=== PATIENT | female | born 1990 | race Two or more races ===

== ENCOUNTER 2024-10-02 00:08 | Emergency (ER) | payer BC, SELFPAY ==
--- NOTE | 2024-10-02 | ECG_ITS ---
Test Reason : ABD PAIN Blood Pressure : */* mmHG Vent. Rate : 64 BPM Atrial Rate : 64 BPM P-R Int : 154 ms QRS Dur : 76 ms QT Int : 408 ms P-R-T Axes : 32 18 17 degrees QTcB Int : 420 ms Normal sinus rhythm Normal ECG No previous ECGs available Referred By: Generic ED Physician Electronically Signed By: Surjit Durbin
--- NOTE | ~2024-10-02 | US_ITS ---
CLINICAL HISTORY: epigastric, RUQ pain US abdomen limited Comparison: None Findings: Images submitted of the gallbladder and biliary tree. Limited views of the liver demonstrate normal echotexture. There is no intrahepatic bile duct dilatation. The common duct is 5 mm in diameter. The gallbladder contains sludge without shadowing stone. No wall thickening or Mon's sign. No ascites. IMPRESSION: 1. Biliary sludge without evidence of acute cholecystitis. This document has been electronically signed by: Elvira Bhandari MD on 10/02/2024 06:06:12
--- NOTE | ~2024-10-02 | CT_ITS ---
CLINICAL HISTORY: bilateral flank pain, hx kidney stones CT abdomen and pelvis without contrast Comparison: None Findings: No consolidation or effusion. There is a suggestion of mild gallbladder wall thickening. The solid organs are unremarkable in appearance. and solid organs are within normal limits. No renal stones. No bowel obstruction, pneumoperitoneum, or pneumatosis. Pelvic contents unremarkable. Normal appendix. The bones are intact. IMPRESSION: 1. Suggestion of mild gallbladder wall thickening, which may be seen in the setting of acute cholecystitis. Clinical correlation is advised. Recommend gallbladder ultrasound examination and/or nuclear medicine HIDA scan for further evaluation. Two. No radiopaque renal calculi, hydronephrosis, or hydroureter. This document has been electronically signed by: Deepak Dawson MD on 10/02/2024 04:34:33
[2024-10-02 00:28] VITALS: BP 157/97; PULSE 80; RESP 16; TEMP 36.6; O2SAT 98; BMI 33.8
[2024-10-02 01:20] LABS: Basophils Percent Auto 0.3 % (0-2); Eosinophils Absolute Auto 0.6 X10*3/uL (0.0-0.4); Eosinophils Percent Auto 6.5 % (0-4); Hematocrit 36.8 % (37.0-47.0); Hemoglobin 12.3 g/dl (12.0-16.0); Imm Gran Abs Auto 0.02 X10*3/uL (0.00-0.03); Imm Gran Pct Auto 0.2 % (0.0-0.4); Lymphocytes Absolute Auto 2.9 X10*3/uL (1.2-4.9); MANUAL DIFF FLAG NO; Mean Corpuscular HGB Conc 33.4 g/dl (31.0-35.0); Mean Corpuscular Hemoglobin 28.3 pg (27.0-33.0); Mean Corpuscular Volume 84.8 fL (80.0-98.0); Mean Platelet Volume 9.5 fL (9.4-12.3); Monocytes Absolute Auto 0.6 X10*3/uL (0.1-1.2); Monocytes Percent Auto 6.9 % (2-11); Neutrophils Absolute Auto 4.6 x10*3/uL (2.0-8.3); Neutrophils Percent Auto 53.1 % (45-73); Platelet Count 231 X10*3/uL (160-400); Red Blood Count 4.34 X10*6/uL (4.20-5.50); Red Cell Distribution Width 12.7 % (11.0-16.0); White Blood Count 8.7 X10*3/uL (4.8-10.8)
[2024-10-02 01:37] LABS: Alanine Aminotransferase 26 U/L (0-31); Albumin Level 4.1 g/dL (3.5-5.0); Anion Gap 13 (12-20); Aspartate Amino Transferase 22 U/L (5-31); Bilirubin Total 0.2 mg/dL (0.0-1.0); Blood Urea Nitrogen 17 mg/dL (9-16); Calcium 9.4 mg/dL (8.4-10.2); Carbon Dioxide 23 mmol/L (22-29); Chloride 107 mmol/L (96-108); Creatinine Clr Calc Pharmacy 103.8; Estimated Glomerular Filt Rate > 60; Glucose Random 101 mg/dL (60-115); Lipase 40 U/L (8-78); Sodium 139 mmol/L (135-145); Total Protein 7.8 g/dL (6.5-8.0)
[2024-10-02 01:41] LABS: Alkaline Phosphatase 52 U/L (39-117)
[2024-10-02 01:44] LABS: Troponin-I High Sensitivity < 2.7 ng/L (<3.5-17.0)
[2024-10-02 02:56] LABS: HCG Quantitative < 2 mIU/mL
[2024-10-02 03:01] LABS: Appearance Urine Clear; Color Urine Yellow; Glucose Urine UA Negative (Negative); Leukocyte Esterase Urine Negative (Negative); Nitrite Urine Negative (Negative); Specific Gravity - Urine 1.015 (1.005-1.025); Urine Blood Negative (Negative); Urine Ketones Negative (Negative); Urine Protein Negative (Neg-Trace)
[2024-10-02 03:03] LABS: Bacteria Urine None Seen (None Seen); Hyaline Casts Urine 0-2 /LPF (0-2); RBC Urine 0-2 /HPF (0-2); WBC Urine 0-5 /HPF (0-5)
--- NOTE | 2024-10-02 03:20 | ED_ITS ---
HPI - Abdominal Pain General Chief Complaint: Abdominal Pain Stated Complaint: kidney pain Time Seen by Provider: 10/02/24 02:18 Source: patient Mode of arrival: ambulatory Limitations: no limitations History of Present Illness ED Provider: Dr. Shana Darnell HPI narrative: Patient comes to the emergency room complaining of bilateral flank pain and epigastric pain. Patient states that when she was 17 years old she passed kidney stones that she has a similar sensation. Patient states that this time she has been having intermittent pain for couple of months but over the last few days it has been more constant. Patient denies hematuria or dysuria. Patient denies fever chills. Related Data Previous Rx's ?Medication ?Instructions ?Recorded hyoscyamine sulfate 0.125 mg tablet 0.125 mg PO QID PRN dyspepsia #14 10/02/24 tabs Allergies Allergy/AdvReac Type Severity Reaction Status Date / Time No Known Allergies Allergy Verified 10/02/24 00:35 Review of Systems Review of Systems Constitutional : No Weight loss, No Fever, No Chills, No Night Sweats, No Fatigue, No Malaise ENT/Mouth : No Hearing loss, No Ear Pain, No Nasal Congestion, No Sinus Pain, No Hoarseness, No sore throat, No Rhinorrhea, No Swallowing Difficulty Eyes: No Eye Pain, No Swelling, No Redness, No Foreign Body, No Discharge, No Vision Changes Cardiovascular : No Chest Pain, No SOB, No Dyspnea on Exertion, No Orthopnea, No Edema, No Palpitations Respiratory : No Cough, No Sputum, No Wheezing, No Smoke Exposure, No Dyspnea Gastrointestinal : No Nausea, No Vomiting, No Diarrhea, No Constipation, complaining of mild epigastric pain radiating towards bilateral flanks Genitourinary : no irregular bleeding, No Dysuria, No Urinary Frequency, No Hematuria, No Urinary Incontinence, No Urgency, No Flank Pain, No Urinary Flow Changes, No Hesitancy Musculoskeletal : No joint pain, No Myalgias, No Joint Swelling Skin : No Skin Lesions, No rash Neuro : No Weakness, No Numbness, No Paresthesias, No Loss of Consciousness, No Dizziness, No Headache Psych : No Anxiety/Panic, No Depression, No SI/HI/AH/VH, No Social Issues, Heme/Lymph: No Bruising, No Bleeding,No Lymphadenopathy Endocrine : No Polyuria, No Polydipsia, No Temperature Intolerance [facility] Past Medical History Medical History (Updated 10/02/24 @ 06:28 by Shana Darnell MD) Kidney stones Social History Social History Unable to assess alcohol history related to: Unknown Smoked in Last 30 Days: No Use of substances other than those prescribed or required for medical reasons: Unknown Advance Directives: No Advance Directives Information Provided: No Do you have a plan to hurt others: No Plan Patient : No Physical Exam ED Vital Signs: Vital Signs - 24 hr 10/02/24 00:28 10/02/24 03:55 Temperature 97.9 F 98.0 F Pulse Rate 80 69 Respiratory Rate 16 12 Blood Pressure 157/97 H 114/73 Pulse Oximetry 98 99 Oxygen Delivery Method Room Air Room Air BMI result Body Mass Index 33.8 Const Other: Appearance: Alert. Oriented X3. No acute distress. Well-appearing Eyes: Pupils equal, round and reactive to light. ENT: Pharynx normal. Neck: Normal inspection. Neck supple. No lymph nodes noted. No crepitus CVS: Normal heart rate and rhythm. Pulses normal. Normal S1 and S2 Respiratory: No respiratory distress. Breath sounds normal. No Wheezing. No rales Abdomen: Soft and nontender. No rigidity. No distention. No CVA tenderness at this time Skin: Skin warm and dry. Normal skin color. Normal skin turgor. Extremities: No lower extremity edema. No Lacerations. No Rash Neuro: Oriented X 3. No motor deficit. No sensory deficit. Moving all extremities. No slurred speech. CN 2 through 12 grossly intact Psych: calm, cooperative, normal affect Medical Decision Making Medical Decision Making [facility] Narrative: My interpretation of labs: No significant abnormality in patient's hematology, chemistry, LFTs normal, urinalysis negative for infection or blood in the urine. HCG negative CT scan of the abdomen/pelvis notable thickened gallbladder. Possible acute cholecystitis. Patient's LFTs normal. However patient did have abdominal pain. Ultrasound shows biliary sludge without evidence of acute cholecystitis. Patient has no significant abdominal pain, LFTs normal, unlikely that patient has acute cholecystitis. Patient feels well to go home. Patient given the phone number to follow-up with surgery if symptoms persist Differential Diagnosis Differential Diagnoses: The differential diagnosis associated with the presentation includes (UTI, pyelonephritis, kidney stones, musculoskeletal pain) Admission/Observation Consideration of admission/observation: Escalation of care including admission/observation considered Lab Data [facility] Lab Attestation statement: I reviewed the patient's lab results. 10/02/24 01:16 10/02/24 01:16 Labs: Lab Results 10/02/24 10/02/24 Range/Units 01:16 02:55 WBC 8.7 (4.8-10.8) X10*3/uL RBC 4.34 (4.20-5.50) X10*6/uL Hgb 12.3 (12.0-16.0) g/dl Hct 36.8 L (37.0-47.0) % MCV 84.8 (80.0-98.0) fL MCH 28.3 (27.0-33.0) pg MCHC 33.4 (31.0-35.0) g/dl RDW 12.7 (11.0-16.0) % Plt Count 231 (160-400) X10*3/uL MPV 9.5 (9.4-12.3) fL Immature Gran % (Auto) 0.2 (0.0-0.4) % Neut % (Auto) 53.1 (45-73) % Lymph % (Auto) 33.0 (20-40) % [place] % (Auto) 6.9 (2-11) % Eos % (Auto) 6.5 H (0-4) % Baso % (Auto) 0.3 (0-2) % Lymph # (Auto) 2.9 (1.2-4.9) X10*3/uL [place] # (Auto) 0.6 (0.1-1.2) X10*3/uL Eos # (Auto) 0.6 H (0.0-0.4) X10*3/uL Baso # (Auto) 0.0 (0.0-0.2) X10*3/uL Abs Immat Gran (auto) 0.02 (0.00-0.03) X10*3/uL Absolute Neuts (auto) 4.6 (2.0-8.3) x10*3/uL Absolute Nucleated RBC 0.000 (0.0-0.012) X10*3/uL Nucleated RBC % (auto) 0.0 (0.0-0.2) /100WBC Sodium 139 (135-145) mmol/L Potassium 4.0 (3.3-5.1) mmol/L Chloride 107 (96-108) mmol/L Carbon Dioxide 23 (22-29) mmol/L Anion Gap 13 (12-20) BUN 17 H (9-16) mg/dL Creatinine 0.81 (0.5-1.4) mg/dL Estim Creat Clear Calc 103.8 Estimated GFR > 60 Random Glucose 101 (60-115) mg/dL Calcium 9.4 (8.4-10.2) mg/dL Total Bilirubin 0.2 (0.0-1.0) mg/dL AST 22 (5-31) U/L ALT 26 (0-31) U/L Alkaline Phosphatase 52 (39-117) U/L Troponin I High Sens < 2.7 (<3.5-17.0) ng/L Total Protein 7.8 (6.5-8.0) g/dL Albumin 4.1 (3.5-5.0) g/dL Lipase 40 (8-78) U/L Beta HCG, Quant < 2 mIU/mL Urine Color Yellow Urine Appearance Clear Urine pH 6.0 (5.0-9.0) Ur Specific [place] 1.015 (1.005-1.025) Urine Protein Negative (Neg-Trace) mg/dL Urine Glucose (UA) Negative (Negative) mg/dL Urine Ketones Negative (Negative) mg/dL Urine Blood Negative (Negative) Urine Nitrite Negative (Negative) Ur Leukocyte Esterase Negative (Negative) Urine RBC 0-2 (0-2) /HPF Urine WBC 0-5 (0-5) /HPF Ur Squamous Epith Cells 3-5 (0-2) /HPF Urine Bacteria None Seen (None Seen) Hyaline Casts 0-2 (0-2) /LPF Independent Interpretation I performed an independent interpretation of an: Ultrasound and CT Scan Radiology Impression Discussion of test interpretation with radiology: I have reviewed the radiologist's reading. Radiologist Impression: Images submitted of the gallbladder and biliary tree. Limited views of the liver demonstrate normal echotexture. There is no intrahepatic bile duct dilatation. The common duct is 5 mm in diameter. The gallbladder contains sludge without shadowing stone. No wall thickening or Mon's sign. No ascites. IMPRESSION: 1. Biliary sludge without evidence of acute cholecystitis. Findings: No consolidation or effusion. There is a suggestion of mild gallbladder wall thickening. The solid organs are unremarkable in appearance. and solid organs are within normal limits. No renal stones. No bowel obstruction, pneumoperitoneum, or pneumatosis. Pelvic contents unremarkable. Normal appendix. The bones are intact. IMPRESSION: 1. Suggestion of mild gallbladder wall thickening, which may be seen in the setting of acute cholecystitis. Clinical correlation is advised. Recommend gallbladder ultrasound examination and/or nuclear medicine HIDA scan for further evaluation. Two. No radiopaque renal calculi, hydronephrosis, or hydroureter. Critical Care Time Critical Care Time Critical Care Time: Yes Total Critical Care Time: 35 Attestation: I have personally provided critical care time. Time includes review of lab data, radiology results, discussion with consultants, and monitoring for potential decompensation. Intervention performed as documented. Discharge Plan Discharge Clinical Impression: Abdominal pain Patient Disposition: Home, Self-Care Instructions: Abdominal Pain (ED) Additional Instructions: Please follow-up with your primary care physician tomorrow. If you have any worsening or new symptoms, please return to the emergency room or call 911 Prescriptions: New hyoscyamine sulfate 0.125 mg tablet 0.125 mg PO QID PRN (Reason: dyspepsia) Qty: 14 0RF Stand Alone Forms: Work/School Release Print Language: Martiniquais
[2024-10-02 03:55] VITALS: BP 114/73; PULSE 69; RESP 12; TEMP 36.7; O2SAT 99
[2024-10-02 06:38] VITALS: BP 129/80; PULSE 81; RESP 16; TEMP 36.7; O2SAT 97
== END 2024-10-02 06:39 | disposition home or self-care (01) ==
PROVIDERS: Emergency Provider Emergency Medicine
DX: R10.2 Pelvic and perineal pain (principal); R10.13 Epigastric pain; R10.11 Right upper quadrant pain; Z79.899 Other long term (current) drug therapy
CPT/HCPCS: 36415; 74176; 76705; 80053; 81001; 83690; 84484; 84702; 85025; 93005; 99284

== ENCOUNTER → 2024-10-02 01:11 | Outpatient (BNV) | payer BC, SELFPAY | PROVIDERS: Emergency Provider Emergency Medicine; Visit Provider Internal Medicine Cardiovascular Disease | DX: R10.13 Epigastric pain (principal) | CPT/HCPCS: 93010 ==

== ENCOUNTER → 2024-10-02 03:02 | Outpatient (BNV) | payer BC, SELFPAY | PROVIDERS: Emergency Provider Emergency Medicine; Visit Provider Radiology Diagnostic Radiology | DX: R10.9 Unspecified abdominal pain (principal); K82.8 Other specified diseases of gallbladder | CPT/HCPCS: 76705 ==

== ENCOUNTER 2024-11-13 19:34 | Inpatient (IN) | payer BC, SELFPAY ==
--- NOTE | ~2024-11-13 | US_ITS ---
CLINICAL HISTORY: EPIGASTRIC ruq PAIN US abdomen limited. COMPARISON: US abdomen limited dated 10/02/24 at 05:27 EST Technique: Real time sonographic imaging, including color-flow imaging, was performed by the granite countertop installer. Multiple automotive leasing sales representative static images were saved for review. FINDINGS: The gallbladder is normal in size. No pericholecystic fluid. Gallbladder sludge present. There is a positive sonographic Mon's sign. Gallbladder wall: 2-3 mm, within normal limits Common bile duct: 4 mm, normal. No free intraperitoneal fluid identified. IMPRESSION: 1. Sludge filled gallbladder with positive sonographic Mon's sign. This can be associated with cholecystitis. Of note however there is no gallbladder wall thickening or pericholecystic fluid. This document has been electronically signed by: Ramone Alfred MD on 11/13/2024 20:49:43
[2024-11-13 19:38] VITALS: BP 144/101; PULSE 86; RESP 18; TEMP 36.6; O2SAT 98; BMI 32.6
--- NOTE | 2024-11-13 19:44 | ED_ITS ---
HPI - General Adult General Chief complaint: Abdominal Pain Stated complaint: gallbladder pain Time Seen by Provider: 11/13/24 21:53 Source: patient Mode of arrival: ambulatory Limitations: no limitations History of Present Illness ED Provider: DR. Durbin HPI narrative: 34-year-old female came in for evaluation of right upper quadrant pain started about 3-4 days, pain is related to any food she eats causing right upper quadrant pain that radiates to her right flank and right shoulder, for the last day pain is becoming constant and localized to the right upper quadrant area, no fever, no chills, feeling nauseous no vomiting. Never had intra-abdominal surgery in the past, last bowel movement was this morning and was normal with no blood. No dysuria, no frequency urination, no blood in the urine. Patient follow-up with GI for her chronic right upper quadrant pain. Related Data Home Medications ?Medication ?Instructions ?Recorded ?Confirmed acetaminophen 500 mg tablet 1,000 mg PO Q8H PRN Pain 11/14/24 11/14/24 budesonide-formoterol HFA 160 1 inh inhalation BID 11/14/24 mcg-4.5 mcg/actuation aerosol inhaler hyoscyamine sulfate 0.125 mg tablet 0.125 mg PO DAILY 11/14/24 levalbuterol tartrate 45 2 puff inhalation Q4-6H PRN 11/14/24 11/14/24 mcg/actuation aerosol inhaler Shortness Of Breath Or Wheezing levothyroxine 88 mcg tablet 88 mcg PO DAILY@0600 11/14/24 11/14/24 pantoprazole 40 mg tablet,delayed 40 mg PO DAILY@0630 11/14/24 release Allergies Allergy/AdvReac Type Severity Reaction Status Date / Time No Known Allergies Allergy Verified 11/13/24 19:39 Review of Systems 2 Review of Systems: all other systems are reviewed and are negative Constitutional: Reports as per HPI and Reports no additional constitutional complaints Eyes: Reports as per HPI and Reports no additional eye complaints Reports system reviewed and no additional complaints, except as documented Cardiovascular: Reports as per HPI and Reports no additional cardiovascular complaints Respiratory: Reports as per HPI and Reports no additional respiratory complaints Gastrointestinal: Reports as per HPI and Reports no additional gastrointestinal complaints Genitourinary: Reports no additional female genitourinary complaints Musculoskeletal: Reports no additional musculoskeletal complaints Skin/Breast: Reports system reviewed and no additional complaints, except as docu Psychiatric: Reports no additional psychiatric complaints Endocrine: Reports no additional endocrine complaints Hematologic/Lymphatic: Reports no additional hematologic/lymphatic complaints Allergic/Immunologic: Reports no additional allergic/immunologic complaints Reports system reviewed and no additional complaints, except as documented and Reports Abnormal speech present [facility] Past Medical History Medical History (Updated 11/13/24 @ 22:25 by Wilfrid Durbin MD) Kidney stones Surgical History (Updated 11/14/24 @ 14:34 by Nathalie Aparicio RN) History of liposuction Social History Social History Unable to assess alcohol history related to: Unknown Alcohol intake: never Patient Tobacco Use Status: Never used Tobacco service: No Physical Exam ED Vital Signs: Vital Signs - 24 hr 11/13/24 19:38 Temperature 97.9 F Pulse Rate 86 Respiratory Rate 18 Blood Pressure 144/101 H Pulse Oximetry 98 Oxygen Delivery Method Room Air BMI result Body Mass Index 32.6 Vital signs have been reviewed and appear to be correct. Blood pressure elevated. Heart rate normal. Respiratory rate normal. Temperature normal. Oxygen saturation normal. Appearance: Alert. Oriented X3. No acute distress. Head: Normal external exam. Normocephalic. Atraumatic. No Youssef signs noted. No raccoon eyes noted Eyes: PERRLA. EOMI. Conjunctiva and sclera normal. Eyelids normal. ENT: TM's Normal. Pharynx normal. Uvula midline. Moist mucous membranes. No trismus noted. No drooling noted. No muffled voice noted. Neck: Normal inspection. Neck supple. FROM. No adenopathy. Thyroid Normal. No meningeal signs. No neck mass noted. CVS: Normal heart rate and rhythm. Heart sound normal. No murmurs noted. Pulses normal throughout. Respiratory: No respiratory distress. Painless inspiration. Breath sounds normal. No wheezes/rales/rhonchi noted. Chest nontender. No accessory muscle usage noted or decreased air movement noted. Abdomen: Soft, right upper quadrant tenderness, +Mon sign.. Bowel sounds normal in all 4 quadrants. No distention noted. No organomegaly noted. No visible injury noted. Back: No CVA tenderness. Full range of motion noted. Skin: Skin warm and dry. Normal skin color. Normal skin turgor. No rashes/lesions/lacerations noted. Extremities: No lower extremity edema. Extremities exhibit normal range of motion. Extremities nontender. Neuro: Oriented X 3. Cranial nerve exam: II-XII are grossly intact No motor deficit. No sensory deficit. Reflexes normal. Course Course Course Narrative: rme: THE PATIENT IS YEAR OLD FEMALE PRESENTS TO ED FOR RIGHT UPPER QUADRANT PAIN RADIATING TO SHOULDER AND BACK WITH NAUSEA AND DIARRHEA. PATIENT HAS FOLLOW-UP WITH GI ON THE January. PATIENT HAS HAD ULTRASOUND WHICH SHOWED SLUDGE IN THE PAST. Reevaluation(s) Reevaluation #1: Acute on chronic right upper quadrant pain, +Mon sign, ultrasound raising suspicion of acute cholecystitis case discussed with Dr. Coleman. 1. Admit to surgical service. 2. Pain control. 3. Broad-spectrum antibiotic covera, no criteria for sepsis. Time: 22:21 Medications Administered Generic Name Dose Route Start Last Admin Trade Name Freq PRN Reason Stop Dose Admin Acetaminophen 650 mg 11/13/24 22:18 11/14/24 09:05 Acetaminophen 325 Mg Tablet PO 650 mg Q6H PRN Administration Pain, Mild 1-3,fever,headache Hydromorphone HCl 0.5 mg 11/13/24 22:18 11/14/24 19:31 Hydromorphone Hcl 0.5 Mg/0.5 Ml Syringe IVPUSH 0.5 mg Q3H PRN Administration Pain, Severe (Pain Scale 7-10) Protocol Dextrose/Lactated Ringer's 1,000 mls @ 125 mls/hr 11/13/24 22:30 11/14/24 05:49 D5lr IVCONT 125 mls/hr .Q8H GARETT Administration Piperacillin Sod/Tazobactam 50 mls @ 100 mls/hr 11/13/24 23:00 11/14/24 16:55 Sod 3.375 gm/ Sodium Chloride IV 100 mls/hr Q6H GARETT Administration Sodium Chloride 3 ml 11/14/24 00:00 11/14/24 09:06 0.9 % Sodium Chloride Flush 3 Ml Syringe IVFLUSH Not Given QSHIFT GARETT Discontinued Medications Generic Name Dose Route Start Last Admin Trade Name Freq PRN Reason Stop Dose Admin Piperacillin Sod/Tazobactam 50 mls @ 100 mls/hr 11/13/24 22:08 11/13/24 23:30 Sod 3.375 gm/ Sodium Chloride IV 11/13/24 22:37 Infused ONCE ONE Infusion Sodium Chloride 1,000 mls @ 999 mls/hr 11/13/24 22:08 11/13/24 23:55 Ns IV 11/13/24 23:08 Infused .Q1H1M ONE Infusion Ketorolac Tromethamine 15 mg 11/13/24 22:08 11/13/24 22:33 Ketorolac Tromethamine 15 Mg/Ml Vial IVPUSH 11/13/24 22:09 15 mg ONCE ONE Administration Morphine Sulfate 1 mg 11/13/24 22:08 11/13/24 22:33 Morphine Sulfate 2 Mg/Ml Cartridge IVPUSH 11/13/24 22:09 1 mg ONCE ONE Administration Protocol Medical Decision Making Differential Diagnosis Differential Diagnoses: The differential diagnosis associated with the presentation includes ( Cholelithiasis, cholecystitis, pancreatitis, colitis, UTI, pyelonephritis, electrolyte derangement, severe anemia.) Admission/Observation Consideration of admission/observation: Escalation of care including admission/observation considered Consult Healthcare Provider Management of the patient was discussed with: Glass Bulb Silverer ( Dr. Coleman) Lab Data MDM Lab Attestation statement: I reviewed the patient's lab results. 11/13/24 19:54 11/13/24 19:54 Labs: Lab Results 11/13/24 Range/Units 19:54 WBC 7.4 (4.8-10.8) X10*3/uL RBC 4.44 (4.20-5.50) X10*6/uL Hgb 12.3 (12.0-16.0) g/dl Hct 37.2 (37.0-47.0) % MCV 83.8 (80.0-98.0) fL MCH 27.7 (27.0-33.0) pg MCHC 33.1 (31.0-35.0) g/dl RDW 12.9 (11.0-16.0) % Plt Count 280 (160-400) X10*3/uL MPV 9.4 (9.4-12.3) fL Immature Gran % (Auto) 0.1 (0.0-0.4) % Neut % (Auto) 50.3 (45-73) % Lymph % (Auto) 37.4 (20-40) % [place] % (Auto) 6.9 (2-11) % Eos % (Auto) 4.9 H (0-4) % Baso % (Auto) 0.4 (0-2) % Lymph # (Auto) 2.8 (1.2-4.9) X10*3/uL [place] # (Auto) 0.5 (0.1-1.2) X10*3/uL Eos # (Auto) 0.4 (0.0-0.4) X10*3/uL Baso # (Auto) 0.0 (0.0-0.2) X10*3/uL Abs Immat Gran (auto) 0.01 (0.00-0.03) X10*3/uL Absolute Neuts (auto) 3.7 (2.0-8.3) x10*3/uL Absolute Nucleated RBC 0.000 (0.0-0.012) X10*3/uL Nucleated RBC % (auto) 0.0 (0.0-0.2) /100WBC Sodium 139 (135-145) mmol/L Potassium 4.0 (3.3-5.1) mmol/L Chloride 109 H (96-108) mmol/L Carbon Dioxide 21 L (22-29) mmol/L Anion Gap 13 (12-20) BUN 17 H (9-16) mg/dL Creatinine 0.82 (0.5-1.4) mg/dL Estim Creat Clear Calc 100.7 Estimated GFR > 60 Random Glucose 97 (60-115) mg/dL Calcium 9.3 (8.4-10.2) mg/dL Total Bilirubin 0.2 (0.0-1.0) mg/dL AST 24 (5-31) U/L ALT 26 (0-31) U/L Alkaline Phosphatase 53 (39-117) U/L Total Protein 8.2 H (6.5-8.0) g/dL Albumin 4.3 (3.5-5.0) g/dL Lipase 38 (8-78) U/L Beta HCG, Quant < 2 mIU/mL Independent Interpretation I performed an independent interpretation of an: Ultrasound ( abdominal:1. Sludge filled gallbladder with positive sonographic Mon's sign. This can be associated with cholecystitis. Of note however there is no gallbladder wall thickening or pericholecystic fluid.) Radiology Impression Discussion of test interpretation with radiology: I have reviewed the radiologist's reading. Discharge Plan Discharge Clinical Impression: Right upper quadrant abdominal pain, Acute cholecystitis Patient Disposition: Admitted As Inpatient Discharge Date/Time: 11/14/24 14:41
[2024-11-13 19:59] LABS: MANUAL DIFF FLAG NO
[2024-11-13 20:00] LABS: Basophils Percent Auto 0.4 % (0-2); Eosinophils Absolute Auto 0.4 X10*3/uL (0.0-0.4); Eosinophils Percent Auto 4.9 % (0-4); Hematocrit 37.2 % (37.0-47.0); Hemoglobin 12.3 g/dl (12.0-16.0); Imm Gran Abs Auto 0.01 X10*3/uL (0.00-0.03); Imm Gran Pct Auto 0.1 % (0.0-0.4); Lymphocytes Absolute Auto 2.8 X10*3/uL (1.2-4.9); Lymphocytes Percent Auto 37.4 % (20-40); Mean Corpuscular HGB Conc 33.1 g/dl (31.0-35.0); Mean Corpuscular Hemoglobin 27.7 pg (27.0-33.0); Mean Corpuscular Volume 83.8 fL (80.0-98.0); Mean Platelet Volume 9.4 fL (9.4-12.3); Monocytes Absolute Auto 0.5 X10*3/uL (0.1-1.2); Monocytes Percent Auto 6.9 % (2-11); Neutrophils Absolute Auto 3.7 x10*3/uL (2.0-8.3); Neutrophils Percent Auto 50.3 % (45-73); Platelet Count 280 X10*3/uL (160-400); Red Blood Count 4.44 X10*6/uL (4.20-5.50); Red Cell Distribution Width 12.9 % (11.0-16.0); White Blood Count 7.4 X10*3/uL (4.8-10.8)
[2024-11-13 20:14] LABS: Alanine Aminotransferase 26 U/L (0-31); Albumin Level 4.3 g/dL (3.5-5.0); Alkaline Phosphatase 53 U/L (39-117); Anion Gap 13 (12-20); Aspartate Amino Transferase 24 U/L (5-31); Bilirubin Total 0.2 mg/dL (0.0-1.0); Blood Urea Nitrogen 17 mg/dL (9-16); Calcium 9.3 mg/dL (8.4-10.2); Carbon Dioxide 21 mmol/L (22-29); Chloride 109 mmol/L (96-108); Creatinine Clr Calc Pharmacy 100.7; Estimated Glomerular Filt Rate > 60; Glucose Random 97 mg/dL (60-115); Lipase 38 U/L (8-78); Sodium 139 mmol/L (135-145); Total Protein 8.2 g/dL (6.5-8.0)
[2024-11-13 20:22] LABS: HCG Quantitative < 2 mIU/mL
--- OUTSIDE RECORDS SUMMARY | 2024-11-13 21:58 | XMS_ITS | Encounter Summary ---
Author Organization [facility] Address [address] [place] [address] Care Team Providers Care Chest Painting And Sealing Supervisor Name Role Phone Luther Echavarria Primary Care Provider [phone] Analy Bose CN Unavailable [phone] Encounter Details Date Type Department Care Team (Late st Contact Info) Description 09/17/2020 Scanned Document [facility] FAMILY MED SCAN Luther Echavarria PA [address] [place] [address] Social History Tobacco Use Types Packs/Day Years Used Date Smoking Tobacco: Never Smokeless Tobacco: Never Alcohol Use Standard Drinks/Week Comments Not Currently 0 (1 standard drink = 0.6 oz pur e alcohol) Sex and Gender Information Value Date Recorded Sex Assigned at Female 04/01/2023 10:33 AM EDT Gender Identity Female 12/03/2020 7:53 AM EDT Sexual Orientation Heterosexual (straight) 12/03 7:53 AM EDT documented as of this encounter Plan of Treatment Upcoming Encounters Date Type Department Care Team (Late st Contact Info) Description 01/13/2025 9:00 AM EDT Consult [facility] [address] [place] [address] Holley Webb PA-C [address] [place] [id number] documented as of this encounter Visit Diagnoses Not on filedocumented in this encounter Care Teams Chest Painting And Sealing Supervisor Relationship Specialty Start Date End Date Luther Echavarria PA [address] [place] [address] PCP - General Family Medicine 08/02/20 Analy Bose CNM [address] [place] [id number] 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
--- OUTSIDE RECORDS SUMMARY | 2024-11-13 21:58 | XMS_ITS | Data Portability ---
Author Organization [place] [facility] Prasad Higginbotham [place] Address [address] [place] [address] Assessment Encounter Date Assessment Date Assessment LastModified by Organization Details LastModified Time 02/02/2024 02/02/2024 The above findings were discussed in detail today with patient. She has evidence of de Quervain's tenosynovitis. Pathology expected prognosis were discussed. Treatment options include rest, anti-inflammat ories, bracing, and sometimes steroid injection. Will provide her with a thumb spica splint which she will wear during the day with activities and can take off at night. She can ice and take uxxn-wqc-mxfdd er anti-inflammat ories. We discussed steroid injection which would involve a steroid shot into the first dorsal compartment. Risks and benefits of injection were discussed and she understood these risks. I did let her know it can take 1 to 2 days to start working and up to 6 weeks to take its full effect. If she gets partial relief from an injection she may need a second injection, if she gets no relief from the injection she may need surgery to release the first dorsal compartment. She understands this and would like to proceed with injection, she tolerated the procedure well. I will see her back for follow-up in 6 weeks, all her questions were answered, she is in agreement the plan. [email or web address] Not available 02/02/2024 12:39:07 Plan of Treatment Reminders Order Date Submit Date Provider Last Modified By Organization Details Last Modified Time Details Appointments None recorded. Lab None recorded. Referral None recorded. Procedures None recorded. Surgeries None recorded. Imaging XR, wrist, 3 or more view 2023 024 [email or web address] [facility], [address], [address], [place], [address], 08:38:27 Medication Orders lidocaine (PF) 10 mg/mL (1 %) injection solution 2023 024 [email or web address] Not available 13:05:51 triamcinolo ne acetonide 40 mg/mL suspension for injection 2023 024 [email or web address] Not available 13:05:51 Patient TargetsNo targets recorded. Patient Instructions Encounter Date Encounter Id Patient Instructions Last Modified By Organization Details Last Modified Time 02/02/2024 [id number] You have been provided with a cortisone injection in order to reduce the pain and inflammation that you are experiencing. The injection consists of two medications. Cortisone (an anti-inflammatory that will take 48-72 hours to take effect) and Lidocaine (a numbing agent that will last 2-3 hours). Please note that not everyone will have a lasting response following the injection. PATIENT INSTRUCTIONS Once the Lidocaine wears off, you may have an increase in your pain. I recommend icing the affected area for 20 minutes 3-4 times per day. It is recommended that you refrain from any high level activities using the joint or limb that was injected for approximately 24-48 hours. Normal day-to-day activities are generally not a problem. POSSIBLE SIDE EFFECTS Individuals with dark complexions may experience some skin discoloration locally at the site of the injection. There is the possibility of an increase in discomfort within 48 hours following the injection. This is called a ? f lare? . To help minimize the chances of this, please see the post-injection instructions above. There is a less than 1% chance of an infection. If you notice any signs of infection (redness, warmth, drainage, fever greater than 100 degrees) please call our office or contact us through the portal [employer]. [email or web address] Not available 02/02/2024 12:36:55 3 views of the right wrist were ordered and reviewed today, this demonstrates no acute findings. No fracture or dislocation noted. There is good mineralization of the bones. [email or web address] Not available 02/02/2024 12:37:26 Reason for Referral None Reported. Problems Name Problem SNOMED Code Status Onset Date Resolution Date Notes Provider Name and Address Organization Details Recorded Time Radial styloid tenosynovitis 20528875 Active 2023 Stacy love MD [address], [place], [address], [place] [facility] 12:36:30 Problem Notes None recorded. Procedures Surgical History Date Name Laterality Status Provider Name and Address Organization Details Recorded Time LES trigger finger/De Quervain's injection completed Stacy Alas MD [address], [place], [address], [place] [facility] 02/02/2024 12:36:17 Imaging Results None recorded. Procedure Notes None recorded. Medical Equipment None Reported. Medications Name Sig Start Date Stop Date Status Note LastModified by Organization Details LastModified Time acetaminoph en 325 mg tablet 02/01 completed Not Available Not Available Not Available metronidazo le 0.75 % (37.5 mg/5 gram) vaginal gel active Not Available Not Available Not Available clotrimazol e 1 % vaginal cream 02/01 completed Not Available Not Available Not Available ondansetron 8 mg disintegrat ing tablet 02/01 completed Not Available Not Available Not Available levothyroxi ne 100 mcg tablet 02/01 completed Not Available Not Available Not Available levothyroxi ne 88 mcg tablet active Not Available Not Available Not Available triamcinolo ne acetonide 40 mg/mL suspension for injection Take 20 mg by injection route. 2023 active Not Available Not Available Not Avai lable ibuprofen 600 mg tablet 02/01 completed Not Available Not Available Not Available ondansetron 4 mg disintegrat ing tablet 02/01 completed Not Available Not Available Not Available metformin ER 500 mg tablet,exte nded release 24 hr active Not Available Not Available Not Available levothyroxi ne 112 mcg tablet 02/01 completed Not Available Not Available Not Available 1.5/30 (28) 1.5 mg-30 mcg (21)/75 mg (7) tablet 02/01 completed Not Available Not Available Not Available lidocaine (PF) 10 mg/mL (1 %) injection solution Take 1 mL by injection route. 2023 active Not Available Not Available Not Avai lable Tri-Estaryl la (28) 0.18 mg(7)/0.215 mg(7)/0.25 mg(7)-35 mcg tablet active Not Available Not Available N ot Available Vitron-C 65 mg iron-125 mg tablet,lina yed release 02/01 completed Not Available Not Available Not Available Vitals Date Recorded Body height Body mass index (BMI) Body weight Provider Name and Address Organization Details Last Updated DateTime 02/02/2024 162.56 cm 31.8 kg/m2 [address].[address] [place] [facility] 02/02/2024 11:23:47 Social History Question Answer Notes LastModified by Organizat ion Details LastModified Time Tobacco Smoking Status Never Smoker Neva Collins null, [place] [facility] 02/02/2024 11:23:59 What Is Your Level Of Alcohol Consumption? Occasional [email or web address] Information not available 02/02/2024 Do You Use Any Illicit Or Recreational Drugs? No [email or web address] Information not available 02/02/2024 Do You Or Have You Ever Used Any Other Forms Of Tobacco Or Nicotine? No [email or web address] Information not available 02/02/2024 Sex: Unknown Functional Status None recorded. Mental Status None recorded. Family History Nothing Reported. Medical History Condition Response Anemia Y Asthma Y Gynecological HistoryNo gynecological history recorded. Obstetrics History GPAL:G 0 P 0 0 0 0 Past Encounters Encounter ID Performer Location Encounter Start Date Encounter Closed Date Diagnosis/Indication Diagnosis SNOMED-CT Code Diagnosis ICD10 Code Diagnosis Note [id number] MD NORMA Villa [address] [place] [phone] 02/02/2024 11:03:07 02/02/2024 12:02:20 Pain of right wrist 0988391545 55792 M25.531 Additional diagnosis detail: Right wrist pain Radial sty loid tenosynovitis 97406720 M65.4 Additional diagnosis detail: Radial styloid tenosynovi tis [de quervain] Health Concerns Section Related Observation LastModified by Organization Detai ls LastModified Time None Recorded Concern Status LastModified by Organization Details LastModified Time None Recorded Advance Directives Directive None Recorded Payers Encounter Date Sequence Insurance Name Policy Number Policy Hanson Covered Member ID Hanson Member ID Guarantor Name 02/02/2024 1 [place] [employer] - [facility] (POS) [id number] Sera Stearns [id number] Radha Stearns Notes Date Note Type Note Provider Name and Address Organization Details Recorded Time 02/02/2024 text/html This is a 33-year-old jckne-sfyo-smxjfw nt female who is presenting with right radial sided wrist pain for the last 5 months. This started around the time that her son was born August 2023. She notes pain at the radial side of her wrist that radiates into her thumb and her forearm. This is worse with lifting. She has not had a wrist splint she bought on [employer], icing, heating, and ibuprofen which does not seem to help. She denies any numbness or tingling. Stacy Alas MD [address], [place], [address], [place] [facility] 02/02/2024 12:39:40 OBGyn Episode No OBEpisode recorded.
--- OUTSIDE RECORDS SUMMARY | 2024-11-13 21:58 | XMS_ITS | Encounter Summary ---
Author Organization [facility] Address [address] [place] [address] Care Team Providers Care Surveillance Analyst Name Role Phone Luther Echavarria Primary Care Provider [phone] Analy Bose CNM Unavailable [phone] Encounter Details Date Type Department Care Team (Late Contact Info) Description 05/31/2024 Scanned Document [facility] SCAN Bariatrics, Scan Social History Tobacco Use Types Packs/Day Years Used Date Smoking Tobacco: Never Smokeless Tobacco: Never Alcohol Use Standard Drinks/Week Comments Not Currently 0 (1 standard drink = 0.6 oz pur e alcohol) PHQ-2 Answer Date Recorded PHQ-2 Total Score 0 10/25/2021 Sex and Gender Information Value Date Recorded Sex Assigned at Female 04/01/2023 10:33 AM EDT Gender Identity Female 12/03/2020 7:53 AM EDT Sexual Orientation Heterosexual (straight) 12/03 7:53 AM EDT documented as of this encounter Plan of Treatment Upcoming Encounters Date Type Department Care Team (Late st Contact Info) Description 01/13/2025 9:00 AM EDT Consult [facility] [address] [place] [phone] Holley Webb PA-C [address] [place] [address] documented as of this encounter Visit Diagnoses Not on filedocumented in this encounter Care Teams Surveillance Analyst Relationship Specialty Start Date End Date Luther Echavarria PA [address] [place] [address] PCP - General Family Medicine 08/02/20 Analy Bose CNM [address] [place] [address] Fashion Marketer Obstetrics and Gynecology 04/03/23 documented as of this encounter
--- OUTSIDE RECORDS SUMMARY | 2024-11-13 21:58 | XMS_ITS | Encounter Summary ---
Author Organization [facility] Address [address] [place] [address] Care Team Providers Care Miniature Set Constructor Name Role Phone Luther Echavarria Primary Care Provider [phone] Analy Bose CNM Unavailable [phone] Encounter Details Date Type Department Care Team (Late Contact Info) Description 04/28/2024 Scanned Document [facility] SCAN Bariatrics, Scan Social History Tobacco [...] Description 01/13/2025 9:00 AM EDT Consult [facility] [address] [place] [phone] Holley Webb PA-C [address] [place] [address] documented as of this encounter Visit Diagnoses Not on filedocumented in this encounter Care Teams Miniature Set Constructor Relationship Specialty Start Date End Date Luther Echavarria PA [address] [place] [address] PCP - General Family Medicine 08/02/20 Analy Bose CNM [address] [place] [address] [employer] Operations Duty Manager Obstetrics and Gynecology 04/03/23 documented as of this encounter
--- OUTSIDE RECORDS SUMMARY | 2024-11-13 21:58 | XMS_ITS | Data Portability ---
Author Organization [employer] Address [address] [place] [address] Care Team Providers Care Entry Level Administrative Assistant Name Role Phone LUTHER BRANDT Primary Care Provider [phone] Assessment Encounter Date Assessment Date Assessment LastModified by Organization Details LastModified Time 03/10/2024 03/10/2024 Late Cancellation 6.27.24 --- samara Not available 03/10/2024 08:38:31 04/28/2024 04/28/2024 - Obesity class 1 Update labs before next visit, generic initial ordered Low glycemic diet, high protein breakfast, food order RD Nubia Weigh 1-2x/week, log in [employer] Increase exercise as tolerated/able - cardio and strength Start bupropion XL 150 mg daily, increasing to 300 mg as tolerated (also for energy, mood) After 2 weeks, add naltrexone 25 mg, increasing to 50 mg as tolerated Not , on OCP Mother on ozempic and doing well - Hyperlipidemia Monitor with above - RUMA Sleep study 2019 Mild, no tx indicated - Alex's hypothyroid Follows with endocrine On levothyroxine 88 mcg, reports TFTs wnl - Iron deficiency Intolerant of oral iron, increasing dietary iron, monitoring with obgyn Followup: Lab Order Set: generic initial ordered Appt w/ COLLECTION AGENT: 3 mo [email or web address] Not available 04/28/2024 10:33:19 05/31/2024 05/31/2024 Assessment: 33 yr old Female with class 1 obesity, hyperlipidemia, Alex's hypothyroid, RUMA (mild), iron deficiency presents for weight management. Nutrition Intervention: low GI, heart healthy, calorie controlled eating pattern emphasizing minimally processed whole foods Resources [employer] Counseling: Discussed strategies to manage nausea: consider smaller, more frequent meals, avoid high fat/high sugar meals and foods with strong odors. Reviewed importance of consuming adequate protein at meals - discussed options to include at meals with patient healthy plate model as tolerated for portion control slow down eating stop when full Food order: eat protein first at meals low GI eating pattern: limit refined carbs/added sugars heart healthy eating pattern: limit satuarated fats Adequate hydration and fiber for GI function as tolerated Continue to follow precautions to avoid allergens Establish regular eating pattern, avoid skipping meals - discussed strategies to support intake at dinner, simple meal options discussed based on preferences Mindful eating pattern to support positive behavior change Plan/Goals: 1. Use [employer] 2. Healthy plate model as tolerated for portion control 3. Monitor GI function - avoid sensitivities 4. Eat protein first at meals 5. Maintain consistent eating pattern, avoid skipping meals 6. Adequate hydration/fiber as tolerated f/u: SoCT akil Total Time Spent on the date of the encounter: 30 minutes which includes visit preparation time, time reviewing and independently interpreting results, [id number] time with the patient, counseling/educati ng the patient/family members/caregivers ,, care coordination, documenting clinical information in the electronic medical record, following up on referrals/results and communicating with related healthcare professionals as needed. samara Not available 05/31/2024 09:56:28 07/29/2024 07/29/2024 Class I Obesity: --Reviewed basic physiology of weight regulation --Low GI diet, protein breakfast, food order --Exercise as tolerated ? CV and resistance training --Utilize [email or web address] Josse --RD referral --Support groups --Track weight weekly online --Shift calories to earlier in the day --Reviewed medications associated with weight gain, counseled on alternatives to be discussed with prescribing provide --AOM selection ? discussed dosing and common side effects --Future: increasing dose of AOM/alternative AOMs Update labs before next visit, generic initial ordered Low glycemic diet, high protein breakfast, food order RD Nubia Weigh 1-2x/week, log in [employer] Increase exercise as tolerated/able - cardio and strength Start bupropion XL 150 mg daily, increasing to 300 mg as tolerated (also for energy, mood) After 2 weeks, add naltrexone 25 mg, increasing to 50 mg as tolerated Not , on OCP Mother on ozempic and doing well Current FDA approved anti-obesity medication discussed with the patient. The purpose of medication management is to treat the disease of obesity and facilitate improved eating behavior as well as slow the progression of weight gain and prevent regain. Patient has FDA indications for use of anti-obesity medications with a BMI>27 and co-morbid conditions. Patient has failed lifestyle intervention with nutrition and physical activity changes and pharmacotherapy is medically indicated; pt may be a good candidate for Metformin, Contrave, Topiramate, Qsymia, GLP-1, etc. Total time spent on the date of the encounter = 35 minutes, which includes visit preparation time, time reviewing and independently interpreting results, [id number]-wwsi time with the patient, counseling/educati ng patient/family members/caregivers , ordering medications/tests/ procedures, care coordination, documenting clinical information in the electronic medical record, following up on referrals/results and communicating with related healthcare professionals as needed. Followup: Lab Order Set: generic initial ordered Appt w/ MD: 3 mo Appt w/ RD: GEORGIANA [email or web address] Not available 07/29/2024 07:56:29 09/20/2024 09/20/2024 No Show [email or web address] Not available 03/2025 11:44:41 Plan of Treatment Reminders Order Date Submit Date Provider Last Modified By Organization Details Last Modified Time Details Appointments None recorded. Lab CBC w/ auto diff 2023 [facility], [address], [place], [address], 4 11:07:23 CMP, serum or plasma 2023 [facility]24 [facility], [address], [place], [address], 4 11:07:24 lipid panel, serum 2023 024 [facility], [address] [place], [address], 4 11:07:26 CRP, high sensitivity , serum or plasma 2023 024 [facility], [address], [place], [address], 4 11:07:21 HbA1c (hemoglobin A1c), blood 2023 [facility], [address], [place], [address], 4 11:07:27 insulin, serum 2023 [facility], [address], [place], [address], 4 11:07:22 TSH, serum or plasma 2023 [facility], [address], [place], [address], 4 11:07:20 vitamin B12, serum 2023 [facility], [address], [place], [address], 4 11:07:22 vitamin D, 25-hydroxy, total, serum 2023 [facility], [address], [place], [address], 4 11:07:20 T4, free, serum 2023 [email or web address], [address] [place], [address], 4 09:54:38 Referral None recorded. Procedures None recorded. Surgeries None recorded. Imaging None recorded. Medication Orders bupropion HCl XL 300 mg 24 hr tablet, extended release 2023 [id number], [address] [place], [address], 4 11:06:18 naltrexone 50 mg tablet 2023 [id number], [address] [place], [address], 11:06:18 Patient TargetsNo targets recorded. Patient Instructions Encounter Date Encounter Id Patient Instructions Last Modified By Organization Details Last Modified Time 04/28/2024 [id number] Nice speaking with you today! As a reminder -- continue working on increasing protein & veggies in your diet Increase physical activity as you're able to For medications -- Week 1- start bupropion 1/2 tablet daily in the morning Week 2 - increase bupropion to 1 tablet daily in the morning Week 3 - add naltrexone 1/2 tablet daily Week 4 - increase naltrexone to 1 tablet daily Always feel free to reach out with any questions/concern Dahiana Valles MD [email or web address] Not available 04/28/2024 11:08:30 05/31/2024 [id number] Josh Garcia! It was great to speak with you. Here are some reminders from our session today: Counseling: Discussed strategies to manage nausea: consider smaller, more frequent meals, avoid high fat/high sugar meals and foods with strong odors. Reviewed importance of consuming adequate protein at meals - discussed options to include at meals with patient healthy plate model as tolerated for portion control slow down eating stop when full Food order: eat protein first at meals low GI eating pattern: limit refined carbs/added sugars heart healthy eating pattern: limit satuarated fats Adequate hydration and fiber for GI function as tolerated Continue to follow precautions to avoid allergens Establish regular eating pattern, avoid skipping meals - discussed strategies to support intake at dinner, simple meal options discussed based on preferences Mindful eating pattern to support positive behavior change Plan/Goals: 1. Use [employer] 2. Healthy plate model as tolerated for portion control 3. Monitor GI function - avoid sensitivities 4. Eat protein first at meals 5. Maintain consistent eating pattern, avoid skipping meals 6. Adequate hydration/fiber as tolerated Please feel free to reach out with any questions Nubia Zavaleta MS RD RO[address] ENGINEER [facility] [email or web address] Not available 05/31/2024 09:57:03 Reason for Referral None Reported. Problems Name Problem SNOMED Code Status Onset Date Resolution Date Notes Provider Name and Address Organization Details Recorded Time Obesity 867110366 Active 2023 FREDI LIANG, [address], [place], [address] , [facility] [email or web address]. - [facility] 4 09:03:28 Hypothyroi dism 14210507 Active 2023 Bell chau, [facility]. - [facility] 4 10:55:25 Hyperlipid emia 34842200 Active 2023 FREDI LIANG DNP [address] [place] [address],[address], [place], [address] , [facility] - [facility] 4 09:03:28 Obstructiv e sleep apnea syndrome 94818022 Active 2023 FREDI LIANG DNP [address] [place] [address],[address], [place], [address] , [facility]. - [facility] 4 09:03:28 Hypothyroi dism due to Alex' s thyroiditi s 110273497 Active 2023 FREDI LIANG DNP [address] [place] [address],[address], [place], [address] , [facility]. - [facility] 4 09:03:28 Iron deficiency 26810351 Active 2023 FREDI LIANG DNP [address] [place] [address],[address], [place], [address] , [facility]. - [facility] 4 09:03:28 Abnormal weight gain 703859462 Active 2023 FREDI LIANG DNP [address] [place] [address],[address], [place], [address] , [facility]. - [facility] 4 09:03:27 Obese class I 1223795700571 07 Active 2023 FREDI LIANG DNP [address] [place] [address],[address], [place], [address] , [facility] [employer] [facility]. - [facility] 4 09:03:28 Endocrine/ metabolic screening Active 2023 Dahiana Forrester MD [address] [place] [address],[address], [place], [address] , [facility] [employer] [facility]. - [facility] 4 10:32:35 Problem Notes None recorded. Medical Equipment None Reported. Allergies Allergen ID Allergen Name Allergen Category Reaction Reaction Severity Criticality Documentation Date Start Date Code Code System Note Provider Name and Address Organization Details Recorded Time 3635 almond allergeni c extract food Not available Not available Not available 12/09/2023 95096 7 RxChevy Delacruz Dandypino, RD [address] [facility],[address], [place], [address], [facility]. - [facility] 4 16:16:06 3636 apple extract food Not available Not available Not available 12/09/2023 02121 65 RxNolucas Zavaleta, RD [address] [facility],[address], [place], [address], [facility]. - [facility] 4 16:16:14 3637 pear preparati on food Not available Not available Not available 12/09/2023 58363 25 RxNolucas Delacruz Dandypino, RD [address] [facility],[address], [place], [address], [facility]. - [facility] 4 16:16:20 3638 peach food Not available Not available Not available 12/09/2023 49479 UNK Nubia Alcarazgenesispino, RD [address] [facility],[address], [place], [address], [facility]. - [facility] 4 16:16:24 3639 nectarine allergeni c extract food Not available Not available Not available 12/09/2023 13176 99 RxNolucas Zavaleta, RD [address] [facility],[address], [place], [address], [facility]. - [facility] 4 16:16:30 3640 plum preparati on food Not available Not available Not available 12/09/2023 67525 7 RxChevy Alcarazgenesispino, RD [address] [facility],[address], [place], [address], [facility]. - [facility] 4 16:16:37 3641 red allergeni c extract food,medi cation Not available Not available Not available 12/09/2023 31547 1 RxNorm Nubia Zavaleta, RD [address] [facility],[address] [facility], [place], [address] , [facility]. - [facility] 4 16:16:44 Medications Name Sig Start Date Stop Date Status Note LastModified by Organization Details LastModified Time acetaminoph en 325 mg tablet 11/05 completed Not Available Not Available Not Available prednisone 10 mg tablet active Not Available Not Available Not Available naltrexone 50 mg tablet 1/2 tablet daily. After 1 week, increase to 1 tab daily 2023 active Not Available Not Available Not Avai lable metronidazo le 0.75 % (37.5 mg/5 gram) vaginal gel 02/03 completed Not Available Not Available Not Available clotrimazol e 1 % vaginal cream 11/05 completed Not Available Not Available Not Available ondansetron 8 mg disintegrat ing tablet 11/05 completed Not Available Not Available Not Available levothyroxi ne 100 mcg tablet 11/05 completed Not Available Not Available Not Available levothyroxi ne 88 mcg tablet active Not Available Not Available Not Available cephalexin 500 mg capsule 04/28 completed Not Available Not Available Not Available pantoprazol e 40 mg tablet,lina yed release 11/05 completed Not Available Not Available Not Available ibuprofen 600 mg tablet active Not Available Not Available Not Available ondansetron 4 mg disintegrat ing tablet 11/05 completed Not Available Not Available Not Available metformin ER 500 mg tablet,exte nded release 24 hr take 1 TABLET TWICE DAILY WITH FOOD 04/28 completed Not Available Not Available Not Available levothyroxi ne 112 mcg tablet 11/05 completed Not Available Not Available Not Available oxycodone 5 mg tablet active Not Available Not Available No t Available bupropion HCl XL 300 mg 24 hr tablet, extended release TAKE 1/2 TABLET BY MOUTH DAILY IN THE MORNING. AFTER 1 WEEK, INCREASE TO 1 TAB DAILY active Not Available Not Available No t Available 1.5/30 (28) 1.5 mg-30 mcg (21)/75 mg (7) tablet 05/23 /2024 completed Not Available Not Available Not Available levalbutero l HFA 45 mcg/actuati on aerosol inhaler active Not Available Not Available Not Available doxylamine 10 mg-pyridoxi ne (vit B6) 10 mg tablet,lina yed release 11/05 completed Not Available Not Available Not Available budesonide- formoterol HFA 160 mcg-4.5 mcg/actuati on aerosol inhaler active Not Available Not Available Not Available Tri-Estaryl la (28) 0.18 mg(7)/0.215 mg(7)/0.25 mg(7)-35 mcg tablet 04/28 completed Not Available Not Available Not Available Vitron-C 65 mg iron-125 mg tablet,lina yed release 11/05 completed Not Available Not Available Not Available Vitals Date Recorded Body height Body weight Body mass index (BMI) Provider Name and Address Organization Details Last Updated DateTime 04/28/2024 162.56 cm 96809.77 g 32.1 kg/m2 Dahiana Forrester MD [address] [place] [address],[address] [place], [address], [facility] [employer] [facility]. - [facility] 04/28/2024 10:30:00 Date Recorded Body weight Body height Body mass index (BMI) Provider Name and Address Organization Details Last Updated DateTime 04/28/2024 70353.49858 g 162.56 cm 32.1 kg/m2 Not Available [employer] 04/28/2024 10:33:23 Date Recorded Body weight Body height Provider Name and Address Organization Details Last Updated DateTime 04/29/2024 93858.222375 g 162.56 cm Not Available [employer] [facility] [employer] 04/29/2024 08:09:40 Date Recorded Body weight Body height Body weight Body height Body weight Body height Provider Name and Address Organization Details Last Updated DateTime 05/02/2024 45888.28 30289 g 162.56 cm 10486.2 959506 g 162.56 cm 95660.2 718735 g 162.56 cm Not Available [facility] [employer] 09:08:24 Date Recorded Body weight Body height Provider Name and Address Organization Details Last Updated DateTime 05/06/2024 18092.725112 7 g 162.56 cm Not Available [employer] 05/06/2024 07:38:22 Date Recorded Body weight Body height Provider Name and Address Organization Details Last Updated DateTime 05/10/2024 61730.909945 6 g 162.56 cm Not Available [employer] 05/10/2024 07:23:15 Date Recorded Body weight Body height Provider Name and Address Organization Details Last Updated DateTime 05/19/2024 29195.011273 1 g 162.56 cm Not Available [employer] [facility] [employer] 05/19/2024 07:13:53 Date Recorded Body height Body mass index (BMI) Body weight Provider Name and Address Organization Details Last Updated DateTime 05/31/2024 162.56 cm 31.9 kg/m2 96211.[address] [place] [address],[address], [place], [address], [facility] - [facility] 05/31/2024 08:37:57 Date Recorded Body weight Body height Body mass index (BMI) Provider Name and Address Organization Details Last Updated DateTime 05/31/2024 84347.11251 g 162.56 cm 31.9 kg/m2 Not Available [facility] [employer] 05/31/2024 08:38:36 Social History None recorded. Functional Status None recorded. Mental Status None recorded. Family History Nothing Reported. Medical History No medical history recorded. Gynecological HistoryNo gynecological history recorded. Obstetrics History GPAL:G 0 P 0 0 0 0 Past Encounters Encounter ID Performer Location Encounter Start Date Encounter Closed Date Diagnosis/Indication Diagnosis SNOMED-CT Code Diagnosis ICD10 Code Diagnosis Note [id number] Dahiana Forrester MD [address] [address] 11/05/2023 14:02:32 11/10/2023 03:58:50 Hyperlipidemia 07511331 E78.5 Obstructiv e sleep apnea syndrome 81857348 G47.33 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 134703635 E06.3 Iron deficiency 62452483 E61.1 Abnormal weight gain 161 530984 R63.5 Obese class I 1028946835 48934 E66.[id number] [address] 12/09/2023 15:57:15 12/12/2023 03:58:20 Obesity 526644250 E66.9 [id number] FREDI LIANG DNP [address] [address] 02/04/2024 09:02:41 02/10/2024 04:05:29 Obesity 082582716 E66.9 Class obesity I with HLD, RUMA, Alex' s hypothyroi dism, ROGERS Failed AOMs: none Plan: Future AOM considerat ions: Drug-induc ed Wt Gain: none The patient verbalized understand ing of all instructio ns/educati on received today regarding the plan of care and/or diagnosis. The patient has been educated and demonstrat es understand ing of the risks and benefits of the prescribed medication /s today and consents to treatment with these medication /s. Total Time Spent on the date of the encounter: 40 minutes which includes visit preparatio n time, time reviewing and independen tly interpreti ng results, face-to-fa ce time with the patient, counseling /educating the patient/fa abilio members/ca regivers, ordering medication s/labs, care coordinati on, documentin g clinical informatio n in the electronic medical record, following up on referrals/ results and communicat ing with related healthcare profession als as needed. Follow up: Hyperlipidemia 80510438 E78.5 LDL 144 Obstructiv e sleep apnea syndrome 50311903 G47.33 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 378132474 E06.3 On levothyrox ine Iron deficiency 37895374 E61.1 Monitored by [employer] [id number] Nubia Zavaleta RD [address] [address] 03/10/2024 08:28:14 03/10/2024 08:38:57 [id number] Dahiana Forrester MD [address] [address] 04/28/2024 10:29:03 05/03/2024 03:57:42 Hyperlipidemia 48190594 E78.5 Obstructiv e sleep apnea syndrome 75734167 G47.33 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 981096173 E06.3 Iron deficiency 61915249 E61.1 Abnormal weight gain 161 843578 R63.5 Obese class I 9676963956 04629 E66.9 Endocrine/ metabolic screening 526342930 Z13.228 Z13.29 Z13.21 Z13.6 Z79.899 R53.83 R79.9 Z13.220 Z13.1 Z13.0 E56.9 E53.9 E55.[id number] [address] 05/31/2024 08:22:10 06/03/2024 04:05:08 Obesity 657970421 E66.9 Hyperlipidemia 41474192 E78.5 [id number] SANTOS TWYLAMARY JANE [address] [address] 07/29/2024 09:00:23 07/29/2024 09:14:37 Obesity 270274601 E66.9 --as above Hyperlipidemia 66752597 E78.5 - Hyperlipid emiaMonito r with above Obstructiv e sleep apnea syndrome 53107128 G47.33 - OSASleep study 2019Mild, no tx indicated 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 927534242 E06.3 - Alex' s hypothyroi dFollows with endocrineO n levothyrox ine 88 mcg, reports TFTs wnl Iron deficiency 30857965 E61.1 - Iron deficiency Intolerant of oral iron, increasing dietary iron, monitoring with obgyn [id number] Nubia Zavaleta RD [address] [address] 09/20/2024 11:27:42 09/20/2024 11:45:45 Health Concerns Section Related Observation LastModified by Organization Detai ls LastModified Time None Recorded Concern Status LastModified by Organization Details LastModified Time None Recorded Advance Directives Directive None Recorded Payers None recorded. Notes Date Note Type Note Provider Name and Address Organization Details Recorded Time 03/10 text/ html Late Cancellation 03.10.24 ----03.10.24 Nutrition Follow UpPatient presents for weight management nutritional counseling HIPAA compliant synchronous video visitI have confirmed that the patient is physically located in the state of {{[facility] Vitalswt:previous wt: 181.26Highest weight/BMI: 198.0 lbs, BMI 34.0, 2023Baseline weight/BMI: 183.0 lbs, BMI 31.4 Confirm AOM and dose:metformin 500mgConfirm Frequency/Consistency:S/e: Appetite:Cravings: Behavior ChangeSuccesses:Areas needing improvement:Barriers: Nutrition IntakeDietary Restrictions/Allergies:Food Recall:B:L:D:S:Claire:Alcohol: Physical Activity:------12.09.23 Nutrition ConsultI have confirmed that the [place] Weight: 181.26Highest weight/BMI: 198.0 lbs, BMI 34.0, 2023Baseline weight/BMI: 183.0 lbs, BMI 31.4Lowest adult weight/BMI: 181.0 lbs, BMI 31.1, 2022Last weight/BMI: 183.8 lbs, BMI 31.6Total weight loss (Highest - Last): -14.2 lbs / -7.2%Total weight loss (Baseline - Last): +0.8 lbs / +0.4%Last Blood Pressure: Insufficient Number of ReadingsAverage Blood pressure: Insufficient Number of ReadingsLast Pulse: Insufficient Number of ReadingsAverage Pulse: Insufficient Number of ReadingsWEIGHT HISTORYThis weight for past 10 yrs - tried all work outs (gym, soul cycle, HIIT), meal planning - but can't break through 181 lbsFiance chef2 mo old baby boy - not , home w/baby on mat leave, not in routine yetWeight gain coincided with: Move/relocationCurrent lifestyle factors: Sedentary, Stressful, 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 Dx with hashimotos age 13 on/off levothyroxine since. Lowest 178 when working out/lifting - made her hungry. Did not lose wt but saw body composition changes. Gained 15 lbs during . Now having hard time with routine. Fianc? ? ? is a principal technologist.Initial goal: 15 lbs, support health.AOM hx or current:metformins/e: skipping days due to side effects - diarrhea - multiple times within 30 min.other medicationsJunel FE .02/10 (28)levothyroxineRelated Medical History:abnormal weight gainhyperlipidemiahypothyroidismhypothyroidi sm due to Alex's thyroiditisiron deficiency - hx supplementsobese class Iobesityobstructive sleep apnea syndromeSurgeries:Liposuction arms 2020GI:Diarrhea with metformin, normal BM after 2 days of skipping medication - normal is 2 BM daily for herchewing/swallowing: normalALLERGIESbirchwood tree - allergic to apples, pears, peaches, nectarines, plum, almonds, cherries - Throat swelling - sees allergistother nuts/seeds/fruit okSensitivities: nonePreferences: no mushrooms, no spicy foodsLABS/IMAGING3/3CBC wnlCO2 19 (L), CMP otherwise wnlGlucose 87JkG8c 5%TSH 8.57 (H), FT4 0.9TC 223, HDL 53, TG 135, LDL 144, ratio 4.2SOCIAL 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 Smaller portions for dinner with metformin. Hungry if skips protein at breakfast. Adding more veggies to meals. On weekends eating is out often - bagels for breakfast, out for dinner. 2 meals on weekends. 1/2 plate carbs, 1/4 plate veggies, 1/4 plate protein currently at home for meals.Water: 40oz per day, may drink carbonated water, poppi soda.Caffeine: coffee (creamer)Alcohol: 1x monthlyno juicePhysical Activity:Treadmill at home. No routine at the moment - will be going to gym with stepdaughter Nubia Zavaleta, RD [address] [facility],[address], [place], [address] [place] [address] [email or web address]. - [place] [facility] 4 08:38:54 04/28 text/ html 33 yr old female with class 1 obesity, hyperlipidemia, Alex's hypothyroid, RUMA (mild), post anxiety, iron deficiency presents for evaluation.Referred By SOCTPCP: Luther Brandt PASUBSPECIALIST(S):Endocrinology Dr. Chanel Coles I have confirmed that the patient is physically located in the state of {{[facility]}} VITALSHeight: 5'4 Current Weight: 187 lbs, +3 lbs from last/initial visit with me 10/2023Highest weight/BMI: 198.0 lbs, BMI 34.0, aseline weight/BMI: 184.5 lbs, BMI 31.7Lowest adult weight/BMI: 181.0 lbs, BMI 31.1, 2021Last weight/BMI: 187.0 lbs, BMI 32.1Total weight loss (Highest - Last): -11.0 lbs / -5.6%Total weight loss (Baseline - Last): +2.5 lbs / +1.4%Last Blood Pressure: 121/83; Recorded on 12/15; DeviceAverage Blood pressure: 142/90; Range: 121-162/83-96; Dates: 12/15 - 12/15Last Pulse: 103; Recorded on 12/15; DeviceAverage Pulse: 92; Range: 87-103; Dates: 12/06 - 12/15Stopped metformin - effective but frequent diarrhea even on 1 tab daily Back at work, baby 8 mo old - back in regular routine. Not breast feeding. Baby up frequently overnight, sleep very interruptedOn/off OCP due to refill issues Mood overall stable, depends on sleep quality Previous AOMs:[Metformin XR 500 mg daily - effective, diarrhea] ANNE Delacruz working on [employer] B: oatmeal with almond milk and pb, hard boiled eggs with cheese, bagel w/cc on weekend, coffee w/2 sugarsL: leftoversD: chicken with rice, pasta with proteinS: pretzelsB: water, seltzer, etoh 1 drink every few weeks Walks with baby and dog 4-5x/wk WEIGHT HISTORYThis weight for past 10 yrs - tried all work outs (gym, soul cycle, HIIT), meal planning - but can't break through 181 lbsFiance chef2 mo old baby boy - not , home w/baby on mat leave, not in routine yet Weight gain coincided with: Move/relocationCurrent lifestyle factors: Sedentary, Stressful, 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, Free/junk food availableMotivation for weight loss: Improve health, Increase mobility, To look or feel betterChallenges: Always regain lost weight, Hard to stick to a diet/program, Schedule/lifestyle, Strong cravingsPrevious diets: as abovePrevious anti-obesity medications: noPrevious bariatric surgeries/procedures/devices: noDIETARY RECALLBreakfast: coffee with almond milk creamer, skips or whatever is available - croissant, muffinLunch: leftovers, sandwichDinner: rice/pasta with proteinSnacks: cookies - 2pm, after dinnerBeverages: water, seltzer, unsweetened tea, etoh 1x/monthEATING BEHAVIORHistory of Eating Disorder: NoBinge Eating: NeverExcessive appetite: SometimesGrazing: AlwaysCravings: SometimesTrigger for Overeating: Yes - Stress, Boredom, HappinessPercentage of Daily Calories consumed after dinnertime: 0-25%Eating window:Biggest Meal of the day: Dinner, BreakfastWeekly Restaurant/Take out Meals:Dietary Strategies that are appealing: Calorie counting, Low carbohydrate, Mediterranean, Intermittent fastingFood sensitivities/restrictions:Foods/Drinks consumed regularly: Regular soda, Diet Soda, Sugar in coffee, tea or other drinks, Artificial sweetener in coffee, tea or other drinks, Candy, Sweets, Baked goods, Fast food, Processed/packaged foodMiddle of the night eating: noPHYSICAL ACTIVITYAverage daily steps: 5-10,000Activity Level: Lightly active (e.g., some light activity in daily life)WalkingHasn't resumed structured exercise yetSLEEPHours of sleep per night: 5OSA Dx: YesIs it adequately treated?:Snoring: UnavailableWitnessed Apnea: UnavailableTreating sleep apnea adequately: NoDaytime Sleepiness: UnavailableMedications to help with sleep:STOP-BANG score: UnavailableInsomnia: YesPSYCHDepression: Mild after father's - Rx meds, never tookAnxiety: Post- anxiety - improvedCurrent treatment: none, therapy in pastPAST MEDICAL/SURGICAL HISTORYas aboveSurgeries:Liposuction arms 2020Denies history of pancreatitis, fhx MTC/MEN2, nephrolithiasis, seizures, glaucomaSOCIAL 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 - [place] [facility] 4 11:08:54 05/31 text/ html 05.31.24 Nutrition Follow UpPatient [facility] for weight management nutritional counselingHIPAA compliant synchronous video visitI have confirmed that the patient is physically located in the [facility]alswt: 186previous wt: 187 04.28.24 MD visitHighest weight/BMI: 198.0 lbs, BMI 34.0, aseline weight/BMI: 183.0 lbs, BMI 31.4Confirm AOM and dose:buPROPion HCL XL 300 mg 1 tab dailynaltrexone 50 mg tablet 1 tab dailyConfirm Frequency/Consistency:currently stopped both per PCP - feeling light headed (on iron pills per MD), additional bloodwork pendingS/e: n/aAppetite: managedCravings: noneGI:: BM daily or every other day (on iron per MD). Does have intermittent nausea (ongoing for years - has seen GI)Behavior ChangeSuccesses: well hydrated, not overeating at mealsAreas needing improvement: consistency with eating patternBarriers: ongoing nauseaNutrition Intake coffeeb: protein shake (30g protein) with few blocks of cheese/ww crackersl: leftovers - protein, veggie, carbd: skips often Usually 2-3 meals, often skips dinner. Does not overeat at mealshydration: well hydrated, 3-4 ana cupsPhysical Activity:limited currently due to not feeling well ------ 03.10.24 LATE CANCELLATION------12.09.23 Nutrition ConsultI have confirmed that the patient is physically located [facility] the [facility] hospitalsHeight: 5'4 Weight: 181.26Highest weight/BMI: 198.0 lbs, BMI 34.0, aseline weight/BMI: 183.0 lbs, BMI 31.4Lowest adult weight/BMI: 181.0 lbs, BMI 31.1, 2021Last weight/BMI: 183.8 lbs, BMI 31.6Total weight loss (Highest - Last): -14.2 lbs / -7.2%Total weight loss (Baseline - Last): +0.8 lbs / +0.4%Last Blood Pressure: Insufficient Number of ReadingsAverage Blood pressure: Insufficient Number of ReadingsLast Pulse: Insufficient Number of ReadingsAverage Pulse: Insufficient Number of ReadingsWEIGHT HISTORYThis weight for past 10 yrs - tried all work outs (gym, soul cycle, HIIT), meal planning - but can't break through 181 lbsFiance chef2 mo old baby boy - not , home w/baby on mat leave, not in routine yetWeight gain coincided with: Move/relocationCurrent lifestyle factors: Sedentary, Stressful, 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 Dx with hashimotos age 13 on/off levothyroxine since. Lowest 178 when working out/lifting - made her hungry. Did not lose wt but saw body composition changes. Gained 15 lbs during . Now having hard time with routine. Fianc? ? ? is a principal technologist.Initial goal: 15 lbs, support health.AOM hx or current:metformins/e: skipping days due to side effects - diarrhea - multiple times within 30 min.other medicationsJunel FE 1.02/10 (28)levothyroxineRelated Medical History:abnormal weight gainhyperlipidemiahypothyroidismhypothyroidi sm due to Alex's thyroiditisiron deficiency - hx supplementsobese class Iobesityobstructive sleep apnea syndromeSurgeries:Liposuction arms 2020GI:Diarrhea with metformin, normal BM after 2 days of skipping medication - normal is 2 BM daily for herchewing/swallowing: normalALLERGIESbirchwood tree - allergic to apples, pears, peaches, nectarines, plum, almonds, cherries - Throat swelling - sees allergistother nuts/seeds/fruit okSensitivities: nonePreferences: no mushrooms, no spicy foodsLABS/IMAGING3/3CBC wnlCO2 19 (L), CMP otherwise wnlGlucose 76RdY3s 5%TSH 8.57 (H), FT4 0.9TC 223, HDL 53, TG 135, LDL 144, ratio 4.2SOCIAL 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 Smaller portions for dinner with metformin. Hungry if skips protein at breakfast. Adding more veggies to meals. On weekends eating is out often - bagels for breakfast, out for dinner. 2 meals on weekends. 1/2 plate carbs, 1/4 plate veggies, 1/4 plate protein currently at home for meals.Water: 40oz per day, may drink carbonated water, poppi soda.Caffeine: coffee (creamer)Alcohol: 1x monthlyno juicePhysical Activity:Treadmill at home. No routine at the moment - will be going to gym with stepdaughter Nubia Zavaleta, RD [address] [facility],[address], [place], [address] [place] [address] [email or web address]. - [facility] 4 09:59:27 07/29 text/ html Patient did not arrive to scheduled z oom appointment. I called via [employer] and gave instructions to join zoom if able in the next 15 minutes, otherwise to call to reschedule. History of Present Illness:34 yr old female with class 1 obesity, hyperlipidemia, Alex's hypothyroid, RUMA (mild), post anxiety, iron deficiency presents for evaluation. I have confirmed that the patient is physically located in the state of {{[facility]}}Synchronous telemedicine service rendered via a real-time interactive audio and video communications system Visit{{DATE 07/29/2024}}The patient presents for follow up today. It has been 12 weeks since their last visit for weight loss management. Since that time they were taking Bupropion and Naltrexone butChange in weight since last appointment:Highest/Baseline wt: 184.5lbsWt @ RUBIN: 187lbsCurrent wt:Wt change: Appetite (0= no hunger, 10= intense hunger)?{{0 1 2 3 4 5 6 7 8 9 10}} Cravings (0= no cravings, 10= strong cravings)?{{0 1 2 3 4 5 6 7 8 9 10}} Binging?{{Yes No}} Hardest time(s) of day appetite/cravings-kline:{{Morning Midday Afte rnoon Dinnertime After dinner N/A (appetite is controlled)}} Triggers for Overeating:{{Stress Boredom Depression/Anxie ty Social Events Lack of fullness}} Food recall (past 24 hours vs. a few go-to options):Breakfast:Lunch:Dinner:Snacks:Drink s: water, seltzer, etoh 1 drink every few weeks Sugar Amount/Frequency:__ soda (regular/diet):__ juice:__ sugar in coffee/tea/etc.:__ artificial sweetener:_x_ alcohol: Exercise:Duration/Frequency:Cardio:Resistanc e:Other: Sleep: Depression/Anxiety/Mood: Energy(0= no energy, 10= intense energy):{{0 1 2 3 4 5 6 7 8 9 10}} ROS: 10+ performed, negative except pertinent positives noted above Last visit 33 yr old female with class 1 obesity, hyperlipidemia, Alex's hypothyroid, RUMA (mild), post anxiety, iron deficiency presents for evaluation.Referred By SOCTPCP: Luther Brandt PASUBSPECIALIST(S):Endocrinology Dr. Chanel Coles I have confirmed that the patient is physically located in the state of {{[facility]}} VITALSHeight: 5'4 Current Weight: 187 lbs, +3 lbs from last/initial visit with me 10/2023Highest weight/BMI: 198.0 lbs, BMI 34.0, aseline weight/BMI: 184.5 lbs, BMI 31.7Lowest adult weight/BMI: 181.0 lbs, BMI 31.1, 2021Last weight/BMI: 187.0 lbs, BMI 32.1Total weight loss (Highest - Last): -11.0 lbs / -5.6%Total weight loss (Baseline - Last): +2.5 lbs / +1.4%Last Blood Pressure: 121/83; Recorded on 12/15; DeviceAverage Blood pressure: 142/90; Range: 121-162/83-96; Dates: 12/15 - 12/15Last Pulse: 103; Recorded on 12/15; DeviceAverage Pulse: 92; Range: 87-103; Dates: 12/06 - 12/15Stopped metformin - effective but frequent diarrhea even on 1 tab daily Back at work, baby 8 mo old - back in regular routine. Not breast feeding. Baby up frequently overnight, sleep very interruptedOn/off OCP due to refill issues Mood overall stable, depends on sleep quality Previous AOMs:[Metformin XR 500 mg daily - effective, diarrhea] ANNE Delacruz working on increasing veggies B: oatmeal with almond milk and pb, hard boiled eggs with cheese, bagel w/cc on weekend, coffee w/2 sugarsL: leftoversD: chicken with rice, pasta with proteinS: pretzelsB: water, seltzer, etoh 1 drink every few weeks Walks with baby and dog 4-5x/wk WEIGHT HISTORYThis weight for past 10 yrs - tried all work outs (gym, soul cycle, HIIT), meal planning - but can't break through 181 lbsFiance chef2 mo old baby boy - not , home w/baby on mat leave, not in routine yet Weight gain coincided with: Move/relocationCurrent lifestyle factors: Sedentary, Stressful, 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, Free/junk food availableMotivation for weight loss: Improve health, Increase mobility, To look or feel betterChallenges: Always regain lost weight, Hard to stick to a diet/program, Schedule/lifestyle, Strong cravingsPrevious diets: as abovePrevious anti-obesity medications: noPrevious bariatric surgeries/procedures/devices: noDIETARY RECALLBreakfast: coffee with almond milk creamer, skips or whatever is available - croissant, muffinLunch: leftovers, sandwichDinner: rice/pasta with proteinSnacks: cookies - 2pm, after dinnerBeverages: water, seltzer, unsweetened tea, etoh 1x/monthEATING BEHAVIORHistory of Eating Disorder: NoBinge Eating: NeverExcessive appetite: SometimesGrazing: AlwaysCravings: SometimesTrigger for Overeating: Yes - Stress, Boredom, HappinessPercentage of Daily Calories consumed after dinnertime: 0-25%Eating window:Biggest Meal of the day: Dinner, BreakfastWeekly Restaurant/Take out Meals:Dietary Strategies that are appealing: Calorie counting, Low carbohydrate, Mediterranean, Intermittent fastingFood sensitivities/restrictions:Foods/Drinks consumed regularly: Regular soda, Diet Soda, Sugar in coffee, tea or other drinks, Artificial sweetener in coffee, tea or other drinks, Candy, Sweets, Baked goods, Fast food, Processed/packaged foodMiddle of the night eating: noPHYSICAL ACTIVITYAverage daily steps: 5-10,000Activity Level: Lightly active (e.g., some light activity in daily life)WalkingHasn't resumed structured exercise yetSLEEPHours of sleep per night: 5OSA Dx: YesIs it adequately treated?:Snoring: UnavailableWitnessed Apnea: UnavailableTreating sleep apnea adequately: NoDaytime Sleepiness: UnavailableMedications to help with sleep:STOP-BANG score: UnavailableInsomnia: YesPSYCHDepression: Mild after father's - Rx meds, never tookAnxiety: Post- anxiety - improvedCurrent treatment: none, therapy in pastPAST MEDICAL/SURGICAL HISTORYas aboveSurgeries:Liposuction arms 2020Denies history of pancreatitis, fhx MTC/MEN2, nephrolithiasis, seizures, glaucomaSOCIAL 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 - [place] [facility] 4 09:14:34 09/20 text/ html No Show Nubia Zavaleta, RD [address] [facility],[address], [place], [address], [facility] in[facility]Depth [facility]. - [place] [facility] 5 11:45:45 OBGyn Episode No OBEpisode recorded.
--- OUTSIDE RECORDS SUMMARY | 2024-11-13 21:58 | XMS_ITS | Encounter Summary ---
Author Organization [facility] Address [address] [place] [address] Care Team Providers Care Chief Meter Reader Name Role Phone Luther Echavarria Primary Care Provider [phone] Analy Bose CNM Unavailable [phone] Encounter Details Date Type Department Care Team (Late Contact Info) Description 12/10/2023 Scanned Document [facility] BARIATRICS SCAN Bariatrics, Scan Social History Tobacco [...] Description 01/13/2025 9:00 AM EDT Consult [facility] [address] [place] [id number] Holley Webb PA-C [address] [place] [address] documented as of this encounter Visit Diagnoses Not on filedocumented in this encounter Care Teams Chief Meter Reader Relationship Specialty Start Date End Date Luther Echavarria PA [address] [place] [address] PCP - General Family Medicine 08/02/20 Analy Bose CNM [address] [place] [address] Greens Picker Obstetrics and Gynecology 04/03/23 documented as of this encounter
--- OUTSIDE RECORDS SUMMARY | 2024-11-13 21:58 | XMS_ITS | Encounter Summary ---
Author Organization [facility] Address [address] [place] [address] Care Team Providers Care Catia Designer Name Role Phone Luther Echavarria Primary Care Provider [phone] Analy Bose CN Unavailable [phone] Encounter Details Date Type Department Care Team (Late st Contact Info) Description 09/17/2020 Scanned Document [facility] FAMILY MED SCAN Luther Echavarria PA [address] [place] [address] Social History Tobacco Use Types Packs/Day Years [...] Description 01/13/2025 9:00 AM EDT Consult [facility] [address] [place] [address] Holley Webb PA-C [address] [place] [address] documented as of this encounter Visit Diagnoses Not on filedocumented in this encounter Care Teams Catia Designer Relationship Specialty Start Date End Date Luther Echavarria PA [address] [place] [address] PCP - General Family Medicine 08/02/20 Analy Bose CNM [address] [place] [address] Obstetrics Technician Obstetrics and Gynecology 04/03/23 documented as of this encounter
--- OUTSIDE RECORDS SUMMARY | 2024-11-13 21:58 | XMS_ITS | Encounter Summary ---
Author Organization [facility] Address [address] [place] [address] Care Team Providers Care Structures Mechanic Name Role Phone Luther Echavarria Primary Care Provider [phone] Analy Bose CNM Unavailable [phone] Reason for Visit * Reason Comments Appointment Encounter Details Date Type Department Care Team (Late Contact Info) Description 03/09/[address] [address] Zo Cameron MD Valid Address Needed Appointment Social History Tobacco Use Types Packs/Day Years Used Date Smoking Tobacco: Never Smokeless Tobacco: Never Alcohol Use Standard Drinks/Week Comments Not Currently 0 (1 standard drink = 0.6 oz pur e alcohol) PHQ-2 Answer Date Recorded PHQ-2 Total Score 0 10/25/2021 Comments Yes Sex and Gender Information Value Date Recorded Sex Assigned at Female 04/01/2023 10:33 AM EDT Gender Identity Female 12/03/2020 7:53 AM EDT Sexual Orientation Heterosexual (straight) 12/03 7:53 AM EDT COVID-19 Exposure Response Date Recorded In the last 10 days, have yo u been in contact with someone who was confirmed or suspected to have Coronavirus/COVID-19? No / Unsure 03/12/2023 10:55 AM EDT documented as of this encounter Plan of Treatment Upcoming Encounters Date Type Department Care Team (Late Contact Info) Description 01/13/2025 9:00 AM EDT Consult [facility] [address] [place] [address] Holley Webb PA-C [address] [place] [address] documented as of this encounter Visit Diagnoses Not on filedocumented in this encounter Care Teams Structures Mechanic Relationship Specialty Start Date End Date Luther Echavarria PA [address] [place] [address] PCP - General Family Medicine 08/02/20 Analy Bose CNM [address] [place] [address] Agriculture Consultant Obstetrics and Gynecology 04/03/23 documented as of this encounter
--- OUTSIDE RECORDS SUMMARY | 2024-11-13 21:58 | XMS_ITS | Encounter Summary ---
Author Organization [facility] Address [address] [place] [address] Care Team Providers Care Perishable Fruit Inspector Name Role Phone Luther Echavarria Primary Care Provider [phone] Analy Bose CNNico Unavailable [phone] Reason for Visit * Reason Comments Medication Refill Encounter Details Date Type Department Care Team ([facility] Contact Info) Description 08/28/2020 Refill [facility] [address] [place] [phone] Luther Echavarria PA [address] [place] [address] Other insomnia Social History Tobacco Use Types Packs/Day Years [...] Exposure Response Date Recorded In the last month, have you been in contact with someone who was confirmed or suspected to have Coronavirus / COVID-19? No / Unsure 08/07/2020 11:27 AM EST documented as of this encounter Plan of Treatment Upcoming Encounters Date Type Department Care Team ([facility] Contact Info) Description 01/13/2025 9:[address] [facility] [address] [place] [address] [place] [address] Holley Webb PA-C [address] [place] [address] documented as of this encounter Visit Diagnoses Diagnosis Other insomnia documented in this encounter Care Teams Perishable Fruit Inspector Relationship Specialty Start Date End Date Luther Echavarria PA [address] [place] [address] PCP - General Family Medicine 08/02/20 Analy Bose CNM [address] [place] [address] Pan Devulcanizer Helper Obstetrics and Gynecology 04/03/23 documented as of this encounter
--- OUTSIDE RECORDS SUMMARY | 2024-11-13 21:58 | XMS_ITS | Encounter Summary ---
Author Organization [facility] Address [address] [place] [address] Care Team Providers Care Unit Aid Name Role Phone Luther Echavarria Primary Care Provider [phone] Analy Bose CNM Unavailable [phone] Encounter Details Date Type Department Care Team (Late Contact Info) Description 07/29/2024 Scanned Document [facility] BARIATRICS SCAN Bariatrics, Scan Social [...] Description 01/13/2025 9:00 AM EDT Consult [facility] [address] [place] [phone] Holley Webb PA-C [address] [place] [address] documented as of this encounter Visit Diagnoses Not on filedocumented in this encounter Care Teams Unit Aid Relationship Specialty Start Date End Date Luther Echavarria PA [address] [place] [address] PCP - General Family Medicine 08/02/20 Analy Bose CNM [address] [place] [address] Metalworking Instructor Obstetrics and Gynecology 04/03/23 documented as of this encounter
--- OUTSIDE RECORDS SUMMARY | 2024-11-13 21:58 | XMS_ITS | Encounter Summary ---
Author Organization [facility] Address [address] [place] [address] Care Team Providers Care Comic Artist Name Role Phone Luther Echavarria Primary Care Provider [phone] Analy Bose CNM Unavailable Encounter Details Date Type Department Care Team (Late Contact Info) Description 11/05/2023 Scanned Document [facility] BARIATRICS SCAN Bariatrics, Scan Social History [...] Description 01/13/2025 9:00 AM EDT Consult [facility] [address] [place] [phone] Holley Webb PA-C [address] [place] [address] documented as of this encounter Visit Diagnoses Not on filedocumented in this encounter Care Teams Comic Artist Relationship Specialty Start Date End Date Luther Echavarria PA [address] [place] [address] PCP - General Family Medicine 08/02/20 Analy Bose CNM [address] [place] [address] Crew Mess Attendant Obstetrics and Gynecology 04/03/23 documented as of this encounter
--- OUTSIDE RECORDS SUMMARY | 2024-11-13 21:58 | XMS_ITS | Encounter Summary ---
Author Organization [facility] Address [address] [place] [address] Care Team Providers Care Survey Technician Name Role Phone Luther Echavarria Primary Care Provider [phone] Analy Bose CN Unavailable [phone] Encounter Details Date Type Department Care Team (Late st Contact Info) Description 10/25/2021 Scanned Document [facility] [address] [place], [place] [phone] Luther Echavarria PA [address] [place] [address] Social History Tobacco Use Types Packs/Day Years [...] have Coronavirus / COVID-19? No / Unsure 10/24/2021 12:51 PM EST documented as of this encounter Plan of Treatment Upcoming Encounters Date Type Department Care Team (Late st Contact Info) Description 01/13/2025 9:00 AM EDT Consult [facility] [address] [place] [phone] Holley Webb PA-C [address] [place] [address] documented as of this encounter Visit Diagnoses Not on filedocumented in this encounter Care Teams Survey Technician Relationship Specialty Start Date End Date Luther Echavarria PA [address] [place] [address] PCP - General Family Medicine 08/02/20 Analy Bose CNM [address] [place] [address] Medical Delivery Driver Obstetrics and Gynecology 04/03/23 documented as of this encounter
--- OUTSIDE RECORDS SUMMARY | 2024-11-13 21:58 | XMS_ITS | Data Portability ---
Author Organization [place] - .[facility] Address [address] [place] [address] Assessment Encounter Date Assessment Date Assessment LastModified by Organization Details LastModified Time 10/09/2023 10/09/2023 Patient sent to ER due to: [facility] unavailable due to LOGISTICS (radiology site) issues; medical complexity necessitates ER referral Medical System involved: Abdominal (GI) Not available 10/09/2023 18:52:35 Plan of Treatment Reminders Order Date Submit Date Provider Last Modified By Organization Details Last Modified Time Details Appointments None recorded. Lab influenza virus A + B + SARS-CoV-2 (COVID19) Ag panel, rapid IA, upper respiratory specimen 2023 024 [facility], [address] [place], [address], 4 15:25:33 culture, urine 2021 022 [facility] Use Only - [facility] Derrek, [address], [place], [address], 2 16:05:28 urinalysis, dipstick 2021 022 [email or web address] [address], [address] [place], [address], 2 11:21:57 test, urine 2021 022 [email or web address] [address], [address] [place], [address], 11:21:57 Referral None recorded. Procedures None recorded. Surgeries None recorded. Imaging None recorded. Medication Orders ondansetron 4 mg disintegrat ing tablet 2023 024 [id number], [address] [place], [address], 15:25:33 ciprofloxac in 500 mg tablet 2021 022 [email or web address], [address] [place], [place], [id number], 11:21:57 Diflucan 150 mg tablet 2021 022 [email or web address] #[id number], [address] [place], [address], 11:21:57 Patient TargetsNo targets recorded. Patient Instructions Encounter Date Encounter Id Patient Instructions Last Modified By Organization Details Last Modified Time 03/06/2022 [id number] A healthy lifestyle: care instructions Not available 03/07/2022 11:21:57 back care and preventing injuries: care instructions Not available 03/07/2022 11:21:57 getting back to normal after low back pain: care instructions Not available 03/07/2022 11:21:57 learning about relief for back pain Not available 03/07/2022 11:21:57 Thank you for visiting [facility]. There are two ways to view your lab results: : 1. The [employer] josse is available to all patients 18 and older in the [employer] Store and [employer] Play. First-time josse users will need to create an account; please note you? l l need to select a login and password for the josse versus just using your patient portal login credentials. Your lab results will be posted to the [employer] josse as soon as they? r e available. 2. Via email , as soon as lab results are available. If you don? t receive an email within the estimated time frame, give our Aftercare team a call at [phone]. [email or web address] Not available 03/06/2022 14:48:45 10/09/2023 [id number] A healthy lifestyle: care instructions Not available 10/10/2023 15:25:33 abdominal pain: care instructions Not available 10/10/2023 15:25:33 9 things to do i f you've been exposed to covid-19 Not available 10/10/2023 15:25:33 GO TO ER IMMEDIATELY You have presented with a condition that would be best served by proceeding immediately to an emergency room (ER). Please proceed there now without delay. 33 y/o F pt p/w nausea, vomiting, and diarrhea x 3 days. physical exam show RUQ and RLQ tenderness and positive Mon's. Please further evaluate. [email or web address] Not available 10/09/2023 18:42:09 Reason for Referral None Reported. Results Created Date Observation Date Name Description Value Unit Range Abnormal Flag Note LastModifiedBy Organization Detail LastModifiedTime 03/07/20 22 03/07/2022 CULTU RE, URINE , ROUTI NE culture, urine, routine SEE NOTE CULTU RE, URINE , ROUTI NE Micro Numbe r: [id number] Test Statu s: Final Speci men Sourc e: Urine Speci men Quali ty: Adequ ate Resul t: No Growt h NO COLLE CTION DATE RECEI TITA. WE HAVE USED THE DATE THE SPECI MEN WAS RECEI TITA BY THIS LABOR ATORY THE COLLE CTION DATE. IF THIS IS INCOR RECT, PLEAS E CONTA CT CLIEN T SERVI YAIR. PHONE NUMBE R: [phone] Not Available [facility] [address] , [place], [address], 03/07/2022 16:05:28 03/06/20 22 03/06/2022 pregn jadon test, urine Unknown Analyte Negati ve Not Available [facility] [address] [place], [address], 03/06/2022 14:40:22 03/06/20 22 03/06/2022 urina lysis , dipst ick Unknown Analyte 10 Not Available [facility] [place], [address], 03/06/2022 14:40:21 03/06/20 22 03/06/2022 urina lysis , dipst ick Unknown Analyte Norm Not Available [facility] [address], [address], 03/06/2022 14:40:21 03/06/20 22 03/06/2022 urina lysis , dipst ick Unknown Analyte Neg Not Available [facility] [address], [address], 03/06/2022 14:40:21 03/06/20 22 03/06/2022 urina lysis , dipst ick Unknown Analyte Neg Not Available [facility] [address], [address], 03/06/2022 14:40:21 03/06/20 22 03/06/2022 urina lysis , dipst ick Unknown Analyte negati ve Not Available [facility], [address], 03/06/2022 14:40:21 03/06/20 22 03/06/2022 urina lysis , dipst ick Unknown Analyte Neg Not Available [facility] [address], [address], 03/06/2022 14:40:21 03/06/20 22 03/06/2022 urina lysis , dipst ick Unknown Analyte Neg Not Available [facility] [address], [address], 03/06/2022 14:40:21 03/06/20 22 03/06/2022 urina lysis , dipst ick Unknown Analyte 6.5 Not Available [facility] [address] [place], [address], 03/06/2022 14:40:21 03/06/20 22 03/06/2022 urina lysis , dipst ick Unknown Analyte 1.005 Not Available [facility] [address], [address], 03/06/2022 14:40:21 03/06/20 22 03/06/2022 urina lysis , dipst ick Unknown Analyte Neg Not Available [facility] [address], [address], 03/06/2022 14:40:21 10/09/19 24 10/09/2023 influ boston virus A + B + SARS- CoV-2 (COVI D19) Ag panel , rapid IA, upper respi rator y speci men Flu A NEGATI VE Not Available [facility] [address] [address] [place] [address], [address], 10/09/2023 18:15:17 10/09/19 24 10/09/2023 influ boston virus A + B + SARS- CoV-2 (COVI D19) Ag panel , rapid IA, upper respi rator y speci men Flu B NEGATI VE Not Available [facility] [address], [address], 10/09/2023 18:15:17 10/09/19 24 10/09/2023 influ boston virus A + B + SARS- CoV-2 (COVI D19) Ag panel , rapid IA, upper respi rator y speci men Covid-19 NEGATI VE Not Available [facility] [address] [address] [place] [address], [address], 10/09/2023 18:15:17 Result Notes None recorded. 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 Procedures Surgical History Date Name Laterality Status Provider Name and Address Organization Details Recorded Time 10/09/2023 . Sent To ER completed [facility] 10/09/2023 18:35:58 Imaging Results None recorded. Procedure Notes None recorded. Medical Equipment None Reported. Allergies No known drug allergies Medications Name Sig Start Date Stop Date Status Note LastModified by Organization Details LastModified Time Diflucan 150 mg tablet Take 1 tablet every day by oral route for 1 day. 2021 active Not Available Not Available Not Avai lable ciprofloxacin 500 mg tablet Take 1 tablet every 12 hours by oral route for 7 days. 2021 active Not Available Not Available Not Avai lable ondansetron [address] 1 tablet on the tongue and allow to dissolve every 8 hours as needed 2023 active Not Available Not Available Not Avai lable Synthroid active Not Available Not Asha ilable Not Available Vitals Date Recorded Body height Body mass index (BMI) Body weight Respiratory rate Body temperature Oxygen saturation Oxygen saturation in Arterial blood by Pulse oximetry Heart rate Provider Name and Address Organization Details Last Updated DateTime 2 162.56 cm 31.8 kg/m2 31042.5 9 g 16 /min 98.4 [degF] 99 % 99 % 85 /min [facility] 2 14:25:42 Date Recorded Heart rate Body temperature Respiratory rate Oxygen saturation Oxygen saturation in Arterial blood by Pulse oximetry Systolic blood pressure Diastolic blood pressure Provider Name and Address Organization Details Last Updated DateTime 4 92 /min 98.5 [degF] 16 /min 98 % 98 % 116 mm[Hg] 84 mm[Hg] [facility] 18:13:07 Social History Question Answer Notes LastModified by Organizat ion Details LastModified Time Tobacco Smoking Status Never Smoker [facility] - [facility] 03/06/2022 14:24:14 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 Mental Status None recorded. Family History Nothing Reported. Medical History No medical history recorded. Gynecological HistoryNo gynecological history recorded. Obstetrics History GPAL:G 0 P 0 0 0 0 Past Encounters Encounter ID Performer Location Encounter Start Date Encounter Closed Date Diagnosis/Indication Diagnosis SNOMED-CT Code Diagnosis ICD10 Code Diagnosis Note [id number] TESSA ARNOLD [facility] [address] [place] [address] 03/06/2022 13:59:11 03/06/2022 14:49:30 Low back pain 275963265 M54.50 Increased frequency of urination 779330574 R35.0 pt currently on keflex for liposuctio n medical procedurep t was informed that urine culture might not be accurate.P t reported hx of pyelonephr itispt was started on ciprofloxa santiago.Pt is sitting up in bed in no acute distress. Pt is afebrile and does not look sick or septic. Pt was given strict verbal instructio ns to go to the ER if they notice any worsening symptoms or any new concerning symptoms. Pt was also instructed to follow up with PCP. Pt understood and agreed. All questions answered. [id number] Almas ARNOLD [facility] [address] [place] [address] 10/09/2023 17:08:29 10/09/2023 18:41:37 Abdominal pain 66663899 R10.9 Exposure t o SARS-CoV-2 157720351 Z20.822 Nausea and vomiting 3 1999 R11.2 Health Concerns Section Related Observation LastModified by Organization Detai ls LastModified Time None Recorded Concern Status LastModified by Organization Details LastModified Time None Recorded Advance Directives Directive None Recorded Payers Encounter Date Sequence Insurance Name Policy Number Policy Hanson Covered Member ID Hanson Member ID Guarantor Name 03/06/2022 1 [place]: [place] [employer] (PPO) Radha Stearns [id number] Radha Stearns 10/09/2023 1 [place] [employer] ([place]O) Radha Stearns [id number] Radha Stearns Notes Date Note Type Note Provider Name and Address Organization Details Recorded Time 03/06/2022 text/html Back complaint - cmdReported bypatient.Patient presents with:bilateral back complaint which began 2-3 days ago Pertinent findings:No extremity numbness; No extremity weakness; No abdominal pain; No flank pain; No hematuria; No bowel/bladder incontinence; No chest pain; No shortness of breath; No loss of consciousness; No confusion Tetanus status:Tetanus status: up to date 31 yr old female pt with PMH of pyelonephritis presents c/o low back pain, dysuria and urinary frequency x 2 days. Pt reported that she recently had a laser liposuction done on b/l arms with incision under her armpit and elbow area 2 days ago on 03/04/22 and is currently taking cephalexin 500 mg for 3 days. Pt has taken tylenol for some relief. Pt ic currently on the 4th day of her menstrual period. Denied STD exposure concerns. Denied fever, chills, abdominal pain, hematuria, N/V, pelvic pain, flank pain, back pain, vaginal discharge or any other sxs at this time. TESSA ARNOLD [facility],[address], [place], [address], [facility] - .[facility] 03/06/2022 20:17:32 10/09/2023 text/html Vomiting and Diarrhea - cmdReported bypatient.Patient presents with:Vomiting and Diarrhea which began yesterday Pertinent findings:No fever; No vomiting blood; No history of sick contacts; No recent antibiotic use; No recent travel;(+) abdominal cramping/discomfort 33 y/o F pt p/w vomiting, diarrhea, and feeling fatigue since yesterday. Pt reported eating leftover food. Also complains of intermittent abd discomfort which pt states is associated with vomit and diarrhea. Denies fever,melena and constipation Almas ARNOLD [address] [place] [address],[address], [place], [address], [facility] - .[facility] 10/09/2023 18:59:54 OBGyn Episode No OBEpisode recorded.
--- OUTSIDE RECORDS SUMMARY | 2024-11-13 21:58 | XMS_ITS | Encounter Summary ---
Author Organization [facility] Address [address] [place] [address] Care Team Providers Care Job Service Consultant Name Role Phone Luther Echavarria Primary Care Provider [phone] Analy Bose CNM Unavailable [phone] Encounter Details Date Type Department Care Team (Late Contact Info) Description 02/04/2024 Scanned Document [facility] BARIATRICS SCAN Bariatrics, Scan Social History [...] Description 01/13/2025 9:00 AM EDT Consult [facility] [address] [place] [phone] Holley Webb PA-C [address] [place] [address] documented as of this encounter Visit Diagnoses Not on filedocumented in this encounter Care Teams Job Service Consultant Relationship Specialty Start Date End Date Luther Echavarria PA [address] [place] [address] PCP - General Family Medicine 08/02/20 Analy Bose CNM [address] [place] [address] Merry Go Round Attendant Obstetrics and Gynecology 04/03/23 documented as of this encounter
--- OUTSIDE RECORDS SUMMARY | 2024-11-13 21:58 | XMS_ITS | Encounter Summary ---
Author Organization [facility] Address [address] [place] [address] Care Team Providers Care Wire Coating Machine Operator Name Role Phone Luther Echavarria Primary Care Provider [phone] Analy Bose CN Unavailable [phone] Encounter Details Date Type Department Care Team (Late st Contact Info) Description 10/25/2021 Scanned Document [facility] [address] [place], [place] [phone] Luther Echavarria PA [address] [place] [address] Social History Tobacco Use Types Packs/Day Years [...] Description 01/13/2025 9:00 AM EDT Consult [facility] [address] [place] [address] Holley Webb PA-C [address] [place] [address] documented as of this encounter Visit Diagnoses Not on filedocumented in this encounter Care Teams Wire Coating Machine Operator Relationship Specialty Start Date End Date Luther Echavarria PA [address] [place] [address] PCP - General Family Medicine 08/02/20 Analy Bose CNM [address] [place] [address] Machine Shop Helper Obstetrics and Gynecology 04/03/23 documented as of this encounter
--- OUTSIDE RECORDS SUMMARY | 2024-11-13 21:58 | XMS_ITS | Encounter Summary ---
Author Organization [facility] Address [address] [place] [address] Care Team Providers Care [employer] Cafeteria Name Role Phone Luther Echavarria Primary Care Provider [phone] Analy Bose CN Unavailable [phone] Encounter Details Date Type Department Care Team (Late st Contact Info) Description 09/17/2020 Scanned Document [facility] FAMILY MED SCAN Luther Echavarria PA [address] [place] [address] Social History Tobacco Use Types Packs/Day Years [...] Description 01/13/2025 9:00 AM EDT Consult [facility] [address] [place] [address] Holley Webb PA-C [address] [place] [address] documented as of this encounter Visit Diagnoses Not on filedocumented in this encounter Care Teams [employer] Relationship Specialty Start Date End Date Luthre Echavarria PA [address] [place] [address] PCP - General Family Medicine 08/02/20 Analy Bose CNM [address] [place] [address] Sexual Assault Counselor Obstetrics and Gynecology 04/03/23 documented as of this encounter
--- OUTSIDE RECORDS SUMMARY | 2024-11-13 21:58 | XMS_ITS | Encounter Summary ---
Author Organization [facility] Address [address] [place] [address] Care Team Providers Care Manager Massage Department Name Role Phone Luther Echavarria Primary Care Provider [phone] Analy Bose CN Unavailable [phone] Encounter Details Date Type Department Care Team (Late st Contact Info) Description 09/17/2020 Scanned Document [facility] FAMILY MED SCAN Luther Echavarria PA [address] [place] [address] Social History Tobacco Use Types Packs/Day Years [...] Description 01/13/2025 9:00 AM EDT Consult [facility] [address] [place] [address] Holley Webb PA-C [address] [place] [address] documented as of this encounter Visit Diagnoses Not on filedocumented in this encounter Care Teams Manager Massage Department Relationship Specialty Start Date End Date Luther Echavarria PA [address] [place] [address] PCP - General Family Medicine 08/02/20 Analy Bose CNM [address] [place] [address] Waterproofing Supervisor Obstetrics and Gynecology 04/03/23 documented as of this encounter
--- OUTSIDE RECORDS SUMMARY | 2024-11-13 21:58 | XMS_ITS | Clinical Summary ---
Author Organization [facility] Address [address] [place] [address] Care Team Providers Care Hide Examiner Name Role Phone Phil Storm Primary Care Provider Unav ailable Social History Tobacco Use Types Packs/Day Years Used Date Smoking Tobacco: Never Assessed Comments Unknown Sex and Gender Information Value Date Recorded Sex Assigned at Not on file Legal Sex Female 6:04 PM EDT Gender Identity Not on file Sexual Orientation Not on file Plan of Treatment Health Maintenance Due Date Last Done Comments Hepatitis C Screening 1988 Pap Smear 2004 DTaP/Tdap/Td (1 - Tdap) 2006 Hep B (1 of 3 - 19+ 3-dose series) 2007 COVID-19 Vaccine ( - 2023-2 5 season) 2024 Influenza (#1) 2024 Zoster (Shingrix) (1 of 2) 2038 HPV Vaccine Aged Out No longer eligi ble based on patient's age to complete this topic Hep A Aged Out No longer eligi ble based on patient's age to complete this topic Hib Aged Out No longer eligi ble based on patient's age to complete this topic Meningococcal ACWY Aged Out No longer eligible based on patient's age to complete this topic Pneumococcal Aged Out No longer eligi ble based on patient's age to complete this topic Care Teams Hide Examiner Relationship Specialty Start Date End Date Phil Storm PCP - General 04/20/23
--- OUTSIDE RECORDS SUMMARY | 2024-11-13 21:58 | XMS_ITS | Encounter Summary ---
Author Organization [facility] Address [address] [place] [address] Care Team Providers Care Tanker Service Attendant Name Role Phone Luther Echavarria Primary Care Provider [phone] Analy Bose CNM Unavailable [phone] Reason for Visit * Reason Comments Referral Encounter Details Date Type Department Care Team (Late st Contact Info) Description 03/08/[address] [address] Luther Echavarria PA [address] [place] [address] Referral Social History Tobacco Use Types Packs/Day Years [...] Description 01/13/2025 9:00 AM EDT Consult [facility] [address] [place] [phone] Holley Webb PA-C [address] [place] [address] documented as of this encounter Visit Diagnoses Not on filedocumented in this encounter Care Teams Tanker Service Attendant Relationship Specialty Start Date End Date Luthre Echavarria PA [address] [place] [address] PCP - General Family Medicine 08/02/20 Analy Bose CNM [address] [place] [address] Student Obstetrics and Gynecology 04/03/23 documented as of this encounter
--- OUTSIDE RECORDS SUMMARY | 2024-11-13 21:59 | XMS_ITS | Encounter Summary ---
Author Organization [facility] Address [address] [place] [address] Care Team Providers Care Rib Matcher And Fitter Name Role Phone Luther Echavarria Primary Care Provider [phone] Analy Bose CNM Unavailable [phone] Encounter Details Date Type Department Care Team (Late st Contact Info) Description 11/02/2024 Scanned Document [facility] EMERGENCY MED SCAN Emergency Medicine, Scan Social History Tobacco Use Types Packs/Day Years Used Date Smoking Tobacco: Never Smokeless Tobacco: Never Alcohol Use Standard Drinks/Week Comments Not Currently 0 (1 standard drink = 0.6 oz pur e alcohol) [facility] Utilities Answer Date Recorded In the past 12 months has [employer] electric, gas, oil, or water company threatened to shut off services in your home? No 09/18/2024 Social Connection and Isolat ion Panel [NHANES] Answer Date Recorded In a typical week, how many times do you talk on the phone with family, friends, or neighbors? More than three times a week 09/18/2024 Frequency of Social Gatherin gs with Friends and Family Not on file 09/18/2024 Attends [employer] Services Not on file 09/18 Active Member of Clubs or Organizations Not on f ile 09/18/2024 Attends Club or Organization Meetings Not on cirilo e 09/18/2024 Marital Status Not on file 09/18/2024 AUDIT-C Answer Date Recorded Q1: How often do you have a drink containing alc ohol? Monthly or less 09/18/2024 Q2: How many drinks containi ng alcohol do you have on a typical day when you are drinking? 1 or 2 09/18/2024 Frequency of Binge Drinking Not on file 01/2025 PHQ-2 Answer Date Recorded PHQ-2 Total Score 0 10/25/2021 Hunger Vital Sign Answer Date Recorded Within the past 12 months, y ou worried that your food would run out before you got the money to buy more. Never true 09/18/19 25 Within the past 12 months, t he food you bought just didn't last and you didn't have money to get more. Never true 09/18/2024 PRAPARE - Transportation Answer Date Re corded In the past 12 months, has l ack of transportation kept you from medical appointments or from getting medications? No 01/2025 In the past 12 months, has l ack of transportation kept you from meetings, work, or from getting things needed for daily living? No 09/18/2024 Housing Stability Vital Sign Answer Yoshi e Recorded In the last 12 months, was t here a time when you were not able to pay the mortgage or rent on time? No 09/18/2024 In the past 12 months, how m any times have you moved where you were living? 0 09/18/2024 At any time in the past 12 m [facility], were you homeless or living in a residential (including now)? No 09/18/2024 Education Answer Date Recorded What is the highest level of school you have completed or the highest degree you have received? 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, [employer]) 09/18/2024 Sex and Gender Information Value Date Recorded Sex Assigned at Female 04/01/2023 10:33 AM EDT Gender Identity Female 12/03/2020 7:53 AM EDT Sexual Orientation Heterosexual (straight) 12/03 7:53 AM EDT documented as of this encounter Plan of Treatment Upcoming Encounters Date Type Department Care Team (Late st Contact Info) Description 01/13/2025 9:00 AM EDT Consult [facility] [address] [address] Holley Webb PA-C [address] [place] [address] documented as of this encounter Visit Diagnoses Not on filedocumented in this encounter Care Teams Rib Matcher And Fitter Relationship Specialty Start Date End Date Luther Echavarria PA [address] [place] [address] PCP - General Family Medicine 08/02/20 Analy Bose CNM [address] [place] [address] Cigar Packer And Picker Obstetrics and Gynecology 04/03/23 documented as of this encounter
--- OUTSIDE RECORDS SUMMARY | 2024-11-13 21:59 | XMS_ITS ---
Author Name [facility] Organization Unknown Results Test Name/Text Value Interpretation Date Range Source TSH SerPl-aCnc 3.1mIU/L Normal [id number] QU EST WBC 17.9K/uL Above high normal [id number] 3.7 - 10. 3 [facility] ABSOLUTE GRANULOCYTES 13.4K/uL Above high normal [id number] 54 2.2 - 7.3 [facility] ABSOLUTE BASO 0.1K/uL Normal [id number] 0 - 0.2 [facility] RBC 3.14M/uL Below low normal [id number] 4 - 5.4 [facility] IMMATURE GRANULOCYTES 1% Above high normal [id number] 54 0 - 0.45 [facility] EOSINOPHILS 1% Normal [id number] 0 - 6 [facility] MMH MPV 10fL Normal [id number] 8 - 12 [facility] ABSOLUTE MONOS 1.3K/uL Normal [id number] 0.2 - 1.5 [facility] BASOPHILS 0% Normal [id number] 0 - 2 [facility] NUCLEATED RBC 0% Normal [id number] 0 - 0.2 [facility] MCV 86fL Normal [id number] 83 - 102 [facility] H MCH 27PG Normal [id number] 27 - 34 [facility] HCT 26.9% Below low normal [id number] 36 - 46 [facility] ABSOLUTE LYMPHS 2.8K/uL Normal [id number] 1.5 - 4.9 C [facility] GRANULOCYTES 75% Normal [id number] 23 - 78 [facility] MONOCYTES 7% Normal [id number] 0 - 12 [facility] ABSOLUTE EOS 0.2K/uL Normal [id number] 0 - 0.7 [facility] LYMPHS 16% Normal [id number] 16 - 50 [facility] ABSOLUTE IMMATURE GRANULOCYTES 0.2K/uL Normal [id number] 0 - 0.3 [facility] HGB 8.5g/dL Below low normal [id number] 12.1 - 15. 7 [facility] RDW 13.9% Above high normal 11.1 - 13 .3 [facility] PLATELET COUNT 244K/uL Normal 150 - 480 [facility] MCHC 31.6g/dL Normal 31 - 36 [facility] ABSOLUTE NUCLEATED RBC 0K/uL Normal 0 - 0.012 [facility] ANTIBODY SCREEN NEGATIVE Normal C [facility] BLOOD TYPE A POSITIVE Normal [facility] BBK HISTORY * Normal [facility] BLOOD TYPE A POSITIVE Normal [facility] MMH WBC 9.4K/uL Normal 3.7 - 10.3 [facility] MH ABSOLUTE GRANULOCYTES 6.7K/uL Normal 2.2 - 7.3 [facility] ABSOLUTE BASO 0K/uL Normal 0 - 0.2 [facility] RBC 3.45M/uL Below low normal 4 - 5.4 [facility] IMMATURE GRANULOCYTES 1% Above high normal [id number] 0 - 0.45 [facility] EOSINOPHILS 1% Normal 0 - 6 [facility] MMH MPV 10fL Normal 8 - 12 [facility] ABSOLUTE MONOS 0.7K/uL Normal 0.2 - 1.5 CT [facility] BASOPHILS 0% Normal 0 - 2 [facility] NUCLEATED RBC 0% Normal 0 - 0.2 [facility] MCV 86fL Normal 83 - 102 [facility] MCH 27PG Normal 27 - 34 [facility] HCT 29.6% Below low normal 36 - 46 [facility] ABSOLUTE LYMPHS 1.8K/uL Normal 1.5 - 4.9 C [facility] GRANULOCYTES 71% Normal 23 - 78 [facility] MONOCYTES 8% Normal 0 - 12 [facility] ABSOLUTE EOS 0.1K/uL Normal 0 - 0.7 [facility] LYMPHS 20% Normal 16 - 50 [facility] ABSOLUTE IMMATURE GRANULOCYTES 0.1K/uL Normal 0 - 0.3 [facility] HGB 9.4g/dL Below low normal 12.1 - 15. 7 [facility] RDW 13.8% Above high normal 11.1 - 13 .3 [facility] PLATELET COUNT 282K/uL Normal 150 - [address] [facility] 31.8[facility]/dL Normal 31 - 36 [facility] ABSOLUTE NUCLEATED RBC 0K/uL Normal 0 - 0.012 [facility] History of Medication Use Medication Directions Dispensed Refills Start Date End Date [facility] PANTOprazole (PROTONIX) 40 MG EC tablet Take 1 tablet (40 mg total) by mouth every morning before breakfast. 11/18/2022 active pantoprazole 40 mg tablet,delayed release pantoprazole 40 mg tablet,delayed release completed cephalexin 500 mg capsule TAKE 1 CAPSULE BY MOUTH THREE TIMES A DAY 4 completed levocetirizine 5 mg tablet 9 completed amoxicillin (AMOXIL) 500 MG tablet 06/13/2022 active metformin ER 500 mg tablet,extended release 24 hr 4 completed albuterol (PROVENTIL HFA; VENTOLIN HFA) 108 (90 Base) MCG/ACT inhaler INHALE 2 PUFFS BY MOUTH EVERY 6 HOURS NEEDED FOR WHEEZE 09/02/2020 active acetaminophen 325 mg tablet 4 completed tretinoin 0.05 % topical cream APPLY TO AFFECTED AREA AT NIGHT 3 completed bupropion HCl XL 300 mg 24 hr tablet, extended release 4 active levothyroxine 112 mcg tablet TAKE 1 TABLET BY MOUTH DAILY ON AN EMPTY STOMACH. 4 completed prednisone 50 mg tablet 3 completed Tylenol 325 mg tablet Take 2 tablets every 6 hours by oral route as needed. 08/28/2023 4 completed lidocaine (PF) 10 mg/mL (1 %) injection solution active levothyroxine 100 mcg tablet 4 completed triamcinolone acetonide 40 mg/mL suspension for injection active ibuprofen 600 mg tablet active metronidazole 0.75 % (37.5 mg/5 gram) vaginal gel active tretinoin (RETIN-A) 0.05 % cream Apply topically nightly. 10/25/2021 active promethazine-DM 6.25 mg-15 mg/5 mL oral syrup TAKE 5 ML BY MOUTH EVERY 4 HOURS NEEDED FOR COUGH 3 completed trazodone 50 mg tablet TAKE 1 TABLET BY MOUTH EVERY DAY AT NIGHT 3 completed ergocalciferol (vitamin D2) 1,250 mcg (50,000 unit) capsule 0 completed Azelastine-Fluticaso ne 137-50 MCG/ACT Suspension azelastine 137 mcg (0.1 %) nasal spray aerosol active metformin ER 500 mg tablet,extended release 24 hr active norethindrone-ethi nyl estradiol triphasic 0.5/1/0.5 mg-35 mcg tablet active levothyroxine 50 mcg tablet 9 completed oxycodone 5 mg tablet Take 1 to 2 tablets per oral route 1 hour prior to procedure 07/07/2024 active ondansetron 8 mg disintegrating tablet 4 completed levothyroxine (SYNTHROID, LEVOTHROID) 88 MCG tablet TAKE 1 TABLET BY MOUTH DAILY ON AN EMPTY STOMACH. 04/03/2022 active levothyroxine 88 mcg tablet active Colace 100 mg capsule Take 1 capsule every day by oral route as needed. 08/28/2023 4 completed Vitron-C 65 mg iron-125 mg tablet,delayed release 4 completed levothyroxine 112 mcg capsule Take 1 capsule every day by oral route. 06/01/2023 4 active Samantha Low Dose Aspirin 81 mg tablet,delayed release Take 1 tablet every day by oral route. 01/26/2023 4 completed Xyzal 1 daily 1 daily completed Samantha Low Dose Aspirin 81 mg tablet,delayed release Take 1 tablet every day by oral route. Take 1 tablet every day by oral route. 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 [facility] Radial styloid tenosynovitis active 2024-02-02 ProblemAct [facility] Immunizations Vaccine Date Source Lot Number Status COVID-19, mRNA, LNP-S, PF, 30 mcg/0.3 mL dose 01/09/2021 [facility] [id number] completed Tdap 11/18/2022 [facility] [id number] completed Influenza, MDCK, quadrivalent, preservative 06/27/2020 [facility] [id number] completed COVID-19, mRNA, LNP-S, PF, 30 mcg/0.3 mL dose 12/19/2020 [facility] [id number] completed Influenza, MDCK, quadrivalent, PF 06/15/2023 [facility] [id number] completed Tdap 06/01/2023 [facility] [id number] completed Influenza, Quadrivalent 06/27/2020 [facility] [id number] ompleted Influenza Inactivated/Split Preservative Free IM 07/04/2020 [facility] completed
--- OUTSIDE RECORDS SUMMARY | 2024-11-13 21:59 | XMS_ITS | Encounter Summary ---
Author Organization [facility] Address [address] [place] [address] Care Team Providers Care Footwear Production Machine Operator Name Role Phone Luther Echavarria Primary Care Provider [phone] Analy Bose CNNico Unavailable [phone] Reason for Visit * Reason Comments Medication Refill Encounter Details Date Type Department Care Team (Late st Contact Info) Description 05/18/[address] [phone] Luther Echavarria PA [address] [place] [address] Alex's thyroiditis Social History Tobacco Use Types Packs/Day Years [...] AM EDT documented as of this encounter Miscellaneous Notes * Telephone Encounter - CATALINA Ferguson - 05/19/2023 10:09 AM EDT Dose changed documented in this encounter Plan of Treatment Upcoming Encounters Date Type Department Care Team (Late st Contact Info) Description 01/13/2025 9:00 AM EDT Consult [facility] [address] [facility] [address] [place] [address] Holley Webb PA-C [address] [place] [address] documented as of this encounter Visit Diagnoses Diagnosis Alex's thyroiditis Chronic lymphocytic thyroiditis documented in this encounter Care Teams Footwear Production Machine Operator Relationship Specialty Start Date End Date Luther Echavarria PA [address] [place] [address] PCP - General Family Medicine 08/02/20 Analy Bose CNM [address] [place] [address] Supervisor Sawing And Assembly Obstetrics and Gynecology 04/03/23 documented as of this encounter
--- OUTSIDE RECORDS SUMMARY | 2024-11-13 21:59 | XMS_ITS | Encounter Summary ---
Author Organization [facility] Address [address] [place] [address] Care Team Providers Care Healthcare Corporate Account Director Name Role Phone Luther Echavarria Primary Care Provider [phone] Analy Bose CN Unavailable [phone] Reason for Referral * Gastroenterology (Urgent) - Authorized Specialty Diagnoses / Procedures Referred By Contac t Referred To Contact Gastroenterology Diagnoses Biliary colic Luther Echavarria PA [address] [place] [address] [address] Referral ID Status Reason Start Date Expiration Date V isits Requested Visits Authorized [id number] Authorized Consult 11/01/2024 11/02/2025 1 1 Question Answer Select Referral Type: Consult Reason for Visit * Reason Comments Follow-up Pt has a gallbladder flare up 1 or 2 times a week..Pt also wishes to get on control- is seeking a bird tender in [place]. Encounter Details Date Type Department Care Team ([facility] Contact Info) Description 11/01/2024 10:30 AM EST Office Visit [facility] [address] [place] [phone] Luther Echavarria PA [address] [place] [address] Biliary colic (Primary Dx); Epigastric abdominal pain; Alex's thyroiditis Social History Tobacco Use Types Packs/Day Years Used Date Smoking Tobacco: Never Smokeless Tobacco: Never Alcohol Use Standard Drinks/Week Comments Not Currently 0 (1 standard drink = 0.6 oz pur e alcohol) [facility] Utilities Answer Date Recorded In the past 12 months has th e electric, gas, oil, or water company threatened [...] and Family Not on file 09/18/2024 Attends Hinduism Services Not on file 09/18 Active Member [...] any time in the past 12 m [facility], were you homeless or living in a residential (including now)? No 09/18/2024 Education Answer Date Recorded What is the highest level of school you have completed or the highest degree you have received? 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, [employer]) 09/18/2024 Sex and Gender Information Value Date Recorded Sex Assigned at Female 04/01/2023 10:33 AM EDT Gender Identity Female 12/03/2020 7:53 AM EDT Sexual Orientation Heterosexual (straight) 12/03 7:53 AM EDT documented as of this encounter Last Filed Vital Signs Vital Sign Reading Time Taken Comments Blood Pressure 110/70 11/01/2024 10:37 AM EST Pulse 81 11/01/2024 10:37 AM EST Temperature - - Respiratory Rate 16 11/01/2024 10:37 AM EST Oxygen Saturation 98% 11/01/2024 10:37 AM EST Inhaled Oxygen Concentration - - Weight 86.2 kg (190 lb) 11/01/2024 10:37 AM EST Height 162.6 cm (5' 4.02 ) 11/01/2024 10:[address] Body Mass Index 32.6 11/01/2024 10:37 AM EST documented in this encounter Progress Notes * Melani Mendoza MA - 11/02/2024 2:36 PM EST Faxed to get records fax number is [phone] on 11/01/24 * CATALINA Ferguson - 11/01/2024 10:45 AM EST Assessment & Plan 1. Biliary colic - Amb Referral to Gastroenterology 2. Epigastric abdominal pain - PANTOprazole (PROTONIX) 40 MG EC tablet; Take 1 tablet (40 mg total) by mouth every morning before breakfast. Dispense: 90 tablet; Refill: 0 3. 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 - will get imaging reports from ER and follow up pending results and GI appt. There are no Patient Instructions on file for this visit. Patient understands and agrees with the plan of care Communication barriers and lifestyle preferences were addressed with the patient. The care plan including medications and self-management goals were reviewed to the best of the patient???s abilities.All questions and concerns were answered. Patient and/or family verbalized understanding of the plan of care. Subjective Radha Stearns is a 34 y.o. female who presents for office visit. Chief Complaint Patient presents with Follow-up Pt has a gallbladder flare up 1 or 2 times a week..Pt also wishes to get on control- is seeking a bird tender in [place]. Follow-up Associated symptoms include abdominal pain, fatigue and nausea. Pertinent negatives include no chest pain, coughing, headaches or weakness. She says that she has been getting flares 2-3 times per week. She says that she has noticed that it is down to what she is eating and fats seem to be the cause. Even healthy fats like avocado can cause this and she says that it will come around the middle of the night. She states that she has been in so much pain that she went to the ER but by the time she got there it was much better. She was told in the ER that it may have been her gallbladder but then had a normal ultrasound and there was also a CT scan. The pain has started to be more clear to the patient now that it has been occurring more frequentlyand says that it is in the RUQ of her abdomen and then radiates out. Patient Active Problem List Diagnosis Alex's thyroiditis Current Outpatient Medications Medication Sig Dispense Refill levothyroxine (SYNTHROID, LEVOTHROID) 88 MCG tablet Take 1 tablet (88 mcg total) by mouth daily on an empty stomach. 90 tablet 1 PANTOprazole (PROTONIX) 40 MG EC tablet Take 1 tablet (40 mg total) by mouth every morning before breakfast. 90 tablet 0 Pertinent History: The patient's past medical, surgical, social, and family history were all reviewed and updated as appropriate. Review of Systems Constitutional: Positive for appetite change and fatigue. Negative for activity change and unexpected weight change. Respiratory: Negative for cough, chest tightness and shortness of breath. Cardiovascular: Negative for chest pain and palpitations. Gastrointestinal: Positive for abdominal pain and nausea. Negative for constipation and diarrhea. Neurological: Negative for weakness and headaches. Objective Vitals: 11/01/24 1037 BP: 110/70 BP Location: Left arm Patient Position: Sitting Cuff Size: Large Pulse: 81 Resp: 16 SpO2: 98% Weight: 86.2 kg (190 lb) Height: 1.626 m (5' 4.02 ) Body mass index is 32.6 kg/m??. Physical Exam Vitals reviewed. Constitutional: General: She is not in acute distress. Appearance: She is well-developed. HENT: Head: Normocephalic and atraumatic. Eyes: General: No scleral icterus. Conjunctiva/sclera: Conjunctivae normal. Cardiovascular: Rate and Rhythm: Normal rate and regular rhythm. Pulmonary: Effort: Pulmonary effort is normal. No respiratory distress. Breath sounds: Normal breath sounds. Abdominal: General: Abdomen is flat. Bowel sounds are normal. Palpations: Abdomen is soft. Tenderness: There is abdominal tenderness (TTP over epigastric region, mild tenderness over RUQ, negative Mon's). Skin: General: Skin is warm and dry. Neurological: Mental Status: She is alert. Mental status is at baseline. Psychiatric: Mood and Affect: Mood normal. Behavior: Behavior normal. CATALINA Ferguson documented in this encounter Plan of Treatment Upcoming Encounters Date Type Department Care Team (Late st Contact Info) Description 01/13/2025 9:00 AM EDT Consult [facility] [address] [place] [phone] Holley Webb PA-C [address] [place] [address] Scheduled Referrals Name Type Priority Associated Diagnoses Order Schedule Amb Referral to Gastroenterology Outpatient Referral Routine Biliary colic Ordered: 11/01/2024 documented as of this encounter Procedures Procedure Name Priority Date/Time Associated Diagnosis Comments TSH REFLEX TO FREE T4 Routine 11/01/2024 11:03 AM EST Alex's thyroiditis documented in this encounter Results * TSH REFLEX FREE T4 (11/01/2024 11:03 AM EST) TSH reflex Free T4 3.10 mIU/L [facility] Comment: ?Reference Range ?> or = 20 Years ??0.40-4.50 ? Ranges ?First trimester ?0.26-2.66 ?Second trimester ?? 0.55-2.73 ?Third trimester ?0.43-2.91 Blood 11/01/2024 11:0 3 AM EST 11/01/2024 11:04 AM EST Narrative [facility] - 11/02/2024 3:53 AM EST FASTING:YES FASTING: YES Luther ARNOLD LAB BLOOD ORDERABLES Performing Organization Address City/State/[facility] Co de Phone Number [employer] [address] [place] [phone] documented in this encounter Visit Diagnoses Diagnosis Biliary colic- Primary Calculus of gallbladder without mention of cholecystitis or obstruction Epigastric abdominal pain Abdominal pain, epigastric Alex's thyroiditis Chronic lymphocytic thyroiditis documented in this encounter Care Teams Healthcare Corporate Account Director Relationship Specialty Start Date End Date Luther Echavarria PA [address] [place] [address] PCP - General Family Medicine 08/02/20 Analy Bose CNM [address] [place] [address] Legal Document Assistant Obstetrics and Gynecology 04/03/23 documented as of this encounter
--- OUTSIDE RECORDS SUMMARY | 2024-11-13 21:59 | XMS_ITS | Clinical Summary ---
Author Organization [facility] Ed Address [address] [place] [address] Care Team Providers Care Bridge Worker Apprentice Name Role Phone Luther Echavarria Primary Care Provider [phone] Analy Bose CNM Unavailable [phone] Allergies Active Allergy Reactions Criticality Noted Date Comments [place] Oil Anaphylaxis High 09/17/2020 Apple Juice Nausea Only High 09/17/2020 Other Hives Medium 10/25/2021 birchwood tree Medications Medication Sig Dispensed Refills Start Date End Date Status levothyroxine (SYNTHROID, LEVOTHROID) 88 MCG tabletIndications: Alex's thyroiditis Take 1 tablet (88 mcg total) by mouth daily on an empty stomach. 90 tablet 1 09/20/2024 Active PANTOprazole (PROTONIX) 40 MG EC tabletIndications: Epigastric abdominal pain Take 1 tablet (40 mg total) by mouth every morning before breakfast. 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 [address] [place] [phone] Luther Echavarria PA Biliary colic (Primary Dx); Epigastric abdominal pain; Alex's thyroiditis 11/01/2024 Travel 09/19/2024 11:15 AM EST Office Visit [facility] [phone] [facility] [place] [phone] Luther Echavarria PA Flank pain (Primary Dx); History of D&C; Alex's thyroiditis 09/19/2024 Travel 08/29/2024 Refill [facility] [phone] [facility] [place] [phone] Luther Echavarria PA 28 weeks gestation of ; Alex's thyroiditis from Last 3 Months Immunizations Name Administration Dates Next Due Covid-19 MRNA Vaccine - Pfizer 12+ (Purple Cap) 01/09/2021,12/19/2020 Influenza Inactivated/Split Preservative Free IM 07/04/2020 Influenza, Quadrivalent 06/27/2020 Tdap 06/01/2023,11/18/2022 Family History Medical History Relation Name Comments Thyroid disease Maternal Grandmother Thyroid disease Mother Relation Name Status Comments Father Recently passed 2019 Maternal Grandmother Mother Social History Tobacco Use Types Packs/Day Years Used Date Smoking Tobacco: Never Smokeless Tobacco: Never Tobacco Cessation:Counseling Given: Not Answered Alcohol Use Standard Drinks/Week Comments Not Currently 0 (1 standard drink = 0.6 oz pur e alcohol) [facility] [employer] Answer Date Recorded In the past 12 [...] and Family Not on file 09/18/2024 Attends [employer] Not on file 09/18 Active Member [...] any time in the past 12 m [facility], were you homeless or living in a detention (including now)? No 09/18/2024 Education Answer Date Recorded What is the highest level of school you have completed or the highest degree you have received? 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, [employer]) 09/18/2024 Sex and Gender Information Value Date Recorded Sex Assigned at Female 04/01/2023 10:33 AM EDT Gender Identity Female 12/03/2020 7:53 AM EDT Sexual Orientation Heterosexual (straight) 12/03 7:53 AM EDT Last Filed Vital Signs Vital Sign Reading Time Taken Comments Blood Pressure 110/70 11/01/2024 10:37 AM EST Pulse 81 11/01/2024 10:37 AM EST Temperature 36.5 ??C (97.7 ??F) 03/14/2024 9:59 AM ED T Respiratory Rate 16 11/01/2024 10:37 AM EST Oxygen Saturation 98% 11/01/2024 10:37 AM EST Inhaled Oxygen Concentration - - Weight 86.2 kg (190 lb) 11/01/2024 10:37 AM EST Height 162.6 cm (5' 4.02 ) 11/01/2024 10:37 AM E Body Mass Index 32.6 11/01/2024 10:37 AM EST Plan of Treatment Upcoming Encounters Date Type Department Care Team (Late st Contact Info) Description 01/13/2025 9:00 AM EDT Consult [facility] [address] [place] [phone] Holley Webb PA-C [address] [place] [address] Health Maintenance Due Date Last Done Comments Hepatitis B Vaccines (1 of 3 - 19+ 3-dose series) 2007 Influenza Vaccine 04/14/2024 06/15/2023, , 07/04/2020, Additional history exists COVID-19 Vaccine ( - 2023- season) 2024 01/09/2021, 12/19/2020 Pap Smear (Ages 21-65) 09/23/2025 , 07/05/2021, 09/14/2018 (Previously Completed) Physical 11/18/2025 11/18/2022, 10/15, 09/17/2020 DTaP/Tdap/Td Vaccines (3 - Td or Tdap) 06/01/2033 06/01/2023, 11/18/2022 Hepatitis C Virus Screening Completed 01/12, 07/05/2021, 06/20/2020 HIV Screening Completed 06/01/2023, 01/12, 07/05/2021, Additional history exists HPV Vaccines Aged Out No longer eligi ble based on patient's age to complete this topic Pneumococcal Vaccine: Pediatric (0-5 Years) and At-Risk Patients (6 to 49 Years) Aged Out No longer eligible based on patient's age to complete this topic Procedures Procedure Name Priority Date/Time Associated Diagnosis Comments TSH REFLEX TO FREE T4 Routine 11/01/2024 11:03 AM EST Alex's thyroiditis URINALYSIS WITH REFLEX TO CULTURE Routine 09/26/2024 12:26 PM EST Flank pain TSH REFLEX TO FREE T4 Routine 09/19/2024 11:43 AM EST Alex's thyroiditis LIPASE Routine 09/19/2024 11:43 AM EST Flank pain History of D&C BETA-HCG, QUANTITATIVE Routine 11:43 AM EST Flank pain History of D&C COMPLETE BLOOD COUNT, WITH DIFFERENTIAL Routine 09/19/2024 11:43 AM EST Flank pain History of D&C COMPREHENSIVE METABOLIC PANEL Routine 09/19/2024 11:43 AM EST Flank pain History of D&C HIV 1/2 AG/AB CMIA REFLEX TO CONFIRMATION Routine 06/01/2023 9:27 AM EDT HEPATITIS C VIRUS (HCV) ANTIBODY Routine 01/26/2023 2:26 PM EDT THINPREP PAP(CAREER INFORMATION SPECIALIST) HPV SCR RFX HPV 16,18/45 Routine 09/23/2022 12:44 PM EST from Last 3 Months or Most Recently Relevant to Health Maintenance Results * TSH REFLEX FREE T4 (11/01/2024 11:03 AM EST) Only the most recent of2 resultswithin the time period is included. TSH reflex Free T4 3.10 mIU/L [facility] Comment: ?Reference Range ?> or = 20 Years ??0.40-4.50 ? Ranges ?First trimester ?0.26-2.66 ?Second trimester ?? 0.55-2.73 ?Third trimester ?0.43-2.91 Blood 11/01/2024 11:0 3 AM EST 11/01/2024 11:04 AM EST Narrative [facility] - 11/02/2024 3:53 AM EST FASTING:YES FASTING: YES Luther ARNOLD LAB BLOOD ORDERABLES [employer] [address] [place] [phone] * Urinalysis with Reflex to Culture (09/26/2024 12:26 PM EST) Color YELLOW YELLOW [facility] Clarity CLEAR CLEAR [facility] Specific [place] 1.021 1.001 - 1.035 [facility] pH 5.5 5.0 - 8.0 [facility] Glucose, Urine, Random NEGATIVE NEGATIVE [facility] Bilirubin NEGATIVE NEGATIVE [facility] Ketones NEGATIVE NEGATIVE [facility] Blood NEGATIVE NEGATIVE [facility] Protein NEGATIVE NEGATIVE [facility] Nitrite NEGATIVE NEGATIVE [facility] Leukocyte Esterase NEGATIVE NEGATIVE [facility] WBC 0-5 < OR = 5 /HPF [facility] RBC NONE SEEN < OR = 2 /HPF [facility] Squamous Epithelial Cells 0-5 < OR = 5 /HPF [facility] Bacteria NONE SEEN NONE SEEN /HPF [facility] Hyaline Cast NONE SEEN NONE SEEN /LPF [facility] Note [facility] Comment: This urine was analyzed for the presence of WBC, RBC, bacteria, casts, and other formed elements. Only those elements seen were reported. Reflexive Urine Culture [facility] Comment:NO CULTURE INDICATED X-Specimen 16 Urine specimen obtained by clean catch procedure / Unknown 09/26/2024 12:26 PM EST 09/26/2024 12:26 PM EST Luther Echavarria [place] URINE ORDERABLES [facility] [address] [place] [phone] * Complete Blood Count, with Differential (09/19/2024 11:43 AM EST) White Blood Cell Count 8.2 3.8 - 10.8 Thousand/u L [facility] Red Blood Cell Count 4.55 3.80 - 5.10 Million/uL [facility] Hemoglobin 13.0 11.7 - 15.5 g/dL [facility] Hematocrit 39.6 35.0 - 45.0 % [facility] MCV 87.0 80.0 - 100.0 fL [facility] MCH 28.6 27.0 - 33.0 pg [facility] MCHC 32.8 32.0 - 36.0 g/dL [facility] Comment: For adults, a slight decrease in the calculated MCHC value (in the range of 30 to 32 g/dL) is most likely not clinically significant; however, it should be interpreted with caution in correlation with other red cell parameters and the patient's clinical condition. RDW 12.4 11.0 - 15.0 % [facility] Platelet Count 312 140 - 400 Thousand/u L [facility] MPV 10.5 7.5 - 12.5 fL [facility] Abs Neutrophils Auto 4,264 1,500 - 7,800 cells/uL [facility] Abs Lymphocytes Auto 2,911 850 - 3,900 cells/uL [facility] Abs Monocytes Auto 549 200 - 950 cells/uL [facility] Abs Eosinophils Auto 426 15 - 500 cells/uL [facility] Abs Basophils Auto 49 0 - 200 cells/uL [facility] Neutrophils Auto 52 % [facility] Lymphocytes Auto 35.5 % [facility] Monocytes Auto 6.7 % [facility] Eosinophils Auto 5.2 % [facility] Basophils Auto 0.6 % [facility] Blood Blood specimen / Unknown 09/19/2024 11:43 AM EST 09/19/2024 11:44 AM EST Narrative [facility] - 09/20/2024 7:33 AM EST FASTING:YES FASTING: YES Luther ARNOLD LAB BLOOD ORDERABLES Performing Organization Address [facility] de Phone Number [employer] [address] [place] [phone] * Beta-hCG, Quantitative (09/19/2024 11:43 AM EST) HCG, Total <5 mIU/mL [facility] Comment: Reference Range Non or premenopausal ?<5 Postmenopausal ? <10 Values from different assay methods may vary. The use of this assay to monitor or to diagnose patients with cancer or any condition unrelated to has not been cleared or approved by the FDA or the secondary social studies teacher of the assay. Blood Blood specimen / Unknown 09/19/2024 11:43 AM EST 09/19/2024 11:44 AM EST Narrative [facility] - 09/20/2024 7:33 AM EST FASTING:YES FASTING: YES Luther ARNOLD LAB BLOOD ORDERABLES Performing Organization Address [facility] de Phone Number [employer] [address] [place] [phone] * Lipase (09/19/2024 11:43 AM EST) Lipase 34 7 - 60 U/L [facility] Blood Blood specimen / Unknown 09/19/2024 11:43 AM EST 09/19/2024 11:44 AM EST Narrative [facility] - 09/20/2024 7:33 AM EST FASTING:YES FASTING: YES Luther Echavarria PA LAB BLOOD ORDERABLES Performing Organization Address [facility]/State/ZIP Co de Phone Number [employer] [address] [place] [phone] * Comprehensive Metabolic Panel (09/19/2024 11:43 AM EST) Glucose 74 65 - 99 mg/dL [facility] Comment: ? Fasting reference interval Blood Urea Nitrogen (BUN) 16 7 - 25 mg/dL [facility] Creatinine 0.79 0.50 - 0.97 mg/dL [facility] Creatinine w/ eGFR 99 > OR = 60 mL/min/1. 73m2 [facility] BUN/Creatinine Ratio SEE NOTE: (calc) [facility] Comment: ?? Not Reported: BUN and Creatinine are within ?? reference range. ? Sodium 139 135 - 146 mmol/L [facility] Potassium 3.9 3.5 - 5.3 mmol/L [facility] Chloride 103 98 - 110 mmol/L [facility] CO2 28 20 - 32 mmol/L [facility] Calcium 9.4 8.6 - 10.2 mg/dL [facility] Protein, Total 7.9 6.1 - 8.1 g/dL [facility] Albumin 4.6 3.6 - 5.1 g/dL [facility] Globulin 3.3 1.9 - 3.7 g/dL (calc) [facility] Albumin/Globuli n Ratio 1.4 1.0 - 2.5 (calc) [facility] Bilirubin, Total 0.5 0.2 - 1.2 mg/dL [facility] Alkaline Phosphatase 42 31 - 125 U/L [facility] Aspartate Aminotrans (AST) 14 10 - 30 U/L [facility] Alanine Aminotrans (ALT) 16 6 - 29 U/L [facility] Blood 09/19/2024 11:4 3 AM EST 09/19/2024 11:44 AM EST Narrative [facility] - 09/20/2024 7:33 AM EST FASTING:YES FASTING: YES Luther ARNOLD LAB BLOOD ORDERABLES [facility] [address] [place] [phone] * HIV 1/2 Ag/Ab CMIA Reflex to Confirmation (06/01/2023 9:27 AM EDT) [facility] HIV Ag/Ab, 4th Gen Non-Reacti ve Non-Reacti ve [facility] Comment: Results show no evidence of infection by HIV 1/2. If clinically indicated, repeat CMIA or test by nucleic acid amplification. 06/01/2023 9:27 AM EDT 06/01/2023 7:46 PM EDT Narrative [facility] - 06/02/2023 1:22 AM EDT FASTING:YES Analy Toussaint Lidya SEAY LAB BLOOD ORDERABLES Performing Organization Address [facility] Co de Phone Number [facility] [address], [place] * (ABNORMAL) HEPATITIS C VIRUS (HCV) ANTIBODY (01/26/2023 2:26 PM EDT) [facility] Hepatitis C Antibody 1.11 Reactive(A ) Non-Reacti ve S/CO [facility] Comment: CDC recommends a pbefac-rp-ygxnfs (S/CO) ratio equal to or >5 to predict true infection 95% of the time. Low reactive results (1.0-4.99 S/CO) should be confirmed by HCV nucleic acid testing. Other 01/26/2023 2:26 PM EDT 01/27/2023 12:49 AM EDT Analy Beardconstantino [facility] LAB BLOOD ORDERABLES Performing Organization Address City/[facility] Co de Phone Number [facility] [address], [place] * ThinPrep Pap(Water Pumping Station Engineer) HPV Scr Rfx HPV 16,18/45 (09/23/2022 12:44 PM EST) Clinical Information [facility] Comment:None given LMP: [facility] Comment:NONE GIVEN Previous PAP: [facility] Comment:07/05/2021 Previous Biopsy [facility] Comment:NONE GIVEN Source: [facility] Comment:Cervix, Endocervix Statement of Adequacy: [facility] Comment: Satisfactory for evaluation. Endocervical/transformation zone component absent. Age and/or menstrual status not provided Partially obscuring blood Interpretation/Res ult: [facility] Comment:Negative for intraep ithelial lesion or malignancy. Comment: [facility] Comment: This case could not be evaluated with computer assisted technology. The slide was manually screened according to routine procedures. Weatherseal Technician: [facility] Comment: SL, CT(ASCP) CT screening location: [address] ??[phone] Review Weatherseal Technician: [facility] Comment: DCR, CT(ASCP) CT screening location: [address] ??[phone] Comment [facility] Comment: EXPLANATORY NOTE: The Pap is a screening test for cervical cancer. It is not a diagnostic test and is subject to false negative and false positive results. It is most reliable when a satisfactory sample, regularly obtained, is submitted with relevant clinical findings and history, and when the Pap result is evaluated along with historic and current clinical information. Hpv Mrna [id number] Not Detected Not Detected [facility] Comment: Methodology: Recreational Resort Manager-Mediated Amplification This assay detects E6/E7 viral messenger RNA (mRNA) from 14 high-risk HPV types (16,18,31,33,35,39,45,51,52,56,58,59,66,68). Cervical sources are required for HPV testing. If a vaginal source from a patient who has had a total hysterectomy with removal of cervix was submitted, please contact the testing laboratory for alternative testing options. For additional information, please refer to http://education.Hospicelink/faq/PQO731c7 (This link if provided for information/ educational purposes only.) 09/23/2022 12:4 4 PM EST 09/25/2022 6:42 AM EST Narrative [facility] - 10/02/2022 11:33 AM EST [id number] AB Amarilys Hobson MD LAB AMB PATH/CYTO OR DERABLES [facility] [address] [facility] 3[address] Floor, [place] [address] from Last 3 Months or Most Recently Relevant to Health Maintenance Care Teams Bridge Worker Apprentice Relationship Specialty Start Date End Date Luther Echavarria PA [address] [place] [address] PCP - General Family Medicine 08/02/20 Analy Bose CNM [address] [place] [address] Vault Keeper Obstetrics and Gynecology 04/03/23
--- OUTSIDE RECORDS SUMMARY | 2024-11-13 21:59 | XMS_ITS | Data Portability ---
Author Organization [place] - [facility], [facility] Address [id number] [place] [address] Care Team Providers Care Fan Mail Clerk Name Role Phone BRANDT MIGUEL ÁNGEL Primary Care Provider Assessment No assessment recorded. Plan of Treatment Reminders Order Date Submit Date Provider Last Modified By Organization Details Last Modified Time Details Appointments None recorded. Lab surgical pathology study - products of conception 2023 [facility], [address] [place] [address], [id number] 15:04:23 bacterial vaginosis + vaginitis panel, vaginal 2023 [facility], [address] [place] [address], [id number] 4 09:08:53 hemoglobin (Hb), fingerstick , blood 2023 [email or web address] In-Office Order, Internal Use Only DO Not Attach Compendium DO Not Attach Compendium, Do Not Delete/merge, [id number] 14:04:37 Referral None recorded. Procedures None recorded. Surgeries None recorded. Imaging None recorded. Medication Orders oxycodone 5 mg tablet 2023 024 LIND[facility]Y [id number], [address] [place], [address], 4 11:43:13 ibuprofen 600 mg tablet 2023 024 arabella [id number], [address] [place], [address], 15:01:45 norethindro ne-ethinyl estradiol triphasic 0.5/1/0.5 mg-35 mcg tablet 2023 024 [email or web address] 885 [facility][id number], [address] [facility] [place], [address], 12:51:32 Vitron-C 65 mg iron-125 mg tablet,lina yed release 2023 024 [facility][id number], [address] [facility] [place] [place], [address], 13:48:07 FE 1.5/30 (28) 1.5 mg-30 mcg (21)/75 mg (7) tablet 2023 [id number] [address] [facility] [place] [place], [address], 13:48:06 Patient TargetsNo targets recorded. Patient Instructions Encounter Date Encounter Id Patient Instructions Last Modified By Organization Details Last Modified Time 10/12/2023 [id number] Normal post part um exam. No further bleeding. control options discussed. Would like to restart GERRY; reviewed method risks @ >35y.o /ACHES/BUM & consent signed. Kegal exercises explained. OK to resume all normal activity as tolerated. Will resume FE supplement and advised of s/s of anemia to f/u with. Patient coping well post-. 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 [email or web address] Not available 10/12/2023 13:49:35 06/30/2024 [id number] 34-year-old fema le with an abnormal appearing early ultrasound. It is size less than dates by 6 days with a slow heart rate and enlarged yolk sac. I discussed this is not diagnostic but very suggestive of being an impending miscarriage. Plan to have her return the office in 1 week to see whether the has failed. If it has failed she would be interested in either expectant management or surgical termination of . Both of these options were discussed with her. She does come from far away so she was wondering if she had a D&C in the hospital if someone would need to drive her home. I stated this was the case even if it was done in the office she would need to have someone to drive her home. She does not want permanent sterilization at this time. Potentially she could use something like an IUD after this miscarriage completes. Time spent reviewing the patient's history counseling and documenting was 32 minutes arabella Not available 06/30/2024 15:03:06 07/07/2024 [id number] 34-year-old femdiris craig with undesired . She has a young child at home. She wishes to proceed with surgical termination of . This will be scheduled in the office. She has been made aware that she will need to have a ride home. Would like to do it the week of July 18 and her has off. arabella Not available 07/07/2024 11:42:42 07/21/2024 [id number] Suction D&C completed without complication. Patient will follow-up as necessary. arabella Not available 07/21/2024 12:19:34 Reason for Referral None Reported. Results Created Date Observation Date Name Description Value Unit Range Abnormal Flag Note LastModifiedBy Organization Detail LastModifiedTime 10/12/1910/12/2023 hemog lobin (Hb), finge rstic k, blood HGB 10.9 Not Available In-Office Order Internal Use Only DO Not Attach Compendium DO Not Attach Compendium, Do Not Delete/merge, [id number] 10/12/2023 09:02:48 12/09/1912/09/2023 ADVAN NEETA BACTE RIAL VAGIN OSIS (BV), TMA adv bacterial vaginosis (bv), tma Positi ve negati ve abnormal Not Available [facility] [address] [place], [address] 12/10/2023 09:08:53 12/09/19 24 12/09/2023 ADVAN NEETA SHREE DA VAGIN ITIS (CV)/ TRICH OMONA S VAGIN DERRICK (TV), TMA chayo species Negati ve negati ve Not Available [facility] [address] [place], [address] 12/10/2023 09:08:54 12/09/19 24 12/09/2023 ADVAN NEETA SHREE DA VAGIN ITIS (CV)/ TRICH OMONA S VAGIN DERRICK (TV), TMA chayo glabrata Negati ve negati ve Not Available [facility] [address] [place], [address] 12/10/2023 09:08:54 12/09/19 24 12/09/2023 ADVAN NEETA SHREE DA VAGIN ITIS (CV)/ TRICH OMONA S VAGIN DERRICK (TV), TMA trichomonas vaginalis (TV), tma Negati ve negati ve Not Available [facility] [address] [place], [address] 12/10/2023 09:08:54 07/21/20 24 07/21/2024 TISSU E report Report Final Patho logy Repor t ----- ----- ----- ----- ----- ----- ----- ----- ----- ----- ----- ----- FINAL DIAGN OSIS: INTRA UTERI NE DARIANA NTS: - PRODU CTS OF VIOLET PTION INCLU DING CHORI ONIC VILLI . Elect williams Kinney d: Monique Dukes MD ----- ----- ----- ----- ----- ----- ----- ----- ----- ----- ----- ----- Clini esequiel Diagn osis and Histo ry: Elect fercho termi natio n of pregn jadon Gross Descr iptio n: Conta iner label ed with the patie nt's name ANDI DARBY noted POC . Speci men is recei ashley in forma kaylah and consi sts of multi ple fragm ents of soft, pacheco hemor rhagi c tissu e measu ring 22 g in aggre gate. No parts could be ident ified . Repre senta tive tissu e are submi tted in 5 casse tte(s ) label ed 1A-1E . CPT Codes : 96122 ICD Codes : Z33.2 Not Available [facility] [address] [place], [address] 07/22/2024 15:04:23 06/30/2006/30/2024 ultra sound image s CINDY bell [facility] [employer] [id number] 06/30/2024 11:00:23 07/07/20 24 07/07/2024 US, obste tric, trans vagin al RAD nvoisine In-Office Order Internal Use Only DO Not Attach Compendium DO Not Attach Compendium, Do Not Delete/merge, [id number] 07/08/2024 08:32:27 Result Notes None recorded. Problems Name Problem SNOMED Code Status Onset Date Resolution Date Notes Provider Name and Address Organization Details Recorded Time Hashimot o thyroidi tis 61584202 Active on 88 mcg levothyro xine daily TSH at IOB 3.63, endo consult and advised to update PCP levothyro xine increased to 112 daily on 06/01/23 increased again to120 mcg on 06/08/23 [facility]ry [facility] 3 09:13:29 High risk pregnanc y 56901779 Completed AMA, first preg Will take ASA 81 mg daily at 12 wks Corry Laguerre [facility] 3 09:13:29 Hashimot o thyroidi tis 39379020 Completed on 88 mcg levothyro xine daily TSH at IOB 3.63, endo consult and advised to update PCP levothyro xine increased to 112 daily on 06/01/23 increased again to120 mcg on 06/08/23 Corry [facility] 3 09:13:29 Advanced maternal age 795409815 Completed Horizon- Neg X3 NIPT- screen neg, Male AFP - low risk Level 2 Anatomy scan - velamento us cord [facility]ry [facility] 3 09:13:29 Rubella non-immu ne 126058275 Completed MMR PP Corry [facility] 3 09:13:29 Velament ous insertio n of umbilica l cord 38203210 Completed on level 2, will need NST's at 36 wks, growth USN third trim per MFM Corry Laguerre null, [facility] 3 09:13:29 Problem Notes None recorded. Procedures Surgical History Date Name Laterality Status Provider Name and Address Organization Details Recorded Time 4 Suction D&C/Manual Vacuum Aspiration completed WHIT YODER MD [address], [place], [address], [facility] 07/21/2024 12:18:23 4 First Post Visit completed ALKA RIVERA CNM [address], [address] [place] [address], [place], [address], [facility] 09/15/2023 08:08:17 3 [id number] completed MOISES SEPULVEDA MD [address] [facility], [address] [place] [address], [phone], [facility] 09/23/2022 13:14:09 2 laser surgery completed Samuel Bradshaw [facility] 09/23/2022 12:16:50 2 Other completed Clarice Yoder [facility] 01/12/2023 09:54:50 1 Colposcopy Procedure Note completed MOISES SEPULVEDA MD [address], [address] [place] [address], [phone], [facility] 08/14/2021 13:04:38 1 Colposcopy completed OMG1 NURSE 175 [facility], [address] [place] [address], [address], [facility] 11/26/2021 13:31:51 1 [id number] completed MOISES SEPULVEDA MD [address] [facility], [address] [place] [address], [phone], [facility] 07/05/2021 15:01:29 Date of Last Pap Smear completed OMG1 NURSE [address] [facility], [address] Floor, [place], [address], [place] [facility] 11/26/2021 13:31:27 Imaging Results Imaging Date Name Status LastModified by Organization Details LastModified Time 06/30/2024 ultrasound images completed arabella [facility] [employer] [facility] [id number] 06/30/2024 11:00:23 07/07/2024 US, obstetric, transvaginal completed nvoisine In-Office Order Internal Use Only DO Not Attach Compendium DO Not Attach Compendium, Do Not Delete/merge, [id number] 07/08/2024 08:32:27 Procedure Notes None recorded. Medical Equipment None Reported. Allergies Allergen ID Allergen Name Allergen Category Reaction Reaction Severity Criticality Documentation Date Start Date Code Code System Note Provider Name and Address Organization Details Recorded Time 9849570 apple extract food nausea severe Not available 04/28/2018 57505 65 RxNorm Izamarie Colon null, [facility] 8 16:58:40 4302160 almond allergeni c extract food nausea severe Not available 04/28/2018 21715 7 RxNorm Izamarie Colon null, [facility] 8 16:58:40 No known drug allergies Medications Name Sig Start Date Stop Date Status Note LastModified by Organization Details LastModified Time cyclobenzap rine 10 mg tablet 04/28 completed Not Available Not Available Not Available promethazin e-DM 6.25 mg-15 mg/5 mL oral syrup TAKE 5 ML BY MOUTH EVERY 4 HOURS NEEDED FOR COUGH 09/20 completed Not Available Not Available Not Available Colace 100 mg capsule Take 1 capsule every day by oral route as needed. 12/08 completed Not Available Not Available Not Available trazodone 50 mg tablet TAKE 1 TABLET BY MOUTH EVERY DAY AT NIGHT 09/20 completed Not Available Not Available Not Available fluconazole 150 mg tablet TAKE 1 TABLET BY MOUTH EVERY DAY FOR 1 DAY 09/20 completed Not Available Not Available Not Available metronidazo le 0.75 % (37.5 mg/5 gram) vaginal gel Insert 1 applicato rful every day by vaginal route at bedtime for 5 days. 06/30 completed Not Available Not Available Not Available Samantha Low Dose Aspirin 81 mg tablet,lina yed release Take 1 tablet every day by oral route. 12/08 completed Not Available Not Available Not Available clotrimazol e 1 % vaginal cream INSERT 5 GRAMS VAGINALLY NIGHTLY FOR 7 DAYS 05/31 completed Not Available Not Available Not Available tretinoin 0.05 % topical cream APPLY TO AFFECTED AREA AT NIGHT 04/18 completed Not Available Not Available Not Available ciprofloxac in 500 mg tablet TAKE 1 TABLET EVERY 12 HOURS BY ORAL ROUTE FOR 7 DAYS. 09/20 completed Not Available Not Available Not Available tramadol 50 mg tablet TAKE 1 TABLET BY MOUTH EVERY 6 HOURS NEEDED FOR PAIN 09/20 completed Not Available Not Available Not Available ondansetron 8 mg disintegrat ing tablet Place 1 tablet twice a day by transling ual route. 09/15 completed Not Available Not Available Not Available levothyroxi ne 100 mcg tablet 06/02 completed Not Available Not Available Not Available levothyroxi ne 88 mcg tablet TAKE 1 TABLET BY MOUTH EVERY DAY ON EMPTY STOMACH active Not Available Not Available No t Available levothyroxi ne 50 mcg tablet 05/06 completed Not Available Not Available Not Available cephalexin 500 mg capsule TAKE 1 CAPSULE BY MOUTH THREE TIMES A DAY 06/30 completed Not Available Not Available Not Available pantoprazol e 40 mg tablet,lina yed release 04/18 completed Not Available Not Available Not Available prednisone 50 mg tablet 09/20 completed Not Available Not Available Not Available Tylenol 325 mg tablet Take 2 tablets every 6 hours by oral route as needed. 12/08 completed Not Available Not Available Not Available ergocalcife rol (vitamin D2) 1,250 mcg (50,000 unit) capsule 10/04 completed Not Available Not Available Not Available azelastine 137 mcg (0.1 %) nasal spray 07/05 completed Not Available Not Available Not Available ibuprofen 600 mg tablet Take 1 tablet 3 times a day by oral route as needed. active Not Available Not Available No t Available albuterol sulfate HFA 90 mcg/actuati on aerosol inhaler INHALE 2 PUFFS BY MOUTH EVERY 6 HOURS NEEDED FOR WHEEZE 07/05 completed Not Available Not Available Not Available norethindro ne-ethinyl estradiol triphasic 0.5/1/0.5 mg-35 mcg tablet Take 1 tablet every day by oral route. 2023 active Not Available Not Available Not Avai lable ondansetron 4 mg disintegrat ing tablet 12/08 completed Not Available Not Available Not Available metformin ER 500 mg tablet,exte nded release 24 hr 06/30 completed Not Available Not Available Not Available levothyroxi ne 112 mcg tablet TAKE 1 TABLET BY MOUTH DAILY ON AN EMPTY STOMACH. 09/15 completed Not Available Not Available Not Available amoxicillin 875 mg-potassiu m clavulanate 125 mg tablet 05/06 completed Not Available Not Available Not Available oxycodone 5 mg tablet Take 1 to 2 tablets per oral route 1 hour prior to procedure active Not Available Not Available No t Available escitalopra m 10 mg tablet TAKE 1 TABLET BY MOUTH EVERY DAY 09/20 completed Not Available Not Available Not Available bupropion HCl XL 300 mg 24 hr tablet, extended release 07/21 completed Not Available Not Available Not Available Junel FE 1.5/30 (28) 1.5 mg-30 mcg (21)/75 mg (7) tablet TAKE 1 TABLET BY MOUTH EVERY DAY 06/30 completed Not Available Not Available Not Available doxylamine 10 mg-pyridoxi ne (vit B6) 10 mg tablet,lina yed release Take 2 tablets every day by oral route. 04/18 completed Not Available Not Available Not Available levocetiriz ine 5 mg tablet 05/06 completed Not Available Not Available Not Available Xyzal 1 daily 04/18 completed per pt Not Available Not Available Not Available levothyroxi ne 112 mcg capsule Take 1 capsule every day by oral route. 12/08 completed Not Available Not Available Not Available Tri-Estaryl la (28) 0.18 mg(7)/0.215 mg(7)/0.25 mg(7)-35 mcg tablet TAKE 1 TABLET BY MOUTH EVERY DAY 06/30 completed Not Available Not Available Not Available Vitron-C 65 mg iron-125 mg tablet,lina yed release Take 1 tablet every day by oral route. 12/08 completed Not Available Not Available Not Available Flucelvax Quad 60 mcg (15 mcg x 4)/0.5 mL intramuscul ar susp PHARMACY ADMINISTE RED 07/05 completed Not Available Not Available Not Available BinaxNOW COVID-19 Ag Self Test kit TEST DIRECTED TODAY 09/20 completed Not Available Not Available Not Available Vitals Date Recorded Body height Body mass index (BMI) Body weight Systolic blood pressure Diastolic blood pressure Provider Name and Address Organization Details Last Updated DateTime 10/12/2023 162.56 cm 31.6 kg/m2 80827 g 112 mm[Hg] 76 mm[Hg] [facility] O1 [address], [address], [facility] 13:23:55 Date Recorded Body height Body mass index (BMI) Body weight Heart rate Systolic blood pressure Diastolic blood pressure Provider Name and Address Organization Details Last Updated DateTime 162.56 cm 22.6 kg/m2 93394.7 9 g 88 /min 127 mm[Hg] 84 mm[Hg] OMG1 NURSE [address], [address], [facility] 4 10:09:11 Date Recorded Body height Systolic blood pressure Diastolic blood pressure Provider Name and Address Organization Details Last Updated DateTime 06/30/2024 162.56 cm 130 mm[Hg] 77 mm[Hg] [facility] [address], [address], [facility] 06/30/2024 10:52:17 Date Recorded Body height Systolic blood pressure Diastolic blood pressure Provider Name and Address Organization Details Last Updated DateTime 07/07/2024 162.56 cm 121 mm[Hg] 76 mm[Hg] [facility] [address], [address], [facility] 07/07/2024 09:01:04 Date Recorded Body height Body mass index (BMI) Body weight Systolic blood pressure Diastolic blood pressure Provider Name and Address Organization Details Last Updated DateTime 07/21/2024 162.56 cm 33.5 kg/m2 83950.51 g 127 mm[Hg] 85 mm[Hg] [facility] O1 [address] [facility], [address] Floor, [place], [address], [place] [facility] 12:02:31 Social History Question Answer Notes LastModified by Organizat ion Details LastModified Time Tobacco Smoking Status Never Smoker Adolfo Moser null, [place] [facility] 04/28/2018 16:58:41 What Is Your Level Of Alcohol Consumption? Occasional Information not available 04/28/2018 Concerns About Meeting Basic Needs (food, Housing, Heat, Etc)? No Information not available 01/12/2023 Education Post Graduate Information not available 01/12/2023 What Is The Highest Grade Or Level Of School You Have Completed Or The Highest Degree You Have Received? 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 Yes Information not available 06/30/2024 Does Your Partner Physically Hurt You Or Threaten To Hurt You? No Information not available 04/28/2018 Has Your Partner Forced You To Have Sex Or Perform Sex Acts When You Did Not Want To? No Information not available 04/28/2018 Does Your Partner Insult, Scream At Or Talk Down To You? No Information not available 04/28/2018 Does Your Partner Control You Or Any Part Of Your Life? No Information not available 04/28/2018 Are You Afraid Of Your Partner? No Information not available 04/28/2018 Drug Use? No Information no t available 04/28/2018 Do You Feel Safe At Home? Yes Information not available 04/28/2018 What Was The Date Of Your Most Recent Tobacco Screening? 06/30/2024 Information not available 06/30/2024 How Many Children Do You Have? 1 Information not available 06/30/2024 Do You Use Protection During Sex? No Information not available 01/12/2023 Are You Sexually Active? Yes Information not available 01/12/2023 How Much Tobacco Do You Smoke? No Information not available 01/12/2023 General Stress Level Low Information not available 01/12/2023 Do You Feel Stressed (tense, Restless, Nervous, Or Anxious, Or Unable To Sleep At Night)? [id number] Information not available 07/05/2021 How Many Years Have You Smoked Tobacco? 0 Information not available 01/12/2023 Have You Recently Traveled Abroad? No Information not available 07/05/2021 Have You Recently (within The Last 12 Weeks, Or During A Current ) Traveled To Or Lived In A Zika-affected Area? No Information not available 01/12/2023 Sex: Female Functional Status Question Answer Note LastModified by Organizat ion Details LastModified Time What is your exercise level? Occasional Information not available 09/23/2022 Mental Status None recorded. Family History Relationship Description Onset Age of this Age Resolved Age Notes LastModified by Organization Details LastModified Time Mother Asthma [email or web address] Not available 16:51:57 Mother Disorder of thyroid gland API-13 Not available 2017 16:51:57 Medical History Condition Response *No Diseases or Conditions N Blood clots N Depression N Lung Disease N Defects or Inherited Disease N Anesthesia Complications N Neurological Disorder N Anxiety Disorder Y HSV N Cancer N Stroke N HIV N Heart Problems N Thyroid Problems Y Kidney or Bladder Problems N Psychiatric Illness N Diabetes N Blood Transfusions N Abuse/Domestic Violence N Asthma Y Hepatitis N Hypertension N Osteoporosis N Gynecological History Statement/Question Response Benign Breast Disease N Flow Light Date of LMP 05/13/2024 IPV Screen Done 09/23/2022 STIs/STDs N PID N Cervical Cancer N BrCa gene tested? N Ovarian Cancer N Breast Cancer N Bladder Problems N Last HPV Result Positive Abnormal Pap Y BrCa Positive N Infertility N Sexual Orientation heterosexual HPV Vaccine N Colposcopy 08/14/2021 Duration of Flow (days) 5 Endometriosis N Current Control Method None Age at First Child 33 Fibroids N Uterine Cancer N Current Control Method Frequency of Cycle (Q days) 30 Sexually Active? Y Sexual Problems? N Date of Last Pap Smear 07/05/2021 Pap Required? Y Obstetrics History GPAL:G 2 P 1 0 1 1 Type Value Full Term 1 Induced 1 Living 1 Total 2 Immunizations Vaccine Type Date Status Note Provider Tee diaz and Address Organization Details Recorded Time Tdap 3 completed Kiesha Lopez null, [facility] 06/01/2023 09:09:27 Influenza, MDCK, quadrivalent, PF 3 completed MERRY DOS SANTOS CNM [address] [facility], [address], [place], [address], [facility] 06/15/2023 10:22:28 Influenza, MDCK, quadrivalent, preservative 0 completed Clarice Yoder null, [facility] 01/12/2023 09:54:27 COVID-19, mRNA, LNP-S, PF, 30 mcg/0.3 mL dose 1 completed Clarice Yoder null, [facility] 01/12/2023 09:54:27 COVID-19, mRNA, LNP-S, PF, 30 mcg/0.3 mL dose 1 completed Clarice Yoder null, [facility] 01/12/2023 09:54:27 Tdap 3 completed Clarice Yoder null, [facility] 01/12/2023 09:54:27 Past Encounters Encounter ID Performer Location Encounter Start Date Encounter Closed Date Diagnosis/Indication Diagnosis SNOMED-CT Code Diagnosis ICD10 Code Diagnosis Note [id number] DEMI ARDON CNM MAO1 [address] [place] [address] 04/28/2018 16:43:43 04/29/2018 07:52:55 Gynecologic examination 41716299 [facility] 479855217 Z30.9 [id number] DEMI ARDON CNM MAO2 [address] [place] [address] 05/06/2019 06:57:41 05/06/2019 10:56:29 Gynecologic examination 94855158 Z01.419 [facility] ion care management 556894139 Z30.9 [id number] DEMI ARDON CNM [facility] [address] [place] [address] 10/04/2019 14:45:09 10/05/2019 08:54:06 Venereal disease screening 376987350 Z11.3 [id number] MEGAN ORELLANA CNM [facility] [address] [place] [address] 06/20/2020 13:05:02 06/21/2020 10:21:12 Gynecologic examination 04575916 Z01.419 Venereal d isease screening 633785587 Z11.3 [facility] ion care management 234127334 Z30.9 [id number] MOISES SEPULVEDA MD [address] [address] 07/05/2021 14:01:04 07/05/2021 15:49:06 Gynecologic examination 09129900 Z01.419 Venereal d isease screening 184520685 Z11.3 [id number] MOISES SEPULVEDA MD [address] [address] 08/14/2021 11:23:21 08/15/2021 08:43:25 Atypical squamous cells of undetermined significance on cervical Papanicolaou smear 075997118 R87.610 [id number] MOISES SEPULVEDA MD [address] [address] 09/23/2022 12:03:41 09/25/2022 14:58:03 Gynecologic examination 21434051 Z01.419 Venereal d isease screening 898331532 Z11.3 [id number] MERRY DOS SANTOS CNM MAO [address] [place] [address] 01/12/2023 09:50:49 01/13/2023 08:53:25 Routine care 680293557 Z34.01 Gestation period, 8 weeks 49921613 Z3A.08 [id number] MERRY DOS SANTOS CNM [facility] [address] [place] [address] 01/26/2023 14:02:44 01/27/2023 14:29:20 Routine care 870219649 Z34.90 Z34.91 Z34.92 Z34.93 Z34.00 Z34.80 Z34.01 Z34.02 Z34.03 Z34.81 Z34.82 Z34.83 Gestation period, 10 weeks [id number] Z3A.10 High risk 4720 0007 O09.91 [id number] VICTOR M AGUERO CNM [facility] [address] [place] [address] 02/23/2023 08:46:22 02/24/2023 15:00:44 Routine care [id number] Z34.92 High risk 4720 0007 O09.92 Gestation period, 14 weeks 58628963 Z3A.14 Referred t o garment supervisor [id number] Z76.89 [id number] Diamond Chandler CNM [facility] [address] [place] [address] 03/23/2023 09:45:32 03/25/2023 09:28:07 High risk 78859848 O09.92 Gestation period, 18 weeks 73734201 Z3A.18 Nausea and vomiting 1693 1999 R11.2 [id number] Monique Quiñones DO [facility] [address] [place] [address] 04/20/2023 11:20:12 04/20/2023 13:29:07 High risk 91839860 O09.92 Gestation period, 22 weeks 25584843 Z3A.22 Nausea and vomiting 1693 1999 R11.2 [id number] Monique Quiñones DO [facility] [address] [place] [address] 05/11/2023 11:16:45 05/15/2023 11:16:58 Vaginal odor 093407814 N89.8 High risk 4720 0007 O09.92 Gestation period, 25 weeks 54956431 Z3A.25 [id number] MERRY DOS SANTOS CNM [facility] [address] [place] [address] 06/01/2023 08:19:50 06/03/2023 10:30:54 High risk 49499646 O09.93 Gestation period, 28 weeks 77991341 Z3A.28 Routine an tenatal care 003967027 Z34.02 Z34.82 Hypothyroidism 23909981 E03.9 Active or passive immunization 838536138 Z23 [id number] MERRY DOS SANTOS CNM [facility] [address] [place] [address] 06/15/2023 08:43:18 06/17/2023 11:03:41 High risk 31124261 O09.93 Gestation period, 30 weeks 54353864 Z3A.30 Administra tion of influenza vaccine 28921564 Z23 [id number] MOISES SEPULVEDA MD [facility] [address] [place] [address] 06/29/2023 14:27:27 06/30/2023 10:23:10 High risk 32616547 O09.93 Gestation period, 32 weeks 6234944 Z3A.32 support 40 0811528 Z39.1 [id number] MOISES SEPULVEDA MD [facility] [address] [place] [address] 07/14/2023 08:37:47 07/14/2023 14:06:58 High risk 22144222 O09.93 Gestation period, 34 weeks 92138962 Z3A.34 [id number] MERRY DOS SANTOS CNM [facility] [address] [place] [address] 07/28/2023 10:53:06 07/30/2023 15:02:39 High risk 15085733 O09.93 Gestation period, 36 weeks 71792375 Z3A.36 screening 2437 69787 Z36.9 [id number] WHIT YODER MD [facility] [address] [place] [address] 07/28/2023 09:52:58 07/30/2023 13:19:01 support 052603467 Z39.1 [id number] MERRY DOS SANTOS CNM [facility] [address] [place] [address] 08/03/2023 13:57:09 08/04/2023 16:18:00 High risk 07553379 O09.93 Gestation period, 37 weeks 44958433 Z3A.37 [id number] [facility] [address] [place] [address] 08/10/2023 13:48:16 08/12/2023 11:52:03 Advanced maternal age 621638401 O09.523 High risk 4720 0007 O09.93 Gestation period, 38 weeks 37043083 Z3A.38 [id number] MERRY DOS SANTOS CNM [facility] [address] [place] [address] 08/17/2023 13:45:11 08/20/2023 11:44:27 High risk 95838741 O09.93 Gestation period, 39 weeks 92159517 Z3A.39 Advanced m aternal age 460127534 O09.[id number] [address] 08/24/2023 09:10:48 08/31/2023 08:31:40 Post-term 44842904 O48.1 High risk 4720 0007 O09.93 Gestation period, 40 weeks 58142520 Z3A.40 [id number] ALKA RIVERA CNM [facility] [address] [place] [address] 09/15/2023 07:34:39 09/16/2023 10:16:09 care 332090512 Z39.2 [id number] ALKA RIVERA CNM [facility] [address] [place] [address] 10/12/2023 13:13:07 10/13/2023 15:21:32 care 299085856 Z39.2 Contracept ion care management 528681272 Z30.9 [id number] MOISES SEPULVEDA MD [address] [address] 12/09/2023 09:59:44 12/09/2023 14:10:40 Vaginal odor 424323988 N89.8 Prolonged periods 069459 006 N92.5 Pt reports taking her pills on time and not missing any, no change in her overall health. Discussed switching to triphasic OCP, pt accepts [id number] WHIT YODER MD [facility] [address] [place] [address] 06/30/2024 10:22:28 07/01/2024 10:09:04 Uncertain viability of 727059807 O36.80X9 [id number] WHIT YODER MD [facility] [address] [place] [address] 07/07/2024 08:28:23 07/11/2024 15:48:36 Elective termination of 26693014 Z33.2 [id number] WHIT YODER MD [facility] [address] [place] [address] 07/21/2024 11:28:10 08/03/2024 12:39:42 Elective termination of 73790378 Z33.2 Health Concerns Section Related Observation LastModified by Organization Detai ls LastModified Time None Recorded Concern Status LastModified by Organization Details LastModified Time None Recorded Advance Directives Directive None Recorded Payers Encounter Date Sequence Insurance Name Policy Number Policy Hanson Covered Member ID Hanson Member ID Guarantor Name 10/12/2023 1 [place] [id number] H Andi Daryn [id number] Andi Daryn 12/09/2023 1 [place] [id number] H Andi Daryn [id number] Andi Daryn 06/30/2024 1 [place] [id number] H Andi Daryn [id number] Andi Daryn 07/07/2024 1 [place] [id number] H Andi Daryn [id number] Andi Daryn 07/21/2024 1 [place] [id number] H Andi Daryn [id number] Andi Daryn Notes Date Note Type Note Provider Name and Address Organization Details Recorded Time 10/12/2023 text/html [facility] VisitReported bypatient.Associate d Symptoms:no abnormal bleeding; no pelvic pain; laceration well healed; no constipation; no fecal incontinence; no dysuria; no urinary incontinence; no fever; no problems; no mastitisNotes:Well PP. Denies any concerns w/ mood. Formula only. VB has stopped PP. Menses resumed. Abstinence since delivery. Pelvic pain resolved. Repair site seems healed. Wants to resume GERRY used in past. ALKA RIVERA CNM [address], [address], [facility] 10/12/2023 13:53:33 12/09/2023 text/html C/O mal odorous vaginal d/c x 4 days . 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 MOISES SEPULVEDA MD [address], [address], [facility] 12/09/2023 10:32:39 06/30/2024 text/html Patient is here to discuss her positive test. She had a transvaginal ultrasound today which showed a retroverted uterus was contains a gestational sac. Within the gestational sac is a pole which measures 6 weeks and 0 days. This is size less than dates by 7 weeks. Additionally there is an enlarged sac which is several times larger than the pole. A heart rate was measured at approximately 99 bpm. There is a right corpus luteum and a normal left ovary. She has a young child at home and was not planning on continuing this if it was viable. She does have a history of many years ago being given medication to induce an at home. She did not enjoy this experience. WHIT YODER MD [address], [address], [facility] 06/30/2024 15:03:26 07/07/2024 text/html Patient is here for repeat ultrasound. This showed interval changes growth of 1 week in the crown-rump length and heart rate is present. She does not desire this . She had a bad experience having medical termination of at home and would like to have a surgical termination of . WHIT YODER MD [address] [place] [address], [address], [place], [address], [place] [facility] 07/07/2024 11:43:37 OBGyn Episode Ob Episode Information Episode Created Date Number of Fetuses Patient Bloodtype Patient rh Status Prepregnancy Weight lbs Domestic Partner Domestic Partner Phone Father Name Sheet Metal Apprentice Status 01/27/20 1 A Positive 198 Dominick CLOSED Fetus Data First Name Last Name Admitted to NICU Weight (g) Sex Living Outcome Pediatric Complications Fetus ID Race Codes Race Delivery Type false 3798.83 3 M true Full Term [id number] 9 Vaginal Delivery Problems Problem Notes Problem Name Start Date End Date Resolution Snomed Code Not e Rubella non-immune [id number] M PP Velamentous insertion of umbilical cord 46434479 on level 2, w ill need NST's at 36 wks, growth USN third trim per MFM High risk 80530683 AMA, first pregWill take ASA 81 mg daily at 12 wks Alex thyroiditis 53922575 on 88 mcg levot hyroxine dailyTSH at IOB 3.63, endo consult and advised to update PCPlevothyroxine increased to 112 daily on 06/01/23increased again to120 mcg on 06/08/23 Advanced maternal age 357896791 Horizon- Neg X3 NIPT- screen neg, MaleAFP - low riskLevel 2 Anatomy scan - velamentous cord Jason Calculation Initial Jason Date Initial Exam Date Initial Exam Provider Initial Ultrasound Date Last Menstrual Period Date Ultra Sound Weeks Gestation 08/22/2023 01/26/2023 01/12/2023 11/15/2022 8 Eighteen To Twenty Week Jason Update Ultra Sound Date Fundal Height At Umbil Quickening Date Ultra Sound Latest Weeks Gestation Final Jason Confirmed By Final Jason Confirmed Date Final Jason Date Ultra Sound Latest Days Gestation 0 API-217 01/26/2023 08/22/20 0 Pre- Flowsheet Flowsheet Date 01/26/2023 Muñoz Score Blood Edema Fundus Height Fundus Units Glucose Ketones Leukocytes Nitrite Labor Signs Protein Cervic Dilation Cervic Effacement Cervic Station 10 cm none neg Type Weight in lbs Pre/Post Dialysis Refused Weight 200.430258388097 BP Diastolic BP Location Tested BP Systolic BP Type 86 132 Fetus Heart Rate Present A 165 Fetus Movement Comments Pt here with partner, has de cided to do all genetic testing, consents signed. IOB labs with TSH drawn today, NIPT and horizon also. Flowsheet Date 02/23/2023 Muñoz Score Blood Edema Fundus Height Fundus Units Glucose Ketones Leukocytes Nitrite Labor Signs Protein Cervic Dilation Cervic Effacement Cervic Station none 14 wks Type Weight in lbs Pre/Post Dialysis Refused Weight 198.636892786155 BP Diastolic BP Location Tested BP Systolic BP Type 77 109 Fetus Heart Rate Present A 150 Fetus Movement Comments Unable to void today, will d o urine tox at her next visit. 1) developed a dry cough following a mild upper respiratory infection 2 weeks ago. Had neg respiratory workup at urgent care. Admits to hx of mild asthma, winded at times with cough but symptoms is not persistent; she states her cough has been improving, rec'd albuterol if she is starting to feel SOB. Also, rec'd f/u with her PCP and she agrees. 2) Reviewed IOB labs, TSH 3.63, on 88mcg of levothyroxine. Discussed normal levels in . She has not yet reached out to her PCP for medication adjustment. 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 3) Leaving to [place] this Thursday, discussed traveling precautions and seeing her PCP for medication adjustment before leaving. 4) sporadic HAs, has not tried OTC medication, rec'd Tylenol w/ caffeine. Has level 2 scan scheduled for 04/03. Flowsheet Date 03/23/2023 Muñoz Score Blood Edema Fundus Height Fundus Units Glucose Ketones Leukocytes Nitrite Labor Signs Protein Cervic Dilation Cervic Effacement Cervic Station none neg Type Weight in lbs Pre/Post Dialysis Refused Weight 196.931398515388 BP Diastolic BP Location Tested BP Systolic BP Type 75 117 Fetus Heart Rate Present Fetus Movement Comments Andi is feeling well today, partner present for visit today. No FM yet, denies vaginal bleeding or painful abdominal cramping. Reports some pelvic pressure/round ligament pain. Discussed option for belly band. States she did see her PCP to follow up on elevated TSH and levothyroxine was increased to 100mcg. Has consult scheduled with endocrine but unable to get in until May, is on cancelation list, also has follow up with PCP for bloodwork in 2 weeks. Reports having GI upset while in [place] and PCP was concerned possibly gallbladder, has follow up US scheduled next week. States n/v has improved, request refill of zofran, sent today. Accepts APF today. UTox negative today. Partner present for visit and appears supportive and involved. Warning signs and calling guidelines reviewed. RTO in 4 weeks for PNV. Flowsheet Date 04/20/2023 Muñoz Score Blood Edema Fundus Height Fundus Units Glucose Ketones Leukocytes Nitrite Labor Signs Protein Cervic Dilation Cervic Effacement Cervic Station 23 cm none neg Type Weight in lbs Pre/Post Dialysis Refused Weight 197.043891010525 BP Diastolic BP Location Tested BP Systolic BP Type 75 121 Fetus Heart Rate Present A 150 Fetus Movement A Yes Comments Pt is feeling well. Discusse d velamentous cord insertion, planned growth US at 32wks and then 36wks and weekly NSTs at 36wks. She requests refill on zofran, done today discussed constipation and OTC remedies. RTO in 3wks for routine OB. Flowsheet Date 05/11/2023 Muñoz Score Blood Edema Fundus Height Fundus Units Glucose Ketones Leukocytes Nitrite Labor Signs Protein Cervic Dilation Cervic Effacement Cervic Station 26 cm Type Weight in lbs Pre/Post Dialysis Refused Weight 200.327304289596 BP Diastolic BP Location Tested BP Systolic BP Type 75 111 Fetus Heart Rate Present A 150 Fetus Movement A Yes Comments Pt thinks she may have a yea st infection. She went to urgent [facility] about two weeks ago for vulvar and vaginal itching, she was given a vaginal cream and her symptoms resolved. She got waxed yesterday and feels like she now has an odor and some itching. Sureswab today for vaginitis. She is feeling movement. She is having reflux, discussed pepcid dosing. Pt needs to break her lease to move in with partner as they live about an hour away, note given today. RTO in 3wks for 28wks visit/labs. Flowsheet Date 06/01/2023 Muñoz Score Blood Edema Fundus Height Fundus Units Glucose Ketones Leukocytes Nitrite Labor Signs Protein Cervic Dilation Cervic Effacement Cervic Station 28 cm none neg Type Weight in lbs Pre/Post Dialysis Refused Weight 202.786674419414 BP Diastolic BP Location Tested BP Systolic BP Type 69 106 Fetus Heart Rate Present A 155 Fetus Movement A Yes Comments Pt offering not c/o today. 2 8 wk labs done today with TSH. Partner present and supportive today. Tdap vaccine and CBB discussed, consents signed. Tdap vaccine given today. Discussed taking CBE classes, pt will look into them. 28 wk Packet given to pt. PHQ 2=0 today. Will RTO in 2 wks PNV Flowsheet Date 06/15/2023 Muñoz Score Blood Edema Fundus Height Fundus Units Glucose Ketones Leukocytes Nitrite Labor Signs Protein Cervic Dilation Cervic Effacement Cervic Station 29 cm none neg Type Weight in lbs Pre/Post Dialysis Refused Weight 201.775211578408 BP Diastolic BP Location Tested BP Systolic BP Type 78 122 Fetus Heart Rate Present A 150 Fetus Movement A Yes Comments Pt states baby is very activ e, flu vaccine given today, partner present and supportive. Will RTO in 2 wks for grwoth USN and PNV Flowsheet Date 06/29/2023 Muñoz Score Blood Edema Fundus Height Fundus Units Glucose Ketones Leukocytes Nitrite Labor Signs Protein Cervic Dilation Cervic Effacement Cervic Station none neg Type Weight in lbs Pre/Post Dialysis Refused Weight 200.674868904385 BP Diastolic BP Location Tested BP Systolic BP Type 78 121 Fetus Heart Rate Present Fetus Movement Comments U/S today showed baby in VTX presentation EFW 2192 gms 75%, normal fluid and placenta. S/SX PTL, PEC and when to call reviewed. L&D consent given Flowsheet Date 07/14/2023 Muñoz Score Blood Edema Fundus Height Fundus Units Glucose Ketones Leukocytes Nitrite Labor Signs Protein Cervic Dilation Cervic Effacement Cervic Station 36 cm none neg Type Weight in lbs Pre/Post Dialysis Refused Weight 201.302284194415 BP Diastolic BP Location Tested BP Systolic BP Type 76 115 Fetus Heart Rate Present A 145 Fetus Movement A Yes Comments C/O painful baby movements and frequent urinary accidents. No s/sx of ptl, ? patient describes ligament spasm with FM. Explained that urinary leakage at this stage is not unusual. S/SX pec, ptl and when to call explained. GBS and start NST next visit Flowsheet Date 07/28/2023 Muñoz Score Blood Edema Fundus Height Fundus Units Glucose Ketones Leukocytes Nitrite Labor Signs Protein Cervic Dilation Cervic Effacement Cervic Station Type Weight in lbs Pre/Post Dialysis Refused BP Diastolic BP Location Tested BP Systolic BP Type Fetus Heart Rate Present Fetus Movement Comments Flowsheet Date 07/28/2023 Muñoz Score Blood Edema Fundus Height Fundus Units Glucose Ketones Leukocytes Nitrite Labor Signs Protein Cervic Dilation Cervic Effacement Cervic Station 37 cm none trace Type Weight in lbs Pre/Post Dialysis Refused Weight 202.053933134173 BP Diastolic BP Location Tested BP Systolic BP Type 76 114 Fetus Heart Rate Present A 145 Fetus Movement A Yes Comments GBS sample obtained today. B everette is active. Pt is having terrible heart burn, wakes up at night choking on it. Rec omeprazole daily. Partner present and supportive. Will RTO for NST and growth scan, then weekly NST and PNV Flowsheet Date 08/03/2023 Muñoz Score Blood Edema Fundus Height Fundus Units Glucose Ketones Leukocytes Nitrite Labor Signs Protein Cervic Dilation Cervic Effacement Cervic Station Type Weight in lbs Pre/Post Dialysis Refused Weight 204.112367784508 BP Diastolic BP Location Tested BP Systolic BP Type 74 114 Fetus Heart Rate Present A 132 Fetus Movement A Yes Comments RNST today. Growth USN today shows EFW 61st %tile, vertex presentation and JARROD WNL. Partner here for visit appears supportive. Will RTO weekly for NST and PNV Flowsheet Date 08/10/2023 Muñoz Score Blood Edema Fundus Height Fundus Units Glucose Ketones Leukocytes Nitrite Labor Signs Protein Cervic Dilation Cervic Effacement Cervic Station 38 cm none trace Type Weight in lbs Pre/Post Dialysis Refused Weight 207.491789319589 BP Diastolic BP Location Tested BP Systolic BP Type 72 114 Fetus Heart Rate Present A 125 Fetus Movement A Yes Comments RNST today, partner present and supportive. Pt has some vaginal bleeding over the weekend, was seen on FBC, no source, was there about 5 hrs on monitor. No cervical dilation noted. Baby is active. Pt is tired, ready to have a baby Flowsheet Date 08/17/2023 Muñoz Score Blood Edema Fundus Height Fundus Units Glucose Ketones Leukocytes Nitrite Labor Signs Protein Cervic Dilation Cervic Effacement Cervic Station none neg Type Weight in lbs Pre/Post Dialysis Refused Weight 212.45854429625 BP Diastolic BP Location Tested BP Systolic BP Type 74 110 Fetus Heart Rate Present A 135 Fetus Movement A Yes Comments RNST today. Pt very tired to day, not sleeping well. Requesting induction next week. Booked for induction on 08/24/23 at 7pm. Pt and partner state they are aware that they may get bumped . Will RTO in 1 wk NST and PNV Flowsheet Date 08/24/2023 Muñoz Score Blood Edema Fundus Height Fundus Units Glucose Ketones Leukocytes Nitrite Labor Signs Protein Cervic Dilation Cervic Effacement Cervic Station none trace Type Weight in lbs Pre/Post Dialysis Refused With clothes 213.759874321072 BP Diastolic BP Location Tested BP Systolic BP Type 80 115 sitting Fetus Heart Rate Present Fetus Movement Comments Patient scheduled for induct ion of labor tonight for post 40 weeks. No questions or concerns at this point. Plan to see her back for initial 2 weeks after . It is too late for her to get benefit out of the RSV vaccine so the infant can be offered immunization. Menstrual History Last Menstrual Date Menses Monthly On Bcp Conception Prior Menses Frequency Hcg Plus Date Menarche Onset Age 0311/15/2022 Delivery Information Delivery Date Delivery Type Labor Anesthesia Weeks Gestation Incision Type Labor Labor Length Hrs Delivered By Post Complications Tubal Sterilization Discharge Date Comments 3 Induce d Regional-Ep idural 40.4 false 24 Nikia Arroyo [place] Discharge Information Feeding Method Contraceptive Method Maternal HG B and HCT Levels Ob Episode Information Episode Created Date Number of Fetuses Patient Bloodtype Patient rh Status Prepregnancy Weight lbs Domestic Partner Domestic Partner Phone Father Name Sheet Metal Apprentice Status 04/28/20 18 1 CLOSED Fetus Data First Name Last Name Admitted to NICU Weight (g) Sex Living Outcome Pediatric Complications Fetus ID Race Codes Race Delivery Type , Induced [id number] Jason Calculation Initial Jason Date Initial Exam Date Initial Exam Provider Initial Ultrasound Date Last Menstrual Period Date Ultra Sound Weeks Gestation 0 Eighteen To Twenty Week Jason Update Ultra Sound Date Fundal Height At Umbil Quickening Date Ultra Sound Latest Weeks Gestation Final Jason Confirmed By Final Jason Confirmed Date Final Jason Date Ultra Sound Latest Days Gestation 0 0 Menstrual History Last Menstrual Date Menses Monthly On Bcp Conception Prior Menses Frequency Hcg Plus Date Menarche Onset Age Delivery Information Delivery Date Delivery Type Labor Anesthesia Weeks Gestation Incision Type Labor Labor Length Hrs Delivered By Post Complications Tubal Sterilization Discharge Date Comments 3 Discharge Information Feeding Method Contraceptive Method Maternal HG B and HCT Levels
--- OUTSIDE RECORDS SUMMARY | 2024-11-13 21:59 | XMS_ITS | Encounter Summary ---
Author Organization [facility] Address [address] [place] [address] Care Team Providers Care Wordpress Developer Name Role Phone Luther Echavarria Primary Care Provider [phone] Analy Bose CNM Unavailable [phone] Encounter Details Date Type Department Care Team (Latest Contact Info) Description 11/01/2024 Travel Social History Tobacco Use Types Packs/Day Years Used Date Smoking Tobacco: Never Smokeless Tobacco: Never Alcohol Use Standard Drinks/Week Comments Not Currently 0 (1 standard drink = 0.6 oz pur e alcohol) [facility] Utilities Answer Date Recorded In the past 12 months has [employer] electric, gas, oil, or water company threatened [...] and Family Not on file 09/18/2024 Attends Orthodox Services Not on file 09/18 Active Member [...] any time in the past 12 m [facility], were you homeless or living in a fpc (including now)? No 09/18/2024 Education Answer Date Recorded What is the highest level of school you have completed or the highest degree you have received? 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, [employer]) 09/18/2024 Sex and Gender Information Value Date Recorded Sex Assigned at Female 04/01/2023 10:33 AM EDT Gender Identity Female 12/03/2020 7:53 AM EDT Sexual Orientation Heterosexual (straight) 12/03 7:53 AM EDT documented as of this encounter Plan of Treatment Upcoming Encounters Date Type Department Care Team (Late st Contact Info) Description 01/13/2025 9:00 AM EDT [facility] [address] [place] [phone] Holley Webb PA-C [address] [place] [id number] documented as of this encounter Visit Diagnoses Not on filedocumented in this encounter Care Teams Wordpress Developer Relationship Specialty Start Date End Date Luther Echavarria PA [address] [place] [address] PCP - General Family Medicine 08/02/20 Analy Bose CNM [address] [place] [address] [employer]aw Carriage Operator Obstetrics and Gynecology 04/03/23 documented as of this encounter
--- OUTSIDE RECORDS SUMMARY | 2024-11-13 21:59 | XMS_ITS | Encounter Summary ---
Author Organization [facility] Address [address] [place] [address] Care Team Providers Care Jawbone Breaker Name Role Phone Luther Echavarria Primary Care Provider [phone] Analy Bose CNM Unavailable [phone] Encounter Details Date Type Department Care Team (Late st Contact Info) Description 11/18/2021 Telephone [facility] [address] [place] [address] Citlalli Bethea, MINING CAPTAIN [address] [place] [address] Social History Tobacco Use Types Packs/Day Years [...] have Coronavirus / COVID-19? No / Unsure 11/11/2021 2:00 PM EST documented as of this encounter Plan of Treatment Upcoming Encounters Date Type Department Care Team (Late st Contact Info) Description 01/13/2025 9:00 AM EDT Consult [facility] [address] [place] [address] Holley Webb PA-C [address] [place] [address] documented as of this encounter Visit Diagnoses Not on filedocumented in this encounter Care Teams Jawbone Breaker Relationship Specialty Start Date End Date Luther Echavarria PA [address] [place] [address] PCP - General Family Medicine 08/02/20 Analy Bose CNM [address] [place] [phone] [employer] [facility] [facility] Obstetrics and Gynecology 04/03/23 documented as of this encounter
[2024-11-13] MEDS: Ketorolac Tromethamine 15 MG/ML VIAL IVPUSH (22:33)
[2024-11-13] MEDS: Morphine Sulfate 2 MG/ML CARTRIDGE 1 MG IVPUSH (22:33)
[2024-11-13] MEDS: 0.9 % Sodium Chloride 1,000 ML 999 ML IV (22:34)
[2024-11-13 22:47] LABS: Lactic Acid 0.6 mmol/L (0.5-2.0)
[2024-11-13] MEDS: Piperacillin Sodium/Tazobactam 3.375 GM in 0.9 % Sodium Chloride 50 ML IV (22:50)
[2024-11-13 23:02] LABS: UPreg QC Valid YES; Urine Pregnancy NEGATIVE (NEGATIVE)
[2024-11-13] MEDS: Dextrose 5 % and Lactated Ring 1,000 ML 125 ML IVCONT (23:50)
[2024-11-14] VITALS (15 sets, daily range): BP systolic 107–162; BP diastolic 61–97; PULSE 59–100; RESP 12–20; TEMP 36.2–37.1; O2SAT 94–100
[2024-11-14] MEDS: Piperacillin Sodium/Tazobactam 3.375 GM in 0.9 % Sodium Chloride 50 ML IV ×3 (05:00→16:55)
[2024-11-14] MEDS: Dextrose 5 % and Lactated Ring 1,000 ML 125 ML IVCONT ×2 (05:49→22:09)
--- NOTE | 2024-11-14 07:32 | P.HPGS_ITS ---
History of Present Illness History of Present Illness Date of Service: 11/14/24 <Jailyn Rudolph PA-C - Last Filed: 11/14/24 07:51> 11/14/24 <Reji Coleman MD - Last Filed: 11/14/24 08:58> Chief complaint: gallbladder pain <Jailyn Rudolph PA-C - Last Filed: 11/14/24 07:51> Narrative: Radha Stearns is a 34 year old female with PMH of nephrolithiasis, hashimotos thyroiditis who presented with RUQ abd pain. She reports multiple episodes of RUQ abd pain following food intake since June. She was seen in the ED in September because she was concerned she had a kidney stone as her right sided abd pain was radiating to her right upper back. Work up showed mild wall thickening of the gallbladder, sludge and she felt improved and was discharged to home. Since that time the episodes of pain have become more severe and she has been unable to tolerate oral intake due to RUQ abd pain. The pain became so bad over the past few days she she presented to the ED for further treatment. CBC, BMP, LFTs were obtained which were WNL. ABD US showed sludge filled gallbladder with positive sonographic Mon's sign. She reports feeling improved this morning with only mild residual pain. <Jailyn Rudolph PA-C - Last Filed: 11/14/24 07:51> Review of Systems Review of Systems: Yes all other systems are reviewed and are negative <Jailyn Rudolph PA-C - Last Filed: 11/14/24 07:51> [facility] Past Medical History Medical History: Medical History Kidney stones <Jailyn Rudolph PA-C - Last Filed: 11/14/24 07:51> Social History Social History: Social History Unable to assess alcohol history related to: Unknown Alcohol intake: never Patient Tobacco Use Status: Never used Tobacco Smoked in Last 30 Days: No Use of substances other than those prescribed or required for medical reasons: No Advance Directives: No Advance Directives Information Provided: Yes Do you have a plan to hurt others: No Plan Nutrition Risks: No Nutritional Risk <Jailyn Rudolph PA-C - Last Filed: 11/14/24 07:51> Meds Allergies/Adverse reactions: Allergies Allergy/AdvReac Type Severity Reaction Status Date / Time No Known Allergies Allergy Verified 11/13/24 19:39 <Jailyn Rudolph PA-C - Last Filed: 11/14/24 07:51> Active Medications: Current Medications Acetaminophen (Acetaminophen 325 Mg Tablet) 650 mg PO Q6H PRN PRN Reason: Pain, Mild 1-3,fever,headache Calcium Carbonate (Calcium Carbonate 750 Mg Tab.Chew) 750 mg PO Q4H PRN PRN Reason: Heartburn Hydromorphone HCl (Hydromorphone Hcl 0.5 Mg/0.5 Ml Syringe) 0.5 mg IVPUSH Q3H PRN; Protocol PRN Reason: Pain, Severe (Pain Scale 7-10) Dextrose/Lactated Ringer's (D5lr) 1,000 mls @ 125 mls/hr IVCONT .Q8H [facility] Last Admin: 11/14/24 05:49 Dose: 125 mls/hr Piperacillin Sod/Tazobactam (Sod 3.375 gm/ Sodium Chloride) 50 mls @ 100 mls/hr IV Q6H [facility] Last Infusion: 11/14/24 05:30 Dose: Infused Magnesium Hydroxide (Milk Of Magnesia 30 Ml Oral.Susp) 30 ml PO DAILY PRN PRN Reason: Constipation Melatonin (Melatonin 3 Mg Tablet) 6 mg PO BEDTIME PRN PRN Reason: Insomnia Ondansetron HCl (Ondansetron Hcl 4 Mg/2 Ml Vial) 4 mg IVPUSH QID PRN PRN Reason: Nausea Oxycodone HCl (Oxycodone Hcl Immed Release 5 Mg Tablet) 5 mg PO Q6H PRN PRN Reason: Pain, Moderate(Pain Scale 4-6) Sodium Chloride (0.9 % Sodium Chloride Flush 3 Ml Syringe) 3 ml IVFLUSH QSHIFT [facility] Last Admin: 11/14/24 01:02 Dose: Not Given <Jailyn Rudolph PA-C - Last Filed: 11/14/24 07:51> Home medications: Home Medications ?Medication ?Instructions ?Recorded ?Confirmed ?Last Taken ?Type acetaminophen 500 mg tablet 1,000 mg PO Q8H PRN Pain 11/14/24 11/14/24 Unknown History levalbuterol tartrate 45 2 puff inhalation Q4-6H PRN 11/14/24 11/14/24 Unknown History mcg/actuation aerosol inhaler Shortness Of Breath Or Wheezing levothyroxine 88 mcg tablet 88 mcg PO DAILY 11/14/24 11/14/24 11/13/24 History <ZENOBIA Grimm Last Filed: 11/14/24 07:51> Physical Exam Vital Signs: Vital Signs: Last Vital Signs Temp 98.0 F 11/14/24 05:00 Pulse 62 11/14/24 05:00 Resp 18 11/14/24 05:00 BP 107/61 11/14/24 05:00 Pulse Ox 98 11/14/24 05:00 O2 Del Method Nasal Cannula 11/14/24 05:00 BMI result Body Mass Index 32.6 <ZENOBIA Grimm Last Filed: 11/14/24 07:51> Const: General: comfortable, no acute distress and alert <Jailyn Rudolph PA-C [employer] Last Filed: 11/14/24 07:51> Orientation/consciousness: patient oriented x3 <Jailyn Rudolph PA-C [employer] Last Filed: 11/14/24 07:51> Resp: Effort & Inspection: normal respiratory effort <ZENOBIA Grimm Last Filed: 11/14/24 07:51> GI: Inspection: Yes normal to inspection <ZENOBIA Grimm Last Filed: 11/14/24 07:51> Palpation (GI): Soft to palpation, Tenderness to palpation present (GI) in the RUQ and Mon's sign positive and no guarding <ZENOBIA Grimm Last Filed: 11/14/24 07:51> Skin: General skin exam: no rashes or lesions noted and no jaundice <Jailyn Rudolph PA-C [employer] Last Filed: 11/14/24 07:51> Neuro: General: patient oriented x3 and moves all extremities <ZENOBIA Grimm Last Filed: 11/14/24 07:51> Extrem: General: Yes no clubbing, cyanosis or edema <ZENOBIA Grimm Last Filed: 11/14/24 07:51> Results Results Labs: Short CBC 11/13/24 Range/Units 19:54 WBC 7.4 (4.8-10.8) X10*3/uL Hgb 12.3 (12.0-16.0) g/dl Hct 37.2 (37.0-47.0) % Plt Count 280 (160-400) X10*3/uL BMP 11/13/24 19:54 Sodium 139 Potassium 4.0 Chloride 109 H Carbon Dioxide 21 L BUN 17 H Creatinine 0.82 Calcium 9.3 Liver Function 11/13/24 Range/Units 19:54 Total Bilirubin 0.2 (0.0-1.0) mg/dL AST 24 (5-31) U/L ALT 26 (0-31) U/L Alkaline Phosphatase 53 (39-117) U/L Albumin 4.3 (3.5-5.0) g/dL Urine 11/13/24 Range/Units 22:46 Urine Test NEGATIVE (NEGATIVE) <ZENOBIA Grimm Last Filed: 11/14/24 07:51> Assessment and Plan (1) Acute cholecystitis: Status: Acute <ZENOBIA Grimm Last Filed: 11/14/24 07:51> 34 year old female with recurrent episodes of RUQ pain now with worsening episodes with ABD US showing sludge and exam with RUQ tenderness, positive mon sign. Clinical picture suggestive of biliary colic, probable early acute cholecystitis. Risks, benefits, alternatives of laparoscopic possible open cholecystectomy were reviewed with the patient including but not limited to bleeding, infection, numbness, pain, poor healing, injury to the liver, bowel or bile ducts, leak, retained stones and the patient wishes to proceed.? Arrangements will be made for this today.?All questions were answered. Cont NPO status, IVF. <ZENOBIA Grimm Last Filed: 11/14/24 07:51> 34 year old female with recurrent episodes of RUQ pain now with worsening episodes with ABD US showing sludge and exam with RUQ tenderness, positive mon sign. Clinical picture suggestive of biliary colic, probable early acute cholecystitis. Risks, benefits, alternatives of laparoscopic possible open cholecystectomy were reviewed with the patient including but not limited to bleeding, infection, numbness, pain, poor healing, injury to the liver, bowel or bile ducts, leak, retained stones and the patient wishes to proceed.? Arrangements will be made for this today.?All questions were answered. Cont NPO status, IVF. Patient seen and examined and images reviewed. Patient continues to have abdominal pain in the right upper quadrant, with tenderness on examination; + Mon's sign. Agree with the above assessment and plan. She is added on to the OR schedule. <Reji Coleman MD - Last Filed: 11/14/24 08:58> Quality Stroke Does the patient have a stroke diagnosis?: No <Jailyn Rudolph PA-C - Last Filed: 11/14/24 07:51> VTE Prior VTE?: No <Jailyn Rudolph PA-C - Last Filed: 11/14/24 07:51> VTE Risk Level:: Surgical - low <Jailyn Rudolph PA-C - Last Filed: 11/14/24 07:51> VTE Device Contraindication: N/A - Device Ordered <Jailyn Rudolph PA-C - Last Filed: 11/14/24 07:51> VTE Drug Contraindication: Treatment Not Indicated <Jailyn Rudolph PA-C - Last Filed: 11/14/24 07:51> Procedures Date of Service Date of Service: 11/14/24 <Jailyn Rudolph PA-C - Last Filed: 11/14/24 07:51> 11/14/24 <Reji Coleman MD - Last Filed: 11/14/24 08:58>
--- NOTE | 2024-11-14 08:27 | PHA.MEDREC ---
Addendum entered by Arabella Yoder RPh 11/14/24 21:19: reviewed by [facility]. Original Note: Pharmacy Consult ? Medication Reconciliation Pharmacy has completed the medication reconciliation. Spoke with patient to confirm. She is NOT taking hyoscyamine, pantoprazole, and symbicort. She last had levothyroxine yesterday.
[2024-11-14] MEDS: Acetaminophen 325 MG TABLET 650 MG PO (09:05)
--- NOTE | 2024-11-14 11:32 | MHC.CM.PN ---
TUBE MAN MET WITH PT IN ED PT STATES SHE LIVES AT HOME WITH FAMILY PT STATES PC IS [facility] PT STATES HER HCP IS HER MOM, BLANK COPY BROUGHT DOWN. PT STATES SHE DOES NOT USE DME PT'S INS IS HMO PT DCP- RIDE HOME FROM , A[facility] RIVERA [phone]
--- NOTE | 2024-11-14 11:40 | PC.NURSE ---
resumed care of patient at 0700, she was resting comfortably in bed, IVF running per order, pt updated of NPO status, aware she is on the OR schedule but that we dont have a time yet. Call roberto within reach, all other questions answered
--- NOTE | 2024-11-14 12:14 | PC.NURSE ---
spoke with Radha from PACU pt scheduled for [id number]
--- NOTE | 2024-11-14 18:30 | P.OP_ITS ---
Operative Note Operative Note Date of Service: 11/14/24 Narrative: Preoperative diagnosis: Acute cholecystitis, cholelithiasis Postoperative diagnosis: Same Procedure: Laparoscopic cholecystectomy Surgeon: Reji Coleman MD Labor Mediator: None Anesthesia: General endotracheal Indications for procedure: 34-year-old female patient presenting with complaints of abdominal pain in the right upper quadrant intermittent over several years. On examination the patient is tender in the right upper quadrant with a positive Mon sign. Workup revealed evidence of biliary sludge and small gallstones with a positive sonographic Mon sign. Operative findings: Evidence of acute and chronic cholecystitis with an edematous gallbladder wall and distended gallbladder. Specimen: gallbladder Estimated blood loss: 10 mL Complications: None Procedure details: Patient was brought to the OR and placed in a supine position. After administering general anesthesia the patient's abdomen was prepped with ChloraPrep and draped in a sterile fashion. A surgical time-out was called the consent confirmed. Patient received preoperative antibiotics and Venodyne boots were in place. Local anesthesia consisting of 0.5% Sensorcaine without epinephrine was infiltrated in a periumbilical region. A 5 mm incision was made above the umbilicus in a transverse fashion. The Veress needle was then inserted while elevating abdominal cavity with towel clips. After positive drop test the abdomen was insufflated to a pressure of 15 mm of mercury. The Veress needle was then removed and a 5 mm trocar inserted. The camera was inserted in the abdomen explored. A 12 mm trocar was then placed in the epigastrium. Two 5 mm trocars placed in the right upper quadrant. The patient was placed in reverse Trendelenburg positioning and rotated to the left. The gallbladder was grasped with the fundus and retracted cephalad by the nurse practitioner physicians assistant. The infundibulum was then grasped and retracted away from the liver bed, also by the nurse practitioner physicians assistant. The Dolphin dissected was then used by the surgeon to dissect the peritoneum off the infundibulum to reveal the junction with the cystic duct. Cystic artery was noted slightly medial and posterior to the cystic duct. After obtaining a critical view the cystic duct was doubly clipped and divided. The cystic artery was then doubly clipped and divided. The gallbladder was then dissected off the liver bed using electrocautery with an L hook. Hemostasis was assured all times using the electrocautery. When the gallbladder is completely dissected off the liver bed was placed in an Endo-Catch bag and brought out through the epigastric incision. The gallbladder was sent to pathology for further examination. The abdomen was then re-examined. The liver bed was irrigated and suctioned dry. No bleeding or bile leak could be identified. CO2 was then evacuated and all trocars removed. Fascia was closed at the epigastric incision using a [id number] 0 Polysorb suture. Skin was closed in all incisions using a subcuticular 4 0 Polysorb suture by both the surgeon. Sterile dressings consisting of Steri-Strips, 2 x 2 gauze, and Tegaderm were then applied. The patient tolerated the procedure well. Sponge instrument and needle counts reported as correct. The patient was transferred to PACU in stable condition.
[2024-11-14] MEDS: droPERidol 5 MG/2 ML VIAL 0.625 MG IVPUSH (19:22)
[2024-11-14] MEDS: HYDROmorphone HCl 0.5 MG/0.5 ML SYRINGE IVPUSH (19:31)
[2024-11-14] MEDS: 0.9 % Sodium Chloride Flush 3 ML SYRINGE IVFLUSH (22:09)
[2024-11-14] MEDS: oxyCODONE HCl Immed Release 5 MG TABLET PO (22:58)
[2024-11-15 03:22] VITALS: BP 107/58; PULSE 63; RESP 20; TEMP 36.8; O2SAT 95
[2024-11-15] MEDS: Dextrose 5 % and Lactated Ring 1,000 ML 125 ML IVCONT (06:11)
[2024-11-15] MEDS: Levothyroxine Sodium 88 MCG TABLET PO (06:12)
[2024-11-15] MEDS: Acetaminophen 325 MG TABLET 650 MG PO (06:16)
[2024-11-15 07:10] VITALS: BP 119/67; PULSE 68; RESP 16; TEMP 36.5; O2SAT 100
--- NOTE | 2024-11-15 08:16 | PM.PNGS ---
Subjective Subjective Date of Service: 11/15/24 Interval history: Pod 1 following laparoscopic cholecystectomy for acute cholecystitis. Patient is up, sitting in a chair and reports feeling much improved. Denies any nausea or vomiting. Was able to tolerate some water but has not had any solid food Physical Exam Vital Signs: Vital Signs: Last Vital Signs Temp 97.7 F 11/15/24 07:10 Pulse 68 11/15/24 07:10 Resp 16 11/15/24 07:10 BP 119/67 11/15/24 07:10 Pulse Ox 100 11/15/24 07:10 O2 Del Method Room Air 11/15/24 07:10 O2 Flow Rate 2 11/14/24 20:26 BMI result Body Mass Index 32.6 Const: General: comfortable Nutritional Appearance: well nourished Orientation/consciousness: patient oriented x3 Resp: Effort & Inspection: normal respiratory effort GI: Other: Trocar sites are clean, dry and intact. Skin: Other: Warm, dry, no rash Neuro: General: patient oriented x3 Objective Data Active Medications Acetaminophen (Acetaminophen 325 Mg Tablet) 650 mg PO Q6H PRN PRN Reason: Pain, Mild 1-3,fever,headache Last Admin: 11/15/24 06:16 Dose: 650 mg Documented By: HUSAM Albuterol Sulfate (Albuterol Sulfate 90 Mcg 8 Gm Inhaler) 2 puff INHALE Q4H PRN PRN Reason: Shortness Of Breath Or Wheezing Calcium Carbonate (Calcium Carbonate 750 Mg Tab.Chew) 750 mg PO Q4H PRN PRN Reason: Heartburn Hydromorphone HCl (Hydromorphone Hcl 0.5 Mg/0.5 Ml Syringe) 0.5 mg IVPUSH Q3H PRN; Protocol PRN Reason: Pain, Severe (Pain Scale 7-10) Last Admin: 11/14/24 19:31 Dose: 0.5 mg Documented By: JOAN Dextrose/Lactated Ringer's (D5lr) 1,000 mls @ 125 mls/hr IVCONT .Q8H PENDING SALE TO [facility] Last Admin: 11/15/24 06:11 Dose: 125 mls/hr Documented By: HUSAM Levothyroxine Sodium (Levothyroxine Sodium 88 Mcg Tablet) 88 mcg PO DAILY@0600 PENDING [facility] TO [facility] Last Admin: 11/15/24 06:12 Dose: 88 mcg Documented By: HUSAM Magnesium Hydroxide (Milk Of Magnesia 30 Ml Oral.Susp) 30 ml PO DAILY PRN PRN Reason: Constipation Melatonin (Melatonin 3 Mg Tablet) 6 mg PO BEDTIME PRN PRN Reason: Insomnia Ondansetron HCl (Ondansetron Hcl 4 Mg/2 Ml Vial) 4 mg IVPUSH QID PRN PRN Reason: Nausea Oxycodone HCl (Oxycodone Hcl Immed Release 5 Mg Tablet) 5 mg PO Q6H PRN PRN Reason: Pain, Moderate(Pain Scale 4-6) Last Admin: 11/14/24 22:58 Dose: 5 mg Documented By: HUSAM Sodium Chloride (0.9 % Sodium Chloride Flush 3 Ml Syringe) [address] [facility] Last Admin: 11/15/24 08:03 Dose: Not Given Documented By: BUTCH Non-Admin Reason: IV Running Labs 11/13/24 19:54 11/13/24 19:54 Microbiology Microbiology Results: Microbiology 11/13/24 22:46 Blood Culture - Preliminary Blood - Venous No growth after 24 hours. 11/13/24 22:21 Blood Culture - Preliminary Blood - Venous No growth after 24 hours. Procedures Date of Service Date of Service: 11/15/24 Progress Note: A&P Assessment and plan (1) Acute cholecystitis: Status: Acute Plan 34-year-old female pod 1 following a laparoscopic cholecystectomy. She is much improved this morning with minimal incisional tenderness. She will start on a regular low-fat diet today. Possible discharge later today if tolerated. Time Spent With Patient Time: Total time managing care of this patient today ____ minutes. Quality Stroke Does the patient have a stroke diagnosis?: No VTE Prior VTE?: No VTE Risk Level:: Surgical - low VTE Device Contraindication: N/A - Device Ordered VTE Drug Contraindication: Treatment Not Indicated
--- NOTE | 2024-11-15 09:21 | HO.POSTANES ---
Post Anesthesia Evaluation Post Anesthesia Evaluation Date of Service: 11/15/24 Vital Signs: Vital Signs Temp Pulse Resp BP Pulse Ox O2 Del Method 11/15/24 07:10 97.7 F 68 16 119/67 100 Room Air 11/15/24 03:22 98.3 F 63 20 107/58 L 95 Room Air 11/14/24 22:00 97.2 F 88 16 127/78 99 Room Air Anesthesia: General Endotracheal-GETA Mental Status: Awake Pain Control: Satisfactory Nausea/Vomiting: None Hydration: Adequate Anesthesia-Related Issues: No Anes. Related Issues
[2024-11-15] MEDS: oxyCODONE HCl Immed Release 5 MG TABLET PO (10:23)
[2024-11-15 12:39] VITALS: BP 125/70; PULSE 68; RESP 18; TEMP 36.4; O2SAT 98
--- NOTE | 2024-11-15 12:53 | MHC.CM.PN ---
Patient medically cleared for dc home self care via private transport
--- NOTE | 2024-11-15 14:10 | PM.DS ---
DS: Providers Provider Date of Service: 11/15/24 Date of admission: 11/13/24 22:18 Date of discharge: 11/15/24 Primary care physician: Brennan Physician Attending physician on admission: Reji Coleman Attending physician on discharge: Reji Coleman DS: Diagnosis Discharge Diagnosis (1) Acute cholecystitis: Status: Acute DS: Summary Hospital Course Hospital Course: HPI AT ADMISSION: Radha Stearns is a 34 year old female with PMH of nephrolithiasis, hashimotos thyroiditis who presented with RUQ abd pain. She reports multiple episodes of RUQ abd pain following food intake since June. She was seen in the ED in September because she was concerned she had a kidney stone as her right sided abd pain was radiating to her right upper back. Work up showed mild wall thickening of the gallbladder, sludge and she felt improved and was discharged to home. Since that time the episodes of pain have become more severe and she has been unable to tolerate oral intake due to RUQ abd pain. The pain became so bad over the past few days she she presented to the ED for further treatment. CBC, BMP, LFTs were obtained which were WNL. ABD US showed sludge filled gallbladder with positive sonographic Mon's sign. She reports feeling improved this morning with only mild residual pain. HOSPITAL COURSE: The patient was admitted to the surgical service for further treatment of the acute cholecystitis. She elected to proceed with laparoscopic cholecystectomy, possible open. She was added onto the OR schedule for that day. 11/14/24, a laparoscopic cholecystectomy was performed by Dr. Coleman without complication. The patient tolerated the procedure well. She had an uncomplicated recovery course. On POD #1, she felt well and was tolerating a solid diet without nausea or vomiting, had good pain control and was ambulating without difficulty. She was hemodynamically stable. Her abdomen was benign with appropriate post op tenderness and clean and intact dressings. She felt ready for discharge. She was discharged to home on 11/15/24 in stable condition. She is to follow up in the office in 1 week. Status at Discharge Functional status at discharge: independent ambulation Overall status at discharge: patient is progressing back to baseline Time Attestation Discharge Coordination Time (in mins): 30 Quality: Safe Use of Opioids Does Pt have an Active Cancer Diagnosis on the Problem List?: No Quality: Stroke Does the patient have a stroke diagnosis?: No Physical Exam Vital Signs: Vital Signs: Last Vital Signs Temp 97.5 F 11/15/24 12:39 Pulse 68 11/15/24 12:39 Resp 18 11/15/24 12:39 BP 125/70 11/15/24 12:39 Pulse Ox 98 11/15/24 12:39 O2 Del Method Room Air 11/15/24 12:39 O2 Flow Rate 2 11/14/24 20:26 BMI result Body Mass Index 32.6 Const: General: comfortable, no acute distress and alert GI: Inspection: No distended and Yes incision (dressings c/d/i) Palpation (GI): Soft to palpation, Tenderness to palpation present (GI) (mild incisional, epigastric) and no guarding Skin: General skin exam: no rashes or lesions noted and no jaundice DS: Data Data Completed and Pending Pending studies at discharge: Pending at discharge 11/14/24 17:33 Surgical [PTH] Routine Labs on day of discharge: Preliminary micro results at discharge 11/13/24 22:46 Blood Culture - Preliminary Blood - Venous No growth after 24 hours. 11/13/24 22:21 Blood Culture - Preliminary Blood - Venous No growth after 24 hours. Discharge Plan Discharge Anticipated Discharge Date/Time: 11/15/24 09:21 Patient Disposition: Home, Self-Care Discharge Diagnosis: acute cholecystitis, s/p laparoscopic cholecystectomy Referrals: Reji Coleman MD [Physician] - 1 Week Physician,Brennan Zuniga [Primary Care Provider] - 1 Week Discharge Medications: New docusate sodium [Colace] 100 mg capsule 100 mg PO BID Qty: 30 0RF oxycodone 5 mg tablet 5 mg PO Q4H PRN (Reason: pain (scale score 7-10)) Qty: 26 0RF Rx Instructions: Partial Fill upon patient request. Continued levothyroxine 88 mcg tablet 88 mcg PO DAILY@0600 levalbuterol tartrate 45 mcg/actuation HFA aerosol inhaler 2 puff INHALATION Q4-6H PRN (Reason: Shortness Of Breath Or Wheezing) acetaminophen 500 mg Tablet 1,000 mg PO Q8H PRN (Reason: Pain) Discharge Orders: Discharge Order (Routine); Ordered 11/15/24 Ordered By: Jailyn Rudolph Diet: Low fat, low cholesterol Activity on Discharge: No heavy lifting Stand Alone Forms: Patient Portal Discharge page, Work/School Release Print Language: Croatian Activity Restrictions/Additional Instructions: If the incision area is tender, you may apply an ice pack for short intervals (No more than 20 minutes on, followed by at least 20 minutes off). Do not apply heat. Do not use creams, lotions, or topical antibiotics. Ok to shower. Remove clear dressings 3 days following your procedure. You have steri strips (small white cloth strips) covering your incision- these will fall off ~1 week. No heavy lifting (>10lbs) or strenuous activity! Take Tylenol Extra-strength 1-2 tabs every 6 hours for the first day, then as needed. Oxycodone every 6-8 hours as needed for pain. Colace 100 mg every day as needed for constipation. Follow up in office with Dr. Coleman in 1 week. ([phone]) Call Your Doctor If: -Your temperature exceeds 101.5? F -You experience excessive pain or swelling -You have an unexpected reaction to medication -You have excessive bleeding -You experience continued vomiting/nausea -Your incision begins to separate -Your incision shows signs of infection such as increased redness, swelling, excessive pain, drainage (light blood or clear fluid is normal) or heat Care Plan Goals: Return to baseline health and resume normal activities following recovery period. Health Concerns: acute on chronic cholecystitis Plan of Treatment: s/p laparoscopic cholecystectomy f/u in office in 1 week Assessment: Doing well post op. Discharge Date/Time: 11/15/24 13:13
== END 2024-11-15 13:13 | disposition home or self-care (01) | DRG 263 ==
LOC: HO.ED 22:25 → HO.EDOVER 22:33 → HO.S3 11-14 18:55
PROVIDERS: Physician Assistant; Absent Provider Surgery; Emergency Provider Emergency Medicine; Visit Provider Surgery
PROC: 0FT44ZZ Resection of Gallbladder, Percutaneous Endoscopic Approach (ICD-10-PCS; CPT 47562; principal; 2024-11-14 15:30)
DX: K80.12 Calculus of gallbladder with acute and chronic cholecystitis without obstruction (principal); E06.3 Autoimmune thyroiditis; Z79.890 Hormone replacement therapy; Z79.899 Other long term (current) drug therapy
CPT/HCPCS: 47562; 36415; 76705; 80053; 81025; 83605; 83690; 84702; 85025; 87040; 88304; 99221; 99285; J1100; J1171; J1596; J1790; J1885; J2003; J2250; J2270; J2405; J2543; J2704; J2795; J3010

== ENCOUNTER → 2024-11-13 19:41 | Outpatient (BNV) | payer BC, SELFPAY | PROVIDERS: Visit Provider Radiology Diagnostic Radiology | DX: K80.00 Calculus of gallbladder with acute cholecystitis without obstruction (principal) | CPT/HCPCS: 76705 ==

== ENCOUNTER → 2024-11-13 22:18 | Outpatient (BNV) | payer BC, SELFPAY | PROVIDERS: Absent Provider Surgery; Emergency Provider Emergency Medicine; Visit Provider Physician Assistant Surgical | DX: K81.0 Acute cholecystitis (principal) | CPT/HCPCS: 47562; 99024; 99222 ==

== ENCOUNTER 2024-11-25 19:40 | Emergency (ER) | payer BC, SELFPAY ==
[2024-11-25 19:47] VITALS: BP 124/79; PULSE 93; RESP 18; TEMP 36.3; O2SAT 95; BMI 32.2
--- NOTE | 2024-11-25 19:47 | ED.GENADULT ---
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 Last tetanus unknown. Denies injury to other area, numbness, tingling, weakness. Related Data Home Medications ?Medication ?Instructions ?Recorded ?Confirmed acetaminophen 500 mg tablet 1,000 mg PO Q8H PRN Pain 11/14/24 11/14/24 levalbuterol tartrate 45 2 puff inhalation Q4-6H PRN 11/14/24 11/14/24 mcg/actuation aerosol inhaler Shortness Of Breath Or Wheezing levothyroxine 88 mcg tablet 88 mcg PO DAILY@0600 11/14/24 11/14/24 Previous Rx's ?Medication ?Instructions ?Recorded docusate sodium 100 mg capsule 100 mg PO BID #30 caps 11/15/24 (Colace) oxycodone 5 mg tablet 5 mg PO Q4H PRN pain (scale score 11/15/24 7-10) #26 tabs Allergies Allergy/AdvReac Type Severity Reaction Status Date / Time No Known Allergies Allergy Verified 11/25/24 19:48 Review of Systems Review of Systems: Yes all other systems are reviewed and are negative Constitutional: Constitutional: Reports as per [facility] Past Medical History Attestation statement: The following information was validated with the patient. Source: old records reviewed Medical History Kidney stones Surgical History Hx laparoscopic cholecystectomy (11/14/24) History of liposuction Social History Social History Household Members: Significant Other and Children Housing: House Do you presently have visiting nurse or other home services: No Unable to assess alcohol history related to: Unknown Alcohol intake: never Patient Tobacco Use Status: Never used Tobacco Advance Directives: No Advance Directives Information Provided: No Do you have a plan to hurt others: No Plan service: No Physical Exam ED Vital Signs: Vital Signs - 24 hr 11/25/24 19:47 11/25/24 22:32 Temperature 97.3 F 97.9 F Pulse Rate 93 75 Respiratory Rate 18 16 Blood Pressure 124/79 118/81 Pulse Oximetry 95 98 Oxygen Delivery Method Room Air Room Air BMI result Body Mass Index 32.2 Const General: cooperative, healthy appearing and no acute distress Orientation/consciousness: patient oriented x3 Limitations: no limitations HENMT Head: Yes normal to inspection and Yes atraumatic Ears: hearing grossly normal bilaterally General nose exam: Normal external nose present Face and sinus: Yes normal facial exam Eyes General: appearance normal, both eyes and all related structures EOM: EOMs intact bilaterally Neck Neck: Yes normal visual inspection and Yes no meningeal signs Resp Effort & Inspection: normal respiratory effort and no respiratory distress Cardio Rate: regular rate GI Inspection: Yes normal to inspection Palpation (GI): Soft to palpation, nontender, no guarding and not rigid Skin Other: 2.5 cm laceration noted to right palm thenar eminence. Full range of motion intact. Neurovascularly intact. Underlying structures appear intact Rashes: no rashes Neuro General: patient oriented x3, tone normal and no meningeal signs Cranial nerves: Yes CN's II-XII intact bilaterally Gait exam (Neuro): Normal gait present Extrem General: Yes normal to inspection Course Course Course Narrative: This is a rapid medical exam performed by Ethan Gupta NP: Additional HPI, ROS, PE not included below will be deferred to primary provider. Patient is a 34-year-old right hand dominant female presenting with laceration to right palm over thenar eminence. 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 Unsure last Tdap. Approx 1cm lac, no active bleeding. Plan: update Tdap, likely needs a few sutures Medications Administered Discontinued Medications Generic Name Dose Route Start Last Admin Trade Name Freq PRN Reason Stop Dose Admin Diphtheria/Tetanus/Acell Pertussis 0.5 ml 11/25/24 19:49 11/25/24 22:48 Diphth,Pertus(Acell),Tet Adult 0.5 Ml Syringe IM 11/25/24 19:50 0.5 ml .ONCE ONE Administration Procedures Laceration Laceration 1: Site: hand Side (If applicable): right Size (cm): 2.5 Description: linear Depth: simple, single layer Local Anesthetic: lidocaine 1% Amount of anesthesia used (mL): 4 Pre-repair: wound explored, irrigated extensively and deep structures intact Skin layer closed with: nylon Size (cm): 5-0 Number of sutures: 4 Technique: simple, interrupted Medical Decision Making Medical Decision Making MDM Narrative: 34-year-old female with no significant past medical history presenting to the ED complaining of laceration to right hand s/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 On exam vital signs stable, NAD, nontoxic appearing, physical exam as noted above. Concern for laceration. Low suspicion for fracture, deeper wound including tendon/ligamental rupture. No evidence of infection or retained foreign body Plan: Update tetanus, suture repair Please refer to course for remaining clinical decision making, interpretation of labs/imaging results, and discussions with consultants and/or family members. Differential Diagnosis Differential Diagnoses: The differential diagnosis associated with the presentation includes As above External Record Review External record reviewed: Inpatient record, Office record, Outpatient record, Prior outpatient labs, Prior outpatient radiology, Primary care record and Outside ED record Tests considered The following testing was considered but not selected: As above Prescription Management I considered prescription management with: Pain Medication and Antibiotic Chronic Conditions Patient?s care impacted by: Other Social Determinants Patient?s care significantly limited by Social Determinants of Health including: Other Social Determinant of Health Discharge Plan Discharge Clinical Impression: Laceration Patient Disposition: Home, Self-Care Instructions: Laceration (DC) Additional Instructions: Your wounds were repaired today in the emergency department. Keep dry and clean. You need to return to any emergency department, urgent care, or your PCPs office in 7-10 days for suture removal Apply bacitracin and or Neosporin daily Once sutures are removed apply anti scar cream like Mederma If area begins look infected, is red, there is drainage, streaking, or you have fever please return to the emergency department Prescriptions: No Action levothyroxine 88 mcg tablet 88 mcg PO DAILY@0600 levalbuterol tartrate 45 mcg/actuation HFA aerosol inhaler 2 puff INHALATION Q4-6H PRN (Reason: Shortness Of Breath Or Wheezing) acetaminophen 500 mg Tablet 1,000 mg PO Q8H PRN (Reason: Pain) docusate sodium [Colace] 100 mg capsule 100 mg PO BID Qty: 30 0RF oxycodone 5 mg tablet 5 mg PO Q4H PRN (Reason: pain (scale score 7-10)) Qty: 26 0RF Rx Instructions: Partial Fill upon patient request. Referrals: Barbie Us MD [Primary Care Provider] - 1 week ED Physician,Abhay [Emergency Provider] - 1 week (Suture removal) Print Language: Upper Sorbian
--- OUTSIDE RECORDS SUMMARY | 2024-11-25 22:17 | XMS_ITS | Encounter Summary ---
Author Organization [facility] Address [address] [place] [address] Care Team Providers Care Professional Model Name Role Phone Luther Echavarria Primary Care Provider [phone] Analy Bose CN Unavailable [phone] Encounter Details Date Type Department Care Team (Late st Contact Info) Description 09/17/2020 Scanned Document [facility] FAMILY MED SCAN Luther Echavarria PA [address] [place] [address] Social History Tobacco Use Types Packs/Day Years [...] Description 01/13/2025 9:00 AM EDT Consult [facility] [address] [place] [address] Holley Webb PA-C [address] [place] [address] documented as of this encounter Visit Diagnoses Not on filedocumented in this encounter Care Teams Professional Model Relationship Specialty Start Date End Date Luther Echavarria PA [address] [place] [address] PCP - General Family Medicine 08/02/20 Analy Bose CNM [address] [place] [address] Hand Tacker Obstetrics and Gynecology 04/03/23 documented as of this encounter
--- OUTSIDE RECORDS SUMMARY | 2024-11-25 22:17 | XMS_ITS | Encounter Summary ---
Author Organization [facility] Address [address] [place] [address] Care Team Providers Care Manager Enrollment Name Role Phone Luther Echavarria Primary Care Provider [phone] Analy Bose CN Unavailable [phone] Encounter Details Date Type Department Care Team (Late st Contact Info) Description 10/25/2021 Scanned Document [facility] [address] [place], [place] [phone] Luther Echavarria PA [address] [place] [address] Social History Tobacco Use Types Packs/Day Years [...] Description 01/13/2025 9:00 AM EDT Consult [facility] [address] [place] [phone] Holley Webb PA-C [address] [place] [address] documented as of this encounter Visit Diagnoses Not on filedocumented in this encounter Care Teams Manager Enrollment Relationship Specialty Start Date End Date Luther Echavarria PA [address] [place] [address] PCP - General Family Medicine 08/02/20 Analy Bose CNM [address] [place] [address] Building Superintendent Obstetrics and Gynecology 04/03/23 documented as of this encounter
--- OUTSIDE RECORDS SUMMARY | 2024-11-25 22:17 | XMS_ITS | Encounter Summary ---
Author Organization [facility] Address [address] [place] [address] Care Team Providers Care Glue Size Machine Operator Name Role Phone Luther Echavarria Primary Care Provider [phone] Analy Bose CN Unavailable [phone] Encounter Details Date Type Department Care Team (Late st Contact Info) Description 10/25/2021 Scanned Document [facility] [address] [place], [place] [phone] Luther Echavarria PA [address] [place] [address] Social History Tobacco Use Types Packs/Day Years [...] Description 01/13/2025 9:00 AM EDT Consult [facility] [address] [place] [phone] Holley Webb PA-C [address] [place] [address] documented as of this encounter Visit Diagnoses Not on filedocumented in this encounter Care Teams Glue Size Machine Operator Relationship Specialty Start Date End Date Luther Echavarria PA [address] [place] [address] PCP - General Family Medicine 08/02/20 Analy Bose CNM [address] [place] [address] Media Services Specialist Obstetrics and Gynecology 04/03/23 documented as of this encounter
--- OUTSIDE RECORDS SUMMARY | 2024-11-25 22:18 | XMS_ITS | Encounter Summary ---
Author Organization [facility] Address [address] [place] [address] Care Team Providers Care Civil Engineering Intern Name Role Phone Luther Echavarria Primary Care Provider [phone] Analy Bose CNM Unavailable [phone] Encounter Details Date Type Department Care Team (Late Contact Info) Description 04/28/2024 Scanned Document [facility] BARIATRICS SCAN Bariatrics, Scan Social History [...] Description 01/13/2025 9:00 AM EDT Consult [facility] [address] [place] [phone] Holley Webb PA-C [address] [place] [address] documented as of this encounter Visit Diagnoses Not on filedocumented in this encounter Care Teams Civil Engineering Intern Relationship Specialty Start Date End Date Luther Echavarria PA [address] [place] [address] PCP - General Family Medicine 08/02/20 Analy Bose CNM [address] [place] [address] Fishing Game Warden Obstetrics and Gynecology 04/03/23 documented as of this encounter
--- OUTSIDE RECORDS SUMMARY | 2024-11-25 22:18 | XMS_ITS | Data Portability ---
Author Organization [place] [facility] Pr[facility] Higginbotham [facility] [place] Address [address] [place] [address] Assessment Encounter Date Assessment Date Assessment LastModified [...] at night. She can ice and take [id number] er anti-inflammat ories. We discussed steroid injection [...] view 2023 024 [email or web address] [facility], [address], [place], [address], 08:38:27 Medication Orders lidocaine (PF) 10 mg/mL (1 %) injection solution 2023 024 [email or web address] Not available 13:05:51 triamcinolo ne acetonide 40 mg/mL suspension for injection 2023 024 [email or web address] Not available 13:05:51 Patient TargetsNo targets recorded. Patient Instructions Encounter Date Encounter Id Patient Instructions Last Modified By Organization Details Last Modified Time 02/02/2024 [id number] You have been provided with a cortisone [...] the injection. This is called a ? flare? . To help minimize the chances of this, please see the post-injection instructions above. There is a less than 1% chance of an infection. If you notice any signs of infection (redness, warmth, drainage, fever greater than 100 degrees) please call our office or contact us through the portal NING. 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 Procedures Surgical History Date Name Laterality Status Provider Name and Address Organization Details Recorded Time LES trigger finger/De Quervain's injection completed Stacy Alas MD [address], [place], [address], [place] [facility] 02/02/2024 12:36:17 Imaging Results None recorded. [...] completed Not Available Not Available Not Available .5 (28) 1.5 mg-30 mcg (21)/75 mg (7) [...] Updated DateTime 02/02/2024 162.56 cm 31.8 kg/m2 [address].[address] [place] [facility] 02/02/2024 11:23:47 Social History Question Answer Notes LastModified by Organizat ion Details LastModified Time Tobacco Smoking Status Never Smoker Neva Collins null, [place] [facility] 02/02/2024 11:23:59 What Is Your Level Of Alcohol Consumption? Occasional [email or web address] Information not available 02/02/2024 Do You Use Any Illicit Or Recreational Drugs? No Information not available 02/02/2024 Do You Or Have You Ever Used Any Other Forms Of Tobacco Or Nicotine? No [email or web address] Information not available 02/02/2024 Sex: Unknown Functional Status None recorded. Mental Status None recorded. Family History Nothing Reported. Medical History Condition Response Anemia Y Asthma Y Gynecological HistoryNo gynecological history recorded. Obstetrics History GPAL:G 0 P 0 0 0 0 Past Encounters Encounter ID Performer Location Encounter Start Date Encounter Closed Date Diagnosis/Indication Diagnosis SNOMED-CT Code Diagnosis ICD10 Code Diagnosis Note [id number] Stacy Alas MD [place] [address] [place] [phone] 02/02/2024 11:03:07 02/02/2024 12:02:20 Pain of right wrist 3190143667 45920 M25.531 Additional diagnosis detail: Right wrist pain Radial sty loid tenosynovitis 52527675 M65.4 Additional diagnosis detail: Radial styloid tenosynovi tis [de quervain] Health Concerns Section Related Observation LastModified by Organization Detai ls LastModified Time None Recorded Concern Status LastModified by Organization Details LastModified Time None Recorded Advance Directives Directive None Recorded Payers Encounter Date Sequence Insurance Name Policy Number Policy Hanson Covered Member ID Hanson Member ID Guarantor Name 02/02/2024 1 [place] [employer] - [facility] (POS) [id number] Sera Stearns [id number] Radha Stearns Notes Date Note Type Note Provider Name and Address Organization Details Recorded Time 02/02/2024 text/html This is a 33-year-old mcyhn-wpez-zuufxy nt female who is presenting with right [...] Stacy Alas MD [address], [place], [address], [place] [facility] 02/02/2024 12:39:40 OBGyn Episode No OBEpisode recorded.
--- OUTSIDE RECORDS SUMMARY | 2024-11-25 22:18 | XMS_ITS | Encounter Summary ---
Author Organization [facility] Address [address] [place] [address] Care Team Providers Care Commercial Floor Covering Installer Name Role Phone Luther Echavarria Primary Care Provider Analy Bose CNM Unavailable [phone] Encounter Details Date Type Department Care Team (Late Contact Info) Description 05/31/2024 Scanned Document [facility] BARIATRICS SCAN Bariatrics, Scan Social [...] 01/13/2025 9:00 AM EDT Consult [facility] [address] [place] [phone] Holley Webb PA-C [address] [place] [address] documented as of this encounter Visit Diagnoses Not on filedocumented in this encounter Care Teams Commercial Floor Covering Installer Relationship Specialty Start Date End Date Luther Echavarria PA [address] [place] [address] PCP - General Family Medicine 08/02/20 Analy Bose CNM [address] [place] [address] Community Organizer Obstetrics and Gynecology 04/03/23 documented as of this encounter
--- OUTSIDE RECORDS SUMMARY | 2024-11-25 22:18 | XMS_ITS | Encounter Summary ---
Author Organization [facility] Address [address] [place] [address] Care Team Providers Care Social Work Manager Name Role Phone Luther Echavarria Primary Care Provider [phone] Analy Bose CNM Unavailable [phone] Encounter Details Date Type Department Care Team (Late Contact Info) Description 12/10/2023 Scanned Document [facility] BARIATRICS SCAN Bariatrics, Scan Social History [...] Description 01/13/2025 9:00 AM EDT Consult [facility] [address] [place] [phone] Holley Webb PA-C [address] [place] [address] documented as of this encounter Visit Diagnoses Not on filedocumented in this encounter Care Teams Social Work Manager Relationship Specialty Start Date End Date Luther Echavarria PA [address] [place] [address] PCP - General Family Medicine 08/02/20 Analy Bose CNM [address] [place] [address] Patient Services Specialist Obstetrics and Gynecology 04/03/23 documented as of this encounter
--- OUTSIDE RECORDS SUMMARY | 2024-11-25 22:18 | XMS_ITS | Encounter Summary ---
Author Organization [facility] Address [address] [place] [address] Care Team Providers Care Rack Production Worker Name Role Phone Luther Echavarria Primary Care Provider [phone] Analy Bose CNM Unavailable [phone] Encounter Details Date Type Department Care Team (Late Contact Info) Description 11/05/2023 Scanned Document [facility] BARIATRICS SCAN Bariatrics, Scan Social History Tobacco [...] Description 01/13/2025 9:00 AM EDT Consult [facility] [address] [place] [phone] Holley Webb PA-C [address] [place] [address] documented as of this encounter Visit Diagnoses Not on filedocumented in this encounter Care Teams Rack Production Worker Relationship Specialty Start Date End Date Luther Echavarria PA [address] [place] [address] PCP - General Family Medicine 08/02/20 Analy Bose CNM [address] [place] [address] Hand Fabric Cutter Obstetrics and Gynecology 04/03/23 documented as of this encounter
--- OUTSIDE RECORDS SUMMARY | 2024-11-25 22:18 | XMS_ITS | Encounter Summary ---
Author Organization [facility] Address [address] [place] [address] Care Team Providers Care Bander And Cellophaner Helper Machine Name Role Phone Luther Echavarria Primary Care Provider [phone] Analy Bose CN Unavailable [phone] Encounter Details Date Type Department Care Team (Late st Contact Info) Description 09/17/[address] [facility] FAMILY MED SCAN Luther Echavarria PA [address] [place] [address] Social History Tobacco Use Types Packs/Day Years [...] Description 01/13/2025 9:00 AM EDT Consult [facility] [address] [place] [address] Holley Webb PA-C [address] [place] [address] documented as of this encounter Visit Diagnoses Not on filedocumented in this encounter Care Teams Bander And Cellophaner Helper Machine Relationship Specialty Start Date End Date Luther Echavarria PA [address] [place] [address] PCP - General Family Medicine 08/02/20 Analy Bose CNM [address] [place] [id number] Hall Coordinator Obstetrics and Gynecology 04/03/23 documented as of this encounter
--- OUTSIDE RECORDS SUMMARY | 2024-11-25 22:18 | XMS_ITS | Encounter Summary ---
Author Organization [facility] Address [address] [place] [address] Care Team Providers Care Commercial Roofing Estimator Name Role Phone Luther Echavarria Primary Care Provider [phone] Analy Bose CNM Unavailable [phone] Encounter Details Date Type Department Care Team (Late Contact Info) Description 07/29/2024 Scanned Document [facility] BARIATRICS SCAN Bariatrics, Scan Social History [...] Description 01/13/2025 9:00 AM EDT Consult [facility] [address] [place] [phone] Holley Webb PA-C [address] [place] [address] documented as of this encounter Visit Diagnoses Not on filedocumented in this encounter Care Teams Commercial Roofing Estimator Relationship Specialty Start Date End Date Luther Echavarria PA [address] [place] [address] PCP - General Family Medicine 08/02/20 Analy Bose CNM [address] [place] [address] Pediatric Urologist Obstetrics and Gynecology 04/03/23 documented as of this encounter
--- OUTSIDE RECORDS SUMMARY | 2024-11-25 22:18 | XMS_ITS | Data Portability ---
Author Organization [employer]. - [employer] , [employer] Address [address] [place] [address] Care Team Providers Care Can Piler Name Role Phone LUTHER BRANDT Primary Care Provider [phone] Assessment Encounter Date Assessment Date Assessment LastModified [...] Set: generic initial ordered Appt w/ COLLECTION CORRESPONDENT: 3 mo [email or web address] Not available 04/28/2024 10:33:19 [...] support positive behavior change Plan/Goals: 1. Use [employer] 2. Healthy plate model as tolerated for portion control 3. Monitor GI function - avoid sensitivities 4. Eat protein first at meals 5. Maintain consistent eating pattern, avoid skipping meals 6. Adequate hydration/fiber as tolerated f/u: SoCT akil Total Time Spent on the date of the encounter: 30 minutes which includes visit preparation time, time reviewing and independently interpreting results, rxme-jj-galp time with the patient, counseling/educati ng the [...] tolerated ? CV and resistance training --Utilize klinify Josse --RD referral --Support groups --Track weight [...] time, time reviewing and independently interpreting results, tiba-fx-jesf time with the patient, counseling/educati ng patient/family members/caregivers , ordering medications/tests/ procedures, care coordination, documenting clinical information in the electronic medical record, following up on referrals/results and communicating with related healthcare professionals as needed. Followup: Lab Order Set: generic initial ordered Appt w/ MD: 3 mo Appt w/ RD: GEORGIANA [email or web address] Not available 07/29/2024 07:56:29 09/20/2024 09/20/2024 No Show [email or web address] Not available 03/2025 11:44:41 Plan of Treatment Reminders Order Date Submit Date Provider Last Modified By Organization Details Last Modified Time Details Appointments None recorded. Lab CBC w/ auto diff 2023 [facility], [address], [place], [address], 4 11:07:23 CMP, serum or plasma 2023 024 [facility], [address], [place], [address], 4 11:07:24 lipid panel, serum 2023 024 [facility], [address] [place], [address], 4 11:07:26 CRP, high sensitivity , serum or plasma 2023 024 [facility], [address], [place], [address], 4 11:07:21 HbA1c (hemoglobin A1c), blood 2023 [facility], [address], [place], [address], 4 11:07:27 insulin, serum 2023 [facility], [address], [place], [address], 4 11:07:22 TSH, serum or plasma 2023 [facility], [address], [place], [address], 4 11:07:20 vitamin B12, serum 2023 [facility], [address], [place], [address], 4 11:07:22 vitamin D, 25-hydroxy, total, serum 2023 [facility], [address], [place], [address], 4 11:07:20 T4, free, serum 2023 [email or web address] [facility], [address] [place], [address], 4 09:54:38 Referral None recorded. Procedures None recorded. Surgeries None recorded. Imaging None recorded. Medication Orders bupropion HCl XL 300 mg 24 hr tablet, extended release 2023 [facility][id number], [address] [place], [address], 4 11:06:18 naltrexone 50 mg tablet 2023 [facility] #[id number], [address] [place], [address], 11:06:18 Patient TargetsNo targets recorded. Patient Instructions Encounter Date Encounter Id Patient Instructions Last Modified By Organization Details Last Modified Time 04/28/2024 [id number] Nice speaking with you today! As a [...] MD [email or web address] Not available 04/28/2024 11:08:30 05/31/2024 [id number] Josh Garcia! It was great to speak [...] support positive behavior change Plan/Goals: 1. Use [employer] 2. Healthy plate model as tolerated for portion control 3. Monitor GI function - avoid sensitivities 4. Eat protein first at meals 5. Maintain consistent eating pattern, avoid skipping meals 6. Adequate hydration/fiber as tolerated Please feel free to reach out with any questions Nubia Zavaleta MS RD [facility] [email or web address] Not available 05/31/2024 09:57:03 Reason for Referral None Reported. Problems Name Problem SNOMED Code Status Onset Date Resolution Date Notes Provider Name and Address Organization Details Recorded Time Obesity 484140254 Active 2023 FREDI LIANG, [address], [place], [address] , [facility] [employer]. - [facility] 4 09:03:28 Hypothyroi dism 40811404 Active 2023 Bell chau, [facility]. - [facility] 4 10:55:25 Hyperlipid emia 56973657 Active 2023 FREDI LIANG DNP [address] [place] [address],[address], [place], [address] , [facility] [employer] [facility] - [facility] 4 09:03:28 Obstructiv e sleep apnea syndrome 18625238 Active 2023 FREDI LIANG DNP [address] [place] [address],[address], [place], [address] , [facility] - [facility] 4 09:03:28 Hypothyroi dism due to Alex' s thyroiditi s 512257652 Active 2023 FREDI LIANG DNP [address] [place] [address],[address], [place], [address] , [facility] - [facility] 4 09:03:28 Iron deficiency 62559710 Active 2023 FREDI LIANG DNP [address] [place] [address],[address], [place], [address] , [facility] - [facility] 4 09:03:28 Abnormal weight gain 060514739 Active 2023 FREDI LIANG DNP [address] [place] [address],[address], [place], [address] , [facility] - [facility] 4 09:03:27 Obese class I 4464115905410 07 Active 2023 FREDI LIANG DNP [address] [place] [address],[address], [place], [address] , [facility] [employer] [facility]. - [facility] 4 09:03:28 Endocrine/ metabolic screening Active 2023 Dahiana Forrester MD [address] [place] [address],[address], [place], [address] , [facility] [employer] [facility]. - [facility] 4 10:32:35 Problem Notes None recorded. Medical Equipment None Reported. Allergies Allergen ID Allergen Name Allergen Category Reaction Reaction Severity Criticality Documentation Date Start Date Code Code System Note Provider Name and Address Organization Details Recorded Time 3635 almond allergeni c extract food Not available Not available Not available 12/09/2023 07879 7 RxChevy Delacruz Dandypino, RD [address] [facility],[address], [place], [address], [facility]. - [facility] 4 16:16:06 3636 apple extract food Not available Not available Not available 12/09/2023 48956 65 RxNolucas Zavaleta, RD [address] [facility],[address], [place], [address], [facility]. - [facility] 4 16:16:14 3637 pear preparati on food Not available Not available Not available 12/09/2023 10202 25 RxNolucas Delacruz Dandypino, RD [address] [facility],[address], [place], [address], [facility]. - [facility] 4 16:16:20 3638 peach food Not available Not available Not available 12/09/2023 63292 UNK Nubia Alcarazgenesispino, RD [address] [facility],[address], [place], [address], [facility]. - [facility] 4 16:16:24 3639 nectarine allergeni c extract food Not available Not available Not available 12/09/2023 39986 99 RxNolucas Zavaleta, RD [address] [facility],[address], [place], [address], [facility]. - [facility] 4 16:16:30 3640 plum preparati on food Not available Not available Not available 12/09/2023 06505 7 RxChevy Alcarazgenesispino, RD [address] [facility],[address], [place], [address], [facility]. - [facility] 4 16:16:37 3641 red allergeni c extract food,medi cation Not available Not available Not available 12/09/2023 36636 1 RxNorm Nubia Zavaleta, RD [address] [facility],[address] [facility], [place], [address] , [facility]. - [facility] 4 16:16:44 Medications Name Sig Start [...] Details Last Updated DateTime 04/28/2024 162.56 cm 68562.77 g 32.1 kg/m2 Dahiana Forrester MD [address] [place] [address],[address] [place], [address], [facility] [employer] [facility]. - [facility] 04/28/2024 10:30:00 Date Recorded Body weight Body height Body mass index (BMI) Provider Name and Address Organization Details Last Updated DateTime 04/28/2024 95148.61708 g 162.56 cm 32.1 kg/m2 Not Available [employer] 04/28/2024 10:33:23 Date Recorded Body weight Body height Provider Name and Address Organization Details Last Updated DateTime 04/29/2024 16539.075493 g 162.56 cm Not Available [employer] 04/29/2024 08:09:40 Date Recorded Body weight Body height Body weight Body height Body weight Body height Provider Name and Address Organization Details Last Updated DateTime 05/02/2024 35361.28 52171 g 162.56 cm 70963.2 862182 g 162.56 cm 60821.2 895413 g 162.56 cm Not Available [employer] 09:08:24 Date Recorded Body weight Body height Provider Name and Address Organization Details Last Updated DateTime 05/06/2024 08144.369364 7 g 162.56 cm Not Available [employer] 05/06/2024 07:38:22 Date Recorded Body weight Body height Provider Name and Address Organization Details Last Updated DateTime 05/10/2024 12110.754509 6 g 162.56 cm Not Available [employer] 05/10/2024 07:23:15 Date Recorded Body weight Body height Provider Name and Address Organization Details Last Updated DateTime 05/19/2024 22889.416488 1 g 162.56 cm Not Available [employer] 05/19/2024 07:13:53 Date Recorded Body height Body mass index (BMI) Body weight Provider Name and Address Organization Details Last Updated DateTime 05/31/2024 162.56 cm 31.9 kg/m2 92306.[address] [place] [address],[address], [place], [address], [facility] [employer] - [facility] 05/31/2024 08:37:57 Date Recorded Body weight Body height Body mass index (BMI) Provider Name and Address Organization Details Last Updated DateTime 05/31/2024 22279.47134 g 162.56 cm 31.9 kg/m2 Not Available [employer] 05/31/2024 08:38:36 Social History None recorded. Functional Status None recorded. Mental Status None recorded. Family History Nothing Reported. Medical History No medical history recorded. Gynecological HistoryNo gynecological history recorded. 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 468943671 E06.3 Iron deficiency 49711974 E61.1 Abnormal weight gain 161 169366 R63.5 Obese class I 4538371773 91214 E66.9 Endocrine/ metabolic screening 126296189 Z13.228 Z13.29 Z13.21 Z13.6 Z79.899 R53.83 R79.9 Z13.220 Z13.1 Z13.0 E56.9 E53.9 E55.[id number] [address] 05/31/2024 08:22:10 06/03/2024 04:05:08 Obesity 382871632 E66.9 Hyperlipidemia 78065926 E78.5 [id number] SANTOS TWYLAMARY JANE [address] [address] 07/29/2024 09:00:23 07/29/2024 09:14:37 Obesity 146304161 E66.9 --as above Hyperlipidemia 96349802 E78.5 - Hyperlipid emiaMonito r with above Obstructiv e sleep apnea syndrome 95989264 G47.33 - OSASleep study 2019Mild, no tx indicated 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 435771425 E06.3 - Alex' s hypothyroi dFollows with endocrineO n levothyrox ine 88 mcg, reports TFTs wnl Iron deficiency 59173847 E61.1 - Iron deficiency Intolerant of oral iron, increasing dietary iron, monitoring with obgyn [id number] Nubia Zavaleta RD [address] [address] 09/20/2024 11:27:42 09/20/2024 11:45:45 Health Concerns [...] located in the state of {{[facility] Vitalswt:previous wt: 181.26Highest weight/BMI: 198.0 lbs, BMI 34.0, 2023Baseline weight/BMI: 183.0 lbs, BMI 31.4 Confirm AOM and dose:metformin 500mgConfirm Frequency/Consistency:S/e: Appetite:Cravings: Behavior ChangeSuccesses:Areas needing improvement:Barriers: Nutrition IntakeDietary Restrictions/Allergies:Food Recall:B:L:D:S:Claire:Alcohol: Physical Activity:------12.09.23 Nutrition ConsultI have confirmed that the patient is physically located in the [place] of [place]itals[place] 5'4 Weight: 181.26Highest weight/BMI: 198.0 lbs, BMI [...] with: Move/relocationCurrent lifestyle factors: Sedentary, Stressful, 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,[address], [place], [address] [place] [address] [employer]. - [facility] 4 08:38:54 04/28 text/ html 33 yr old female with class 1 obesity, hyperlipidemia, Alex's hypothyroid, RUMA (mild), post anxiety, iron deficiency presents for evaluation.Referred By SOCTPCP: Luther Brandt PASUBSPECIALIST(S):Endocrinology Dr. 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 - [facility] 4 11:08:54 05/31 text/ html 05.31.24 Nutrition Follow UpPatient [facility] management nutritional counselingHIPAA compliant synchronous video visitI have confirmed that the patient is physically located [facility]sswt: 186previous wt: 187 04.28.24 MD visitHighest weight/BMI: [...] the patient is physically located [facility]Height[facility]4 Weight: 181.26Highest weight/BMI: 198.0 lbs, BMI [...] with: Move/relocationCurrent lifestyle factors: Sedentary, Stressful, 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,[address], [place], [address] [place] [address] [employer]. - [facility] 4 09:59:27 07/29 text/ html Patient did not arrive to scheduled z oom appointment. I called via Mazoom and gave instructions to join zoom if able in the next 15 minutes, otherwise to call to reschedule. History of Present Illness:34 yr old female with class 1 obesity, hyperlipidemia, Alex's hypothyroid, RUMA (mild), post anxiety, iron deficiency presents for evaluation. 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,[address], [place], [address], [facility] [employer] [facility]. - [facility] 4 09:14:34 09/20 text/ html No Show Nubia Zavaleta, RD [address] [facility],[address], [place], [address], [facility] [employer] [facility]. - [facility] 5 11:45:45 OBGyn Episode No OBEpisode recorded.
--- OUTSIDE RECORDS SUMMARY | 2024-11-25 22:18 | XMS_ITS | Encounter Summary ---
Author Organization [facility] Address [address] [place] [address] Care Team Providers Care Hoop Bending Machine Operator Name Role Phone Luther Echavarria Primary Care Provider Analy Bose CNM Unavailable [phone] Reason for Visit * Reason Comments Referral Encounter Details Date Type Department Care Team (Late st Contact Info) Description 03/08/[address] [address] Luther Echavarria PA [address] [place] [address] Referral Social History Tobacco Use Types Packs/Day [...] Description 01/13/2025 9:00 AM EDT Consult [facility] [address] [place] [address] Holley Webb PA-C [address] [place] [address] documented as of this encounter Visit Diagnoses Not on filedocumented in this encounter Care Teams Hoop Bending Machine Operator Relationship Specialty Start Date End Date Luther Echavarria PA [address] [place] [address] PCP - General Family Medicine 08/02/20 Analy Bose CNM [address] [place] [address] Hub Borer Obstetrics and Gynecology 04/03/23 documented as of this encounter
--- OUTSIDE RECORDS SUMMARY | 2024-11-25 22:18 | XMS_ITS | Encounter Summary ---
Author Organization [facility] Address [address] [place] [address] Care Team Providers Care Chucker Name Role Phone Luther Echavarria Primary Care Provider [phone] Analy Bose CN Unavailable [phone] Encounter Details Date Type Department Care Team (Late st Contact Info) Description 09/17/[address] [facility] FAMILY [facility] SCAN Luther Echavarria PA [address] [place] [address] Social History Tobacco Use Types Packs/Day Years [...] Description 01/13/2025 9:00 AM EDT Consult [facility] [address] [place] [address] Holley Webb PA-C [address] [place] [address] documented as of this encounter Visit Diagnoses Not on filedocumented in this encounter Care Teams Chucker Relationship Specialty Start Date End Date Luther Echavarria PA [address] [place] [address] PCP - General Family Medicine 08/02/20 Analy Bose CNM [address] [place] [address] Job Spotter Obstetrics and Gynecology 04/03/23 documented as of this encounter
--- OUTSIDE RECORDS SUMMARY | 2024-11-25 22:18 | XMS_ITS | Encounter Summary ---
Author Organization [facility] Address [address] [place] [address] Care Team Providers Care Health Safety Manager Name Role Phone Luther Echavarria Primary Care Provider [phone] Analy Bose CNM Unavailable [phone] Reason for Visit * Reason Comments Appointment Encounter Details Date Type Department Care Team (Late Contact Info) Description 03/09/[address] [address] Zo Cameron MD Valid Address [...] Description 01/13/2025 9:00 AM EDT Consult [facility] [address] [place] [address] Holley Webb PA-C [address] [place] [address] documented as of this encounter Visit Diagnoses Not on filedocumented in this encounter Care Teams Health Safety Manager Relationship Specialty Start Date End Date Luther Echavarria PA [address] [place] [address] PCP - General Family Medicine 08/02/20 Analy Bose CNM [address] [place] [address] Reaming Machine Operator Obstetrics and Gynecology 04/03/23 documented as of this encounter
--- OUTSIDE RECORDS SUMMARY | 2024-11-25 22:18 | XMS_ITS | Data Portability ---
Author Organization [place] - [facility], [facility] Address [address] [place] [address] Care Team Providers Care Clay Transporter Name Role Phone BRANDT MIGUEL ÁNGEL Primary Care Provider [phone] Assessment No assessment recorded. Plan of Treatment Reminders Order Date Submit Date Provider Last Modified By Organization Details Last Modified Time Details Appointments None recorded. Lab surgical pathology study - products of conception 2023 [facility], [address] [place] [address], [id number] 4 15:04:23 bacterial vaginosis + vaginitis panel, vaginal 2023 [facility], [address] [place] [address], [id number] 4 09:08:53 hemoglobin (Hb), fingerstick , blood 2023 [email or web address] In-Office Order, Internal Use Only DO Not Attach Compendium DO Not Attach Compendium, Do Not Delete/merge, [id number] 4 14:04:37 Referral None recorded. Procedures None recorded. Surgeries None recorded. Imaging None recorded. Medication Orders oxycodone 5 mg tablet 2023 024 [id number], [address] [place], [address], 4 11:43:13 ibuprofen 600 mg tablet 2023 024 arabella [id number], [address] [place], [address], 15:01:45 norethindro ne-ethinyl estradiol triphasic 0.5/1/0.5 mg-35 mcg tablet 2023 024 [email or web address] 885 [facility][id number], [address] [facility] [place], [address], 12:51:32 Vitron-C 65 mg iron-125 mg tablet,lina yed release 2023 024 [id number], [address] [facility] [place], [address], 13:48:07 FE 1.5/30 (28) 1.5 mg-30 mcg (21)/75 mg (7) tablet [address] [id number] [address] [facility] [place], [address], 13:48:06 Patient TargetsNo targets recorded. Patient Instructions Encounter Date Encounter Id Patient Instructions Last Modified By Organization Details Last Modified Time 10/12/2023 [id number] Normal post part um exam. No further bleeding. control options discussed. Would like to restart GERRY; reviewed method risks @ >35y.o /ACHES/BUM & consent signed. Kegal exercises explained. OK to resume all normal activity as tolerated. Will resume FE supplement and advised of s/s of anemia to f/u with. Patient coping well post-. 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 [email or web address] Not available 10/12/2023 13:49:35 06/30/2024 [id number] 34-year-old fema le with an abnormal appearing [...] minutes arabella Not available 06/30/2024 15:03:06 07/07/2024 [id number] 34-year-old femidris craig with undesired . She has a young child at home. She wishes to proceed with surgical termination of . This will be scheduled in the office. She has been made aware that she will need to have a ride home. Would like to do it the week of July 18 and her has off. arabella Not available 07/07/2024 11:42:42 07/21/2024 [id number] Suction D&C completed without complication. Patient will [...] DO Not Attach Compendium, Do Not Delete/merge, [id number] 10/12/2023 09:02:48 12/09/1912/09/2023 ADVAN NEETA BACTE RIAL VAGIN OSIS (BV), TMA adv bacterial vaginosis (bv), tma Positi ve negati ve abnormal Not Available [facility] [address] [place], [address] 12/10/2023 09:08:53 12/09/19 24 12/09/2023 ADVAN NEETA SHREE DA VAGIN ITIS (CV)/ TRICH OMONA S VAGIN DERRICK (TV), TMA chayo species Negati ve negati ve Not Available [facility] [address] [place], [address] 12/10/2023 09:08:54 12/09/19 24 12/09/2023 ADVAN NEETA SHREE DA VAGIN ITIS (CV)/ TRICH OMONA S VAGIN DERRICK (TV), TMA chayo glabrata Negati ve negati ve Not Available [facility] [address] [place], [address] 12/10/2023 09:08:54 12/09/19 24 12/09/2023 ADVAN NEETA SHREE DA VAGIN ITIS (CV)/ TRICH OMONA S VAGIN DERRICK (TV), TMA trichomonas vaginalis (TV), tma Negati ve negati ve Not Available [facility] [address] [place], [address] 12/10/2023 09:08:54 07/21/20 24 07/21/2024 TISSU E [...] label ed 1A-1E . CPT Codes : 62984 ICD Codes : Z33.2 Not Available [facility] [address] [place], [address] 07/22/2024 15:04:23 06/30/2006/30/2024 ultra sound image s CINDY bell [facility] [employer] 89018 06/30/2024 11:00:23 07/07/20 24 07/07/2024 US, obste tric, trans vagin al RAD nvoisine In-Office Order Internal Use Only DO Not Attach Compendium DO Not Attach Compendium, Do Not Delete/merge, [id number] 07/08/2024 08:32:27 Result Notes None recorded. Problems Name Problem SNOMED Code Status Onset Date Resolution Date Notes Provider Name and Address Organization Details Recorded Time Hashimot o thyroidi tis 44314267 Active on 88 mcg levothyro xine daily TSH at IOB 3.63, endo consult and advised to update PCP levothyro xine increased to 112 daily on 06/01/23 increased again to120 mcg on 06/08/23 Corry Laguerre [facility], [facility] 3 09:13:29 High risk pregnanc y 73996842 Completed AMA, first preg Will take ASA 81 mg daily at 12 wks Corry Laguerre [facility] 3 09:13:29 Hashimot o thyroidi tis 47508434 Completed on 88 mcg levothyro xine daily TSH at IOB 3.63, endo consult and advised to update PCP levothyro xine increased to 112 daily on 06/01/23 increased again to120 mcg on 06/08/23 Corry Laguerre [facility], [facility] 3 09:13:29 Advanced maternal age 579791952 Completed Horizon- Neg X3 NIPT- screen neg, Male AFP - low risk Level 2 Anatomy scan - velamento us cord Corry Shade [facility], [facility] 3 09:13:29 Rubella non-immu ne 622120548 Completed MMR PP Corry Laguerre [facility], [facility] 3 09:13:29 Velament ous insertio n of umbilica l cord 39541006 Completed on level 2, will need NST's at 36 wks, growth USN third trim per MFM Corry Laguerre null, [facility] 3 09:13:29 Problem Notes None recorded. Procedures Surgical History Date Name Laterality Status Provider Name and Address Organization Details Recorded Time 4 Suction D&C/Manual Vacuum Aspiration completed WHIT YODER MD [address], [address] Floor, [place], [address], [facility] 07/21/2024 12:18:23 4 First Post Visit completed ALKA RIVERA CNM [address], [address] [place] [address], [place], [address], [facility] 09/15/2023 08:08:17 3 [id number]-[id number] completed MOISES SEPULVEDA MD [address] [facility], [address] [place] [address], [address], [facility] 09/23/2022 13:14:09 2 laser surgery completed Samuel Bradshaw [facility] 09/23/2022 12:16:50 2 Other completed Clarice Yoder [facility] 01/12/2023 09:54:50 1 Colposcopy Procedure Note completed MOISES SEPULVEDA MD [address], [address] [place] [address], [address], [facility] 08/14/2021 13:04:38 1 Colposcopy completed OMG1 NURSE 175 [facility], [address] [place] [address], [address], [facility] 11/26/2021 13:31:51 1 [id number] completed MOISES SEPULVEDA MD [address] [facility], [address] [place] [address], [address], [facility] 07/05/2021 15:01:29 Date of Last Pap Smear completed OMG1 NURSE 175 [facility], 3rd Floor, [place], [address], [place] [facility] 11/26/2021 13:31:27 Imaging Results Imaging Date Name Status LastModified by Organization Details LastModified Time 06/30/2024 ultrasound images completed arabella [facility] [employer] [id number] 06/30/2024 11:00:23 07/07/2024 US, obstetric, transvaginal completed nvoisine In-Office Order Internal Use Only DO Not Attach Compendium DO Not Attach Compendium, Do Not Delete/merge, [id number] 07/08/2024 08:32:27 Procedure Notes None recorded. Medical Equipment None Reported. Allergies Allergen ID Allergen Name Allergen Category Reaction Reaction Severity Criticality Documentation Date Start Date Code Code System Note Provider Name and Address Organization Details Recorded Time 1826334 apple extract food nausea severe Not available 04/28/2018 64875 65 RxNorm Izamarie Colon null, [facility] 8 16:58:40 1208786 almond allergeni c extract food nausea severe Not available 04/28/2018 45272 7 RxNorm Izamarie Colon null, [facility] 8 16:58:40 No known drug [...] Updated DateTime 10/12/2023 162.56 cm 31.6 kg/m2 08418 g 112 mm[Hg] 76 mm[Hg] TRIAGE_MA O1 [address], [address], [facility] 13:23:55 Date Recorded Body height Body mass index (BMI) Body weight Heart rate Systolic blood pressure Diastolic blood pressure Provider Name and Address Organization Details Last Updated DateTime 162.56 cm 22.6 kg/m2 97916.7 9 g 88 /min 127 mm[Hg] 84 mm[Hg] OMG1 NURSE [address], [address], [facility] 4 10:09:11 Date Recorded Body height Systolic blood pressure Diastolic blood pressure Provider Name and Address Organization Details Last Updated DateTime 06/30/2024 162.56 cm 130 mm[Hg] 77 mm[Hg] TRIAGE_MAO1 [address], [address], [facility] 06/30/2024 10:52:17 Date Recorded Body height Systolic blood pressure Diastolic blood pressure Provider Name and Address Organization Details Last Updated DateTime 07/07/2024 162.56 cm 121 mm[Hg] 76 mm[Hg] TRIAGE_MAO1 [address], [address], [facility] 07/07/2024 09:01:04 Date Recorded Body height Body mass index (BMI) Body weight Systolic blood pressure Diastolic blood pressure Provider Name and Address Organization Details Last Updated DateTime 07/21/2024 162.56 cm 33.5 kg/m2 82106.51 g 127 mm[Hg] 85 mm[Hg] TRIAGE_MA O1 175 [facility], 3rd Floor, [place], [address], [place] [facility] 12:02:31 Social History Question Answer Notes LastModified by Organizat ion Details LastModified Time Tobacco Smoking Status Never Smoker Adolfo Moser null, [place] [facility] 04/28/2018 16:58:41 What Is Your Level Of Alcohol Consumption? Occasional Information not available 04/28/2018 Concerns About Meeting Basic Needs (food, Housing, Heat, Etc)? No Information not available 01/12/2023 Education Post Graduate Information not available 01/12/2023 What Is The Highest Grade Or Level Of School You Have Completed Or The Highest Degree You Have Received? [id number] Information not available 07/05/2021 What Is Your [...] Anxious, Or Unable To Sleep At Night)? [id number] Information not available 07/05/2021 How Many Years [...] Time What is your exercise level? Occasional [email or web address] Information not available 09/23/2022 Mental Status None recorded. Family History Relationship Description Onset Age of this Age Resolved Age Notes LastModified by Organization Details LastModified Time Mother Asthma [email or web address]-13 Not available 16:51:57 Mother Disorder of thyroid gland API-13 Not available 2017 16:51:57 Medical History Condition Response HIV N Anxiety Disorder Y Diabetes N Heart Problems N Blood Transfusions N HSV N *No Diseases or Conditions N Blood clots N Cancer N Stroke N Thyroid Problems Y Abuse/Domestic Violence N Kidney or Bladder Problems N Depression N Lung Disease N Asthma Y Defects or Inherited Disease N Anesthesia Complications N Hepatitis N Neurological Disorder N Hypertension N Osteoporosis N Psychiatric Illness N Gynecological History Statement/Question Response Benign Breast [...] Time Tdap 3 completed Kiesha Lopez null, [facility] 06/01/2023 09:09:27 Influenza, MDCK, quadrivalent, PF 3 completed MERRY DOS SANTOS CNM 175 [facility], 3rd Floor, [place], [address], [facility] 06/15/2023 10:22:28 Influenza, MDCK, quadrivalent, preservative 0 completed Clarice Yoder null, [facility] 01/12/2023 09:54:27 COVID-19, mRNA, LNP-S, PF, 30 mcg/0.3 mL dose 1 completed Clarice Yoder null, [facility] 01/12/2023 09:54:27 COVID-19, mRNA, LNP-S, PF, 30 mcg/0.3 mL dose 1 completed Clarice Yoder null, [facility] 01/12/2023 09:54:27 Tdap 3 completed Clarice Yoder null, [facility] 01/12/2023 09:54:27 Past Encounters Encounter ID Performer Location Encounter Start Date Encounter Closed Date Diagnosis/Indication Diagnosis SNOMED-CT Code Diagnosis ICD10 Code Diagnosis Note [id number] DEMI ARDON CNM MAO1 [address] [place] [address] 04/28/2018 16:43:43 04/29/2018 07:52:55 Gynecologic examination 44219728 [facility].419 [facility] 916203621 Z30.9 [id number] DEMI ARDON CNM MAO2 [address] [place] [address] 05/06/2019 06:57:41 05/06/2019 10:56:29 Gynecologic examination 26308166 Z01.419 [facility] ion care management 700609713 Z30.9 [id number] DEMI ARDON CNM [facility] [address] [place] [address] 10/04/2019 14:45:09 10/05/2019 08:54:06 Venereal disease screening 910938118 Z11.3 [id number] MEGAN ORELLANA CNM [facility] [address] [place] [address] 06/20/2020 13:05:02 06/21/2020 10:21:12 Gynecologic examination 49633763 Z01.419 Venereal d isease screening 919805527 Z11.3 [facility] ion care management 688022661 Z30.9 [id number] MOISES SEPULVEDA MD [address] [address] 07/05/2021 14:01:04 07/05/2021 15:49:06 Gynecologic examination 33856489 Z01.419 Venereal d isease screening 459807754 Z11.3 [id number] MOISES SEPULVEDA MD [address] [address] 08/14/2021 11:23:21 08/15/2021 08:43:25 Atypical squamous cells of undetermined significance on cervical Papanicolaou smear 337055267 R87.610 [id number] MOISES SEPULVEDA MD [address] [address] 09/23/2022 12:03:41 09/25/2022 14:58:03 Gynecologic examination 34455420 Z01.419 Venereal d isease screening 872746216 Z11.3 [id number] MERRY DOS SANTOS CNM MAO [address] [place] [address] 01/12/2023 09:50:49 01/13/2023 08:53:25 Routine care 743072979 Z34.01 Gestation period, 8 weeks 73130847 Z3A.08 [id number] MERRY DOS SANTOS CNM [facility] [address] [place] [address] 01/26/2023 14:02:44 01/27/2023 14:29:20 Routine care 875156018 Z34.90 Z34.91 Z34.92 Z34.93 Z34.00 Z34.80 Z34.01 Z34.02 Z34.03 Z34.81 Z34.82 Z34.83 Gestation period, 10 weeks 32394354 Z3A.10 High risk 4720 0007 O09.91 [id number] VICTOR M AGUERO CNM [facility] [address] [place] [address] 02/23/2023 08:46:22 02/24/2023 15:00:44 Routine care 174507629 Z34.92 High risk 4720 0007 O09.92 Gestation period, 14 weeks 55183161 Z3A.14 Referred t o supply officer 180168590 Z76.89 [id number] Diamond Chandler CNM [facility] [address] [place] [address] 03/23/2023 09:45:32 03/25/2023 09:28:07 High risk 98136458 O09.92 Gestation period, 18 weeks 27987496 Z3A.18 Nausea and vomiting 1693 1999 R11.2 [id number] Monique Quiñones DO [facility] [address] [place] [address] 04/20/2023 11:20:12 04/20/2023 13:29:07 High risk 44206910 O09.92 Gestation period, 22 weeks 42168281 Z3A.22 Nausea and vomiting 1693 1999 R11.2 [id number] Monique Quiñones DO [facility] [address] [place] [address] 05/11/2023 11:16:45 05/15/2023 11:16:58 Vaginal odor 975213215 N89.8 High risk 4720 0007 O09.92 Gestation period, 25 weeks 56990524 Z3A.25 [id number] MERRY DOS SANTOS CNM [facility] [address] [place] [address] 06/01/2023 08:19:50 06/03/2023 10:30:54 High risk 20305125 O09.93 Gestation period, 28 weeks 98190508 Z3A.28 Routine an tenatal care 273939879 Z34.02 Z34.82 Hypothyroidism 72776074 E03.9 Active or passive immunization 163570874 Z23 [id number] MERRY DOSS ANTOS CNM MAO [address] [place] [address] 06/15/2023 08:43:18 06/17/2023 11:03:41 High risk 63085258 O09.93 Gestation period, 30 weeks 57788661 Z3A.30 Administra tion of influenza vaccine 64755826 Z23 [id number] MOISES SEPULVEDA MD [facility] [address] [place] [address] 06/29/2023 14:27:27 06/30/2023 10:23:10 High risk 17562036 O09.93 Gestation period, 32 weeks 4202834 Z3A.32 support 40 2208123 Z39.1 [id number] MOISES SEPULVEDA MD [facility] [address] [place] [address] 07/14/2023 08:37:47 07/14/2023 14:06:58 High risk 46400073 O09.93 Gestation period, 34 weeks 81638293 Z3A.34 [id number] MERRY DOS SANTOS CNM MAO [address] [place] [address] 07/28/2023 10:53:06 07/30/2023 15:02:39 High risk 12116712 O09.93 Gestation period, 36 weeks 14066428 Z3A.36 screening 2437 64396 Z36.9 [id number] WHIT YODER MD MAO2 [address] [place] [address] 07/28/2023 09:52:58 07/30/2023 13:19:01 support 470802239 Z39.1 [id number] MERRY DOS SANTOS CNM [facility] [address] [place] [address] 08/03/2023 13:57:09 08/04/2023 16:18:00 High risk 66419925 O09.93 Gestation period, 37 weeks 31434239 Z3A.37 [id number] [facility] [address] [place] [address] 08/10/2023 13:48:16 08/12/2023 11:52:03 Advanced maternal age 914349514 O09.523 High risk 4720 0007 O09.93 Gestation period, 38 weeks 32794051 Z3A.38 [id number] MERRY DOS SANTOS CNM [facility] [address] [place] [address] 08/17/2023 13:45:11 08/20/2023 11:44:27 High risk 50568835 O09.93 Gestation period, 39 weeks 18683697 Z3A.39 Advanced m aternal age 909251785 O09.[id number] [address] 08/24/2023 09:10:48 08/31/2023 08:31:40 Post-term 87230973 O48.1 High risk 4720 0007 O09.93 Gestation period, 40 weeks 18285836 Z3A.40 [id number] ALKA RIVERA CNM [facility] [address] [place] [address] 09/15/2023 07:34:39 09/16/2023 10:16:09 care 628288370 Z39.2 [id number] ALKA RIVERA CNM [facility] [address] [place] [address] 10/12/2023 13:13:07 10/13/2023 15:21:32 care 855268455 Z39.2 Contracept ion care management 219367294 Z30.9 [id number] MOISES SEPULVEDA MD [address] [address] 12/09/2023 09:59:44 12/09/2023 14:10:40 Vaginal odor 134044784 N89.8 Prolonged periods 551222 006 N92.5 Pt reports taking her pills on time and not missing any, no change in her overall health. Discussed switching to triphasic OCP, pt accepts [id number] WHIT YODER MD OMG2 [address] [place] [address] 06/30/2024 10:22:28 07/01/2024 10:09:04 Uncertain viability of 649848308 O36.80X9 [id number] WHIT YODER MD OMG1 [address] [place] [address] 07/07/2024 08:28:23 07/11/2024 15:48:36 Elective termination of 66638439 Z33.2 [id number] WHIT YODER MD OMG2 [address] [place] [address] 07/21/2024 11:28:10 08/03/2024 12:39:42 Elective termination of 84191335 Z33.2 Health Concerns Section Related Observation LastModified by Organization Detai ls LastModified Time None Recorded Concern Status LastModified by Organization Details LastModified Time None Recorded Advance Directives Directive None Recorded Payers Encounter Date Sequence Insurance Name Policy Number Policy Hanson Covered Member ID Hanson Member ID Guarantor Name 10/12/2023 1 [place] [id number] H Andi Daryn [id number] Andi Daryn 12/09/2023 1 [place] [id number] H Andi Daryn [id number] Andi Daryn 06/30/2024 1 [place] [id number] H Andi Daryn [id number] Andi Daryn 07/07/2024 1 [place] [id number] H Andi Daryn [id number] Andi Daryn 07/21/2024 1 [place] [id number] H Andi Daryn [id number] Andi Daryn Notes Date Note Type Note Provider Name and Address Organization Details Recorded Time 10/12/2023 text/html [facility] VisitReported bypatient.Associate d Symptoms:no abnormal bleeding; no pelvic pain; laceration well healed; no constipation; no fecal incontinence; no dysuria; no urinary incontinence; no fever; no problems; no mastitisNotes:Well PP. Denies any concerns w/ mood. Formula only. VB has stopped PP. Menses resumed. Abstinence since delivery. Pelvic pain resolved. Repair site seems healed. Wants to resume GERRY used in past. ALKA RIVERA CNM [address], [address], [facility] 10/12/2023 13:53:33 12/09/2023 text/html C/O mal odorous vaginal d/c x 4 days . 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 MOISES SEPULVEDA MD [address], [address], [facility] 12/09/2023 10:32:39 06/30/2024 text/html Patient is here [...] enjoy this experience. WHIT YODER MD [address], [address], [facility] 06/30/2024 15:03:26 07/07/2024 text/html Patient is here for repeat ultrasound. This showed interval changes growth of 1 week in the crown-rump length and heart rate is present. She does not desire this . She had a bad experience having medical termination of at home and would like to have a surgical termination of . WHIT YODER MD [address] [place] [address], [address] Floor, [place], [address], [place] [facility] 07/07/2024 11:43:37 OBGyn Episode Ob Episode Information Episode Created Date Number of Fetuses Patient Bloodtype Patient rh Status Prepregnancy Weight lbs Domestic Partner Domestic Partner Phone Father Name Tobacco Classer Status 01/27/20 1 A Positive 198 Dominick CLOSED Fetus Data First Name Last Name Admitted to NICU Weight (g) Sex Living Outcome Pediatric Complications Fetus ID Race Codes Race Delivery Type false 3798.83 3 M true Full Term [id number] 9 Vaginal Delivery Problems Problem Notes Problem Name Start Date End Date Resolution Snomed Code Not e Rubella non-immune 708513187 M PP Velamentous insertion of umbilical cord 16099895 on level 2, w ill need NST's at 36 wks, growth USN third trim per MFM High risk 44798690 AMA, first pregWill take ASA 81 mg daily at 12 wks Alex thyroiditis 92512690 on 88 mcg levot hyroxine dailyTSH at IOB 3.63, endo consult and advised to update PCPlevothyroxine increased to 112 daily on 06/01/23increased again to120 mcg on 06/08/23 Advanced maternal age 562881841 Horizon- Neg X3 NIPT- screen neg, MaleAFP [...] Days Gestation 0 API-217 01/26/2023 08/22/20 0 Pre-carlos Flowsheet Flowsheet Date 01/26/2023 Muñoz Score Blood Edema Fundus Height Fundus Units Glucose Ketones Leukocytes Nitrite Labor Signs Protein Cervic Dilation Cervic Effacement Cervic Station 10 cm none neg Type Weight in lbs Pre/Post Dialysis Refused Weight 200.556396743566 BP Diastolic BP Location Tested BP Systolic [...] Weight in lbs Pre/Post Dialysis Refused Weight 198.935240658857 BP Diastolic BP Location Tested BP Systolic [...] made today for her to see an supply officer. 3) Leaving to [place] this Thursday, discussed traveling precautions and seeing [...] Weight in lbs Pre/Post Dialysis Refused Weight 196.914002902426 BP Diastolic BP Location Tested BP Systolic [...] Weight in lbs Pre/Post Dialysis Refused Weight 197.935614913308 BP Diastolic BP Location Tested BP Systolic [...] Weight in lbs Pre/Post Dialysis Refused Weight 200.888811129937 BP Diastolic BP Location Tested BP Systolic [...] Weight in lbs Pre/Post Dialysis Refused Weight 202.537099702901 BP Diastolic BP Location Tested BP Systolic [...] Weight in lbs Pre/Post Dialysis Refused Weight 201.755501507588 BP Diastolic BP Location Tested BP Systolic [...] Weight in lbs Pre/Post Dialysis Refused Weight 200.489610310990 BP Diastolic BP Location Tested BP Systolic [...] Weight in lbs Pre/Post Dialysis Refused Weight 201.133609455910 BP Diastolic BP Location Tested BP Systolic [...] Weight in lbs Pre/Post Dialysis Refused Weight 202.181970899002 BP Diastolic BP Location Tested BP Systolic [...] Weight in lbs Pre/Post Dialysis Refused Weight 204.096930733631 BP Diastolic BP Location Tested BP Systolic [...] Weight in lbs Pre/Post Dialysis Refused Weight 207.262593342261 BP Diastolic BP Location Tested BP Systolic [...] Weight in lbs Pre/Post Dialysis Refused Weight 212.04136951387 BP Diastolic BP Location Tested BP Systolic [...] in lbs Pre/Post Dialysis Refused With clothes 213.716463666023 BP Diastolic BP Location Tested BP Systolic [...] Domestic Partner Domestic Partner Phone Father Name Tobacco Classer Status 04/28/20 18 1 CLOSED Fetus Data First Name Last Name Admitted to NICU Weight (g) Sex Living Outcome Pediatric Complications Fetus ID Race Codes Race Delivery Type , Induced [id number] Jason Calculation Initial Jason Date Initial Exam [...]
--- OUTSIDE RECORDS SUMMARY | 2024-11-25 22:18 | XMS_ITS | Encounter Summary ---
Author Organization [facility] Address [address] [place] [address] Care Team Providers Care Furnace Filler Name Role Phone Luther Echavarria Primary Care Provider [phone] Analy Bose CNM Unavailable [phone] Reason for Visit * Reason Comments Transition Of Care Patient was admitted to [facility] from 11/13/2024- for gall bladder removal Encounter Details Date Type Department Care Team (Latest Contact Info) Description 11/18/2024 11:30 AM EST Office Visit [facility] [address] [place] [phone] Luther Echavarria PA [address] [place] [address] S/P cholecystectomy (Primary Dx) Social History Tobacco Use Types Packs/Day Years Used Date Smoking Tobacco: Never Smokeless Tobacco: Never Alcohol Use Standard Drinks/Week Comments Not Currently 0 (1 standard drink = 0.6 oz pur e alcohol) [facility] Utilities Answer Date Recorded In the past 12 months has [employer] electric, gas, oil, or water company threatened [...] and Family Not on file 09/18/2024 Attends [employer] Services Not on file 09/18 Active Member [...] any time in the past 12 m [facility], were you homeless or living in a fci (including now)? No 09/18/2024 Education Answer Date Recorded What is the highest level of school you have completed or the highest degree you have received? 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, [employer]) 09/18/2024 Sex and Gender Information Value Date Recorded Sex Assigned at Female 04/01/2023 10:33 AM EDT Gender Identity Female 12/03/2020 7:53 AM EDT Sexual Orientation Heterosexual (straight) 12/03 7:53 AM EDT documented as of this encounter Last Filed Vital Signs Vital Sign Reading Time Taken Comments Blood Pressure 130/80 11/18/2024 11:25 AM EST Pulse 90 11/18/2024 11:25 AM EST Temperature 36.1 ??C (97 ??F) 11/18/2024 11:25 AM EST Respiratory Rate 16 11/18/2024 11:25 AM EST Oxygen Saturation 98% 11/18/2024 11:25 AM EST Inhaled Oxygen Concentration - - Weight 84.4 kg (186 lb) 11/18/2024 11:25 AM EST Height 162.6 cm (5' 4 ) 11/18/2024 11:25 AM EST Body Mass Index 31.93 11/18/2024 11:25 AM EST documented in this encounter Progress Notes * CATALINA Ferguson - 11/18/2024 11:31 AM EST Images from the original note were not included. Assessment & Plan Radha was seen today for transition of care. Diagnoses and all orders for this visit: S/P cholecystectomy - Pt is recovering well from surgery. She will continue to advance her diet as tolerated, follow upwith surgeon as scheduled - seek care for acute changes or concerns. - discussed that she can take up to 3g of tylenol per day Communication barriers and lifestyle preferences were addressed with the patient. The care plan including medications and self-management goals were reviewed to the best of the patient???s abilities.All questions and concerns were answered. Patient and/or family verbalized understanding of the plan of care. Subjective Subjective Patient ID: Radha Stearns is a 34 y.o. female is seen today for a transition of care visit. She is transitioning back to the community setting or home from a hospital. Admit Date: November 13 Diagnosis: Cholecystitis Discharge Date: November 15 Date of interactive contact with patient and medication reconciliation (within 2 business days): November 16 Complexity of Medical Decision Making: Moderate HPI Had her gallbladder removed on 11/14. She says that the week before this happened she was having an episode every day at that point. She says that breakfast flared her from the start of the day and so she was barely eating. First ER visit in September showed nothing on ultrasound but this time the ultrasound showed sludge and some more inflammation that was chronic so they offered her a removal and she agreed. She is having one inicision that is causing a lot of pain and is a lot of pulling pain. Still very gassy, she has had a BM since. She is eating every day, eating breakfast and then bites of a meal the rest of the day, she is eating more each day. She has stopped all opioid pain medications, she is still taking tylenol extra strength BID. She is having some diarrhea after she has larger meals. Sheis off until 11/28 and has a post op appointment on 11/25. Review of Systems Constitutional: Positive for activity change, appetite change and fatigue. Negative for unexpected weight change. Respiratory: Negative for cough, chest tightness and shortness of breath. Cardiovascular: Negative for chest pain and palpitations. Gastrointestinal: Positive for abdominal pain and diarrhea. Negative for constipation, nausea and vomiting. Neurological: Negative for weakness and headaches. Objective Objective Vitals: 11/18/24 1125 BP: 130/80 Pulse: 90 Resp: 16 Temp: 97 ??F (36.1 ??C) SpO2: 98% Weight: 84.4 kg (186 lb) Height: 1.626 m (5' 4 ) Physical Exam Vitals reviewed. Constitutional: General: She is not in acute distress. Appearance: She is well-developed. HENT: Head: Normocephalic and atraumatic. Eyes: General: No scleral icterus. Conjunctiva/sclera: Conjunctivae normal. Cardiovascular: Rate and Rhythm: Normal rate and regular rhythm. Pulmonary: Effort: Pulmonary effort is normal. No respiratory distress. Breath sounds: Normal breath sounds. No wheezing. Abdominal: Comments: Well healed incisions without erythema or drainage. Skin: General: Skin is warm and dry. Neurological: Mental Status: She is alert and oriented to person, place, and time. Psychiatric: Mood and Affect: Mood normal. Behavior: Behavior normal. documented in this encounter Plan of Treatment Upcoming Encounters Date Type Department Care Team (Late st Contact Info) Description 01/13/2025 9:00 AM EDT Consult [facility] [address] [place] [phone] Holley Webb PA-C [address] [place] [address] documented as of this encounter Visit Diagnoses Diagnosis S/P cholecystectomy- Primary Other acquired absence of organ documented in this encounter Care Teams Furnace Filler Relationship Specialty Start Date End Date Luther Echavarria PA [address] [place] [address] PCP - General Family Medicine 08/02/20 Analy Bose CNM [address] [place] [address] Management Expert Obstetrics and Gynecology 04/03/23 documented as of this encounter
--- OUTSIDE RECORDS SUMMARY | 2024-11-25 22:18 | XMS_ITS | Encounter Summary ---
Author Organization [facility] Address [address] [place] [address] Care Team Providers Care Ict Development Manager Name Role Phone Luther Echavarria Primary Care Provider [phone] Analy Bose CNNico Unavailable [phone] Reason for Visit * Reason Comments Medication Refill Encounter Details Date Type Department Care Team (Late st Contact Info) Description 05/18/[address] [phone] Luther Echavarria PA [address] [place] [address] Alex's thyroiditis Social History Tobacco Use Types [...] Description 01/13/2025 9:00 AM EDT Consult [facility] [address] [facility] [address] [place] [address] Holley Webb PA-C [address] [place] [address] documented as of this encounter Visit Diagnoses Diagnosis Alex's thyroiditis Chronic lymphocytic thyroiditis documented in this encounter Care Teams Ict Development Manager Relationship Specialty Start Date End Date Luther Echavarria PA [address] [place] [address] PCP - General Family Medicine 08/02/20 Analy Bose CNM [address] [place] [address] Supervisor Drilling And Shooting Obstetrics and Gynecology 04/03/23 documented as of this encounter
--- OUTSIDE RECORDS SUMMARY | 2024-11-25 22:18 | XMS_ITS | Encounter Summary ---
Author Organization [facility] Address [address] [place] [address] Care Team Providers Care Hydrochloric Manufacturing Supervisor Name Role Phone Luther Echavarria Primary Care Provider [phone] Analy Bose CNM Unavailable [phone] Encounter Details Date Type Department Care Team (Latest Contact Info) Description 11/18/2024 Travel Social History Tobacco Use Types Packs/Day Years Used Date Smoking Tobacco: Never Smokeless Tobacco: Never Alcohol Use Standard Drinks/Week Comments Not Currently 0 (1 standard drink = 0.6 oz pur e alcohol) [facility] Utilities Answer Date Recorded In the past 12 months has [employer] electric, gas, oil, or water company threatened [...] and Family Not on file 09/18/2024 Attends [employer] Not on file 09/18 Active Member [...] in the past 12 m [facility], were you homeless or living in a prison (including now)? No 09/18/2024 Education Answer Date Recorded What is the highest level of school you have completed or the highest degree you have received? 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, [employer]) 09/18/2024 Sex and Gender Information Value Date Recorded Sex Assigned at Female 04/01/2023 10:33 AM EDT Gender Identity Female 12/03/2020 7:53 AM EDT Sexual Orientation Heterosexual (straight) 12/03 7:53 AM EDT documented as of this encounter Plan of Treatment Upcoming Encounters Date Type Department Care Team (Late st Contact Info) Description 01/13/2025 9:00 AM EDT Consult [facility] [address] [place] [phone] Holley Webb PA-C [address] [place] [address] documented as of this encounter Visit Diagnoses Not on filedocumented in this encounter Care Teams Hydrochloric Manufacturing Supervisor Relationship Specialty Start Date End Date Luther Echavarria PA [address] [place] [address] PCP - General Family Medicine 08/02/20 Analy Bose CNM [address] [place] [address] Forest Fire Officer Obstetrics and Gynecology 04/03/23 documented as of this encounter
--- OUTSIDE RECORDS SUMMARY | 2024-11-25 22:18 | XMS_ITS | Data Portability ---
Author Organization [place] - .[facility] Address [address] [place] [address] Assessment Encounter Date Assessment Date Assessment LastModified [...] respiratory specimen 2023 024 [facility] [address], [address] [place], [address], 4 15:25:33 culture, urine 2021 022 [facility] Use Only - [facility] Derrek, [address], [place], [address], 2 16:05:28 urinalysis, dipstick 2021 022 [email or web address] [address], [address] [place], [address], 2 11:21:57 test, urine 2021 022 [facility] [address], [address] [place], [address], 11:21:57 Referral None recorded. Procedures None recorded. Surgeries None recorded. Imaging None recorded. Medication Orders ondansetron 4 mg disintegrat ing tablet 2023 024 [facility]armacy #[id number], [address] [place], [address], 15:25:33 ciprofloxac in 500 mg tablet 2021 022 [facility], [address] [place], [id number], 11:21:57 Diflucan 150 mg tablet 2021 022 [facility]/Pharmacy #[id number], [address] [place], [address], 11:21:57 Patient TargetsNo targets recorded. Patient Instructions Encounter Date Encounter Id Patient Instructions Last Modified By Organization Details Last Modified Time 03/06/2022 [id number] A healthy lifestyle: care instructions Not available 03/07/2022 11:21:57 back care and preventing injuries: care instructions Not available 03/07/2022 11:21:57 getting back to normal after low back pain: care instructions Not available 03/07/2022 11:21:57 learning about relief for back pain Not available 03/07/2022 11:21:57 Thank you for visiting [facility]. There are two ways to view your lab results: : 1. The [employer] josse is available to all patients 18 and older in the [employer] Store and [employer] Play. First-time josse users will need to create an account; please note you? l l need to select a login and password for the josse versus just using your patient portal login credentials. Your lab results will be posted to the [employer] josse as soon as they? r e available. 2. Via email , as soon as lab results are available. If you don? t receive an email within the estimated time frame, give our Aftercare team a call at [phone]. [email or web address] Not available 03/06/2022 14:48:45 10/09/2023 [id number] A healthy lifestyle: care instructions Not available [...] URINE , ROUTI NE Micro Numbe r: [id number] Test Statu s: Final Speci men Sourc e: Urine Speci men Quali ty: Adequ ate Resul t: No Growt h NO COLLE CTION DATE RECEI TITA. WE HAVE USED THE DATE THE SPECI MEN WAS RECEI TITA BY THIS LABOR ATORY THE COLLE CTION DATE. IF THIS IS INCOR RECT, PLEAS E CONTA CT CLIEN T SERVI YAIR. PHONE NUMBE R: [phone] Not Available [facility] [address] , [place], [address], 03/07/2022 16:05:28 03/06/20 22 03/06/2022 pregn jadon test, urine Unknown Analyte Negati ve Not Available [facility] [address] [place], [address], 03/06/2022 14:40:22 03/06/20 22 03/06/2022 urina lysis , dipst ick Unknown Analyte 10 Not Available [facility] [place] [address] [place], [address], 03/06/2022 14:40:21 03/06/20 22 03/06/2022 urina lysis , dipst ick Unknown Analyte Norm Not Available [facility] [address], [address], 03/06/2022 14:40:21 03/06/20 22 03/06/2022 urina lysis , dipst ick Unknown Analyte Neg Not Available [facility] [address], [address], 03/06/2022 14:40:21 03/06/20 22 03/06/2022 urina lysis , dipst ick Unknown Analyte Neg Not Available [facility] [address], [address], 03/06/2022 14:40:21 03/06/20 22 03/06/2022 urina lysis , dipst ick Unknown Analyte negati ve Not Available [facility], [address], 03/06/2022 14:40:21 03/06/20 22 03/06/2022 urina lysis , dipst ick Unknown Analyte Neg Not Available [facility] [address], [address], 03/06/2022 14:40:21 03/06/20 22 03/06/2022 urina lysis , dipst ick Unknown Analyte Neg Not Available [facility] [address], [address], 03/06/2022 14:40:21 03/06/20 22 03/06/2022 urina lysis , dipst ick Unknown Analyte 6.5 Not Available [facility] [address] [place], [address], 03/06/2022 14:40:21 03/06/20 22 03/06/2022 urina lysis , dipst ick Unknown Analyte 1.005 Not Available [facility] [address], [address], 03/06/2022 14:40:21 03/06/20 22 03/06/2022 urina lysis , dipst ick Unknown Analyte Neg Not Available [facility] [address], [address], 03/06/2022 14:40:21 10/09/19 24 10/09/2023 influ boston virus A + B + SARS- CoV-2 (COVI D19) Ag panel , rapid IA, upper respi rator y speci men Flu A NEGATI VE Not Available [facility] [address] [place] [address], [address], 10/09/2023 18:15:17 10/09/19 24 10/09/2023 influ boston virus A + B + SARS- CoV-2 (COVI D19) Ag panel , rapid IA, upper respi rator y speci men Flu B NEGATI VE Not Available [facility] [address], [address], 10/09/2023 18:15:17 10/09/19 24 10/09/2023 influ boston virus A + B + SARS- CoV-2 (COVI D19) Ag panel , rapid IA, upper respi rator y speci men Covid-19 NEGATI VE Not Available [facility] [address] [address] [place] [address], [address], 10/09/2023 18:15:17 Result Notes None recorded. 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 Procedures Surgical History Date Name Laterality Status Provider Name and Address Organization Details Recorded Time 10/09/2023 . Sent To ER completed [facility] 10/09/2023 18:35:58 Imaging Results None recorded. [...] Updated DateTime 2 162.56 cm 31.8 kg/m2 71800.5 9 g 16 /min 98.4 [degF] 99 % 99 % 85 /min [facility] 14:25:42 Date Recorded Heart rate Body temperature Respiratory rate Oxygen saturation Oxygen saturation in Arterial blood by Pulse oximetry Systolic blood pressure Diastolic blood pressure Provider Name and Address Organization Details Last Updated DateTime 4 92 /min 98.5 [degF] 16 /min 98 % 98 % 116 mm[Hg] 84 mm[Hg] [facility] 18:13:07 Social History Question Answer Notes LastModified by Organizat ion Details LastModified Time Tobacco Smoking Status Never Smoker KYLAH Kapadia - .[facility] 03/06/2022 14:24:14 What Is Your Occupation? [...] SNOMED-CT Code Diagnosis ICD10 Code Diagnosis Note [id number] TESSA ARNOLD [facility] [address] [place] [address] 03/06/2022 13:59:11 03/06/2022 14:49:30 Low back pain 112818544 M54.50 Increased frequency of urination 132125676 R35.0 pt currently on keflex for liposuctio [...] Pt understood and agreed. All questions answered. [id number] Almas ARNOLD [facility] [address] [place] [address] 10/09/2023 17:08:29 10/09/2023 18:41:37 Abdominal pain 27363967 R10.9 Exposure t o SARS-CoV-2 241633508 Z20.822 Nausea and vomiting 3 1999 R11.2 [...] CROSS-CA: LIANA BLUE CROSS (PPO) Radha Stearns [id number] Radha Stearns 10/09/2023 1 BLUE CROSS-CA: LIANA BLUE CROSS (PPO) Radha Stearns [id number] Radha Stearns Notes Date Note Type [...] other sxs at this time. TESSA ARNOLD [facility],[address], [place], [address], [facility] - [facility] 03/06/2022 20:17:32 10/09/2023 text/html Vomiting and [...] diarrhea. Denies fever,melena and constipation Almas ARNOLD [address] [place] [address],[address], [place], [address], [facility] - .[facility] 10/09/2023 18:59:54 OBGyn Episode No OBEpisode recorded.
--- OUTSIDE RECORDS SUMMARY | 2024-11-25 22:18 | XMS_ITS | Encounter Summary ---
Author Organization [facility] Address [address] [place] [address] Care Team Providers Care Sole Rougher Name Role Phone Luther Echavarria Primary Care Provider [phone] Analy Bose CNM Unavailable [phone] Encounter Details Date Type Department Care Team (Late Contact Info) Description 02/04/2024 Scanned Document [facility] BARIATRICS SCAN Bariatrics, Scan Social History [...] Description 01/13/2025 9:00 AM EDT Consult [facility] [address] [place] [phone] Holley Webb PA-C [address] [place] [address] documented as of this encounter Visit Diagnoses Not on filedocumented in this encounter Care Teams Sole Rougher Relationship Specialty Start Date End Date Luther Echavarria PA [address] [place] [address] PCP - General Family Medicine 08/02/20 Analy Bose CNM [address] [place] [address] Conference Service Coordinator Obstetrics and Gynecology 04/03/23 documented as of this encounter
--- OUTSIDE RECORDS SUMMARY | 2024-11-25 22:18 | XMS_ITS | Encounter Summary ---
Author Organization [facility] Address [address] [place] [address] Care Team Providers Care Chemical Dependency Therapist Name Role Phone Luther Echavarria Primary Care Provider [phone] Analy Bose CNM Unavailable [phone] Encounter Details Date Type Department Care Team (Latest Contact Info) Description 11/01/2024 Travel Social History Tobacco Use Types Packs/Day Years Used Date Smoking Tobacco: Never Smokeless Tobacco: Never Alcohol Use Standard Drinks/Week Comments Not Currently 0 (1 standard drink = 0.6 oz pur e alcohol) [facility] Utilities Answer Date Recorded In the past 12 months has [employer] electric, gas, oil, or water company threatened [...] and Family Not on file 09/18/2024 Attends [employer] Not on file 09/18 Active Member [...] any time in the past 12 m [facility], were you homeless or living in a alf (including now)? No 09/18/2024 Education Answer Date Recorded What is the highest level of school you have completed or the highest degree you have received? 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, [employer]) 09/18/2024 Sex and Gender Information Value Date Recorded Sex Assigned at Female 04/01/2023 10:33 AM EDT Gender Identity Female 12/03/2020 7:53 AM EDT Sexual Orientation Heterosexual (straight) 12/03 7:53 AM EDT documented as of this encounter Plan of Treatment Upcoming Encounters Date Type Department Care Team (Late st Contact Info) Description 01/13/2025 9:00 AM EDT Consult [facility] [address] [place] [phone] Holley Webb PA-C [address] [place] [address] documented as of this encounter Visit Diagnoses Not on filedocumented in this encounter Care Teams Chemical Dependency Therapist Relationship Specialty Start Date End Date Luther Echavarria PA [address] [place] [address] PCP - General Family Medicine 08/02/20 Analy Bose CNM [address] [place] [address] Photo Lab Manager Obstetrics and Gynecology 04/03/23 documented as of this encounter
--- OUTSIDE RECORDS SUMMARY | 2024-11-25 22:18 | XMS_ITS | Clinical Summary ---
Author Organization [facility] Address [address] [place] [address] Care Team Providers Care Buffer Inflated Pad Name Role Phone Phil Storm Primary Care [...] age to complete this topic Care Teams Buffer Inflated Pad Relationship Specialty Start Date End Date Phil Storm PCP - General 04/20/23
--- OUTSIDE RECORDS SUMMARY | 2024-11-25 22:18 | XMS_ITS | Encounter Summary ---
Author Organization [facility] Address [address] [place] [address] Care Team Providers Care Special Projects Manager Name Role Phone Luther Echavarria Primary Care Provider [phone] Analy Bose CNNico Unavailable [phone] Reason for Visit * Reason Comments Medication Refill Encounter Details Date Type Department Care Team ([facility] Contact Info) Description 08/28/2020 Refill [facility] [address] [place] [phone] Luther Echavarria PA [address] [place] [address] Other insomnia Social History Tobacco Use Types [...] Upcoming Encounters Date Type Department Care Team ([facility] Contact Info) Description 01/13/2025 9:00 AM EDT Consult [facility] [address] [place] [address] [place] [address] Holley Webb PA-C [address] [place] [address] documented as of this encounter Visit Diagnoses Diagnosis Other insomnia documented in this encounter Care Teams Special Projects Manager Relationship Specialty Start Date End Date Luther Echavarria PA [address] [place] [address] PCP - General Family Medicine 08/02/20 Analy Bose CNM [address] [place] [address] Web Development Manager Obstetrics and Gynecology 04/03/23 documented as of this encounter
--- OUTSIDE RECORDS SUMMARY | 2024-11-25 22:19 | XMS_ITS | Encounter Summary ---
Author Organization Formerly [facility] Address [address] [place] [address] Care Team Providers Care Track Rider Name Role Phone Luther Echavarria Primary Care Provider Analy Bose CNM Unavailable [phone] Encounter Details Date Type Department Care Team (Late st Contact Info) Description 11/02/2024 Scanned Document [facility] EMERGENCY MED SCAN Emergency Medicine, Scan Social History Tobacco Use Types Packs/Day Years Used Date Smoking Tobacco: Never Smokeless Tobacco: Never Alcohol Use Standard Drinks/Week Comments Not Currently 0 (1 standard drink = 0.6 oz pur e alcohol) [facility] Utilities Answer Date Recorded In the past 12 months has amprice electric, gas, oil, or water company threatened [...] were you homeless or living in a long term (including now)? No 09/18/2024 Education Answer Date Recorded What is the highest level of school you have completed or the highest degree you have received? 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, SPONGE DIVER, [place]AVON) 09/18/2024 Sex and Gender Information Value Date Recorded Sex Assigned at Female 04/01/2023 10:33 AM EDT Gender Identity Female 12/03/2020 7:53 AM EDT Sexual Orientation Heterosexual (straight) 12/03 7:53 AM EDT documented as of this encounter Plan of Treatment Upcoming Encounters Date Type Department Care Team (Late st Contact Info) Description 01/13/2025 9:00 AM EDT Consult [facility] [address] [address] Holley Webb PA-C [address] [place] [address] documented as of this encounter Visit Diagnoses Not on filedocumented in this encounter Care Teams Track Rider Relationship Specialty Start Date End Date Luther Echavarria PA [address] [place] [address] PCP - General Family Medicine 08/02/20 Analy Bose CNM [address] [place] [address] Natural Resource Specialist Obstetrics and Gynecology 04/03/23 documented as of this encounter
--- OUTSIDE RECORDS SUMMARY | 2024-11-25 22:19 | XMS_ITS | Clinical Summary ---
Author Organization [facility] Address [address] [place] [address] Care Team Providers Care Navy Senior Officer Name Role Phone Luther Echavarria Primary Care Provider [phone] Analy Bose CNM Unavailable [phone] Allergies Active Allergy Reactions Criticality Noted Date Comments Roann Oil Anaphylaxis High 09/17/2020 Apple Juice Nausea [...] morning before breakfast. 90 tablet 11/01/2024 Active acetaminophen (TYLENOL) 500 MG tablet Take 1 tablet (500 mg total) by mouth 4 times daily (every 6 hours) as needed for mild pain. Active docusate sodium (COLACE) 100 MG capsule Take 1 capsule (100 mg total) by mouth 2 (two) times a day. 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 EMERGENCY MED SCAN Emergency Medicine, Scan 11/01/2024 10:30 AM EST Office Visit [facility] [address] [place] [address] Luther Echavarria PA Biliary colic (Primary Dx); Epigastric abdominal pain; Alex's thyroiditis 11/01/2024 Travel 09/19/2024 11:15 AM EST Office Visit [facility] [address] [place] [address] Luther Echavarria PA Flank pain (Primary Dx); History of D&C; Alex's thyroiditis 09/19/2024 Travel 08/29/2024 Refill [facility] [address] [place] [address] Luther Echavarria PA 28 weeks gestation of [...] drink = 0.6 oz pur e alcohol) [facility] Utilities Answer Date Recorded In the past 12 months has e electric, gas, oil, or water company [...] and Family Not on file 09/18/2024 Attends Religion Services Not on file 09/18 Active Member [...] any time in the past 12 m [facility], were you homeless or living in a halfway (including now)? No 09/18/2024 Education Answer Date Recorded What is the highest level of school you have completed or the highest degree you have received? 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, POLLUTION CONTROL CHEMIST, DONAVON) 09/18/2024 Sex and Gender Information Value [...] Mass Index 31.93 11/18/2024 11:25 AM EST Plan of Treatment Upcoming Encounters Date Type Department Care Team (Late st Contact Info) Description 01/13/2025 9:00 AM EDT Consult [facility] [address] [place] [address] Holley Webb PA-C [address] [place], [place] [phone] Health Maintenance Due Date Last Done Comments [...] ANTIBODY Routine 01/26/2023 2:26 PM EDT THINPREP PAP(CONTRACTS DIRECTOR) HPV SCR RFX HPV 16,18/45 Routine 09/23/2022 12:44 PM EST from Last 3 Months or Most Recently Relevant to Health Maintenance Results * TSH REFLEX FREE T4 (11/01/2024 11:03 AM EST) Only the most recent of2 resultswithin the time period is included. TSH reflex Free T4 3.10 mIU/L [facility] Comment: ?Reference Range ?> or = 20 Years ??0.40-4.50 ? Ranges ?First trimester ?0.26-2.66 ?Second trimester ?? 0.55-2.73 ?Third trimester ?0.43-2.91 Blood 11/01/2024 11:0 3 AM EST 11/01/2024 11:04 AM EST Narrative [facility] - 11/02/2024 3:53 AM EST FASTING:YES FASTING: YES Luther Echavarria PA LAB BLOOD ORDERABLES [facility] [address] [place] [phone] * Urinalysis with Reflex to Culture (09/26/2024 12:26 PM EST) Color YELLOW YELLOW [facility] Clarity CLEAR CLEAR [facility] Specific [place] 1.021 1.001 - 1.035 [facility] pH 5.5 5.0 - 8.0 [facility] Glucose, Urine, Random NEGATIVE NEGATIVE [facility] Bilirubin NEGATIVE NEGATIVE [facility] Ketones NEGATIVE NEGATIVE [facility] Blood NEGATIVE NEGATIVE [facility] Protein NEGATIVE NEGATIVE [facility] Nitrite NEGATIVE NEGATIVE [facility] Leukocyte Esterase NEGATIVE NEGATIVE [facility] WBC 0-5 < OR = 5 /HPF [facility] RBC NONE SEEN < OR = 2 /HPF [facility] Squamous Epithelial Cells 0-5 < OR = 5 /HPF [facility] Bacteria NONE SEEN NONE SEEN /HPF [facility] Hyaline Cast NONE SEEN NONE SEEN /LPF [facility] Note [facility] Comment: This urine was analyzed for the presence of WBC, RBC, bacteria, casts, and other formed elements. Only those elements seen were reported. Reflexive Urine Culture [facility] Comment:NO CULTURE INDICATED X-Specimen 16 Urine specimen obtained by clean catch procedure / Unknown 09/26/2024 12:26 PM EST 09/26/2024 12:26 PM EST Luther ARNOLD URINE ORDERABLES [facility] [address] [place] [phone] * Complete Blood Count, with Differential (09/19/2024 11:43 AM EST) White Blood Cell Count 8.2 3.8 - 10.8 Thousand/u L [facility] Red Blood Cell Count 4.55 3.80 - 5.10 Million/uL [facility] Hemoglobin 13.0 11.7 - 15.5 g/dL [facility] Hematocrit 39.6 35.0 - 45.0 % [facility] MCV 87.0 80.0 - 100.0 fL [facility] MCH 28.6 27.0 - 33.0 pg [facility] MCHC 32.8 32.0 - 36.0 g/dL [facility] Comment: For adults, a slight decrease in the calculated MCHC value (in the range of 30 to 32 g/dL) is most likely not clinically significant; however, it should be interpreted with caution in correlation with other red cell parameters and the patient's clinical condition. RDW 12.4 11.0 - 15.0 % [facility] Platelet Count 312 140 - 400 Thousand/u L [facility] MPV 10.5 7.5 - 12.5 fL [facility] Abs Neutrophils Auto 4,264 1,500 - 7,800 cells/uL [facility] Abs Lymphocytes Auto 2,911 850 - 3,900 cells/uL [facility] Abs Monocytes Auto 549 200 - 950 cells/uL [facility] [employer] Abs Eosinophils Auto 426 15 - 500 cells/uL [facility] Abs Basophils Auto 49 0 - 200 cells/uL [facility] [employer] Neutrophils Auto 52 % [facility] Lymphocytes Auto 35.5 % [facility] Monocytes Auto 6.7 % [facility] Eosinophils Auto 5.2 % [facility] Basophils Auto 0.6 % [facility] Blood Blood specimen / Unknown 09/19/2024 11:43 AM EST 09/19/2024 11:44 AM EST Narrative [facility] - 09/20/2024 7:33 AM EST FASTING:YES FASTING: YES [email or web address] LAB BLOOD ORDERABLES Performing Organization Address [facility] de Phone Number [facility] [address] [place] [phone] * Beta-hCG, Quantitative (09/19/2024 11:43 AM EST) [facility] HCG, Total <5 mIU/mL [facility] Comment: Reference Range Non or premenopausal ?<5 Postmenopausal ? <10 Values from different assay methods may vary. The use of this assay to monitor or to diagnose patients with cancer or any condition unrelated to has not been cleared or approved by the FDA or the telecommunication operator of the assay. Blood Blood specimen / Unknown 09/19/2024 11:43 AM EST 09/19/2024 11:44 AM EST Narrative [facility] - 09/20/2024 7:33 AM EST FASTING:YES FASTING: YES [employer] PA LAB BLOOD ORDERABLES Performing Organization Address [facility] de Phone Number [facility] [address] [place] [phone] * Lipase (09/19/2024 11:43 AM EST) Lipase 34 7 - 60 U/L [facility] Blood Blood specimen / Unknown 09/19/2024 11:43 AM EST 09/19/2024 11:44 AM EST Narrative [facility] - 09/20/2024 7:33 AM EST FASTING:YES FASTING: YES Luther ARNOLD LAB BLOOD ORDERABLES [facility] [address] [place] [phone] * Comprehensive Metabolic Panel (09/19/2024 11:43 AM EST) Pathologist [facility] Glucose 74 65 - 99 mg/dL [facility] Comment: ? Fasting reference interval Blood Urea Nitrogen (BUN) 16 7 - 25 mg/dL [facility] Creatinine 0.79 0.50 - 0.97 mg/dL [facility] Creatinine w/ eGFR 99 > OR = 60 mL/min/1. 73m2 [facility] BUN/Creatinine Ratio SEE NOTE: 6 - 22 (calc) [facility] Comment: ?? Not Reported: BUN and Creatinine are within ?? reference range. ? Sodium 139 135 - 146 mmol/L [facility] Potassium 3.9 3.5 - 5.3 mmol/L [facility] Chloride 103 98 - 110 mmol/L [facility] CO2 28 20 - 32 mmol/L [facility] Calcium 9.4 8.6 - 10.2 mg/dL [facility] Protein, Total 7.9 6.1 - 8.1 g/dL [facility] Albumin 4.6 3.6 - 5.1 g/dL [facility] Globulin 3.3 1.9 - 3.7 g/dL (calc) [facility] Albumin/Globuli n Ratio 1.4 1.0 - 2.5 (calc) [facility] Bilirubin, Total 0.5 0.2 - 1.2 mg/dL [facility] Alkaline Phosphatase 42 31 - 125 U/L [facility] Aspartate Aminotrans (AST) 14 10 - 30 U/L [facility] Alanine Aminotrans (ALT) 16 6 - 29 U/L [facility] Blood 09/19/2024 11:4 3 AM EST 09/19/2024 11:44 AM EST Narrative [facility] - 09/20/2024 7:33 AM EST FASTING:YES FASTING: YES Luther ARNOLD LAB BLOOD ORDERABLES Performing Organization Address City/[facility] Co de Phone Number [facility] [address] [place] [phone] * HIV 1/2 Ag/Ab CMIA Reflex to Confirmation (06/01/2023 9:27 AM EDT) Pathologist [facility] HIV Ag/Ab, 4th Gen Non-Reacti ve Non-Reacti ve [facility] Comment: Results show no evidence of infection by HIV 1/2. If clinically indicated, repeat CMIA or test by nucleic acid amplification. 06/01/2023 9:27 AM EDT 06/01/2023 7:46 PM EDT [facility] LAB - 06/02/2023 1:22 AM EDT FASTING:YES Analy Bose CNM LAB BLOOD ORDERABLES Performing Organization Address City/[facility]/ZIP Co de Phone Number [facility] LAB [address] [place], [place] * (ABNORMAL) HEPATITIS C VIRUS (HCV) ANTIBODY (01/26/2023 2:26 PM EDT) Hepatitis C Antibody 1.11 Reactive(A ) Non-Reacti ve S/CO [facility] CT LAB Comment: CDC recommends a kcptbl-kr-idmfeg (S/CO) ratio equal to or >5 to predict true infection 95% of the time. Low reactive results (1.0-4.99 S/CO) should be confirmed by HCV nucleic acid testing. Other 01/26/2023 2:26 PM EDT 01/27/2023 12:49 AM EDT Analy Bose [employer] LAB BLOOD ORDERABLES [facility] LAB [address] [place], [place] * ThinPrep Pap(Proposal Writer) HPV Scr Rfx HPV 16,18/45 (09/23/2022 12:44 [...] was manually screened according to routine procedures. Information Officer: [facility] [email or web address] [facility] Comment: , CT(ASCP) CT screening location: [address] ??[phone] Review Information Officer: [employer] [facility] Comment: DCR, CT(ASCP) CT screening location: [address] ??[address] Comment [facility] Comment: EXPLANATORY NOTE: [...] Not Detected [facility] Comment: Methodology: Assurance Services Manager Health Care-Mediated Amplification This assay detects E6/E7 viral messenger RNA (mRNA) from 14 high-risk HPV types (16,18,31,33,35,39,45,51,52,56,58,59,66,68). Cervical sources are required for HPV testing. If a vaginal source from a patient who has had a total hysterectomy with removal of cervix was submitted, please contact the testing laboratory for alternative testing options. For additional information, please refer to http://education.ZIMPERIUM/faq/WDK518t2 (This link if provided for information/ educational purposes only.) 09/23/2022 12:4 4 PM EST 09/25/2022 6:42 AM EST Narrative [facility] - 10/02/2022 11:33 AM EST [id number] AB Amarilys Hobson MD LAB AMB PATH/CYTO OR DERABLES [facility] [address], [address] [place], [place] [phone] from Last 3 Months or Most Recently Relevant to Health Maintenance Care Teams Navy Senior Officer Relationship Specialty Start Date End Date Luther Echavarria PA [address] [place] [address] PCP - General Family Medicine 08/02/20 Analy Bose CNM [address] [place] [address] Towel Sewer Obstetrics and Gynecology 04/03/23
--- OUTSIDE RECORDS SUMMARY | 2024-11-25 22:19 | XMS_ITS | Encounter Summary ---
Author Organization [facility] Address [address] [place] [address] Care Team Providers Care Tow Car Driver Name Role Phone Luther Echavarria Primary Care Provider [phone] Analy Bose CN Unavailable [phone] Reason for Referral * Gastroenterology (Urgent) - Authorized Specialty Diagnoses / Procedures Referred By Contac t Referred To Contact Gastroenterology Diagnoses Biliary colic Luther Echavarria PA [address] [place] [address] [phone] Referral ID Status Reason Start Date Expiration Date V isits Requested Visits Authorized [id number] Authorized Consult 11/01/2024 11/02/2025 1 1 Question Answer Select Referral Type: Consult Reason for Visit * Reason Comments Follow-up Pt has a gallbladder flare up 1 or 2 times a week..Pt also wishes to get on control- 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 Encounter Details Date Type Department Care Team ([facility] Contact Info) Description 11/01/2024 10:30 AM EST Office Visit [facility] [address] [place] [phone] Luther Echavarria PA [address] [place] [address] Biliary colic (Primary Dx); Epigastric abdominal pain; Alex's thyroiditis Social History Tobacco Use Types Packs/Day Years Used Date Smoking Tobacco: Never Smokeless Tobacco: Never Alcohol Use Standard Drinks/Week Comments Not Currently 0 (1 standard drink = 0.6 oz pur e alcohol) [facility] Utilities Answer Date Recorded In the [...] and Family Not on file 09/18/2024 Attends Synagogue Services Not on file 09/18 Active Member [...] any time in the past 12 m ont, were you homeless or living in a snf (including now)? No 09/18/2024 Education Answer Date Recorded What is the highest level of school you have completed or the highest degree you have received? 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 Follow-up Associated symptoms include abdominal pain, fatigue [...] Description 01/13/2025 9:00 AM EDT Consult [facility] [address] [place] [phone] Holley Webb PA-C [address] [place] [phone] Scheduled Referrals Name Type Priority Associated Diagnoses [...] EST) TSH reflex Free T4 3.10 mIU/L [facility] [employer] Comment: ?Reference Range ?> or = 20 Years ??0.40-4.50 ? Ranges ?First trimester ?0.26-2.66 ?Second trimester ?? 0.55-2.73 ?Third trimester ?0.43-2.91 Blood 11/01/2024 11:0 3 AM EST 11/01/2024 11:04 AM EST Narrative [facility] - 11/02/2024 3:53 AM EST FASTING:YES FASTING: YES Luther ARNOLD LAB BLOOD ORDERABLES Performing Organization Address City/State/[facility] Co de Phone Number [employer] [address] [place] [phone] documented in this encounter Visit Diagnoses Diagnosis Biliary colic- Primary Calculus of gallbladder without mention of cholecystitis or obstruction Epigastric abdominal pain Abdominal pain, epigastric Alex's thyroiditis Chronic lymphocytic thyroiditis documented in this encounter Care Teams Tow Car Driver Relationship Specialty Start Date End Date Luther Echavarria PA [address] [place] [address] PCP - General Family Medicine 08/02/20 Analy Bose CNM [address] [place] [address] Health Information Assistant Obstetrics and Gynecology 04/03/23 documented as of this encounter
--- OUTSIDE RECORDS SUMMARY | 2024-11-25 22:19 | XMS_ITS | Encounter Summary ---
Author Organization [facility] Address [address] [place] [address] Care Team Providers Care Manager Physical Name Role Phone Luther Echavarria Primary Care Provider [phone] Analy Bose CNM Unavailable [phone] Encounter Details Date Type Department Care Team (Late st Contact Info) Description 11/18/2021 Telephone [facility] [address] [place] [address] Citlalli Bethea, DOWEL INSPECTOR [address] [place] [address] Social History Tobacco Use Types Packs/Day Years [...] Info) Description 01/13/2025 9:00 AM EDT Consult [facility] [address] [place] [address] Holley Webb PA-C [address] [place] [address] documented as of this encounter Visit Diagnoses Not on filedocumented in this encounter Care Teams Manager Physical Relationship Specialty Start Date End Date Luther Echavarria PA [address] [place] [address] PCP - General Family Medicine 08/02/20 Analy Bose CNM [address] [place] [address] Sheet Metal Work Furnace Installer Obstetrics and Gynecology 04/03/23 documented as of this encounter
[2024-11-25 22:32] VITALS: BP 118/81; PULSE 75; RESP 16; TEMP 36.6; O2SAT 98
[2024-11-25] MEDS: Diphth,Pertus(ACell),Tet Adult 0.5 ML SYRINGE IM (22:48)
--- NOTE | 2024-11-25 22:52 | PC.NURSE ---
medicated per mar.
--- NOTE | 2024-11-25 23:10 | PC.NURSE ---
soaked and cleaned laceration, medicated per nov.
--- NOTE | 2024-11-26 00:26 | PC.NURSE ---
Provider assessed laceration and suture lac, pt and full range of motion and positive cms.
[2024-11-26] MEDS: Lidocaine HCl 1 % MPF 5 ML VIAL INFILTRATI (00:31)
--- NOTE | 2024-11-26 00:34 | PC.NURSE ---
Reviewed discharge instructions with pt. pt verbalized understanding, no sign of distress.
[2024-11-26 00:35] VITALS: BP 109/78; PULSE 63; RESP 20; TEMP 37.2; O2SAT 98
== END 2024-11-26 00:48 | disposition home or self-care (01) ==
PROVIDERS: Emergency Provider Emergency Medicine; PCP Internal Medicine
DX: S61.411A Laceration without foreign body of right hand, initial encounter (principal); W26.8XXA Contact with other sharp object(s), not elsewhere classified, initial encounter; Y93.G3 Activity, cooking and baking; Y92.9 Unspecified place or not applicable; Y99.8 Other external cause status; Z23 Encounter for immunization
CPT/HCPCS: 12001; 90471; 90715; 99284; J2003

== ENCOUNTER 2024-11-29 10:18 | Outpatient (AMB) | payer BC, SELFPAY ==
--- NOTE | 2024-11-29 10:28 | A.OFFVIS_ITS ---
Vital Signs 11/29/24 10:29 Height 5 ft 4 in Weight 191 lb BMI 32.8 BP 101/69 Blood Pressure Location Lt brachial Position Sitting Pulse 73 Intake Visit Reasons: post lap jordyn Intake Note: Patient is seen in office for post op assessment post Cholecystectomy Laparoscopic. Pt c/o: denies any concerns surgery:11/14/24 Sound Equipment Mechanic Required: No Accompanied by: Self / Same As Patient Allergies No Known Allergies Allergy (Verified 11/29/24 10:29) Medication List - Last Reconciled 11/29/24 by Reji Coleman MD acetaminophen 1,000 mg PO Q8H PRN docusate sodium (Colace) 100 mg PO BID levalbuterol tartrate 45 mcg/actuation 2 puffs inhalation Q4-6H PRN levothyroxine 88 mcg PO DAILY@0600 HPI Comments Details: 34-year-old female patient returning 2 weeks following laparoscopic cholecystectomy for acute cholecystitis on 11/14/2024. She feels much improved in his able to tolerate her diet without nausea or vomiting. She reports some itchiness from the Steri-Strips but otherwise feels well. [facility] Medical History Kidney stones Surgical History Hx laparoscopic cholecystectomy (11/14/24) History of liposuction Social History Household Members: Significant Other and Children Housing: House Do you presently have visiting nurse or other home services: No Unable to assess alcohol history related to: Unknown Alcohol intake: never Patient Tobacco Use Status: Never used Tobacco service: No Physical Exam Vital Signs: Last Vital Signs Pulse 73 11/29/24 10:29 BP 101/69 11/29/24 10:29 BMI result Body Mass Index 32.8 Const General: no acute distress Nutritional Appearance: well nourished Orientation/consciousness: patient oriented x3 Resp Effort & Inspection: normal respiratory effort GI Inspection: Yes normal to inspection and Yes incision (Well-healed trocar incisions without hernia or infection) Palpation (GI): Soft to palpation, nontender, no guarding and not rigid Neuro General: patient oriented x3 Extrem General: No edema Assessment & Plan Assessment & Plan (1) Acute cholecystitis: Code(s): K81.0 - Acute cholecystitis Category: Medical Plan Patient returns 2 weeks following laparoscopic cholecystectomy for acute cholecystitis. She tolerated the procedure well and her wounds are healing nicely. She may resume normal activity without restrictions and should follow up as needed. Medications: Discontinued oxycodone Partial Fill upon patient request. Discontinued Reason: Patient no longer taking 5 mg PO Q4H PRN 26 tabs 0RF pain (scale score 7-10) Coding Level of Care Code Global (54618) Diagnoses Acute cholecystitis K81.0
[2024-11-29 10:29] VITALS: BP 101/69; PULSE 73; BMI 32.8
--- OUTSIDE RECORDS SUMMARY | 2024-11-29 11:54 | XMS_ITS | Encounter Summary ---
Author Organization [facility] Address [address] [place] [address] Care Team Providers Care Warehouse Delivery Driver Name Role Phone Luther Echavarria Primary Care Provider [phone] Analy Bose CN Unavailable [phone] Encounter Details Date Type Department Care Team (Late st Contact Info) Description 09/17/2020 Scanned Document [facility] FAMILY MED SCAN Luther Echavarria PA [address] [place] [address] Social History Tobacco Use Types Packs/Day Years [...] 01/13/2025 9:00 AM EDT Consult [facility] [address] [place] [address] Holley Webb PA-C [address] [place] [address] documented as of this encounter Visit Diagnoses Not on filedocumented in this encounter Care Teams Warehouse Delivery Driver Relationship Specialty Start Date End Date Luther Echavarria PA [address] [place] [address] PCP - General Family Medicine 08/02/20 Analy Bose CNM [address] [place] [address] Tool Maker Apprentice Obstetrics and Gynecology 04/03/23 documented as of this encounter
--- OUTSIDE RECORDS SUMMARY | 2024-11-29 11:55 | XMS_ITS | Encounter Summary ---
Author Organization [facility] Address [address] [place] [address] Care Team Providers Care Hotel Front Office Manager Name Role Phone Luther Echavarria Primary Care Provider [phone] Analy Bose CNNico Unavailable [phone] Reason for Visit * Reason Comments Medication Refill Encounter Details Date Type Department Care Team (Late st Contact Info) Description 05/18/[address] [phone] Luther Echavarria PA [address] [place] [address] Alex's thyroiditis Social History Tobacco Use Types [...] Description 01/13/2025 9:00 AM EDT Consult [facility] [address] [facility] [address] [place] [phone] Holley Webb PA-C [address] [place] [address] documented as of this encounter Visit Diagnoses Diagnosis Alex's thyroiditis Chronic lymphocytic thyroiditis documented in this encounter Care Teams Hotel Front Office Manager Relationship Specialty Start Date End Date Luther Echavarria PA [address] [place] [address] PCP - General Family Medicine 08/02/20 Analy Bose CNM [address] [place] [id number] Psychologist Educational Obstetrics and Gynecology 04/03/23 documented as of this encounter
--- OUTSIDE RECORDS SUMMARY | 2024-11-29 11:55 | XMS_ITS | Encounter Summary ---
Author Organization [facility] Address [address] [place] [address] Care Team Providers Care Line Construction Engineer Name Role Phone Luther Echavarria Primary Care Provider [phone] Analy Bose CNM Unavailable [phone] Encounter Details Date Type Department Care Team (Latest Contact Info) Description 11/18/2024 Travel Social History Tobacco Use Types Packs/Day Years Used Date Smoking Tobacco: Never Smokeless Tobacco: Never Alcohol Use Standard Drinks/Week Comments Not Currently 0 (1 standard drink = 0.6 oz pur e alcohol) [facility] Utilities Answer Date Recorded In the past 12 months has [employer] electric, gas, oil, or water company threatened [...] and Family Not on file 09/18/2024 Attends [employer] Services Not on file 09/18 Active Member [...] any time in the past 12 m [facility], were you homeless or living in a penitentiary (including now)? No 09/18/2024 Education Answer Date Recorded What is the highest level of school you have completed or the highest degree you have received? 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, FAMILY PRESERVATION WORKER, [employer]) 09/18/2024 Sex and Gender Information Value Date Recorded Sex Assigned at Female 04/01/2023 10:33 AM EDT Gender Identity Female 12/03/2020 7:53 AM EDT Sexual Orientation Heterosexual (straight) 12/03 7:53 AM EDT documented as of this encounter Plan of Treatment Upcoming Encounters Date Type Department Care Team (Late st Contact Info) Description 01/13/2025 9:00 AM EDT [facility] [address] [place] [phone] Holley Webb PA-C [address] [place] [address] documented as of this encounter Visit Diagnoses Not on filedocumented in this encounter Care Teams Line Construction Engineer Relationship Specialty Start Date End Date Luther Echavarria PA [address] [place] [address] PCP - General Family Medicine 08/02/20 Analy Bose CNM [address] [place] [phone] Book Jacket Cover Machine Operator Obstetrics and Gynecology 04/03/23 documented as of this encounter
--- OUTSIDE RECORDS SUMMARY | 2024-11-29 11:55 | XMS_ITS | Encounter Summary ---
Author Organization [facility] Address [address] [place] [address] Care Team Providers Care Hop Separator Name Role Phone Luther Echavarria Primary Care Provider Analy Bose CN Unavailable [phone] Encounter Details Date Type Department Care Team (Late st Contact Info) Description 10/25/2021 Scanned Document [facility] [address] [place], [place] [phone] Luther Echavarria PA [address] [place] [address] Social History Tobacco Use Types Packs/Day Years [...] Description 01/13/2025 9:00 AM EDT Consult [facility] [address] [place] [phone] Holley Webb PA-C [address] [place] [address] documented as of this encounter Visit Diagnoses Not on filedocumented in this encounter Care Teams Hop Separator Relationship Specialty Start Date End Date Luther Echavarria PA [address] [place] [address] PCP - General Family Medicine 08/02/20 Analy Bose CNM [address] [place] [address] Clinical Project Leader Obstetrics and Gynecology 04/03/23 documented as of this encounter
--- OUTSIDE RECORDS SUMMARY | 2024-11-29 11:55 | XMS_ITS | Encounter Summary ---
Author Organization [facility] Address [address] [place] [address] Care Team Providers Care Restorer Lace And Textiles Name Role Phone Luther Echavarria Primary Care Provider [phone] Analy Bose CN Unavailable [phone] Reason for Referral * Gastroenterology (Urgent) - Authorized Specialty Diagnoses / Procedures Referred By Contac t Referred To Contact Gastroenterology Diagnoses Biliary colic Luther Echavarria PA [address] [place] [address] [phone] Referral ID Status Reason Start Date Expiration Date V isits Requested Visits Authorized [id number] Authorized Consult 11/01/2024 11/02/2025 1 1 Question Answer Select Referral Type: Consult Reason for Visit * Reason Comments Follow-up Pt has a gallbladder flare up 1 or 2 times a week..Pt also wishes to get on control- is seeking a phlebotomy instructor in [place]. Encounter Details Date Type Department Care Team ([facility] Contact Info) Description 11/01/2024 10:30 AM EST Office Visit [facility] [address] [place] [phone] Luther Echavarria PA [address] [place] [address] Biliary colic (Primary Dx); Epigastric abdominal pain; Alex's thyroiditis Social History Tobacco Use Types Packs/Day Years Used Date Smoking Tobacco: Never Smokeless Tobacco: Never Alcohol Use Standard Drinks/Week Comments Not Currently 0 (1 standard drink = 0.6 oz pur e alcohol) [facility] Utilities Answer Date Recorded In the [...] and Family Not on file 09/18/2024 Attends [employer] Not on file 09/18 Active Member [...] 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, [employer], [employer]) 09/18/2024 Sex and Gender Information Value [...] Faxed to get records fax number is [phone] on 11/01/24 * CATALINA Ferguson - 11/01/2024 [...] to get on control- is seeking a phlebotomy instructor in [place] Follow-up Associated symptoms include abdominal pain, fatigue [...] Description 01/13/2025 9:00 AM EDT Consult [facility] [address] [place] [phone] Holley Webb PA-C [address] [place] [phone] Scheduled Referrals Name Type Priority Associated Diagnoses [...] EST) TSH reflex Free T4 3.10 mIU/L [facility] [employer] Comment: ?Reference Range ?> or = 20 Years ??0.40-4.50 ? Ranges ?First trimester ?0.26-2.66 ?Second trimester ?? 0.55-2.73 ?Third trimester ?0.43-2.91 Blood 11/01/2024 11:0 3 AM EST 11/01/2024 11:04 AM EST Narrative [facility] - 11/02/2024 3:53 AM EST FASTING:YES FASTING: YES Luther ARNOLD [facility] BLOOD ORDERABLES Performing Organization Address City/State/[facility] Co de Phone Number [employer] [address] [place] [phone] documented in this encounter Visit Diagnoses Diagnosis Biliary colic- Primary Calculus of gallbladder without mention of cholecystitis or obstruction Epigastric abdominal pain Abdominal pain, epigastric Alex's thyroiditis Chronic lymphocytic thyroiditis documented in this encounter Care Teams Restorer Lace And Textiles Relationship Specialty Start Date End Date Luther Echavarria PA [address] [place] [address] PCP - General Family Medicine 08/02/20 Analy Bose CNM [address] [place] [address] Tobacco Drying Machine Operator Obstetrics and Gynecology 04/03/23 documented as of this encounter
--- OUTSIDE RECORDS SUMMARY | 2024-11-29 11:55 | XMS_ITS | Encounter Summary ---
Author Organization [facility] Address [address] [place] [address] Care Team Providers Care Wax Specialist Name Role Phone Luther Echavarria Primary Care Provider [phone] Analy Bose CNM Unavailable [phone] Reason for Visit * Reason Comments Referral Encounter Details Date Type Department Care Team (Late st Contact Info) Description 03/08/[address] [phone] Luther Echavarria PA [address] [place] [address] Referral Social History Tobacco Use Types Packs/Day [...] Description 01/13/2025 9:00 AM EDT Consult [facility] [address] [place] [phone] Holley Webb PA-C [address] [place] [address] documented as of this encounter Visit Diagnoses Not on filedocumented in this encounter Care Teams Wax Specialist Relationship Specialty Start Date End Date Luther Echavarria PA [address] [place] [address] PCP - General Family Medicine 08/02/20 Analy Bose CNM [address] [place] [phone] Data Processing Consultant Obstetrics and Gynecology 04/03/23 documented as of this encounter
--- OUTSIDE RECORDS SUMMARY | 2024-11-29 11:55 | XMS_ITS | Data Portability ---
Author Organization [employer]. - [employer] Address [address] [place] [address] Care Team Providers Care Performance Improvement Coordinator Name Role Phone LUTHER BRANDT Primary Care Provider [phone] Assessment Encounter Date Assessment Date Assessment LastModified [...] Order Set: generic initial ordered Appt w/ WEBMETHODS ARCHITECT: 3 mo [email or web address] Not available 04/28/2024 10:33:19 [...] support positive behavior change Plan/Goals: 1. Use Appsee 2. Healthy plate model as tolerated for portion control 3. Monitor GI function - avoid sensitivities 4. Eat protein first at meals 5. Maintain consistent eating pattern, avoid skipping meals 6. Adequate hydration/fiber as tolerated f/u: SoCT akil Total Time Spent on the date of the encounter: 30 minutes which includes visit preparation time, time reviewing and independently interpreting results, plkf-ux-cytu time with the patient, counseling/educati ng the [...] tolerated ? CV and resistance training --Utilize [employer] Josse --RD referral --Support groups --Track weight [...] time, time reviewing and independently interpreting results, exkl-hr-iiyy time with the patient, counseling/educati ng patient/family members/caregivers , ordering medications/tests/ procedures, care coordination, documenting clinical information in the electronic medical record, following up on referrals/results and communicating with related healthcare professionals as needed. Followup: Lab Order Set: generic initial ordered Appt w/ MD: 3 mo Appt w/ RD: GEORGIANA [email or web address] Not available 07/29/2024 07:56:29 09/20/2024 09/20/2024 No Show [email or web address] Not available 03/2025 11:44:41 Plan of Treatment Reminders Order Date Submit Date Provider Last Modified By Organization Details Last Modified Time Details Appointments None recorded. Lab CBC w/ auto diff 2023 [facility], [address], [place], [address], 4 11:07:23 CMP, serum or plasma 2023 [facility], [address], [place], [address], 4 11:07:24 lipid panel, serum 2023 024 [facility], [address] [place], [address], 4 11:07:26 CRP, high sensitivity , serum or plasma 2023 024 [facility], [address], [place], [address], 4 11:07:21 HbA1c (hemoglobin A1c), blood 2023 [facility], [address], [place], [address], 4 11:07:27 insulin, serum 2023 [facility], [address], [place], [address], 4 11:07:22 TSH, serum or plasma 2023 [facility]IND[facility], [address], [place], [address], 4 11:07:20 vitamin B12, serum 2023 [facility], [address], [place], [address], 4 11:07:22 vitamin D, 25-hydroxy, total, serum 2023 [facility], [address], [place], [address], 4 11:07:20 T4, free, serum 2023 [email or web address] [facility], [address] [place], [address], 4 09:54:38 Referral None recorded. Procedures None recorded. Surgeries None recorded. Imaging None recorded. Medication Orders bupropion HCl XL 300 mg 24 hr tablet, extended release 2023 [id number], [address] [place], [address], 4 11:06:18 naltrexone 50 mg tablet 2023 [id number], [address] [place], [address], 11:06:18 Patient TargetsNo targets recorded. Patient Instructions Encounter Date Encounter Id Patient Instructions Last Modified By Organization Details Last Modified Time 04/28/2024 [id number] Nice speaking with you today! As a [...] MD [email or web address] Not available 04/28/2024 11:08:30 05/31/2024 [id number] Josh Garcia! It was great to speak [...] support positive behavior change Plan/Goals: 1. Use Appsee 2. Healthy plate model as tolerated for portion control 3. Monitor GI function - avoid sensitivities 4. Eat protein first at meals 5. Maintain consistent eating pattern, avoid skipping meals 6. Adequate hydration/fiber as tolerated Please feel free to reach out with any questions Nubia Zavaleta MS RD PAPER SALES REPRESENTATIVE [facility] [email or web address] Not available 05/31/2024 09:57:03 Reason for Referral None Reported. Problems Name Problem SNOMED Code Status Onset Date Resolution Date Notes Provider Name and Address Organization Details Recorded Time Obesity 883209126 Active 2023 FREDI LIANG, [address], [place], [address] , [facility] [employer]. - [facility] 4 09:03:28 Hypothyroi dism 55423917 Active 2023 Bell chau, [facility]. - [facility] 4 10:55:25 Hyperlipid emia 28384037 Active 2023 FREDI LIANG DNP [address] [place] [address],[address], [place], [address] , [facility] - [facility] 4 09:03:28 Obstructiv e sleep apnea syndrome 04237713 Active 2023 FREDI LIANG DNP [address] [place] [address],[address], [place], [address] , [facility] - [facility] 4 09:03:28 Hypothyroi dism due to Alex' s thyroiditi s 175282064 Active 2023 FREDI LIANG DNP [address] [place] [address],[address], [place], [address] , [facility] - [facility] 4 09:03:28 Iron deficiency 19254282 Active 2023 FREDI LIANG DNP [address] [place] [address],[address], [place], [address] , [facility] - [facility] 4 09:03:28 Abnormal weight gain 861855781 Active 2023 FREDI LIANG DNP [address] [place] [address],[address], [place], [address] , [facility]. - [facility] 4 09:03:27 Obese class I [id number] 07 Active 2023 FREDI LIANG DNP [address] [place] [address],[address], [place], [address] , [facility]. - [facility] 4 09:03:28 Endocrine/ metabolic screening Active 2023 Dahiana Forrester MD [address] [place] [address],[address], [place], [address] , [facility]. - [facility] 4 10:32:35 Problem Notes None recorded. Medical Equipment None Reported. Allergies Allergen ID Allergen Name Allergen Category Reaction Reaction Severity Criticality Documentation Date Start Date Code Code System Note Provider Name and Address Organization Details Recorded Time 3635 almond allergeni c extract food Not available Not available Not available 12/09/2023 37450 7 RxChevy Delacruz Dandypino, RD [address] [facility],[address], [place], [address], [facility]. - [facility] 4 16:16:06 3636 apple extract food Not available Not available Not available 12/09/2023 92444 65 RxNolucas Zavaleta, RD [address] [facility],[address], [place], [address], [facility]. - [facility] 4 16:16:14 3637 pear preparati on food Not available Not available Not available 12/09/2023 98563 25 RxNolucas Delacruz Dandypino, RD [address] [facility],[address], [place], [address], [facility]. - [facility] 4 16:16:20 3638 peach food Not available Not available Not available 12/09/2023 49634 UNK Nubia Alcarazgenesispino, RD [address] [facility],[address], [place], [address], [facility]. - [facility] 4 16:16:24 3639 nectarine allergeni c extract food Not available Not available Not available 12/09/2023 13513 99 RxNolucas Zavaleta, RD [address] [facility],[address], [place], [address], [facility]. - [facility] 4 16:16:30 3640 plum preparati on food Not available Not available Not available 12/09/2023 75336 7 RxChevy Alcarazgenesispino, RD [address] [facility],[address], [place], [address], [facility]. - [facility] 4 16:16:37 3641 red allergeni c extract food,medi cation Not available Not available Not available 12/09/2023 15965 1 RxNorm Nubia Zavaleta, RD [address] [facility],[address] [facility], [place], [address] , [facility]. [facility] 4 16:16:44 Medications Name Sig Start [...] Available Tri-Estaryl la (28) 0.18 mg(7)/0.215 mg(7)/0.25 mg(7)-0.035 mg tablet 04/28 completed Not Available Not Available Not Available Vitron-C 65 mg iron-125 mg tablet,lina yed release 11/05 completed Not Available Not Available Not Available Vitals Date Recorded Body height Body weight Body mass index (BMI) Provider Name and Address Organization Details Last Updated DateTime 04/28/2024 162.56 cm 44486.77 g 32.1 kg/m2 Dahiana Forrester MD [address] [place] [address],[address] [place], [address], [facility]. - [facility] 04/28/2024 10:30:00 Date Recorded Body weight Body height Body mass index (BMI) Provider Name and Address Organization Details Last Updated DateTime 04/28/2024 66411.95968 g 162.56 cm 32.1 kg/m2 Not Available [facility] 04/28/2024 10:33:23 Date Recorded Body weight Body height Provider Name and Address Organization Details Last Updated DateTime 04/29/2024 27020.472815 g 162.56 cm Not Available [facility] 04/29/2024 08:09:40 Date Recorded Body weight Body height Body weight Body height Body weight Body height Provider Name and Address Organization Details Last Updated DateTime 05/02/2024 67851.28 98029 g 162.56 cm 00419.2 978484 g 162.56 cm 33588.2 761546 g 162.56 cm Not Available [facility] 09:08:24 Date Recorded Body weight Body height Provider Name and Address Organization Details Last Updated DateTime 05/06/2024 32603.152883 7 g 162.56 cm Not Available [employer] 05/06/2024 07:38:22 Date Recorded Body weight Body height Provider Name and Address Organization Details Last Updated DateTime 05/10/2024 97863.184279 6 g 162.56 cm Not Available [employer] [facility] [employer] 05/10/2024 07:23:15 Date Recorded Body weight Body height Provider Name and Address Organization Details Last Updated DateTime 05/19/2024 91904.809100 1 g 162.56 cm Not Available [employer] [facility] [employer] 05/19/2024 07:13:53 Date Recorded Body height Body mass index (BMI) Body weight Provider Name and Address Organization Details Last Updated DateTime 05/31/2024 162.56 cm 31.9 kg/m2 43971.[address] [place] [address],[address], [place], [address], [facility] 05/31/2024 08:37:57 Date Recorded Body weight Body height Body mass index (BMI) Provider Name and Address Organization Details Last Updated DateTime 05/31/2024 53224.73913 g 162.56 cm 31.9 kg/m2 Not Available [employer] [facility] [employer] 05/31/2024 08:38:36 Social History None recorded. Functional Status None recorded. Mental Status None recorded. Family History Nothing Reported. Medical History No medical history recorded. Gynecological HistoryNo gynecological history recorded. 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 159196266 E06.3 Iron deficiency 61008700 E61.1 Abnormal weight gain 161 924352 R63.5 Obese class I 6275205349 13421 E66.9 Endocrine/ metabolic screening 367956018 Z13.228 Z13.29 Z13.21 Z13.6 Z79.899 R53.83 R79.9 Z13.220 Z13.1 Z13.0 E56.9 E53.9 E55.[id number] [address] 05/31/2024 08:22:10 06/03/2024 04:05:08 Obesity 931930159 E66.9 Hyperlipidemia 09199835 E78.5 [id number] SANTOS TWYLAMARY JANE [address] [address] 07/29/2024 09:00:23 07/29/2024 09:14:37 Obesity 513902834 E66.9 --as above Hyperlipidemia 16175972 E78.5 - Hyperlipid emiaMonito r with above Obstructiv e sleep apnea syndrome 36867601 G47.33 - OSASleep study 2019Mild, no tx indicated 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 787601138 E06.3 - Alex' s hypothyroi dFollows with endocrineO n levothyrox ine 88 mcg, reports TFTs wnl Iron deficiency 93155387 E61.1 - Iron deficiency Intolerant of oral iron, increasing dietary iron, monitoring with obgyn [id number] Nubia Zavaleta RD [address] [address] 09/20/2024 11:27:42 09/20/2024 11:45:45 Health Concerns [...] is physically located in the state of [facility] Vitalswt:previous wt: 181.26Highest weight/BMI: 198.0 lbs, BMI 34.0, 2023Baseline weight/BMI: 183.0 lbs, BMI 31.4 Confirm AOM and dose:metformin 500mgConfirm Frequency/Consistency:S/e: Appetite:Cravings: Behavior ChangeSuccesses:Areas needing improvement:Barriers: Nutrition IntakeDietary Restrictions/Allergies:Food Recall:B:L:D:S:Claire:Alcohol: Physical Activity:------12.09.23 Nutrition ConsultI have confirmed that the patient is physically located in the [place] of [place]itals[place] 5'4 Weight: 181.26Highest weight/BMI: 198.0 lbs, BMI [...] with: Move/relocationCurrent lifestyle factors: Sedentary, Stressful, home service consultant, Free/junk food availableMotivation for weight loss: Improve [...] with routine. 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 - [facility] 4 08:38:54 04/28 text/ html 33 yr old female with class 1 obesity, hyperlipidemia, Alex's hypothyroid, RUMA (mild), post anxiety, iron deficiency presents for evaluation.Referred By SOCTPCP: Luther Brandt PASUBSPECIALIST(S):Endocrinology Dr. Chanel Coles I have confirmed that the patient is physically located in the state of {{[facility]}} VITALSHeight: 5'4 Current Weight: 187 lbs, +3 [...] effective, diarrhea] ANNE Delacruz working on increasing [employer] B: oatmeal with almond milk and pb, [...] with: Move/relocationCurrent lifestyle factors: Sedentary, Stressful, home service consultant, Free/junk food availableMotivation for weight loss: Improve [...] noneALLERGIESNKDALABS/IMAGING3/3CBC wnlCO2 19 (L), CMP otherwise wnlGlucose 30UrL9b 5%TSH 8.57 (H), FT4 0.9TC 223, HDL 53, TG 135,LDL 144, ratio 4.2 Dahiana Forrester MD [address] [place] [address],[address], [place], [address] , [facility] 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 - [facility] 4 09:59:27 07/29 text/ html Patient did not arrive to scheduled z oom appointment. I called via [employer] and gave instructions to join zoom if able in the next 15 minutes, otherwise to call to reschedule. History of Present Illness:34 yr old female with class 1 obesity, hyperlipidemia, Alex's hypothyroid, RUMA (mild), post anxiety, iron deficiency presents for evaluation. 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 [facility] 4 09:14:34 09/20 text/ html No Show Nubia Zavaleta, RD [address] [facility],[address], [place], [address], [facility]. [facility] 5 11:45:45 OBGyn Episode No OBEpisode recorded.
--- OUTSIDE RECORDS SUMMARY | 2024-11-29 11:55 | XMS_ITS | Data Portability ---
Author Organization [place] - [facility]'s [facility], [facility] Address [address] [place] [address] Care Team Providers Care Digital Community Manager Name Role Phone BRANDT MIGUEL ÁNGEL Primary Care Provider [phone] Assessment No assessment recorded. Plan of Treatment Reminders Order Date Submit Date Provider Last Modified By Organization Details Last Modified Time Details Appointments None recorded. Lab surgical pathology study - products of conception 2023 [facility], [address] [place] [address], [id number] 4 15:04:23 bacterial vaginosis + vaginitis panel, vaginal 2023 [facility], [address] [place] [address], [id number] 4 09:08:53 hemoglobin (Hb), fingerstick , blood 2023 [email or web address] In-Office Order, Internal Use Only DO Not Attach Compendium DO Not Attach Compendium, Do Not Delete/merge, [id number] 4 14:04:37 Referral None recorded. Procedures None recorded. Surgeries None recorded. Imaging None recorded. Medication Orders oxycodone 5 mg tablet 2023 024 LINDSAY [id number], [address] [place], [address], 4 11:43:13 ibuprofen 600 mg tablet 2023 024 arabella [id number], [address] [place], [address], 15:01:45 norethindro ne-ethinyl estradiol triphasic 0.5/1/0.5 mg-35 mcg tablet 2023 024 awillicandis 885 [facility][id number], [address] [facility] [place], [address], 12:51:32 Vitron-C 65 mg iron-125 mg tablet,lina yed release 2023 024 [id number], [address] [facility] [place], [address], 13:48:07 FE 1.5/30 (28) 1.5 mg-30 mcg (21)/75 mg (7) tablet 2023 [id number] [address] [facility] [place], [address], 13:48:06 Patient TargetsNo targets recorded. Patient Instructions Encounter Date Encounter Id Patient Instructions Last Modified By Organization Details Last Modified Time 10/12/2023 [id number] Normal post part um exam. No further bleeding. control options discussed. Would like to restart GERRY; reviewed method risks @ >35y.o /ACHES/BUM & consent signed. Kegal exercises explained. OK to resume all normal activity as tolerated. Will resume FE supplement and advised of s/s of anemia to f/u with. Patient coping well post-. Advised to return for annual ui architect exam or prior to that if needed. [email or web address] Not available 10/12/2023 13:49:35 06/30/2024 [id number] 34-year-old fema le with an abnormal appearing [...] minutes arabella Not available 06/30/2024 15:03:06 07/07/2024 [id number] 34-year-old femidris craig with undesired . She has a young child at home. She wishes to proceed with surgical termination of . This will be scheduled in the office. She has been made aware that she will need to have a ride home. Would like to do it the week of July 18 and her has off. arabella Not available 07/07/2024 11:42:42 07/21/2024 [id number] Suction D&C completed without complication. Patient will [...] DO Not Attach Compendium, Do Not Delete/merge, [id number] 10/12/2023 09:02:48 12/09/1912/09/2023 ADVAN NEETA BACTE RIAL VAGIN OSIS (BV), TMA adv bacterial vaginosis (bv), tma Positi ve negati ve abnormal Not Available [facility] [address] [place], [address] 12/10/2023 09:08:53 12/09/19 24 12/09/2023 ADVAN NEETA SHREE DA VAGIN ITIS (CV)/ TRICH OMONA S VAGIN DERRICK (TV), TMA chayo species Negati ve negati ve Not Available [facility] [address] [place], [address] 12/10/2023 09:08:54 12/09/19 24 12/09/2023 ADVAN NEETA SHREE DA VAGIN ITIS (CV)/ TRICH OMONA S VAGIN DERRICK (TV), TMA chayo glabrata Negati ve negati ve Not Available [facility] [address] [place], [address] 12/10/2023 09:08:54 12/09/19 24 12/09/2023 ADVAN NEETA SHREE DA VAGIN ITIS (CV)/ TRICH OMONA S VAGIN DERRICK (TV), TMA trichomonas vaginalis (TV), tma Negati ve negati ve Not Available [facility] [address] [place], [address] 12/10/2023 09:08:54 07/21/20 24 07/21/2024 TISSU E [...] label ed 1A-1E . CPT Codes : 58977 ICD Codes : Z33.[address] [facility] [address] [place], [address] 07/22/2024 15:04:23 06/30/2006/30/2024 ultra sound image s CINDY bell [facility] [employer] [id number] 06/30/2024 11:00:23 07/07/20 24 07/07/2024 US, obste tric, trans vagin al RAD nvoisine In-Office Order Internal Use Only DO Not Attach Compendium DO Not Attach Compendium, Do Not Delete/merge, [id number] 07/08/2024 08:32:27 Result Notes None recorded. Problems Name Problem SNOMED Code Status Onset Date Resolution Date Notes Provider Name and Address Organization Details Recorded Time Hashimot o thyroidi tis 08775004 Active on 88 mcg levothyro xine daily TSH at IOB 3.63, endo consult and advised to update PCP levothyro xine increased to 112 daily on 06/01/23 increased again to120 mcg on 06/08/23 Corry Laguerre [facility], [facility] 3 09:13:29 High risk pregnanc y 32546263 Completed AMA, first preg Will take ASA 81 mg daily at 12 wks Corry Laguerre [facility] 3 09:13:29 Hashimot o thyroidi tis 36313678 Completed on 88 mcg levothyro xine daily TSH at IOB 3.63, endo consult and advised to update PCP levothyro xine increased to 112 daily on 06/01/23 increased again to120 mcg on 06/08/23 Corry Laguerre [facility], [facility] 3 09:13:29 Advanced maternal age 233690229 Completed Horizon- Neg X3 NIPT- screen neg, Male AFP - low risk Level 2 Anatomy scan - velamento us cord Corry Shade [facility], [facility] 3 09:13:29 Rubella non-immu ne 138871547 Completed MMR PP Corry Laguerre [facility], [facility] 3 09:13:29 Velament ous insertio n of umbilica l cord 49552383 Completed on level 2, will need NST's at 36 wks, growth USN third trim per MFM Corry Laguerre null, [facility] 3 09:13:29 Problem Notes None recorded. Procedures Surgical History Date Name Laterality Status Provider Name and Address Organization Details Recorded Time 4 Suction D&C/Manual Vacuum Aspiration completed WHIT YODER MD [address], [address] Floor, [place], [address], [facility] 07/21/2024 12:18:23 4 First Post Visit completed ALKA RIVERA CNM [address], [address] [place] [address], [place], [address], [facility] 09/15/2023 08:08:17 3 X9H-UVQMF completed MOISES SEPULVEDA MD [address] [facility], [address] [place] [address], [address], [facility] 09/23/2022 13:14:09 2 laser surgery completed Samuel Bradshaw [facility] 09/23/2022 12:16:50 2 Other completed Clarice Yoder [facility] 01/12/2023 09:54:50 1 Colposcopy Procedure Note completed MOISES SEPULVEDA MD [address], [address] [place] [address], [address], [facility] 08/14/2021 13:04:38 1 Colposcopy completed OMG1 NURSE 175 [facility], [address] [place] [address], [address], [facility] 11/26/2021 13:31:51 1 U2T-EYTHOWV completed MOISES SEPULVEDA MD [address] [facility], [address] [place] [address], [address], [facility] 07/05/2021 15:01:29 Date of Last Pap Smear completed OMG1 NURSE 175 [facility], [address]rd Floor, [place], [address], [place] [facility] 11/26/2021 13:31:27 Imaging Results Imaging Date Name Status LastModified by Organization Details LastModified Time 06/30/2024 ultrasound images completed arabella [facility] [employer] [facility] 96[address] 06/30/2024 11:00:23 07/07/2024 US, obstetric, transvaginal completed nvoisine In-Office Order Internal Use Only DO Not Attach Compendium DO Not Attach Compendium, Do Not Delete/merge, [id number] 07/08/2024 08:32:27 Procedure Notes None recorded. Medical Equipment None Reported. Allergies Allergen ID Allergen Name Allergen Category Reaction Reaction Severity Criticality Documentation Date Start Date Code Code System Note Provider Name and Address Organization Details Recorded Time 0186829 apple extract food nausea severe Not available 04/28/2018 66610 65 RxNorm Izamarie Colon null, [facility] 8 16:58:40 3571927 almond allergeni c extract food nausea severe Not available 04/28/2018 08198 7 RxNorm Izamarie Colon null, [facility] 8 16:58:40 No known drug [...] (28) 0.18 mg(7)/0.215 mg(7)/0.25 mg(7)-0.035 mg tablet TAKE 1 TABLET BY MOUTH [...] Updated DateTime 10/12/2023 162.56 cm 31.6 kg/m2 88537 g 112 mm[Hg] 76 mm[Hg] TRIAGE_MA O1 [address], [address], [facility] 13:23:55 Date Recorded Body height Body mass index (BMI) Body weight Heart rate Systolic blood pressure Diastolic blood pressure Provider Name and Address Organization Details Last Updated DateTime 162.56 cm 22.6 kg/m2 05608.7 9 g 88 /min 127 mm[Hg] 84 mm[Hg] OMG1 NURSE [address], [address], [facility] 4 10:09:11 Date Recorded Body height Systolic blood pressure Diastolic blood pressure Provider Name and Address Organization Details Last Updated DateTime 06/30/2024 162.56 cm 130 mm[Hg] 77 mm[Hg] TRIAGE_MAO1 [address], [address], [facility] 06/30/2024 10:52:17 Date Recorded Body height Systolic blood pressure Diastolic blood pressure Provider Name and Address Organization Details Last Updated DateTime 07/07/2024 162.56 cm 121 mm[Hg] 76 mm[Hg] TRIAGE_MAO1 [address], [address], [facility] 07/07/2024 09:01:04 Date Recorded Body height Body mass index (BMI) Body weight Systolic blood pressure Diastolic blood pressure Provider Name and Address Organization Details Last Updated DateTime 07/21/2024 162.56 cm 33.5 kg/m2 43843.51 g 127 mm[Hg] 85 mm[Hg] TRIAGE_MA O1 175 [facility], 3rd Floor, [place], [address], [place] - [facility] 12:02:31 Social History Question Answer Notes LastModified by Organizat ion Details LastModified Time Tobacco Smoking Status Never Smoker Adolfo Colon null, [place] - [facility] 04/28/2018 16:58:41 What Is Your Level Of Alcohol Consumption? Occasional Information not available 04/28/2018 Concerns About Meeting Basic Needs (food, Housing, Heat, Etc)? No Information not available 01/12/2023 Education Post Graduate Information not available 01/12/2023 What Is The Highest Grade Or Level Of School You Have Completed Or The Highest Degree You Have Received? [id number] Information not available 07/05/2021 What Is Your [...] Anxious, Or Unable To Sleep At Night)? [id number] Information not available 07/05/2021 How Many Years [...] Time What is your exercise level? Occasional [email or web address] Information not available 09/23/2022 Mental Status None recorded. Family History Relationship Description Onset Age of this Age Resolved Age Notes LastModified by Organization Details LastModified Time Mother Asthma API-13 Not available 16:51:57 Mother Disorder of thyroid gland API-13 Not available 2017 16:51:57 Medical History Condition Response HIV N Diabetes N Anxiety Disorder Y Heart Problems N Blood Transfusions N HSV N *No Diseases or Conditions N Blood clots N Cancer N Kidney or Bladder Problems N Thyroid Problems Y Abuse/Domestic Violence N Stroke N Depression N Lung Disease N Asthma [...] Time Tdap 3 completed Kiesha Lopez null, [facility] 06/01/2023 09:09:27 Influenza, MDCK, quadrivalent, PF 3 completed MERRY DOS SANTOS CNM 175 [facility], [address]rd Floor, [place], [address], [facility] 06/15/2023 10:22:28 Influenza, MDCK, quadrivalent, preservative 0 completed Clarice Yoder null, [facility] 01/12/2023 09:54:27 COVID-19, mRNA, LNP-S, PF, 30 mcg/0.3 mL dose 1 completed Clarice Yoder null, [facility] 01/12/2023 09:54:27 COVID-19, mRNA, LNP-S, PF, 30 mcg/0.3 mL dose 1 completed Clarice Yoder null, [facility] 01/12/2023 09:54:27 Tdap 3 completed Clarice Yoder null, [facility] 01/12/2023 09:54:27 Past Encounters Encounter ID Performer Location Encounter Start Date Encounter Closed Date Diagnosis/Indication Diagnosis SNOMED-CT Code Diagnosis ICD10 Code Diagnosis Note [id number] DEMI ARDON CNM MAO1 [address] [place] [address] 04/28/2018 16:43:43 04/29/2018 07:52:55 Gynecologic examination 18541006 Z01.419 [facility] care management 531752691 Z30.9 [id number] ANTONINA ROOT2 [address] [place] [address] 05/06/2019 06:57:41 05/06/2019 10:56:29 Gynecologic examination 49093476 Z01.419 [facility] ion care management 107793918 Z30.9 [id number] DEMI ARDON [facility] [address] [place] [address] 10/04/2019 14:45:09 10/05/2019 08:54:06 Venereal disease screening 144280192 Z11.3 [id number] MEGAN ORELLANA [facility] [address] [place] [address] 06/20/2020 13:05:02 06/21/2020 10:21:12 Gynecologic examination 19632850 Z01.419 Venereal d isease screening 291615895 Z11.3 [facility] ion care management 242651767 Z30.9 [id number] MOISES SEPULVEDA MD [address] [address] 07/05/2021 14:01:04 07/05/2021 15:49:06 Gynecologic examination 30961511 Z01.419 Venereal d isease screening 891600503 Z11.3 [id number] MOISES SEPULVEDA MD [address] [address] 08/14/2021 11:23:21 08/15/2021 08:43:25 Atypical squamous cells of undetermined significance on cervical Papanicolaou smear 510570893 R87.610 [id number] MOISES SEPULVEDA MD [address] [address] 09/23/2022 12:03:41 09/25/2022 14:58:03 Gynecologic examination 39357722 Z01.419 Venereal d isease screening 822922785 Z11.3 [id number] MERRY DOS SANTOS CNM MAO [address] [place] [address] 01/12/2023 09:50:49 01/13/2023 08:53:25 Routine care 913036172 Z34.01 Gestation period, 8 weeks 69101520 Z3A.08 [id number] MERRY DOS SANTOS CNM MAO1 [address] [place] [address] 01/26/2023 14:02:44 01/27/2023 14:29:20 Routine care 965901491 Z34.90 Z34.91 Z34.92 Z34.93 Z34.00 Z34.80 Z34.01 Z34.02 Z34.03 Z34.81 Z34.82 Z34.83 Gestation period, 10 weeks 85607419 Z3A.10 High risk 4720 0007 O09.91 [id number] VICTOR M AGUERO [facility] [address] [place] [address] 02/23/2023 08:46:22 02/24/2023 15:00:44 Routine care 559613502 Z34.92 High risk 4720 0007 O09.92 Gestation period, 14 weeks 66437948 Z3A.14 Referred t o supervisor warping department 060155165 Z76.89 [id number] Diamond Chandler [facility] [address] [place] [address] 03/23/2023 09:45:32 03/25/2023 09:28:07 High risk 50856383 O09.92 Gestation period, 18 weeks 72856359 Z3A.18 Nausea and vomiting 1693 1999 R11.2 [id number] DO TRISTON Cooper [address] [place] [address] 04/20/2023 11:20:12 04/20/2023 13:29:07 High risk 43948545 O09.92 Gestation period, 22 weeks 00380286 Z3A.22 Nausea and vomiting 1693 1999 R11.2 [id number] Monique Quiñones DO [facility] [address] [place] [address] 05/11/2023 11:16:45 05/15/2023 11:16:58 Vaginal odor 730319973 N89.8 High risk 4720 0007 O09.92 Gestation period, 25 weeks 83987700 Z3A.25 [id number] MERRY DOS SANTOS CNM MAO [address] [place] [address] 06/01/2023 08:19:50 06/03/2023 10:30:54 High risk 82542403 O09.93 Gestation period, 28 weeks 32736294 Z3A.28 Routine an tenatal care 877759145 Z34.02 Z34.82 Hypothyroidism 30367640 E03.9 Active or passive immunization 625501880 Z23 [id number] MERRY DOS SANTOS CNM MAO [address] [place] [address] 06/15/2023 08:43:18 06/17/2023 11:03:41 High risk 10254731 O09.93 Gestation period, 30 weeks 32861692 Z3A.30 Administra tion of influenza vaccine 35108566 Z23 [id number] MOISES SEPULVEDA [facility] [address] [place] [address] 06/29/2023 14:27:27 06/30/2023 10:23:10 High risk 53508096 O09.93 Gestation period, 32 weeks 6636333 Z3A.32 support 40 0908879 Z39.1 [id number] MOISES SEPULVEDA [facility] [address] [place] [address] 07/14/2023 08:37:47 07/14/2023 14:06:58 High risk 26926328 O09.93 Gestation period, 34 weeks 34485214 Z3A.34 [id number] MERRY DOS SANTOS CNM MAO [address] [place] [address] 07/28/2023 10:53:06 07/30/2023 15:02:39 High risk 02729921 O09.93 Gestation period, 36 weeks 90364395 Z3A.36 screening 2437 99223 Z36.9 [id number] WHIT YODER MD MAO2 [address] [place] [address] 07/28/2023 09:52:58 07/30/2023 13:19:01 support 764347795 Z39.1 [id number] MERRY DOS SANTOS [facility] [address] [place] [address] 08/03/2023 13:57:09 08/04/2023 16:18:00 High risk 94663870 O09.93 Gestation period, 37 weeks 84243463 Z3A.37 [id number] [facility] [address] [place] [address] 08/10/2023 13:48:16 08/12/2023 11:52:03 Advanced maternal age 797701662 O09.523 High risk 4720 0007 O09.93 Gestation period, 38 weeks 57092011 Z3A.38 [id number] MERRY DOS SANTOS [facility] [address] [place] [address] 08/17/2023 13:45:11 08/20/2023 11:44:27 High risk 61612025 O09.93 Gestation period, 39 weeks 93700515 Z3A.39 Advanced m aternal age 444169746 O09.[id number] [address] 08/24/2023 09:10:48 08/31/2023 08:31:40 Post-term 19587061 O48.1 High risk 4720 0007 O09.93 Gestation period, 40 weeks 97931143 Z3A.40 [id number] ALKA RIVERA CNM [facility] [address] [place] [address] 09/15/2023 07:34:39 09/16/2023 10:16:09 care 743165923 Z39.2 [id number] ALKA RIVERA [facility] [address] [place] [address] 10/12/2023 13:13:07 10/13/2023 15:21:32 care 921895779 Z39.2 Contracept ion care management 570213406 Z30.9 [id number] MOISES SEPULVEDA MD [address] [address] 12/09/2023 09:59:44 12/09/2023 14:10:40 Vaginal odor 889987713 N89.8 Prolonged periods 900018 006 N92.5 Pt reports taking her pills on time and not missing any, no change in her overall health. Discussed switching to triphasic OCP, pt accepts [id number] WHIT YODER MD O[facility]2 [address] [place] [address] 06/30/2024 10:22:28 07/01/2024 10:09:04 Uncertain viability of 914912147 O36.80X9 [id number] WHIT YODER MD OMG1 [address] [place] [address] 07/07/2024 08:28:23 07/11/2024 15:48:36 Elective termination of 34384008 Z33.2 [id number] WHIT YODER MD OMG2 [address] [place] [address] 07/21/2024 11:28:10 08/03/2024 12:39:42 Elective termination of 71369487 Z33.2 Health Concerns Section Related Observation LastModified by Organization Detai ls LastModified Time None Recorded Concern Status LastModified by Organization Details LastModified Time None Recorded Advance Directives Directive None Recorded Payers Encounter Date Sequence Insurance Name Policy Number Policy Hanson Covered Member ID Hanson Member ID Guarantor Name 10/12/2023 1 [place] [id number] H Andi Daryn [id number] Andi Daryn 12/09/2023 1 [place] [id number] H Andi Daryn [id number] Andi Daryn 06/30/2024 1 [place] [id number] H Andi Daryn [id number] Andi Daryn 07/07/2024 1 [place] [id number] H Andi Daryn [id number] Andi Daryn 07/21/2024 1 [place] [id number] H Andi Daryn [id number] Andi Daryn Notes Date Note Type Note Provider Name and Address Organization Details Recorded Time 10/12/2023 text/html [facility] VisitReported bypatient.Associate d Symptoms:no abnormal bleeding; no pelvic pain; laceration well healed; no constipation; no fecal incontinence; no dysuria; no urinary incontinence; no fever; no problems; no mastitisNotes:Well PP. Denies any concerns w/ mood. Formula only. VB has stopped PP. Menses resumed. Abstinence since delivery. Pelvic pain resolved. Repair site seems healed. Wants to resume GERRY used in past. ALKA RIVERA CNM [address], [address], [facility] 10/12/2023 13:53:33 12/09/2023 text/html C/O mal odorous vaginal d/c x 4 days . 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 MOISES SEPULVEDA MD [address], [address], [facility] 12/09/2023 10:32:39 06/30/2024 text/html Patient is [...] enjoy this experience. WHIT YODER MD [address], [address], [facility] 06/30/2024 15:03:26 07/07/2024 text/html Patient is here for repeat ultrasound. This showed interval changes growth of 1 week in the crown-rump length and heart rate is present. She does not desire this . She had a bad experience having medical termination of at home and would like to have a surgical termination of . WHIT YODER MD [address] [place] [address], [address] Floor, [place], [address], [place] [facility] 07/07/2024 11:43:37 OBGyn Episode Ob Episode Information Episode Created Date Number of Fetuses Patient Bloodtype Patient rh Status Prepregnancy Weight lbs Domestic Partner Domestic Partner Phone Father Name Bankman Status 01/27/20 1 A Positive 198 Dominick CLOSED Fetus Data First Name Last Name Admitted to NICU Weight (g) Sex Living Outcome Pediatric Complications Fetus ID Race Codes Race Delivery Type false 3798.83 3 M true Full Term [id number] 9 Vaginal Delivery Problems Problem Notes Problem Name Start Date End Date Resolution Snomed Code Not e Rubella non-immune 657903925 M PP Velamentous insertion of umbilical cord 45037770 on level 2, w ill need NST's at 36 wks, growth USN third trim per MFM High risk 36030142 AMA, first pregWill take ASA 81 mg daily at 12 wks Alex thyroiditis 98703709 on 88 mcg levot hyroxine dailyTSH at IOB 3.63, endo consult and advised to update PCPlevothyroxine increased to 112 daily on 06/01/23increased again to120 mcg on 06/08/23 Advanced maternal age 396641538 Horizon- Neg X3 NIPT- screen neg, MaleAFP [...] Weight in lbs Pre/Post Dialysis Refused Weight 200.945485758777 BP Diastolic BP Location Tested BP Systolic [...] Weight in lbs Pre/Post Dialysis Refused Weight 198.670657149661 BP Diastolic BP Location Tested BP Systolic BP Type 77 109 Fetus Heart Rate Present A 150 Fetus Movement Comments Unable to void today, will d o urine tox at her next visit. 1) developed a dry cough following a mild upper respiratory infection 2 weeks ago. Had neg respiratory workup at urgent care. Admits to of mild asthma, winded at times with [...] made today for her to see an supervisor warping department. 3) Leaving to [place] this Thursday, discussed traveling precautions and seeing [...] Weight in lbs Pre/Post Dialysis Refused Weight 196.249138571047 BP Diastolic BP Location Tested BP Systolic [...] Weight in lbs Pre/Post Dialysis Refused Weight 197.164939919157 BP Diastolic BP Location Tested BP Systolic [...] 3wks for routine OB. Flowsheet Date 05/11/2023 Muoñz Score Blood Edema Fundus Height Fundus Units Glucose Ketones Leukocytes Nitrite Labor Signs Protein Cervic Dilation Cervic Effacement Cervic Station 26 cm Type Weight in lbs Pre/Post Dialysis Refused Weight 200.299174142398 BP Diastolic BP Location Tested BP Systolic [...] Weight in lbs Pre/Post Dialysis Refused Weight 202.851118971829 BP Diastolic BP Location Tested BP Systolic [...] Weight in lbs Pre/Post Dialysis Refused Weight 201.519690520158 BP Diastolic BP Location Tested BP Systolic [...] Weight in lbs Pre/Post Dialysis Refused Weight 200.226753876080 BP Diastolic BP Location Tested BP Systolic [...] Weight in lbs Pre/Post Dialysis Refused Weight 201.244252169109 BP Diastolic BP Location Tested BP Systolic [...] Weight in lbs Pre/Post Dialysis Refused Weight 202.582235740727 BP Diastolic BP Location Tested BP Systolic [...] Weight in lbs Pre/Post Dialysis Refused Weight 204.687749419049 BP Diastolic BP Location Tested BP Systolic [...] Weight in lbs Pre/Post Dialysis Refused Weight 207.133937767409 BP Diastolic BP Location Tested BP Systolic [...] Weight in lbs Pre/Post Dialysis Refused Weight 212.17026139656 BP Diastolic BP Location Tested BP Systolic [...] in lbs Pre/Post Dialysis Refused With clothes 213.165917610573 BP Diastolic BP Location Tested BP Systolic [...] Domestic Partner Domestic Partner Phone Father Name Bankman Status 04/28/20 18 1 CLOSED Fetus Data First Name Last Name Admitted to NICU Weight (g) Sex Living Outcome Pediatric Complications Fetus ID Race Codes Race Delivery Type , Induced [id number] Jason Calculation Initial Jason Date Initial Exam [...]
--- OUTSIDE RECORDS SUMMARY | 2024-11-29 11:55 | XMS_ITS | Encounter Summary ---
Author Organization [facility] Address [address] [place] [address] Care Team Providers Care Logistics Director Name Role Phone Luther Echavarria Primary Care Provider [phone] Analy Bose CNM Unavailable [phone] Encounter Details Date Type Department Care Team (Latest Contact Info) Description 11/01/2024 Travel Social History Tobacco Use Types Packs/Day Years Used Date Smoking Tobacco: Never Smokeless Tobacco: Never Alcohol Use Standard Drinks/Week Comments Not Currently 0 (1 standard drink = 0.6 oz pur e alcohol) [facility] Utilities Answer Date Recorded In the past 12 months has [employer], gas, oil, or water company threatened [...] and Family Not on file 09/18/2024 Attends Jew Services Not on file 09/18 Active Member [...] any time in the past 12 m [facility], were you homeless or living in a [facility] (including now)? No 09/18/2024 Education Answer Date Recorded What is the highest level of school you have completed or the highest degree you have received? 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, TIRE MOUNTER, DONAVON) 09/18/2024 Sex and Gender Information Value Date Recorded Sex Assigned at Female 04/01/2023 10:33 AM EDT Gender Identity Female 12/03/2020 7:53 AM EDT Sexual Orientation Heterosexual (straight) 12/03 7:53 AM EDT documented as of this encounter Plan of Treatment Upcoming Encounters Date Type Department Care Team (Late st Contact Info) Description 01/13/2025 9:00 AM EDT Consult [facility] [address] [place] [address] Holley Webb PA-C [address] [place] [address] documented as of this encounter Visit Diagnoses Not on filedocumented in this encounter Care Teams Logistics Director Relationship Specialty Start Date End Date Luther Echavarria PA [address] [place] [address] PCP - General Family Medicine 08/02/20 Analy Bose CNM [address] [place] [address] Fire Department Marine Engineer Obstetrics and Gynecology 04/03/23 documented as of this encounter
--- OUTSIDE RECORDS SUMMARY | 2024-11-29 11:55 | XMS_ITS | Encounter Summary ---
Author Organization [facility] Address [address] [place] [address] Care Team Providers Care Designer Architect Name Role Phone Luther Echavarria Primary Care Provider [phone] Analy Bose CNM Unavailable [phone] Encounter Details Date Type Department Care Team (Late Contact Info) Description 04/28/2024 Scanned Document [facility] BARIATRICS SCAN Bariatrics, Scan Social [...] 01/13/2025 9:00 AM EDT Consult [facility] [address] [place] [phone] Holley Webb PA-C [address] [place] [address] documented as of this encounter Visit Diagnoses Not on filedocumented in this encounter Care Teams Designer Architect Relationship Specialty Start Date End Date Luther Echavarria PA [address] [place] [address] PCP - General Family Medicine 08/02/20 Analy Bose CNM [address] [place] [address] Cathode Ray Tube Salvage Processor Obstetrics and Gynecology 04/03/23 documented as of this encounter
--- OUTSIDE RECORDS SUMMARY | 2024-11-29 11:55 | XMS_ITS | Encounter Summary ---
Author Organization [facility] Address [address] [place] [address] Care Team Providers Care Script Developer Name Role Phone Luther Echavarria Primary Care Provider [phone] Analy Bose CN Unavailable [phone] Encounter Details Date Type Department Care Team (Late st Contact Info) Description 09/17/2020 Scanned [address] [facility] FAMILY MED SCAN Luther Echavarria PA [address] [place] [address] Social History Tobacco Use Types Packs/Day Years [...] 01/13/2025 9:00 AM EDT Consult [facility] [address] [place] [address] Holley Webb PA-C [address] [place] [address] documented as of this encounter Visit Diagnoses Not on filedocumented in this encounter Care Teams Script Developer Relationship Specialty Start Date End Date Luther Echavarria PA [address] [place] [address] PCP - General Family Medicine 08/02/20 Analy Bose CNM [address] [place] [address] Count Team Member Obstetrics and Gynecology 04/03/23 documented as of this encounter
--- OUTSIDE RECORDS SUMMARY | 2024-11-29 11:55 | XMS_ITS | Encounter Summary ---
Author Organization [facility] Address [address] [place] [address] Care Team Providers Care Supervisory It Specialist Name Role Phone Luther Echavarria Primary Care Provider [phone] Analy Bose CNM Unavailable [phone] Reason for Visit * Reason Comments Appointment Encounter Details Date Type Department Care Team (Late Contact Info) Description 03/09/[address] [address] Zo Cameron MD Valid Address [...] Description 01/13/2025 9:00 AM EDT Consult [facility] [address] [place] [address] Holley Webb PA-C [address] [place] [address] documented as of this encounter Visit Diagnoses Not on filedocumented in this encounter Care Teams Supervisory It Specialist Relationship Specialty Start Date End Date Luther Echavarria PA [address] [place] [address] PCP - General Family Medicine 08/02/20 Analy Bose CNM [address] [place] [address] Laborer Obstetrics and Gynecology 04/03/23 documented as of this encounter
--- OUTSIDE RECORDS SUMMARY | 2024-11-29 11:55 | XMS_ITS | Encounter Summary ---
Author Organization [facility] Address [address] [place] [address] Care Team Providers Care Hardwood Floor Installer Name Role Phone Luther Echavarria Primary Care Provider Analy Bose CNNcio Unavailable [phone] Reason for Visit * Reason Comments Medication Refill Encounter Details Date Type Department Care Team ([facility] Contact Info) Description 08/28/2020 Refill [facility] [address] [place] [phone] Luther Echavarria PA [address] [place] [address] Other insomnia Social History Tobacco Use Types [...] Upcoming Encounters Date Type Department Care Team ([facility] Contact Info) Description 01/13/2025 9:00 AM EDT Consult [facility] [address] [place] [address] [place] [address] Holley Webb PA-C [address] [place] [address] documented as of this encounter Visit Diagnoses Diagnosis Other insomnia documented in this encounter Care Teams Hardwood Floor Installer Relationship Specialty Start Date End Date Luther Echavarria PA [address] [place] [address] PCP - General Family Medicine 08/02/20 Analy Bose CNM [address] [place] [address] Business Communications Instructor Obstetrics and Gynecology 04/03/23 documented as of this encounter
--- OUTSIDE RECORDS SUMMARY | 2024-11-29 11:55 | XMS_ITS | Encounter Summary ---
Author Organization [facility] Address [address] [place] [address] Care Team Providers Care Law Reporter Name Role Phone Luther Echavarria Primary Care Provider [phone] Analy Bose CNM Unavailable [phone] Encounter Details Date Type Department Care Team (Late st Contact Info) Description 11/18/2021 Telephone [facility] [address] [place] [address] Citlalli Bethea, WATCH TRAIN ASSEMBLER [address] [place] [address] Social History Tobacco Use Types Packs/Day Years [...] Info) Description 01/13/2025 9:00 AM EDT Consult [facility] [address] [place] [address] Holley Webb PA-C [address] [place] [address] documented as of this encounter Visit Diagnoses Not on filedocumented in this encounter Care Teams Law Reporter Relationship Specialty Start Date End Date Luther Echavarria PA [address] [place] [address] PCP - General Family Medicine 08/02/20 Analy Bose CNM [address] [place] [address] Die Sinking Machine Operator Obstetrics and Gynecology 04/03/23 documented as of this encounter
--- OUTSIDE RECORDS SUMMARY | 2024-11-29 11:55 | XMS_ITS | Encounter Summary ---
Author Organization [facility] Address [address] [place] [address] Care Team Providers Care Maintenance Team Leader Name Role Phone Luther Echavarria Primary Care Provider [phone] Analy Bose CNM Unavailable [phone] Encounter Details Date Type Department Care Team (Late Contact Info) Description 05/31/2024 Scanned Document [facility] BARIATRICS SCAN Bariatrics, Scan Social History [...] Description 01/13/2025 9:00 AM EDT Consult [facility] [address] [place] [phone] Holley Webb PA-C [address] [place] [address] documented as of this encounter Visit Diagnoses Not on filedocumented in this encounter Care Teams Maintenance Team Leader Relationship Specialty Start Date End Date Luther Echavarria PA [address] [place] [address] PCP - General Family Medicine 08/02/20 Analy Bose CNM [address] [place] [address] Roster Clerk Obstetrics and Gynecology 04/03/23 documented as of this encounter
--- OUTSIDE RECORDS SUMMARY | 2024-11-29 11:55 | XMS_ITS | Encounter Summary ---
Author Organization [facility] Address [address] [place] [address] Care Team Providers Care Lock Corner Machine Operator Name Role Phone Luther Echavarria Primary Care Provider [phone] Analy Bose CNM Unavailable [phone] Encounter Details Date Type Department Care Team (Late st Contact Info) Description 11/02/2024 Scanned Document [facility] EMERGENCY MED SCAN Emergency Medicine, Scan Social History Tobacco Use Types Packs/Day Years Used Date Smoking Tobacco: Never Smokeless Tobacco: Never Alcohol Use Standard Drinks/Week Comments Not Currently 0 (1 standard drink = 0.6 oz pur e alcohol) [facility] Utilities Answer Date Recorded In the past 12 months has [employer] electric, gas, oil, or water company threatened [...] and Family Not on file 09/18/2024 Attends Anabaptism Services Not on file 09/18 Active Member [...] any time in the past 12 m [facility], were you homeless or living in a jail (including now)? No 09/18/2024 Education Answer Date Recorded What is the highest level of school you have completed or the highest degree you have received? 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, MAINTENANCE OPERATOR, DONAVON) 09/18/2024 Sex and Gender Information Value Date Recorded Sex Assigned at Female 04/01/2023 10:33 AM EDT Gender Identity Female 12/03/2020 7:53 AM EDT Sexual Orientation Heterosexual (straight) 12/03 7:53 AM EDT documented as of this encounter Plan of Treatment Upcoming Encounters Date Type Department Care Team (Late st Contact Info) Description 01/13/2025 9:00 AM EDT [place] [facility] [address] [address] Holley Webb PA-C [address] [place] [address] documented as of this encounter Visit Diagnoses Not on filedocumented in this encounter Care Teams Lock Corner Machine Operator Relationship Specialty Start Date End Date Luther Echavarria PA [address] [place] [address] PCP - General Family Medicine 08/02/20 Analy Bose CNM [address] [place] [address] Transmission And Protection Engineer Obstetrics and Gynecology 04/03/23 documented as of this encounter
--- OUTSIDE RECORDS SUMMARY | 2024-11-29 11:55 | XMS_ITS | Encounter Summary ---
Author Organization [facility] Address [address] [place] [address] Care Team Providers Care Director Of Group Counseling Program Name Role Phone Luther Echavarria Primary Care Provider [phone] Analy Bose CN Unavailable [phone] Encounter Details Date Type Department Care Team (Late st Contact Info) Description 09/17/2020 Scanned Document [facility] FAMILY MED SCAN Luther Echavarria PA [address] [place] [address] Social History Tobacco Use Types Packs/Day Years [...] Description 01/13/2025 9:00 AM EDT Consult [facility] [address] [place] [address] Holley Webb PA-C [address] [place] [address] documented as of this encounter Visit Diagnoses Not on filedocumented in this encounter Care Teams Director Of Group Counseling Program Relationship Specialty Start Date End Date Luther Echavarria PA [address] [place] [address] PCP - General Family Medicine 08/02/20 Analy Bose CNM [address] [place] [address] Flight Inspector Obstetrics and Gynecology 04/03/23 documented as of this encounter
--- OUTSIDE RECORDS SUMMARY | 2024-11-29 11:55 | XMS_ITS | Clinical Summary ---
Author Organization [facility] Address [address] [place] [address] Care Team Providers Care Tombstone Erector Name Role Phone Phil Storm Primary Care [...] age to complete this topic Care Teams Tombstone Erector Relationship Specialty Start Date End Date Phil Storm PCP - General 04/20/23
--- OUTSIDE RECORDS SUMMARY | 2024-11-29 11:55 | XMS_ITS | Encounter Summary ---
Author Organization [facility] Address [address] [place] [address] Care Team Providers Care Audio Visual Facilities Engineer Name Role Phone Luther Echavarria Primary Care Provider [phone] Analy Bose CNM Unavailable [phone] Encounter Details Date Type Department Care Team (Late Contact Info) Description 11/05/2023 Scanned Document [facility] BARIATRICS SCAN Bariatrics, Scan Social History Tobacco [...] Description 01/13/2025 9:00 AM EDT Consult [facility] [address] [place] [phone] Holley Webb PA-C [address] [place] [address] documented as of this encounter Visit Diagnoses Not on filedocumented in this encounter Care Teams Audio Visual Facilities Engineer Relationship Specialty Start Date End Date Luther Echavarria PA [address] [place] [address] PCP - General Family Medicine 08/02/20 Analy Bose CNM [address] [place] [address] Residential Specialist Obstetrics and Gynecology 04/03/23 documented as of this encounter
--- OUTSIDE RECORDS SUMMARY | 2024-11-29 11:55 | XMS_ITS | Encounter Summary ---
Author Organization [facility] Address [address] [place] [address] Care Team Providers Care Birth Attendant Name Role Phone Luther Echavarria Primary Care Provider [phone] Analy Bose CNM Unavailable [phone] Reason for Visit * Reason Comments Transition Of Care Patient was admitted to [facility] from 11/13/2024- for gall bladder removal Encounter Details Date Type Department Care Team (Latest Contact Info) Description 11/18/2024 11:30 AM EST Office Visit [facility] [address] [place] [phone] Luther Echavarria PA [address] [place] [address] S/P cholecystectomy (Primary Dx) Social History Tobacco Use Types Packs/Day Years Used Date Smoking Tobacco: Never Smokeless Tobacco: Never Alcohol Use Standard Drinks/Week Comments Not Currently 0 (1 standard drink = 0.6 oz pur e alcohol) [facility] Utilities Answer Date Recorded In the past 12 months has [employer], gas, oil, or water company threatened [...] and Family Not on file 09/18/2024 Attends Mormon Services Not on file 09/18 Active Member [...] any time in the past 12 m [facility], were you homeless or living in a senior living (including now)? No 09/18/2024 Education Answer Date Recorded What is the highest level of school you have completed or the highest degree you have received? 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, CREDIT RISK SPECIALIST, DONAVON) 09/18/2024 Sex and Gender Information Value [...] Description 01/13/2025 9:00 AM EDT Consult [facility] [address] [place] [phone] Holley Webb PA-C [address] [place] [address] documented as of this encounter Visit Diagnoses Diagnosis S/P cholecystectomy- Primary Other acquired absence of organ documented in this encounter Care Teams Birth Attendant Relationship Specialty Start Date End Date Luther Echavarria PA [address] [place] [address] PCP - General Family Medicine 08/02/20 Analy Bose CNM [address] [place] [address] Survival Equipment Repairer Obstetrics and Gynecology 04/03/23 documented as of this encounter
--- OUTSIDE RECORDS SUMMARY | 2024-11-29 11:55 | XMS_ITS | Data Portability ---
Author Organization [facility] [place] Address [address] [place] [address] Assessment Encounter Date Assessment Date Assessment LastModified [...] at night. She can ice and take ptdl-hqz-dxtir er anti-inflammat ories. We discussed steroid injection [...] view 2023 024 [email or web address] [facility], [address], [place], [address], 08:38:27 Medication Orders lidocaine (PF) 10 mg/mL (1 %) injection solution 2023 024 [email or web address] Not available 13:05:51 triamcinolo ne acetonide 40 mg/mL suspension for injection 2023 024 [email or web address] Not available 13:05:51 Patient TargetsNo targets recorded. Patient Instructions Encounter Date Encounter Id Patient Instructions Last Modified By Organization Details Last Modified Time 02/02/2024 [id number] You have been provided with a cortisone [...] or contact us through the portal NING. 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 Procedures Surgical History Date Name Laterality Status Provider Name and Address Organization Details Recorded Time LES trigger finger/De Quervain's injection completed Stacy Alas MD [address], [place], [address], [place] [facility] 02/02/2024 12:36:17 Imaging Results None recorded. [...] lable Tri-Estaryl la (28) 0.18 mg(7)/0.215 mg(7)/0.25 mg(7)-0.035 mg tablet active Not Available Not Available No t Available Vitron-C 65 mg iron-125 mg tablet,lina yed release 02/01 completed Not Available Not Available Not Available Vitals Date Recorded Body height Body mass index (BMI) Body weight Provider Name and Address Organization Details Last Updated DateTime 02/02/2024 162.56 cm 31.8 kg/m2 [address] [place] [facility] 02/02/2024 11:23:47 Social History Question Answer Notes LastModified by Organizat ion Details LastModified Time Tobacco Smoking Status Never Smoker Nevacoleman Collins null, [place] [facility] 02/02/2024 11:23:59 What Is Your Level Of Alcohol Consumption? Occasional [email or web address] Information not available 02/02/2024 Do You Use Any Illicit Or Recreational Drugs? No [email or web address] Information not available 02/02/2024 Do You Or Have You Ever Used Any Other Forms Of Tobacco Or Nicotine? No [email or web address] Information not available 02/02/2024 Sex: Unknown Functional Status None recorded. Mental Status None recorded. Family History Nothing Reported. Medical History Condition Response Anemia Y Asthma Y Gynecological HistoryNo gynecological history recorded. Obstetrics History GPAL:G 0 P 0 0 0 0 Past Encounters Encounter ID Performer Location Encounter Start Date Encounter Closed Date Diagnosis/Indication Diagnosis SNOMED-CT Code Diagnosis ICD10 Code Diagnosis Note [id number] MD NORMA Villa [address] [place] [address] 02/02/2024 11:03:07 02/02/2024 12:02:20 Pain of right wrist 9039035396 22238 M25.531 Additional diagnosis detail: Right wrist pain Radial sty loid tenosynovitis 17177280 M65.4 Additional diagnosis detail: Radial styloid tenosynovi tis [de quervain] Health Concerns Section Related Observation LastModified by Organization Detai ls LastModified Time None Recorded Concern Status LastModified by Organization Details LastModified Time None Recorded Advance Directives Directive None Recorded Payers Encounter Date Sequence Insurance Name Policy Number Policy Hanson Covered Member ID Hanson Member ID Guarantor Name 02/02/2024 1 [place] [facility] ([facility]) [id number] Sera Stearns [id number] Radha Stearns Notes Date Note Type Note Provider Name and Address Organization Details Recorded Time 02/02/2024 text/html This is a 33-year-old hiium-hkce-xveqis nt female who is presenting with right [...] any numbness or tingling. Stacy Alas MD [address], [place], [address], [place] [facility], 02/02/2024 12:39:40 OBGyn Episode No OBEpisode recorded.
--- OUTSIDE RECORDS SUMMARY | 2024-11-29 11:55 | XMS_ITS | Encounter Summary ---
Author Organization [facility] Address [address] [place] [address] Care Team Providers Care Unit Technician Name Role Phone Luther Echavarria Primary Care Provider [phone] Analy Bose CN Unavailable [phone] Encounter Details Date Type Department Care Team (Late st Contact Info) Description 09/17/2020 Scanned Document [facility] FAMILY MED SCAN Luther Echavarria PA [address] [place] [address] Social History Tobacco Use Types Packs/Day Years [...] Description 01/13/2025 9:00 AM EDT Consult [facility] [address] [place] [address] Holley Webb PA-C [address] [place] [address] documented as of this encounter Visit Diagnoses Not on filedocumented in this encounter Care Teams Unit Technician Relationship Specialty Start Date End Date Ltuher Echavarria PA [address] [place] [address] PCP - General Family Medicine 08/02/20 Analy Bose CNM [address] [place] [address] Yarding And Folding Machine Operator Obstetrics and Gynecology 04/03/23 documented as of this encounter
--- OUTSIDE RECORDS SUMMARY | 2024-11-29 11:55 | XMS_ITS | Encounter Summary ---
Author Organization [facility] Address [address] [place] [address] Care Team Providers Care Belt Knife Feeder Name Role Phone Luther Echavarria Primary Care Provider [phone] Analy Bose CNM Unavailable [phone] Encounter Details Date Type Department Care Team (Late Contact Info) Description 12/10/2023 Scanned Document [facility] BARIATRICS SCAN Bariatrics, Scan Social [...] 01/13/2025 9:00 AM EDT Consult [facility] [address] [place] [phone] Holley Webb PA-C [address] [place] [address] documented as of this encounter Visit Diagnoses Not on filedocumented in this encounter Care Teams Belt Knife Feeder Relationship Specialty Start Date End Date Luther Echavarria PA [address] [place] [address] PCP - General Family Medicine 08/02/20 Analy Bose CNM [address] [place] [address] Reptile Keeper Obstetrics and Gynecology 04/03/23 documented as of this encounter
--- OUTSIDE RECORDS SUMMARY | 2024-11-29 11:55 | XMS_ITS | Encounter Summary ---
Author Organization [facility] Address [address] [place] [address] Care Team Providers Care Meat Stocker Name Role Phone Luther Echavarria Primary Care Provider [phone] Analy Bose CNM Unavailable [phone] Encounter Details Date Type Department Care Team (Late Contact Info) Description 07/29/2024 Scanned Document [facility] BARIATRICS SCAN Bariatrics, Scan Social History [...] Description 01/13/2025 9:00 AM EDT Consult [facility] [address] [place] [phone] Holley Webb PA-C [address] [place] [address] documented as of this encounter Visit Diagnoses Not on filedocumented in this encounter Care Teams Meat Stocker Relationship Specialty Start Date End Date Luther Echavarria PA [address] [place] [address] PCP - General Family Medicine 08/02/20 Analy Bose CNM [address] [place] [address] Supervisor Particleboard Obstetrics and Gynecology 04/03/23 documented as of this encounter
--- OUTSIDE RECORDS SUMMARY | 2024-11-29 11:55 | XMS_ITS | Encounter Summary ---
Author Organization [facility] Address [address] [place] [address] Care Team Providers Care Tile Layer Drainage Name Role Phone Luther Echavarria Primary Care Provider [phone] Analy Bose CN Unavailable [phone] Encounter Details Date Type Department Care Team (Late st Contact Info) Description 10/25/[address] [facility] [address] [place], [place] [phone] Luther Echavarria PA [address] [place] [address] Social History Tobacco Use Types Packs/Day Years [...] Description 01/13/2025 9:00 AM EDT Consult [facility] [address] [place] [phone] Holley Webb PA-C [address] [place] [address] documented as of this encounter Visit Diagnoses Not on filedocumented in this encounter Care Teams Tile Layer Drainage Relationship Specialty Start Date End Date Luther Echavarria PA [address] [place] [address] PCP - General Family Medicine 08/02/20 Analy Bose CNM [address] [place] [id number] Food And Nutrition Services Supervisor Obstetrics and Gynecology 04/03/23 documented as of this encounter
--- OUTSIDE RECORDS SUMMARY | 2024-11-29 11:55 | XMS_ITS | Encounter Summary ---
Author Organization [facility] Address [address] [place] [address] Care Team Providers Care Stem Processing Machine Operator Name Role Phone Luther Echavarria Primary Care Provider [phone] Analy Bose CNM Unavailable [phone] Encounter Details Date Type Department Care Team (Late Contact Info) Description 02/04/2024 Scanned Document [facility] BARIATRICS SCAN Bariatrics, Scan Social [...] Description 01/13/2025 9:00 AM EDT Consult [facility] [address] [place] [phone] Holley Webb PA-C [address] [place] [address] documented as of this encounter Visit Diagnoses Not on filedocumented in this encounter Care Teams Stem Processing Machine Operator Relationship Specialty Start Date End Date Luther Echavarria PA [address] [place] [address] PCP - General Family Medicine 08/02/20 Analy Bose CNM [address] [place] [address] Chrome Plater Obstetrics and Gynecology 04/03/23 documented as of this encounter
--- OUTSIDE RECORDS SUMMARY | 2024-11-29 11:56 | XMS_ITS | Clinical Summary ---
Author Organization [facility] Address [address] [place] [address] Care Team Providers Care Director University Name Role Phone Luther Echavarria Primary Care Provider [phone] Analy Bose CNM Unavailable [phone] Allergies Active Allergy Reactions Criticality Noted Date Comments [place] [employer] Anaphylaxis High 09/17/2020 Apple Juice Nausea [...] Description 11/18/2024 11:30 AM EST Office Visit [facility] [address] [place] [address] Luther Echavarria PA S/P cholecystectomy (Primary Dx) 11/18/2024 Travel 11/02/2024 Scanned Document [facility] EMERGENCY MED SCAN Emergency Medicine, Scan 11/01/2024 10:30 AM EST Office Visit [facility] [address] [place] [address] Luther Echavarria PA Biliary colic (Primary Dx); Epigastric abdominal pain; Alex's thyroiditis 11/01/2024 Travel 09/19/2024 11:15 AM EST Office Visit [facility] [address] [place] [address] Luther Echavarria PA Flank pain (Primary Dx); History of D&C; Alex's thyroiditis 09/19/2024 Travel from Last 3 Months Immunizations Name Administration [...] drink = 0.6 oz pur e alcohol) [facility] Utilities Answer Date Recorded In the past 12 months has [employer], gas, oil, or water [employer] threatened to shut off services in your home? No 09/18/2024 Social Connection and Isolat ion Panel [NHANES] Answer Date Recorded In a typical week, how many times do you talk on the phone with family, friends, or neighbors? More than three times a week 09/18/2024 Frequency of Social Gatherin gs with Friends and Family Not on file 09/18/2024 Attends Jainism Services Not on file 09/18 Active Member [...] any time in the past 12 m [facility], were you homeless or living in a chcf (including now)? No 09/18/2024 Education Answer Date Recorded What is the highest level of school you have completed or the highest degree you have received? 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, [place]) 09/18/2024 Sex and Gender Information Value [...] EDT Consult [facility] [address] [place] [phone] Holley Webb PA-C [address] [place] [address] Health Maintenance Due Date Last Done Comments [...] ANTIBODY Routine 01/26/2023 2:26 PM EDT THINPREP PAP(PHOTOENGRAVING FINISHER) HPV SCR RFX HPV 16,18/45 Routine 09/23/2022 12:44 PM EST from Last 3 Months or Most Recently Relevant to Health Maintenance Results * TSH REFLEX FREE T4 (11/01/2024 11:03 AM EST) Only the most recent of2 resultswithin the time period is included. TSH reflex Free T4 3.10 mIU/L [facility] Comment: ?Reference Range ?> or = 20 Years ??0.40-4.50 ? Ranges ?First trimester ?0.26-2.66 ?Second trimester ?? 0.55-2.73 ?Third trimester ?0.43-2.91 Blood 11/01/2024 11:0 3 AM EST 11/01/2024 11:04 AM EST Narrative [facility] - 11/02/2024 3:53 AM EST FASTING:YES FASTING: YES Luther ARNOLD LAB BLOOD ORDERABLES Performing Organization Address City/State/[facility] Co de Phone Number [facility] [address] [place] [phone] * Urinalysis with Reflex to Culture (09/26/2024 12:26 PM EST) Color YELLOW YELLOW [facility] Clarity CLEAR CLEAR [facility] Specific [place] 1.021 1.001 - 1.035 [facility] pH 5.5 5.0 - 8.0 [facility] Glucose, Urine, Random NEGATIVE NEGATIVE [facility] Bilirubin NEGATIVE NEGATIVE [facility] Ketones NEGATIVE NEGATIVE [facility] Blood NEGATIVE NEGATIVE [facility] Protein NEGATIVE NEGATIVE [facility] Nitrite NEGATIVE NEGATIVE [facility] Leukocyte Esterase NEGATIVE NEGATIVE [facility] WBC 0-5 < OR = 5 /HPF [facility] RBC NONE SEEN < OR = 2 /HPF [facility] Squamous Epithelial Cells 0-5 < OR = 5 /HPF [facility] Bacteria NONE SEEN NONE SEEN /HPF [facility] Hyaline Cast NONE SEEN NONE SEEN /LPF [facility] Note [facility] Comment: This urine was analyzed for the presence of WBC, RBC, bacteria, casts, and other formed elements. Only those elements seen were reported. Reflexive Urine Culture [facility] Comment:NO CULTURE INDICATED X-Specimen 16 Urine specimen obtained by clean catch procedure / Unknown 09/26/2024 12:26 PM EST 09/26/2024 12:26 PM EST Luther ARNOLD URINE ORDERABLES [facility] [address] [place] [address] * Complete Blood Count, with Differential (09/19/2024 11:43 AM EST) White Blood Cell Count 8.2 3.8 - 10.8 Thousand/u L [facility] Red Blood Cell Count 4.55 3.80 - 5.10 Million/uL [facility] Hemoglobin 13.0 11.7 - 15.5 g/dL [facility] Hematocrit 39.6 35.0 - 45.0 % [facility] MCV 87.0 80.0 - 100.0 fL [facility] MCH 28.6 27.0 - 33.0 pg [facility] MCHC 32.8 32.0 - 36.0 g/dL [facility] Comment: For adults, a slight decrease in the calculated MCHC value (in the range of 30 to 32 g/dL) is most likely not clinically significant; however, it should be interpreted with caution in correlation with other red cell parameters and the patient's clinical condition. RDW 12.4 11.0 - 15.0 % [facility] Platelet Count 312 140 - 400 Thousand/u L [facility] MPV 10.5 7.5 - 12.5 fL [facility] Abs Neutrophils Auto 4,264 1,500 - 7,800 cells/uL [facility] Abs Lymphocytes Auto 2,911 850 - 3,900 cells/uL [facility] Abs Monocytes Auto 549 200 - 950 cells/uL [facility] Abs Eosinophils Auto 426 15 - 500 cells/uL [facility] Abs Basophils Auto 49 0 - 200 cells/uL [facility] Neutrophils Auto 52 % [facility] Lymphocytes Auto 35.5 % [facility] Monocytes Auto 6.7 % [facility] Eosinophils Auto 5.2 % [facility] Basophils Auto 0.6 % [facility] Blood Blood specimen / Unknown 09/19/2024 11:43 AM EST 09/19/2024 11:44 AM EST Narrative [facility] - 09/20/2024 7:33 AM EST FASTING:YES FASTING: YES Luther ARNOLD LAB BLOOD ORDERABLES Performing Organization Address [facility] de Phone Number [facility] [address] [place] [phone] * Beta-hCG, Quantitative (09/19/2024 11:43 AM EST) Pathologist [facility] HCG, Total <5 mIU/mL [facility] Comment: Reference Range Non or premenopausal ?<5 Postmenopausal ? <10 Values from different assay methods may vary. The use of this assay to monitor or to diagnose patients with cancer or any condition unrelated to has not been cleared or approved by the FDA or the cable worker helper of the assay. Blood Blood specimen / Unknown 09/19/2024 11:43 AM EST 09/19/2024 11:44 AM EST Narrative [facility] - 09/20/2024 7:33 AM EST FASTING:YES FASTING: YES Luther ARNOLD LAB BLOOD ORDERABLES Performing Organization Address [facility] Co de Phone Number [facility] [address] [place] [phone] * Lipase (09/19/2024 11:43 AM EST) Lipase 34 7 - 60 U/L [facility] Blood Blood specimen / Unknown 09/19/2024 11:43 AM EST 09/19/2024 11:44 AM EST Narrative [facility] - 09/20/2024 7:33 AM EST FASTING:YES FASTING: YES Luther ARNOLD LAB BLOOD ORDERABLES [facility] [address] [place] [address] * Comprehensive Metabolic Panel (09/19/2024 11:43 AM EST) Glucose 74 65 - 99 mg/dL [facility] Comment: ? Fasting reference interval Blood Urea Nitrogen (BUN) 16 7 - 25 mg/dL [facility] Creatinine 0.79 0.50 - 0.97 mg/dL [facility] Creatinine w/ eGFR 99 > OR = 60 mL/min/1. 73m2 [facility] BUN/Creatinine Ratio SEE NOTE: 6 - 22 (calc) [facility] Comment: ?? Not Reported: BUN and Creatinine are within ?? reference range. ? Sodium 139 135 - 146 mmol/L [facility] Potassium 3.9 3.5 - 5.3 mmol/L [facility] Chloride 103 98 - 110 mmol/L [facility] CO2 28 20 - 32 mmol/L [facility] Calcium 9.4 8.6 - 10.2 mg/dL [facility] Protein, Total 7.9 6.1 - 8.1 g/dL [facility] Albumin 4.6 3.6 - 5.1 g/dL [facility] Globulin 3.3 1.9 - 3.7 g/dL (calc) [facility] Albumin/Globuli n Ratio 1.4 1.0 - 2.5 (calc) [facility] Bilirubin, Total 0.5 0.2 - 1.2 mg/dL [facility] Alkaline Phosphatase 42 31 - 125 U/L [facility] Aspartate Aminotrans (AST) 14 10 - 30 U/L [facility] Alanine Aminotrans (ALT) 16 6 - 29 U/L [facility] Blood 09/19/2024 11:4 3 AM EST 09/19/2024 11:44 AM EST Narrative [facility] - 09/20/2024 7:33 AM EST FASTING:YES FASTING: YES Luther ARNOLD LAB BLOOD ORDERABLES [facility] [address] [place] [phone] * HIV 1/2 Ag/Ab CMIA Reflex to Confirmation (06/01/2023 9:27 AM EDT) HIV Ag/Ab, 4th Gen Non-Reacti ve Non-Reacti ve [facility] Comment: Results show no evidence of infection by HIV 1/2. If clinically indicated, repeat CMIA or test by nucleic acid amplification. 06/01/2023 9:27 AM EDT 06/01/2023 7:[address] [facility] - 06/02/2023 1:22 AM EDT FASTING:YES Analy Bose CNM LAB BLOOD ORDERABLES Performing Organization Address [facility] Co de Phone Number [facility] [address] [place], [place] * (ABNORMAL) HEPATITIS C VIRUS (HCV) ANTIBODY (01/26/2023 2:26 PM EDT) Hepatitis C Antibody 1.11 Reactive(A ) Non-Reacti ve S/CO [facility] Comment: CDC recommends a aczxhv-uu-gqacxh (S/CO) ratio equal to or >5 to predict true infection 95% of the time. Low reactive results (1.0-4.99 S/CO) should be confirmed by HCV nucleic acid testing. Other 01/26/2023 2:26 PM EDT 01/27/2023 12:49 AM EDT Analy Bose CNM LAB BLOOD ORDERABLES [facility] [address] [place], [place] * ThinPrep Pap(Icer Machine Operator) HPV Scr Rfx HPV 16,18/45 (09/23/2022 12:44 [...] was manually screened according to routine procedures. Lithographic Retoucher Apprentice: [employer] [facility] Comment: [place], CT(ASCP) CT screening location: [address] ??[phone] Review Lithographic Retoucher Apprentice: [employer] NL1 Comment: DCR, CT(ASCP) CT screening location: [address] ??[phone] Comment [facility] Comment: EXPLANATORY NOTE: [...] Not Detected [facility] Comment: Methodology: Coil Cleaner-Mediated Amplification This assay detects E6/E7 viral messenger RNA (mRNA) from 14 high-risk HPV types (16,18,31,33,35,39,45,51,52,56,58,59,66,68). Cervical sources are required for HPV testing. If a vaginal source from a patient who has had a total hysterectomy with removal of cervix was submitted, please contact the testing laboratory for alternative testing options. For additional information, please refer to http://education.[employer]/faq/SAW863c9 (This link if provided for information/ educational purposes only.) 09/23/2022 12:4 4 PM EST 09/25/2022 6:42 AM EST Narrative [facility] - 10/02/2022 11:33 AM EST [id number] AB Amarilys Hobson MD LAB AMB PATH/CYTO OR DERABLES [facility] [address] [facility] 3rd Floor, [place] [address] from Last 3 Months or Most Recently Relevant to Health Maintenance Care Teams Director University Relationship Specialty Start Date End Date Luther Echavarria PA [address] [place] [address] PCP - General Family Medicine 08/02/20 Analy Bose CNM [address] [place] [address] Plate Developer Obstetrics and Gynecology 04/03/23
== END 2024-11-29 10:42 | disposition home or self-care (01) ==
LOC: HO.HGS 10:19
PROVIDERS: Visit Provider Surgery
DX: K81.0 Acute cholecystitis (principal)
CPT/HCPCS: 99024